=== PATIENT | male | born 1950 | race Caucasian/White ===

== ENCOUNTER → 2016-06-21 | Outpatient (CLI) | payer OTHER ==
[~2016-06-21] MED LIST: ALT10 PO; CLS20 PO; GLC500 PO; QVRINH40 INH; SIMV20TA2 PO; VGR50 PO
[2016-06-21 17:45] LABS: HEMATOCRIT 42.4 % (42-52); MEAN CELL VOLUME 76.3 fL (80-100); MEAN CORPUSCULAR HGB CONC 32.8 g/dl (32-36); MEAN PLATELET VOLUME 11.5 fL (7.4-10.4); PLATELET COUNT 215 K/uL (130-400); RED BLOOD COUNT 5.56 M/uL (4.7-6.1); WHITE BLOOD COUNT 11.01 K/uL (4.8-10.8)
[2016-06-21 17:55] LABS: BLOOD UREA NITROGEN 17 mg/dl (7-18); BUN/CREATININE RATIO 15.5 (10-20); CALCIUM 9.2 mg/dl (8.5-10.1); CARBON DIOXIDE 27 mmol/L (21-32); CHLORIDE 101 mmol/L (98-107); GLUCOSE 73 mg/dl (70-99); POTASSIUM 4.2 mmol/L (3.5-5.1); SODIUM 136 mmol/L (136-145)
[2016-06-22 07:00] LABS: ESTIMATED AVERAGE GLUCOSE 169 mg/dl; HA1C FLAG Normal (Normal)
== END | disposition home or self-care (01) ==
LOC: C.LABPVFM 14:29
PROVIDERS: ATTEND Family Medicine
DX: E11.9 Type 2 diabetes mellitus without complications (principal); L02.91 Cutaneous abscess, unspecified

== ENCOUNTER → 2016-08-06 | Outpatient (CLI) | payer OTHER | END | disposition home or self-care (01) | LOC: C.LABPVFM 08:30 | PROVIDERS: ATTEND Urology | DX: R33.9 Retention of urine, unspecified (principal) ==

== ENCOUNTER → 2016-08-26 | Outpatient (CLI) | payer OTHER ==
--- NOTE | 2016-08-26 15:09 | DIAGNOSTIC IMAGING REPORT ---
CHEST 2 VIEWS ROUTINE CLINICAL HISTORY: Cough dyspnea COMPARISON STUDY: No previous studies for comparison. FINDINGS: The bones soft tissues and hemidiaphragms are normal. The cardiomediastinal silhouette is normal. The lungs are clear. The pulmonary vasculature is normal. IMPRESSION: Negative chest. Electronically signed by: Chriss Douglass M.D. 08/26/2016 3:08 PM Dictated Date/Time: 08/26/2016 3:07 PM
== END | disposition home or self-care (01) ==
LOC: C.RADPV 14:53
PROVIDERS: ATTEND Family Medicine
DX: R05 Cough (principal)

== ENCOUNTER → 2016-08-30 | Outpatient (CLI) | payer OTHER | END | disposition home or self-care (01) | LOC: C.LABPVFM 10:05 | PROVIDERS: ATTEND Family Medicine | DX: R05 Cough (principal) ==

== ENCOUNTER → 2016-11-30 | Outpatient (CLI) | payer OTHER ==
[2016-11-30 13:27] LABS: BLOOD UREA NITROGEN 17 mg/dl (7-18); BUN/CREATININE RATIO 16.7 (10-20); CALCIUM 9.4 mg/dl (8.5-10.1); CARBON DIOXIDE 27 mmol/L (21-32); CHLORIDE 104 mmol/L (98-107); ESTIMATED AVERAGE GLUCOSE 180 mg/dl; GLUCOSE 194 mg/dl (70-99); HA1C FLAG Normal (Normal); POTASSIUM 4.4 mmol/L (3.5-5.1); SODIUM 137 mmol/L (136-145)
== END | disposition home or self-care (01) ==
LOC: C.LABPVFM 09:53
PROVIDERS: ATTEND Family Medicine
DX: E11.9 Type 2 diabetes mellitus without complications (principal)

== ENCOUNTER → 2017-04-01 | Outpatient (CLI) | payer OTHER ==
[2017-04-01 17:59] LABS: BLOOD UREA NITROGEN 22 mg/dl (7-18); BUN/CREATININE RATIO 20.4 (10-20); CALCIUM 8.9 mg/dl (8.5-10.1); CARBON DIOXIDE 30 mmol/L (21-32); CHLORIDE 101 mmol/L (98-107); CREATININE 1.08 mg/dl (0.60-1.40); GLUCOSE 160 mg/dl (70-99); POTASSIUM 4.1 mmol/L (3.5-5.1); SODIUM 135 mmol/L (136-145)
[2017-04-02 06:07] LABS: ESTIMATED AVERAGE GLUCOSE 169 mg/dl; HA1C FLAG Normal (Normal)
== END | disposition home or self-care (01) ==
LOC: C.LABPVFM 11:51
PROVIDERS: ATTEND Family Medicine
DX: E11.65 Type 2 diabetes mellitus with hyperglycemia (principal)

== ENCOUNTER → 2017-06-24 | Outpatient (CLI) | payer OTHER ==
[2017-06-24 12:27] LABS: HEMATOCRIT 43.7 % (42-52); HEMOGLOBIN 14.8 g/dL (14.0-18.0); MEAN CELL VOLUME 77.8 fL (80-100); MEAN CORPUSCULAR HEMOGLOBIN 26.3 pg (25-34); MEAN CORPUSCULAR HGB CONC 33.9 g/dl (32-36); MEAN PLATELET VOLUME 11.5 fL (7.4-10.4); PLATELET COUNT 194 K/uL (130-400); RED CELL DISTRIBUTION WIDTH CV 14.7 % (11.5-14.5); RED CELL DISTRIBUTION WIDTH SD 41.8 fL (36.4-46.3); WHITE BLOOD COUNT 9.27 K/uL (4.8-10.8)
[2017-06-24 13:07] LABS: ALBUMIN 3.9 gm/dl (3.4-5.0); ALT/SGPT 41 U/L (12-78); AST/SGOT 17 U/L (15-37); BLOOD UREA NITROGEN 19 mg/dl (7-18); CALCIUM 8.7 mg/dl (8.5-10.1); CARBON DIOXIDE 28 mmol/L (21-32); CHOLESTEROL 162 mg/dl (0-200); CREATININE 1.03 mg/dl (0.60-1.40); GLUCOSE 172 mg/dl (70-99); POTASSIUM 4.4 mmol/L (3.5-5.1); SODIUM 136 mmol/L (136-145)
[2017-06-24 13:17] LABS: ALKALINE PHOSPHATASE 72 U/L (45-117); LDL CHOLESTEROL CALCULATED 98 mg/dl; TOTAL PROTEIN 7.5 gm/dl (6.4-8.2)
[2017-06-24 14:31] LABS: HEMOGLOBIN A1C 7.7 % (4.5-5.6)
== END | disposition home or self-care (01) ==
LOC: C.LABPVFM 08:12
PROVIDERS: ATTEND Family Medicine
DX: I10 Essential (primary) hypertension (principal); E66.9 Obesity, unspecified; E78.5 Hyperlipidemia, unspecified; J43.9 Emphysema, unspecified

== ENCOUNTER 2017-11-25 16:46 | Inpatient (IN) | payer OTHER ==
[~2017-11-25] VITALS: Ht 175.3 cm; Wt 104.4 kg
[2017-11-25] MEDS ORDERED: DILTIAZEM BOLUS / DRIP IV STA (16:55)
[2017-11-25] MEDS ORDERED: SODIUM CHLORIDE 0.9% 1000ML 1,000 ML IV STA (16:55)
[2017-11-25] MEDS ORDERED: DILTIAZEM HCL INJ 125 MG in DEXTROSE 5% 100ML IV PRN (17:15)
[2017-11-25] MEDS ORDERED: DILTIAZEM HCL 5 MG/ML 5 ML VIAL BOLUS/OMNI IV SCH (17:15)
[2017-11-25] MEDS ORDERED: GLY/5 PO ×2 (17:19)
[2017-11-25] MEDS ORDERED: ASPCH81X PO (17:19)
[2017-11-25] MEDS ORDERED: FLUT1INH7 INH (17:19)
[2017-11-25] MEDS ORDERED: ATOR-24 PO (17:19)
[2017-11-25] MEDS ORDERED: GLC/500 PO (17:21)
[2017-11-25] MEDS ORDERED: VNTHFA/IN INH (17:21)
[2017-11-25] MEDS ORDERED: EMPA1TAB PO (17:21)
[2017-11-25] MEDS ORDERED: IRBE1TAB50 PO (17:21)
[2017-11-25 17:28] LABS: MEAN CORPUSCULAR HGB CONC 33.9 g/dl (32-36)
[2017-11-25 17:37] LABS: HEMATOCRIT 39.9 % (42-52); HEMOGLOBIN 13.5 g/dL (14.0-18.0); INR 1.1 (0.9-1.1); MEAN CELL VOLUME 76.9 fL (80-100); RED CELL DISTRIBUTION WIDTH CV 15.5 % (11.5-14.5); RED CELL DISTRIBUTION WIDTH SD 43.4 fL (36.4-46.3); WHITE BLOOD COUNT 14.13 K/uL (4.8-10.8)
[2017-11-25 17:47] LABS: PLATELET COUNT 87 K/uL (130-400)
[2017-11-25 17:48] LABS: BASO % 0.1 %; BASO ABS # 0.01 K/uL (0-0.2); IG# 0.39 K/uL (0.00-0.02); LYMPH % 4.7 %; LYMPH ABS # 0.67 K/uL (1.2-3.4); MONO % 6.4 %; NEUT ABS # 12.16 K/uL (1.4-6.5)
--- NOTE | 2017-11-25 17:48 | DIAGNOSTIC IMAGING REPORT ---
CHEST ONE VIEW PORTABLE HISTORY: Atypical CHEST PAIN COMPARISON: Chest 08/26/2016. FINDINGS: Stable small linear scarlike density left lung base. The lungs are otherwise clear. The heart is normal in size. No pleural effusions. No pneumothorax. The patient is slightly rotated on this study. IMPRESSION: No acute process. Electronically signed by: Cullen Sr M.D. 11/25/2017 5:47 PM Dictated Date/Time: 11/25/2017 5:45 PM
[2017-11-25 17:50] LABS: ALBUMIN 2.9 gm/dl (3.4-5.0); ALKALINE PHOSPHATASE 152 U/L (45-117); ALT/SGPT 96 U/L (12-78); AST/SGOT 79 U/L (15-37); BLOOD UREA NITROGEN 21 mg/dl (7-18); CALCIUM 8.3 mg/dl (8.5-10.1); CARBON DIOXIDE 20 mmol/L (21-32); GLUCOSE 157 mg/dl (70-99); LIPASE 69 U/L (73-393); POTASSIUM 4.1 mmol/L (3.5-5.1); SODIUM 128 mmol/L (136-145); TOTAL PROTEIN 6.8 gm/dl (6.4-8.2)
--- NOTE | 2017-11-25 18:12 | History and Physical ---
History & Physical Date & Time of Service: Nov 25, 2017 at 18:11 Chief Complaint: Cardiac Assessment Primary Care Physician: Kenia Cesar M.D. History of Present Illness Source: patient, hospital records, other 66 y/o M Hx DM II, HTN, HLD, obese, COPD. The pt presents with episodes of tremor, SOB and tightness in his neck and jaw. He describes 5 such episodes which can last over an hour starting 4 days prior. He had been to his primary MD the previous day and had an apparently normal EKG. He returned today as the symptoms recurred and was found to be in AF with an HR of 150. The pt was referred to the ER therefore. He also complains of dysuria and swelling and erythema of his penis with some yellow discharge. He denies any CP, a productive cough or fevers. Initial labs are notable for LFT abnormalities, hyponatremia and a low platelet count. The pt denies alcohol consumption. AF was confirmed on arrival to the ER. He denies related symptoms at the time of admission and appeared to respond well to a Cardizem bolus. Past Medical/Surgical History 1) COPD 2) HTN 3) Obese 4) DM II 5) HLD Family History Father at age 85 due to [place] Mother at age 69 due to [place] Social History The pt quit smoking 10 years ago. He rarely drinks alcohol and denies a previous history of abuse. 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 Smoking Status: Former Smoker Allergies Coded Allergies: No Known Allergies (Unverified , 05/31/11) Home Medications Scheduled Aspirin (Aspirin Chewable), 81 MG PO DAILY Atorvastatin (Lipitor), 40 MG PO DAILY Empagliflozin (Jardiance), 10 MG PO DAILY Fluticasone Furoate-Vilanterol (Breo Ellipta 200-25 Mcg/INH), 1 PUFF INH DAILY Glyburide (Diabeta), 10 MG PO QPM Glyburide (Diabeta), 5 MG PO QAM Irbesartan (Irbesartan), 150 MG PO DAILY Metformin Hcl (Glucophage), 500 MG PO BID Scheduled PRN Albuterol Hfa (Ventolin Hfa), 2 PUFFS INH Q4H PRN for SOB/Wheezing Review of Systems Constitutional: No fever, No sweats Eyes: No worsening of vision ENT: No hearing loss, No unusual epistaxis, No nasal symptoms Respiratory: + shortness of breath, No cough, No sputum, No wheezing Cardiovascular: + problem reported (Jaw and neck pain), No chest pain Abdomen: + problem reported (distention), No pain Genitourinary - Male: + dysuria, + penile discharge, + problem reported ( erythema as above) Neurologic: + problem reported (tremors), No memory loss, No paralysis Endocrine: No fatigue Hematologic / Lymphatic: No abnormal bleeding/bruising Integumentary: + problem reported (Erythema of penis) Allergic / Immunologic: No environmental allergies Physical Exam Vital Signs Date Time Temp Pulse Resp B/P (MAP) Pulse Ox O2 Delivery O2 Flow Rate FiO2 11/25/17 17:50 119 25 130/79 93 Room Air 11/25/17 17:30 116 28 131/88 93 Room Air 11/25/17 17:19 130 22 141/79 93 Room Air 11/25/17 17:05 142 27 137/82 96 Room Air 11/25/17 17:01 94 Nasal Cannula 11/25/17 17:01 94 Room Air 11/25/17 16:59 162 11/25/17 16:56 37.0 147 17 121/66 94 Room Air 11/25/17 16:56 94 Room Air General Appearance: WD/WN, no apparent distress Head: normocephalic Eyes: normal inspection ENT: normal ENT inspection, pharynx normal Neck: supple, + pertinent finding (Cannot assess JVD due to habitus) Respiratory/Chest: chest non-tender, + pertinent finding (Reduced BL air movement without crackles or wheezing) Cardiovascular: + tachycardia (Regular, tachy rhythm at the time of admission) Abdomen/GI: normal bowel sounds, + pertinent finding (Abdomen is distended, nontender) Genitourinary - Male: + pertinent finding (There is swelling and erythema of the shaft of the penis. ) Back: normal inspection, no CVA tenderness Extremities/Musculoskelatal: normal inspection, no calf tenderness, normal capillary refill, no pedal edema Neurologic/Psych: sde II-XII nml as tested, no motor/sensory deficits, alert, oriented x 3 Skin: normal color Diagnostics Laboratory Results Results Past 24 Hours Test 11/25/17 17:10 Range/Units White Blood Count 14.13 4.8-10.8 K/uL Red Blood Count 5.19 4.7-6.1 M/uL Hemoglobin 13.5 14.0-18.0 g/dL Hematocrit 39.9 42-52 % Mean Corpuscular Volume 76.9 80-100 fL Mean Corpuscular Hemoglobin 26.0 25-34 pg Mean Corpuscular Hemoglobin Concent 33.9 32-36 g/dl Platelet Count 87 130-400 K/uL Neutrophils (%) (Auto) 86.0 % Lymphocytes (%) (Auto) 4.7 % Monocytes (%) (Auto) 6.4 % Eosinophils (%) (Auto) 0.0 % Basophils (%) (Auto) 0.1 % Neutrophils # (Auto) 12.16 1.4-6.5 K/uL Lymphocytes # (Auto) 0.67 1.2-3.4 K/uL Monocytes # (Auto) 0.90 0.11-0.59 K/uL Eosinophils # (Auto) 0.00 0-0.5 K/uL Basophils # (Auto) 0.01 0-0.2 K/uL RDW Standard Deviation 43.4 36.4-46.3 fL RDW Coefficient of Variation 15.5 11.5-14.5 % Immature Granulocyte % (Auto) 2.8 % Immature Granulocyte # (Auto) 0.39 0.00-0.02 K/uL Toxic Vacuolation 1+ Dohle Bodies 2+ Platelet Estimate DECREASED Prothrombin Time 12.0 9.0-12.0 SECONDS Prothromb Time International Ratio 1.1 0.9-1.1 Activated Partial Thromboplast Time 38.0 21.0-31.0 SECONDS Partial Thromboplastin Ratio 1.5 Sodium Level 128 136-145 mmol/L Potassium Level 4.1 3.5-5.1 mmol/L Chloride Level 95 98-107 mmol/L Carbon Dioxide Level 20 21-32 mmol/L Anion Gap 13.0 3-11 mmol/L Blood Urea Nitrogen 21 7-18 mg/dl Creatinine 1.20 0.60-1.40 mg/dl Est Creatinine Clear Calc Drug Dose 76.5 ml/min Estimated GFR () 73.6 Estimated GFR (Non- 63.5 BUN/Creatinine Ratio 17.7 10-20 Random Glucose 157 70-99 mg/dl Calcium Level 8.3 8.5-10.1 mg/dl Total Bilirubin 0.8 0.2-1 mg/dl Direct Bilirubin 0.3 0-0.2 mg/dl Aspartate Amino Transf (AST/SGOT) 79 15-37 U/L Alanine Aminotransferase (ALT/SGPT) 96 12-78 U/L Alkaline Phosphatase 152 45-117 U/L Troponin I < 0.015 0-0.045 ng/ml Pro-B-Type Natriuretic Peptide 949 0-900 pg/ml Total Protein 6.8 6.4-8.2 gm/dl Albumin 2.9 3.4-5.0 gm/dl Lipase 69 73-393 U/L CXR normal EKG AF/RVR 150BPM Impression Assessment and Plan 66 y/o M Hx DM II, HTN, HLD, obese, COPD. The pt presents with episodes of tremor, SOB and tightness in his neck and jaw. He describes 5 such episodes which can last over an hour starting 4 days prior. He had been to his primary MD the previous day and had an apparently normal EKG. He returned today as the symptoms recurred and was found to be in AF with an HR of 150. The pt was referred to the ER therefore. He also complains of dysuria and swelling and erythema of his penis with some yellow discharge. He denies any CP, a productive cough or fevers. Initial labs are notable for LFT abnormalities, hyponatremia and a low platelet count. The pt denies alcohol consumption. AF was confirmed on arrival to the ER. He denies related symptoms at the time of admission and appeared to respond well to a Cardizem bolus. 1) AF - new-onset - placed on a Cardizem drip - he is intermittently in a sinus tach rhythm on admission. We will provide ASA but will not otherwise anticoagulate him prior to trending his platelets. His CHADS score would justify long-term anticoagulation. 2) LFTs are abnormal - denies ETOH use - he may have cirrhosis due to GUILLAUME. We will start with an abdominal ultrasound and repeat LFTs AM. He may need a dedicated liver scan and GI consult if an etiology is not apparent. 3) Hyponatremia - etiology is not clear. The pt is clinically volume overloaded. We will place him on fluid restriction and trend his Na. We will check a urine Na and OSM. We can proceed with IVF and Lasix if needed. A TSH is pending which may explain his AF, tremors and hyponatremia. 4) Penile swelling and discharge - a UA is pending - he is not at risk of STD - we will consult urology. 5) DM II - placed on a SS 6) HTN - cont Irbesartan 7) HLD - continue a statin 8) COPD - no evidence of exacerbation - would minimize albuterol use - continue baseline inhalers Full code - SCDs - total time for this admit including review of labs, meds, imaging, records - discussion with pt and ER attending 39 min Resuscitation Status VTE Prophylaxis Will order VTE Prophylaxis: Yes
[2017-11-25] MEDS ORDERED: LORAZEPAM 2 MG/ML 1 ML VIAL IV PRN (18:15)
[2017-11-25] MEDS ORDERED: ONDANSETRON INJ 2 MG/ML 2 ML VIAL IV PRN (18:15)
[2017-11-25] MEDS ORDERED: ACETAMINOPHEN 325 MG TAB PO PRN (18:15)
[2017-11-25] MEDS ORDERED: POLYETHYLENE (MIRALAX) 17 GM PACK PO PRN (18:15)
[2017-11-25] MEDS ORDERED: ALUMINUM/MAGNESIUM/SIMETH (MAALOX MAX) 30 ML UDC PO PRN (18:15)
[2017-11-25] MEDS ORDERED: MoRPHine SULFATE 2 MG/ML CARP IV PRN (18:15)
[2017-11-25] MEDS ORDERED: MAGNESIUM HYDROXIDE SUSP 30 ML UDC PO PRN (18:15)
[2017-11-25] MEDS ORDERED: ALBUTEROL HFA 8 GM INHALER INH PRN (18:30)
[2017-11-25] MEDS ORDERED: DILTIAZEM BOLUS / DRIP IV PRN (19:42)
[2017-11-25 20:00] VITALS: BP 150/78; PULSE 92; TEMP 36.7; O2SAT 95; BMI 35.2
--- NOTE | 2017-11-25 20:04 | EMERGENCY ROOM VISIT NOTE ---
History Report prepared by Javier: Kitty Graf Under the Supervision of: Dr. Cole Hernandez D.O. First contact with patient: 16:46 Stated Complaint: CARDIAC ASSESSMENT History of Present Illness The patient is a 66 year old male who presents to the Emergency Room with complaints of a cardiac assessment today. The patient states that he has had tremors over the last 3 days and that he gets short of breath when he has those tremors. The patient reports feeling weak and tired and states that he was at his doctor's office yesterday for this. He states that he had an ECG done yesterday and that the rate was normal. Per EMS, the patient had an ECG done in the office today which showed that the patient was in atrial fibrillation with RVR. The patient denies having any nausea or vomiting. The patient also denies feeling his heart racing. He reports that he is a former smoker and that he uses alcohol occasionally. The patient reports that he has hypertension and type 2 diabetes. He denies a history of cardiac problems. Per EMS, the patient was given 10 mg of Cardizem en route. Source of History: patient, EMS Onset: today Position: chest Quality: other (cardiac assessment ) Associated Symptoms: + SOB (with tremors ), + fatigue, + weakness, No nausea , No vomiting Note: additional symptoms: tremors over the last 3 days Review of Systems See HPI for pertinent positives & negatives. A total of 10 systems reviewed and were otherwise negative. Past Medical & Surgical Medical Problems: (1) Atrial fibrillation with rapid ventricular response (2) Diabetes (3) HTN (hypertension) Family History Patient reports no known family medical history. Social History Smoking Status: Former Smoker Alcohol Use: occasionally Marital Status: single Current/Historical Medications Scheduled Aspirin (Aspirin Chewable), 81 MG PO DAILY Atorvastatin (Lipitor), 40 MG PO DAILY Empagliflozin (Jardiance), 10 MG PO DAILY Fluticasone Furoate-Vilanterol (Breo Ellipta 200-25 Mcg/INH), 1 PUFF INH DAILY Glyburide (Diabeta), 10 MG PO QPM Glyburide (Diabeta), 5 MG PO QAM Irbesartan (Irbesartan), 150 MG PO DAILY Metformin Hcl (Glucophage), 500 MG PO BID Scheduled PRN Albuterol Hfa (Ventolin Hfa), 2 PUFFS INH Q4H PRN for SOB/Wheezing Allergies Coded Allergies: No Known Allergies (Unverified , 05/31/11) Physical Exam Vital Signs Date Time Temp Pulse Resp B/P (MAP) Pulse Ox O2 Delivery O2 Flow Rate FiO2 11/25/17 18:36 101 24 129/73 95 Room Air 11/25/17 18:11 106 25 118/75 95 11/25/17 17:50 119 25 130/79 93 Room Air 11/25/17 17:30 116 28 131/88 93 Room Air 11/25/17 17:19 130 22 141/79 93 Room Air 11/25/17 17:05 142 27 137/82 96 Room Air 11/25/17 17:01 94 Nasal Cannula 11/25/17 17:01 94 Room Air 11/25/17 16:59 162 11/25/17 16:56 37.0 147 17 121/66 94 Room Air 11/25/17 16:56 94 Room Air Physical Exam GENERAL: Sitting up in bed, alert, ill appearing, well nourished, mild distress , slightly diaphoretic, on nasal cannula EYE EXAM: normal conjunctiva. OROPHARYNX: no exudate, no erythema, lips, buccal mucosa, and tongue normal and mucous membranes are moist NECK: supple, no nuchal rigidity, no adenopathy, non-tender, positive JVD LUNGS: Coarse bilaterally. Normal chest wall mechanics HEART: tachycardic, irregularly irregular ABDOMEN: abdomen soft, non-tender, normo-active bowel sounds, no masses, no rebound or guarding. BACK: Back is symmetrical on inspection and there is no deformity, no midline tenderness, no CVA tenderness. SKIN: no rashes and no bruising UPPER EXTREMITIES: upper extremities are grossly normal. LOWER EXTREMITIES: No pitting edema. : Normal testicles. Scrotal swelling. Penile edema. Slight amount of green discharge from the penis. NEURO EXAM: Normal sensorium, cranial nerves II-XII grossly intact, normal speech, no gross weakness of arms, no gross weakness of legs. No drift. Finger to nose intact. Gross sensation intact. Medical Decision & Procedures ER Provider Diagnostic Interpretation: Radiology results as stated below per my review and the radiologist's interpretation: CHEST ONE VIEW PORTABLE HISTORY: Atypical CHEST PAIN COMPARISON: Chest 08/26/2016. FINDINGS: Stable small linear scarlike density left lung base. The lungs are otherwise clear. The heart is normal in size. No pleural effusions. No pneumothorax. The patient is slightly rotated on this study. IMPRESSION: No acute process. Electronically signed by: Cullen Sr M.D. 11/25/2017 5:47 PM Dictated Date/Time: 11/25/2017 5:45 PM Laboratory Results 11/25/17 17:10 Red Blood Count 5.19, Mean Corpuscular Volume 76.9, Mean Corpuscular Hemoglobin 26.0, Mean Corpuscular Hemoglobin Concent 33.9, Neutrophils (%) (Auto) 86.0, Lymphocytes (%) (Auto) 4.7, Monocytes (%) (Auto) 6.4, Eosinophils (%) (Auto) 0.0 , Basophils (%) (Auto) 0.1, Neutrophils # (Auto) 12.16, Lymphocytes # (Auto) 0.67, Monocytes # (Auto) 0.90, Eosinophils # (Auto) 0.00, Basophils # (Auto) 0.01 11/25/17 17:10 Test 11/25/17 17:10 11/25/17 18:25 White Blood Count 14.13 K/uL (4.8-10.8) Red Blood Count 5.19 M/uL (4.7-6.1) Hemoglobin 13.5 g/dL (14.0-18.0) Hematocrit 39.9 % (42-52) Mean Corpuscular Volume 76.9 fL (80-100) Mean Corpuscular Hemoglobin 26.0 pg (25-34) Mean Corpuscular Hemoglobin Concent 33.9 g/dl (32-36) Platelet Count 87 K/uL (130-400) Neutrophils (%) (Auto) 86.0 % Lymphocytes (%) (Auto) 4.7 % Monocytes (%) (Auto) 6.4 % Eosinophils (%) (Auto) 0.0 % Basophils (%) (Auto) 0.1 % Neutrophils # (Auto) 12.16 K/uL (1.4-6.5) Lymphocytes # (Auto) 0.67 K/uL (1.2-3.4) Monocytes # (Auto) 0.90 K/uL (0.11-0.59) Eosinophils # (Auto) 0.00 K/uL (0-0.5) Basophils # (Auto) 0.01 K/uL (0-0.2) RDW Standard Deviation 43.4 fL (36.4-46.3) RDW Coefficient of Variation 15.5 % (11.5-14.5) Immature Granulocyte % (Auto) 2.8 % Immature Granulocyte # (Auto) 0.39 K/uL (0.00-0.02) Toxic Vacuolation 1+ Dohle Bodies 2+ Platelet Estimate DECREASED Prothrombin Time 12.0 SECONDS (9.0-12.0) Prothromb Time International Ratio 1.1 (0.9-1.1) Activated Partial Thromboplast Time 38.0 SECONDS (21.0-31.0) Partial Thromboplastin Ratio 1.5 Anion Gap 13.0 mmol/L (3-11) Est Creatinine Clear Calc Drug Dose 76.5 ml/min Estimated GFR () 73.6 Estimated GFR (Non- 63.5 BUN/Creatinine Ratio 17.7 (10-20) Calcium Level 8.3 mg/dl (8.5-10.1) Total Bilirubin 0.8 mg/dl (0.2-1) Direct Bilirubin 0.3 mg/dl (0-0.2) Aspartate Amino Transf (AST/SGOT) 79 U/L (15-37) Alanine Aminotransferase (ALT/SGPT) 96 U/L (12-78) Alkaline Phosphatase 152 U/L (45-117) Troponin I < 0.015 ng/ml (0-0.045) Pro-B-Type Natriuretic Peptide 949 pg/ml (0-900) Total Protein 6.8 gm/dl (6.4-8.2) Albumin 2.9 gm/dl (3.4-5.0) Lipase 69 U/L (73-393) Thyroid Stimulating Hormone (TSH) 1.110 uIu/ml (0.300-4.500) Urine Color YELLOW Urine Appearance TURBID (CLEAR) Urine pH 5.0 (4.5-7.5) Urine Specific [place] 1.021 (1.000-1.030) Urine Protein 1+ (NEG) Urine Glucose (UA) 3+ (NEG) Urine Ketones 2+ (NEG) Urine Occult Blood 3+ (NEG) Urine Nitrite POS (NEG) Urine Bilirubin NEG (NEG) Urine Urobilinogen NEG (NEG) Urine Leukocyte Esterase SMALL (NEG) Urine WBC (Auto) 10-30 /hpf (0-5) Urine RBC (Auto) 10-30 /hpf (0-4) Urine Hyaline Casts (Auto) 5-10 /lpf (0-5) Urine Epithelial Cells (Auto) 20-30 /lpf (0-5) Urine Bacteria (Auto) 1+ (NEG) Urine Pathogenic Casts 1-5 GRANULAR CASTS /lpf (0) Laboratory results per my review. Medications Administered Medications (Trade) Dose Ordered Sig/Jason Route Start Time Stop Time Status Last Admin Dose Admin Sodium Chloride 1,000 ml @ 999 mls/hr Q1H1M STAT IV 11/25/17 16:55 11/25/17 17:55 DC 11/25/17 16:55 999 MLS/HR Diltiazem HCl (Cardizem Inj) 15 mg TODAY@1715 IV 11/25/17 17:15 11/25/17 17:16 DC 11/25/17 17:10 15 MG Diltiazem HCl 125 mg/Dextrose 125 ml @ 0 mls/hr Q0M PRN IV 11/25/17 17:15 11/25/17 20:00 DC 11/25/17 17:13 5 MLS/HR ECG Per My Interpretation Indication: other (afib with RVR) Rate (beats per minute): 151 Rhythm: atrial fibrillation (with RVR) Findings: nonspecific-ST abn (Lateral), other (normal axis) Change: repeat ECG: sinus rhythm, 93, normal axis, no PVCs ED Course ED COURSE: Vital signs were reviewed and showed tachycardia. The patients medical record was reviewed The above diagnostic studies were performed and reviewed. ED treatments and interventions as stated above. 1647: The patient was evaluated in room C4. A complete history and physical examination was performed. 1655: Ordered Sodium Chloride 1000 ml @ 999 mls/hr IV. 1715: Ordered Diltiazem HCl 125 mg/ Dextrose 125 ml @ 0 mls/hr Protocol IV, Cardizem Inj 15 mg IV. 1720: The patient's heart rate is 124. We will increase the Cardizem drip to 15. 1801: Upon reevaluation, the patient is resting. The patient went back into sinus rhythm. I discussed the findings and the treatment plan with the patient. He expresses agreement and understanding. [facility] He will be evaluated for further management. Medical Decision Differential diagnoses includes but is not limited to acute coronary syndrome, myocardial infarction, pericarditis, pulmonary embolus, aortic dissection, pneumonia, pneumothorax, musculoskeletal, shingles, esophageal. Patient is a 66-year-old male who presents the ER referred in by PCP. Upon presentation is brought in by EMS and found to be in A. fib with RVR. Heart rates in the 160s. Labs show a mild leukocytosis of 14,000. BMP with mild hyponatremia 128. CO2 slightly low at 20. Mild transaminitis. Troponin was negative. Does have swelling of his testicles. Chest x-ray was unremarkable. Patient was given fluids. He was placed on Cardizem drip and given a bolus of Cardizem. He converted to a normal sinus rhythm just prior to transfer upstairs. UA was obtained and resulted after admission which did show UTI. Patient was given fluids. He was admitted for A. fib with RVR. He was monitored closely. Drip was titrated up until he converted. Medication Reconcilliation Current Medication List: was personally reviewed by me Blood Pressure Screening Patient's blood pressure: Normal blood pressure Consults Time Called: 1750 Consulting Physician: Dr. Fink[facility] Returned Call: [phone] I reviewed the patient's case with Dr. Fink[facility]. He will evaluate the patient for further management. Impression Primary Impression: Atrial fibrillation with rapid ventricular response Additional Impression: UTI (urinary tract infection) Critical Care I have personally spent 35 minutes of critical care time in the direct management of this patient. This includes bedside care, interpretation of diagnostic studies, and testing, discussion with consultants, patient, and family members, and other required patient management activities. This 35 minutes is in excess of all separately billable procedures. Scribe Attestation The scribe's documentation has been prepared under my direction and personally reviewed by me in its entirety. I confirm that the note above accurately reflects all work, treatment, procedures, and medical decision making performed by me. Departure Information Dispostion Being Evaluated By Hospitalist Problem Qualifiers Additional Impression: UTI (urinary tract infection) Urinary tract infection type: acute cystitis Hematuria presence: with hematuria Qualified Codes: N30.01 - Acute cystitis with hematuria
[2017-11-26] VITALS (8 sets, daily range): BP systolic 105–137; BP diastolic 59–80; PULSE 73–105; TEMP 36.7–37.3; O2SAT 90–95; Ht 175.3 cm; Wt 104.4 kg
[2017-11-26] MEDS: DILTIAZEM HCL INJ 125 MG in DEXTROSE 5% 100ML IV PRN ×2 (01:32→09:32)
[2017-11-26 01:59] LABS: OSMOLALITY,URINE 490 mOms/kg (500-800)
[2017-11-26 02:03] LABS: SODIUM RANDOM URINE 25 mEq/L
[2017-11-26] MEDS: CEFTRIAXONE SOD INJ 1 GM in DEXTROSE 5% ADD-VANTAGE 50ML 50 ML IV SCH (06:11)
[2017-11-26 07:09] LABS: MEAN CORPUSCULAR HGB CONC 33.9 g/dl (32-36)
--- NOTE | 2017-11-26 07:41 | DIAGNOSTIC IMAGING REPORT ---
ABDOMINAL ULTRASOUND COMPLETE HISTORY: cirrhosis. COMPARISON: None. FINDINGS: Pancreas: The pancreatic head and tail are obscured by overlying bowel gas. The remaining portions of the pancreas are within normal limits. Liver: The liver is echogenic consistent with fatty change. 22 cm in length. 9 mm cyst within the left hepatic lobe. Gallbladder: No gallbladder wall thickening. No gallstones. The gallbladder is mildly distended. CBD: 6.5 mm. Kidneys: No hydronephrosis. Spleen: The spleen measures 15 centers in length. Aorta: Normal in caliber. IVC: Patent. Bladder: The bladder is distended and contains a small amount of debris. There is a 5 cm right-sided diverticulum. IMPRESSION: 1. Hepatosplenomegaly. 2. Hepatic steatosis. 3. Mildly distended gallbladder. No gallstones. 4. The common bile duct is borderline dilated measuring 6.5 mm given the patient's age. Electronically signed by: Cullen Sr M.D. 11/26/2017 7:40 AM Dictated Date/Time: 11/26/2017 7:31 AM
[2017-11-26 07:56] LABS: ALBUMIN 2.7 gm/dl (3.4-5.0); CALCIUM 8.4 mg/dl (8.5-10.1); CREATININE 0.99 mg/dl (0.60-1.40); POTASSIUM 3.9 mmol/L (3.5-5.1); TOTAL PROTEIN 6.9 gm/dl (6.4-8.2)
[2017-11-26 07:59] LABS: HEMATOCRIT 39.2 % (42-52); HEMOGLOBIN 13.3 g/dL (14.0-18.0); MEAN CORPUSCULAR HEMOGLOBIN 25.8 pg (25-34); RED CELL DISTRIBUTION WIDTH CV 15.6 % (11.5-14.5); RED CELL DISTRIBUTION WIDTH SD 43.8 fL (36.4-46.3); WHITE BLOOD COUNT 15.16 K/uL (4.8-10.8)
[2017-11-26] MEDS: ATORVASTATIN 40 MG TAB PO SCH (08:07)
[2017-11-26] MEDS: IRBESARTAN 150 MG TAB PO SCH (08:07)
[2017-11-26] MEDS: ASPIRIN 81 MG CHEW PO SCH (08:07)
[2017-11-26 08:27] LABS: PLATELET COUNT 82 K/uL (130-400)
--- NOTE | 2017-11-26 08:44 | ECHOCARDIOGRAM REPORT ---
*NOTICE TO RECEIVING [employer] This information is strictly Confidential and protected under [place] law. [place] law prohibits you from making any further disclosure of this information unless further disclosure is expressly permitted by the written consent of the person to whom it pertains or is authorized by law. A general authorization for the release of medical or other information is not sufficient for this purpose. Hospital accepts no responsibility if the information is made available to any other person, INCLUDING THE PATIENT. Interpretation Summary * Name: SARAH HENNING Study Date: 11/26/2017 06:34 AM BP: 111/64 mmHg * Patient Location: C.2T\S\S239\S\2 HR: 80 * : 1950 (M/d/yyyy) Gender: Male Height: 69 in * Age: 66 yrs Ethnicity: [place] Weight: 245 lb * Ordering Physician: Carson Fink * Referring Physician: Self, Referred * Performed By: Iris Franklin RDCS * * Reason For Study: Atrial Fibrillation * BSA: 2.3 m2 * -- Conclusions -- * Left ventricular systolic function is low normal. * No regional wall motion abnormalities noted. * Ejection Fraction = 50-55%. * Diastolic dysfunction, Grade II (pseudonormalization pattern). * There is mild mitral regurgitation. Procedure Details * A complete two-dimensional transthoracic echocardiogram was performed (2D, M-mode, Doppler and color flow Doppler). * The study was technically difficult. * The study was technically difficult, but visualization was adequate with the administration of Definity ultrasound contrast. * A contrast injection of Definity was performed to improve assessment of LV function. * Contrast was injected into an intravenous site in the right arm. * One vial of Definity ultrasound contrast was diluted in normal saline to a total volume of 10 ml. A total of '2' ml of solution was administered during imaging. * Lot # [id number] of Definity utilized for procedure. * Expiration date . * The attending nurse who injected the contrast agent was JEFFERSON Bourne RN. Left Ventricle * The left ventricle is normal in size. * There is normal left ventricular wall thickness. * Ejection Fraction = 50-55%. * Left ventricular systolic function is low normal. * No regional wall motion abnormalities noted. Right Ventricle * The right ventricle is grossly normal size. * The right ventricular systolic function is normal as assessed by tricuspid annular plane systolic excursion (TAPSE) (normal >1.5 cm). Atria * The left atrium is mildly dilated. * Borderline right atrial enlargement. * No ASD detected; PFO is not assessed. Mitral Valve * The mitral valve is grossly normal. * There is no mitral valve stenosis. * There is mild mitral regurgitation. Tricuspid Valve * The tricuspid valve is not well visualized, but is grossly normal. * There is no tricuspid stenosis. * Significant tricuspid regurgitation is absent. Aortic Valve * The aortic valve is trileaflet. * The aortic valve opens well. * Aortic stenosis is absent. * No aortic regurgitation is present. Pulmonic Valve * The pulmonary valve is not well seen, but the Doppler examination is normal without significant regurgitation or stenosis. Great Vessels * The aortic root is normal size. * The pulmonary is not well visualized. Pericardium/Pleural * There is no pericardial effusion. Great Vessels * Normal inferior vena cava size and collapsability with sniff indicates a normal right atrial pressure of 3 mmHg Left Ventricular Diastolic Function * Diastolic dysfunction, Grade II (pseudonormalization pattern). MMode 2D Measurements and Calculations IVSd 1.0 cm IVSs 1.3 cm LVIDd 4.8 cm LVIDs 3.4 cm LVPWd 1.1 cm LVPWs 1.4 cm IVS/LVPW 0.93 FS 29.7 % EDV(Teich) 106.8 ml ESV(Teich) 46.3 ml EF(Teich) 56.6 % EDV(cubed) 109.7 ml ESV(cubed) 38.2 ml EF(cubed) 65.2 % % IVS thick 31.2 % % LVPW thick 34.7 % LV mass(C)d 178.4 grams LV mass(C)dI 79.2 grams/m\S\2 LV mass(C)s 160.5 grams LV mass(C)sI 71.3 grams/m\S\2 SV(Teich) 60.5 ml SI(Teich) 26.9 ml/m\S\2 SV(cubed) 71.5 ml SI(cubed) 31.8 ml/m\S\2 Ao root diam 3.1 cm Ao root area 7.5 cm\S\2 ACS 2.0 cm LA dimension 3.9 cm LA/Ao 1.3 LVAd ap4 34.6 cm\S\2 LVLd ap4 8.4 cm EDV(MOD-sp4) 122.0 ml EDV(sp4-el) 121.1 ml LVAs ap4 21.2 cm\S\2 LVLs ap4 7.6 cm ESV(MOD-sp4) 52.5 ml ESV(sp4-el) 49.9 ml EF(MOD-sp4) 57.0 % EF(sp4-el) 58.8 % LVAd ap2 37.4 cm\S\2 LVLd ap2 9.3 cm EDV(MOD-sp2) 128.0 ml EDV(sp2-el) 128.0 ml LVAs ap2 22.8 cm\S\2 LVLs ap2 8.0 cm ESV(MOD-sp2) 56.3 ml ESV(sp2-el) 55.2 ml EF(MOD-sp2) 56.0 % EF(sp2-el) 56.9 % LVLd %diff 9.4 % EDV(MOD-bp) 129.8 ml LVLs %diff 4.5 % ESV(MOD-bp) 55.2 ml EF(MOD-bp) 57.5 % SV(MOD-sp4) 69.5 ml SI(MOD-sp4) 30.9 ml/m\S\2 SV(MOD-sp2) 71.6 ml SI(MOD-sp2) 31.8 ml/m\S\2 SV(MOD-bp) 74.6 ml SI(MOD-bp) 33.1 ml/m\S\2 SV(sp4-el) 71.2 ml SI(sp4-el) 31.6 ml/m\S\2 SV(sp2-el) 72.8 ml SI(sp2-el) 32.4 ml/m\S\2 Doppler Measurements and Calculations MV E max cj 103.4 cm/sec MV A max cj 78.1 cm/sec MV E/A 1.3 MV dec time 0.16 sec Ao V2 max 123.3 cm/sec Ao max PG 6.1 mmHg Ao max PG (full) 2.8 mmHg LV V1 max PG 3.3 mmHg LV V1 max 90.6 cm/sec PA V2 max 89.5 cm/sec PA max PG 3.2 mmHg
[2017-11-26] MEDS ORDERED: METOPROLOL TARTRATE 25 MG TAB PO ONE (09:30)
[2017-11-26] MEDS ORDERED: APIXABAN 5 MG TAB PO ONE (09:30)
--- NOTE | 2017-11-26 12:10 | CARDIOLOGY CONSULTATION REPORT ---
DATE OF CONSULTATION: 11/26/2017 REASON FOR CONSULTATION: Paroxysmal Atrial Fibrillation with RVR. HISTORY OF PRESENT ILLNESS: Mr. Smith is an obese 66-year-old white male with a history of type 2 DM (diagnosed 10 years ago), dyslipidemia, hypertension, COPD/emphysema, and a questionable history of peripheral arterial disease with right lower extremity claudication, who presented acutely to [facility] Emergency Room on 11/25/2017 complaining of "tremors" with associated shortness of breath, tightness in his neck and jaw, diaphoresis and a metallic taste in his mouth. These episodes seem to come and go over the preceding 3 to 4 days with longest episode lasting 3 hours, and the shortest episode being 1 hour. The patient saw his PCP on 11/24/2017 and apparently had an elevated heart rate of 114 beats per minute and uncertain of an EKG was done. The following day, he returned to his PCP where an EKG confirmed the presence of atrial fibrillation with a ventricular response rate of 154 beats per minute. Therefore, he was referred to the ER for further evaluation. The patient was noted to be in rapid atrial fibrillation on admission, but converted back to a NSR still while in the Emergency Room. He was admitted to telemetry unit, started on diltiazem drip and maintained on his usual outpatient medications. The patient has not had any recurrent atrial fibrillation. His laboratory showed normal serum potassium, serum magnesium levels, normal TSH, and negative troponin I x 2. The patient underwent an echocardiogram earlier today, which showed normal LV systolic function with an LVEF of 50%-55%, no regional wall motion abnormalities, mild MR, and grade 2 LV diastolic dysfunction. Additionally, the patient has an elevated white blood cell count of 15.16, with an elevated neutrophil count and he is having urinary symptoms. He has yet to see the urologist. The patient denies any prior cardiac history or prior cardiac events. He denies any history of CAD, [place], CHF, rheumatic fever, or prior cardiac dysrhythmias. MEDICATIONS: 1. Aspirin 81 mg daily. 2. Lipitor 40 mg daily. 3. Avapro 150 mg daily. 4. Diltiazem drip. 5. Ceftriaxone 1 g IV q. 24 hours. 6. Albuterol HFA 2 puffs p.o. q. 4 hours p.r.n. for shortness of breath or wheezing. 7. Tylenol 650 mg p.o. q. 4 hours p.r.n. for pain or fever. 8. Maalox max 15 mL q. 4 hours p.r.n. 9. Milk of magnesia 30 mL p.o. q. 12 hours p.r.n. for constipation. 10. Zofran 4 mg IV q. 6 hours p.r.n. for nausea. 11. Morphine sulfate 2 mg IV q. 30 minutes p.r.n. for chest pain. 12. MiraLax powder 17 grams daily as needed for constipation. 13. Lorazepam 0.5 mg IV q. 8 hours p.r.n. for anxiety. ALLERGIES: NKDA. PAST MEDICAL HISTORY: 1. Type 2 diabetes mellitus, diagnosed approximately 10 years ago. 2. Hypertension. 3. Dyslipidemia. 4. COPD/emphysema. 5. Newly diagnosed Paroxysmal Atrial Fibrillation. 6. BPH with current urinary symptoms. 7. Urinalysis shows +2 occult blood, +2 ketones, positive for urine nitrite, trace amount of urine leukocyte esterase and 10-30 wbc's per high power field along with 1-5 granular casts. Workup is underway. 8. Questionable history of peripheral arterial disease with right lower extremity claudication (the patient is uncertain of this diagnosis). 9. History of knee pain. 10. History of acute bronchitis. 11. History of inguinal hernia. 12. History of umbilical hernia. 13. Urethral stricture. 14. Erectile dysfunction. SOCIAL HISTORY: The patient is single, lives in [place], [place]. Former smoker. Quit 10 years ago. He has not been drinking alcohol lately. FAMILY HISTORY: Father at age of 85 secondary to CAD/[place]. Mother at age of 69 due to CAD and [place]. PHYSICAL EXAMINATION: VITAL SIGNS: Temperature is 37.2 degrees Celsius, pulse 77 and regular, respiratory rate 18 and unlabored, blood pressure 137/70, and SpO2 is 94% on room air. I&O's -972 mL total. Body weight 108.2 kg. GENERAL: The patient is in no acute distress. HEENT: Head is atraumatic, normocephalic. EOMs intact. Sclerae are anicteric. Face is symmetric. No perioral cyanosis. Mucous membranes are moist. NECK: Without thyromegaly, adenopathy, or JVD. Carotid upstrokes are +2 bilaterally without bruits. CHEST AND LUNGS: With slightly distant breath sounds throughout, otherwise clear. No wheezes, rales or rhonchi. CARDIOVASCULAR: S1 and S2 are regular, distant, without obvious murmur, gallop or rub. PMI is nonpalpable. No lifts, heaves, or thrills. No abdominal aortic or renal bruits. ABDOMEN: Obese. Bowel sounds present. No masses, organomegaly, or tenderness. EXTREMITIES: No clubbing, cyanosis, or edema. Intact radial and posterior tibial pulses bilaterally. NEUROLOGIC: The patient is awake, alert and oriented. Pleasant and cooperative. He answers questions appropriately. Speech is clear. Normal movement in all 4 extremities. Gait pattern was not assessed. LABORATORY DATA: White blood cell count 15.16, hemoglobin 13.3 g/dL, hematocrit 39.2%, platelet count is 82,000. Neutrophilia is present. Sodium is 129 mmol/L, potassium 3.9 mmol/L, BUN 21 mg/dL, creatinine 0.99 mg/dL, random glucose is 180 mg/dL. Serum magnesium level 2.3 mg/dL. LFTs are slightly abnormal, and this corresponds with hepatic steatosis. Troponin I level is less than 0.015 ng/mL x 2. ProBNP is minimally elevated at 949 pg/mL. TSH is 1.110 uIU/mL. Urine culture and sensitivity is pending. EKG on admission shows AFib with RVR, ventricular response rate 150 beats per minute, no other abnormalities noted. EKG performed last evening shows normal sinus rhythm, normal tracing. ASSESSMENT: 1. Newly diagnosed PAF with RVR. 2. Currently in a normal sinus rhythm. 3. Elevated CHADS-VASc score of 5. 4. Grade 2 LV diastolic dysfunction. 5. Mild MR. 6. Preserved LV systolic function, LVEF of 50%-55% without regional wall motion abnormalities. 7. Currently with urinary tract symptoms and an abnormal urinalysis. Culture and urologic work-up pending. PLAN: 1. I had a long discussion with the patient regarding what atrial fibrillation is -- including illustrations. He verbalizes understanding. He is aware of that this is typically a phenomena that comes and goes initially, and that eventually it typically comes on more frequently and lasts longer over time. We discussed the principles of management of atrial fibrillation and discussed the importance of controlling his rate when he is out of rhythm, and the importance of anticoagulation. The patient verbalizes understanding of this discussion. 2. Recommend converting from IV Diltiazem to oral Lopressor. 3. Begin Lopressor 25 mg p.o. b.i.d. Most likely will be discharged on Toprol XL 50 mg daily. If beta aleta results in any bronchospasm, we will convert to oral Diltiazem. 4. Being Eliquis 5 mg p.o. b.i.d. for long-term anticoagulation based on his atrial fibrillation and elevated CHADS-VASc score. 5. We will plan on following up with the patient as an outpatient in 2-3 weeks. We will also continue to follow along while hospitalized. Attending note: Patient seen and examined along with resident on service. Agree with above. Presented in AF, duration pre-hospital not clear but probably somewhat prolonged. Agree with anticoagulation and beta aleta, probably will need higher beta aleta dose but start with current dose. MTDD
[2017-11-26] MEDS ORDERED: NURSING VERBAL MED ORDER ONE ×2 (12:30→14:00)
[2017-11-26] MEDS: FLUTICASONE/SALMETEROL 250/50 (ADVAIR) 14 PUFF/1 INHALER INH SCH (14:35)
--- NOTE | 2017-11-26 15:01 | Progress Note ---
Subjective Date of Service: Nov 26, 2017. Subjective Pt evaluation today including: conversation w/ patient, physical exam, chart review, lab review, review of inpatient medication list Conversational, however mild labored breathing associated with wheezing, otherwise awake alert and orientated, complaining about penis swelling, no drainage Problem List Medical Problems: (1) UTI (urinary tract infection) Status: Acute Review of Systems Constitutional: + weakness, + fatigue, No fever, No chills, No sweats, No weight loss, No problem reported Eyes: No worsening of vision, No eye pain, No redness, No discharge, No diplopia ENT: No hearing loss, No unusual epistaxis, No nasal symptoms, No sore throat, No tinnitus, No dental problems, No trouble swallowing Respiratory: + wheezing, + shortness of breath, No cough, No sputum, No dyspnea on exertion, No dyspnea at rest, No hemoptysis Cardiac: No chest pain, No orthopnea, No PND, No edema, No claudication, No palpitations Abdomen: No pain, No nausea, No vomiting, No diarrhea, No constipation Musculoskeletal: No joint pain, No muscle pain, No swelling, No calf pain Male : + see HPI, No dysuria, No urinary frequency, No incontinence, No nocturia more than once/night, No slowing stream, No hematuria Neurologic: No memory loss, No paralysis, No weakness, No numbness/tingling, No vertigo, No balance problems Psychiatric: No depression symptoms, No anhedonism, No anxiety, No insomnia, No substance abuse Heme: No abnormal bleeding/bruising, No clotting problems, No swollen lymph nodes, No night sweats Endo: No fatigue, No excessive thirst, No excessive urination Skin: No rash, No itch, No new/changing skin lesions, No color change, No bleeding Objective Vital Signs Date Time Temp Pulse Resp B/P (MAP) Pulse Ox O2 Delivery O2 Flow Rate FiO2 11/26/17 11:30 36.7 82 20 108/69 (82) 94 Room Air 11/26/17 09:52 73 105/61 (76) 94 11/26/17 08:00 Room Air 11/26/17 07:00 37.2 77 18 137/70 (92) 94 Room Air 11/26/17 04:07 37.3 92 18 111/64 (80) 92 Room Air 11/26/17 00:09 37.1 87 16 110/59 (76) 95 Room Air 11/25/17 23:59 Room Air 11/25/17 20:00 36.7 92 24 150/78 95 Room Air 11/25/17 18:36 101 24 129/73 95 Room Air 11/25/17 18:11 106 25 118/75 95 11/25/17 17:50 119 25 130/79 93 Room Air 11/25/17 17:30 116 28 131/88 93 Room Air 11/25/17 17:19 130 22 141/79 93 Room Air 11/25/17 17:05 142 27 137/82 96 Room Air 11/25/17 17:01 94 Nasal Cannula 11/25/17 17:01 94 Room Air 11/25/17 16:59 162 11/25/17 16:56 37.0 147 17 121/66 94 Room Air 11/25/17 16:56 94 Room Air Physical Exam General Appearance: WD/WN, no apparent distress Eyes: normal inspection, PERRL, EOMI, sclerae normal ENT: normal ENT inspection, hearing grossly normal, pharynx normal Neck: supple, no adenopathy, thyroid normal, no JVD, no carotid bruits, trachea midline Respiratory/Chest: chest non-tender, normal breath sounds, no respiratory distress, no accessory muscle use, + decreased breath sounds, + wheezing Cardiovascular: regular rate, rhythm, no edema, no gallop, no JVD, no murmur Abdomen: normal bowel sounds, non tender, soft, no organomegaly, no pulsatile mass, + distended Extremities: normal range of motion, non-tender, normal inspection, no pedal edema, no calf tenderness, normal capillary refill, pelvis stable 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, no motor/sensory deficits, alert, normal mood/affect, oriented x 3 Skin: normal color, warm/dry, no rash Lymphatic: no adenopathy Laboratory Results Last 24 Hours Test 11/25/17 17:10 11/25/17 18:25 11/25/17 20:15 11/25/17 23:04 White Blood Count 14.13 K/uL Red Blood Count 5.19 M/uL Hemoglobin 13.5 g/dL Hematocrit 39.9 % Mean Corpuscular Volume 76.9 fL Mean Corpuscular Hemoglobin 26.0 pg Mean Corpuscular Hemoglobin Concent 33.9 g/dl Platelet Count 87 K/uL Neutrophils (%) (Auto) 86.0 % Lymphocytes (%) (Auto) 4.7 % Monocytes (%) (Auto) 6.4 % Eosinophils (%) (Auto) 0.0 % Basophils (%) (Auto) 0.1 % Neutrophils # (Auto) 12.16 K/uL Lymphocytes # (Auto) 0.67 K/uL Monocytes # (Auto) 0.90 K/uL Eosinophils # (Auto) 0.00 K/uL Basophils # (Auto) 0.01 K/uL RDW Standard Deviation 43.4 fL RDW Coefficient of Variation 15.5 % Immature Granulocyte % (Auto) 2.8 % Immature Granulocyte # (Auto) 0.39 K/uL Toxic Vacuolation 1+ Dohle Bodies 2+ Platelet Estimate DECREASED Prothrombin Time 12.0 SECONDS Prothromb Time International Ratio 1.1 Activated Partial Thromboplast Time 38.0 SECONDS Partial Thromboplastin Ratio 1.5 Sodium Level 128 mmol/L Potassium Level 4.1 mmol/L Chloride Level 95 mmol/L Carbon Dioxide Level 20 mmol/L Anion Gap 13.0 mmol/L Blood Urea Nitrogen 21 mg/dl Creatinine 1.20 mg/dl Est Creatinine Clear Calc Drug Dose 76.5 ml/min Estimated GFR () 73.6 Estimated GFR (Non- 63.5 BUN/Creatinine Ratio 17.7 Random Glucose 157 mg/dl Calcium Level 8.3 mg/dl Total Bilirubin 0.8 mg/dl Direct Bilirubin 0.3 mg/dl Aspartate Amino Transf (AST/SGOT) 79 U/L Alanine Aminotransferase (ALT/SGPT) 96 U/L Alkaline Phosphatase 152 U/L Troponin I < 0.015 ng/ml < 0.015 ng/ml Pro-B-Type Natriuretic Peptide 949 pg/ml Total Protein 6.8 gm/dl Albumin 2.9 gm/dl Lipase 69 U/L Thyroid Stimulating Hormone (TSH) 1.110 uIu/ml Urine Color YELLOW Urine Appearance TURBID Urine pH 5.0 Urine Specific Goodrich 1.021 Urine Protein 1+ Urine Glucose (UA) 3+ Urine Ketones 2+ Urine Occult Blood 3+ Urine Nitrite POS Urine Bilirubin NEG Urine Urobilinogen NEG Urine Leukocyte Esterase SMALL Urine WBC (Auto) 10-30 /hpf Urine RBC (Auto) 10-30 /hpf Urine Hyaline Casts (Auto) 5-10 /lpf Urine Epithelial Cells (Auto) 20-30 /lpf Urine Bacteria (Auto) 1+ Urine Pathogenic Casts 1-5 GRANULAR CASTS /lpf Bedside Glucose 180 mg/dl Hepatitis C Antibody Screen NEG Test 11/26/17 01:35 11/26/17 06:26 11/26/17 06:59 11/26/17 11:12 Urine Color YELLOW Urine Appearance TURBID Urine pH 5.0 Urine Specific Goodrich 1.026 Urine Protein 1+ Urine Glucose (UA) 3+ Urine Ketones 2+ Urine Occult Blood 2+ Urine Nitrite POS Urine Bilirubin NEG Urine Urobilinogen NEG Urine Leukocyte Esterase TRACE Urine WBC (Auto) 10-30 /hpf Urine RBC (Auto) 0-4 /hpf Urine Hyaline Casts (Auto) 1-5 /lpf Urine Epithelial Cells (Auto) 0-5 /lpf Urine Bacteria (Auto) 2+ Urine Osmolality 490 mOms/kg Urine Random Sodium 25 mEq/L White Blood Count 15.16 K/uL Red Blood Count 5.16 M/uL Hemoglobin 13.3 g/dL Hematocrit 39.2 % Mean Corpuscular Volume 76.0 fL Mean Corpuscular Hemoglobin 25.8 pg Mean Corpuscular Hemoglobin Concent 33.9 g/dl RDW Standard Deviation 43.8 fL RDW Coefficient of Variation 15.6 % Platelet Count 82 K/uL Sodium Level 129 mmol/L Potassium Level 3.9 mmol/L Chloride Level 97 mmol/L Carbon Dioxide Level 19 mmol/L Anion Gap 12.0 mmol/L Blood Urea Nitrogen 21 mg/dl Creatinine 0.99 mg/dl Est Creatinine Clear Calc Drug Dose 92.8 ml/min Estimated GFR () 92.9 Estimated GFR (Non- 80.2 BUN/Creatinine Ratio 21.3 Random Glucose 189 mg/dl Estimated Average Glucose 183 mg/dl Hemoglobin A1c 8.0 % Calcium Level 8.4 mg/dl Magnesium Level 2.3 mg/dl Total Bilirubin 0.7 mg/dl Direct Bilirubin 0.3 mg/dl Aspartate Amino Transf (AST/SGOT) 67 U/L Alanine Aminotransferase (ALT/SGPT) 95 U/L Alkaline Phosphatase 131 U/L Total Protein 6.9 gm/dl Albumin 2.7 gm/dl Bedside Glucose 180 mg/dl 221 mg/dl Assessment and Plan 66 y/o M admitted on November 25, 2017 because of A. fib with rapid ventricular response Hx DM II, HTN, HLD, obese, COPD. Per report, , the pt presents with episodes of tremor, SOB and tightness in his neck and jaw, was found to be in AF with an HR of 150. A. fib with rapid ventricular response, new identified, was on Cardizem drip, cardiology input appreciated, continue beta-aleta, started Eliquis for stroke prevention Discussed with patient about risk and benefit , he understands and agrees to take this medication LFTs are abnormal , Liver ultrasound per report, 1. Hepatosplenomegaly. 2. Hepatic steatosis. 3. Mildly distended gallbladder. No gallstones. 4. The common bile duct is borderline dilated measuring 6.5 mm given the patient 's age pt denies ETOH use - he may have cirrhosis due to GUILLAUME., Hyponatremia - etiology is not clear. The pt is clinically volume overloaded. We will place him on fluid restriction and trend his Na. We will check a urine Na and OSM. DM , dyslipidemia, hypertension,cont Irbesartan and a statin Penis warnings and uncomfortable, urology input appreciated will follow COPD - no evidence of exacerbation - would minimize albuterol use - continue baseline inhalers Full code - SCDs will protect DVT prophylaxis by CT Continued [facility] stay due to: multiple IV medications needed Discharge planning: home
--- NOTE | 2017-11-26 15:17 | DIAGNOSTIC IMAGING REPORT ---
TESTICULAR ULTRASOUND HISTORY: scrotal and penile swelling. U/s penis and scrotum please. COMPARISON: None. FINDINGS: Right testis: 4.6 x 2.6 x 3.3 cm. There are no intratesticular masses. Normal color flow. The epididymis demonstrates a 3 mm cyst at the head. Trace complex hydrocele. Small right-sided varicocele. Left testis: 4.0 x 2.9 x 2.8 cm. There are no intratesticular masses. Normal color flow. No hydrocele. The epididymis is unremarkable. Small complex hydrocele. Soft tissue thickening/edema seen within the scrotum and penis. No loculated fluid collections identified. IMPRESSION: 1. Diffuse soft tissue thickening/edema within the scrotum and penis. No loculated fluid collections identified. 2. Trace right and small left complex hydroceles. 3. Normal bilateral testes. 4. Small right-sided varicocele. Dedicated abdomen and pelvis CT is recommended on nonemergent basis given the unilateral right-sided varicocele to exclude the less likely possibility of an abdominal mass. Electronically signed by: Cullen Sr M.D. 11/26/2017 3:15 PM Dictated Date/Time: 11/26/2017 2:51 PM
[2017-11-26] MEDS ORDERED: OPTIRAY 320 IV PRN (16:00)
--- NOTE | 2017-11-26 16:06 | Urology Consultation ---
History General Date of Service: Nov 26, 2017. Chief Complaint: penoscrotal swelling Primary Care Physician: Kenia Cesar M.D. Pt seen a urologist before?: Yes (Dr. John Felix ) If yes, why?: urethral stricture, LUTS History of Present Illness 66 yo male admitted for new onset a-fib. consulted for penoscrotal swelling. Pt sees Dr. Felix as an outpatient for hx of urethral stricture and incomplete bladder emptying. He was last seen in July, and did not want surgery for his stricture at that time. PVR at that time was 369ml. Pt reports swelling started this admission. Denies pain. He c/o baseline urinary urgency. Per reports, he has some penile discharge as well. Looks like urine to me. UC&S is pending. Testicular u/s obtained this afternoon. Soft tissue edema of the penis and scrotum noted. Small right sided varicocele noted as well. Abdominal u/s shows some ureteral dilation without hydronephrosis. Imaging Imaging: Ultrasound (testicular) Laboratory Last 24 Hours Test 11/25/17 17:10 11/25/17 18:25 11/25/17 20:15 11/25/17 23:04 White Blood Count 14.13 K/uL Red Blood Count 5.19 M/uL Hemoglobin 13.5 g/dL Hematocrit 39.9 % Mean Corpuscular Volume 76.9 fL Mean Corpuscular Hemoglobin 26.0 pg Mean Corpuscular Hemoglobin Concent 33.9 g/dl Platelet Count 87 K/uL Neutrophils (%) (Auto) 86.0 % Lymphocytes (%) (Auto) 4.7 % Monocytes (%) (Auto) 6.4 % Eosinophils (%) (Auto) 0.0 % Basophils (%) (Auto) 0.1 % Neutrophils # (Auto) 12.16 K/uL Lymphocytes # (Auto) 0.67 K/uL Monocytes # (Auto) 0.90 K/uL Eosinophils # (Auto) 0.00 K/uL Basophils # (Auto) 0.01 K/uL RDW Standard Deviation 43.4 fL RDW Coefficient of Variation 15.5 % Immature Granulocyte % (Auto) 2.8 % Immature Granulocyte # (Auto) 0.39 K/uL Toxic Vacuolation 1+ Dohle Bodies 2+ Platelet Estimate DECREASED Prothrombin Time 12.0 SECONDS Prothromb Time International Ratio 1.1 Activated Partial Thromboplast Time 38.0 SECONDS Partial Thromboplastin Ratio 1.5 Sodium Level 128 mmol/L Potassium Level 4.1 mmol/L Chloride Level 95 mmol/L Carbon Dioxide Level 20 mmol/L Anion Gap 13.0 mmol/L Blood Urea Nitrogen 21 mg/dl Creatinine 1.20 mg/dl Est Creatinine Clear Calc Drug Dose 76.5 ml/min Estimated GFR () 73.6 Estimated GFR (Non- 63.5 BUN/Creatinine Ratio 17.7 Random Glucose 157 mg/dl Calcium Level 8.3 mg/dl Total Bilirubin 0.8 mg/dl Direct Bilirubin 0.3 mg/dl Aspartate Amino Transf (AST/SGOT) 79 U/L Alanine Aminotransferase (ALT/SGPT) 96 U/L Alkaline Phosphatase 152 U/L Troponin I < 0.015 ng/ml < 0.015 ng/ml Pro-B-Type Natriuretic Peptide 949 pg/ml Total Protein 6.8 gm/dl Albumin 2.9 gm/dl Lipase 69 U/L Thyroid Stimulating Hormone (TSH) 1.110 uIu/ml Urine Color YELLOW Urine Appearance TURBID Urine pH 5.0 Urine Specific Spade 1.021 Urine Protein 1+ Urine Glucose (UA) 3+ Urine Ketones 2+ Urine Occult Blood 3+ Urine Nitrite POS Urine Bilirubin NEG Urine Urobilinogen NEG Urine Leukocyte Esterase SMALL Urine WBC (Auto) 10-30 /hpf Urine RBC (Auto) 10-30 /hpf Urine Hyaline Casts (Auto) 5-10 /lpf Urine Epithelial Cells (Auto) 20-30 /lpf Urine Bacteria (Auto) 1+ Urine Pathogenic Casts 1-5 GRANULAR CASTS /lpf Bedside Glucose 180 mg/dl Hepatitis C Antibody Screen NEG Test 11/26/17 01:35 11/26/17 06:26 11/26/17 06:59 11/26/17 11:12 Urine Color YELLOW Urine Appearance TURBID Urine pH 5.0 Urine Specific Spade 1.026 Urine Protein 1+ Urine Glucose (UA) 3+ Urine Ketones 2+ Urine Occult Blood 2+ Urine Nitrite POS Urine Bilirubin NEG Urine Urobilinogen NEG Urine Leukocyte Esterase TRACE Urine WBC (Auto) 10-30 /hpf Urine RBC (Auto) 0-4 /hpf Urine Hyaline Casts (Auto) 1-5 /lpf Urine Epithelial Cells (Auto) 0-5 /lpf Urine Bacteria (Auto) 2+ Urine Osmolality 490 mOms/kg Urine Random Sodium 25 mEq/L White Blood Count 15.16 K/uL Red Blood Count 5.16 M/uL Hemoglobin 13.3 g/dL Hematocrit 39.2 % Mean Corpuscular Volume 76.0 fL Mean Corpuscular Hemoglobin 25.8 pg Mean Corpuscular Hemoglobin Concent 33.9 g/dl RDW Standard Deviation 43.8 fL RDW Coefficient of Variation 15.6 % Platelet Count 82 K/uL Sodium Level 129 mmol/L Potassium Level 3.9 mmol/L Chloride Level 97 mmol/L Carbon Dioxide Level 19 mmol/L Anion Gap 12.0 mmol/L Blood Urea Nitrogen 21 mg/dl Creatinine 0.99 mg/dl Est Creatinine Clear Calc Drug Dose 92.8 ml/min Estimated GFR () 92.9 Estimated GFR (Non- 80.2 BUN/Creatinine Ratio 21.3 Random Glucose 189 mg/dl Estimated Average Glucose 183 mg/dl Hemoglobin A1c 8.0 % Calcium Level 8.4 mg/dl Magnesium Level 2.3 mg/dl Total Bilirubin 0.7 mg/dl Direct Bilirubin 0.3 mg/dl Aspartate Amino Transf (AST/SGOT) 67 U/L Alanine Aminotransferase (ALT/SGPT) 95 U/L Alkaline Phosphatase 131 U/L Total Protein 6.9 gm/dl Albumin 2.7 gm/dl Bedside Glucose 180 mg/dl 221 mg/dl Problem List Medical Problems: (1) UTI (urinary tract infection) Status: Acute Past History COPD, diabetes, high cholesterol, hypertension, other (urethral stricture) Past Surgical History: tonsillectomy Family History heart disease, diabetes, cancer Social History Hx Tobacco Use In Past Year?: No Smoking: other (quit 10 years ago ) Alcohol: other (rarely drinks ) Marital status: single Occupation status: retired Allergies Coded Allergies: No Known Allergies (Unverified , 05/31/11) Medications Home Medications: Home Meds and Scripts Medications Dose Route/Sig Max Daily Dose Days Date Category Ventolin Hfa (Albuterol) 200 Puffs/09708 Mcg Aers 2 Puffs INH Q4H PRN 11/25/17 Reported Jardiance (Empagliflozin) 10 Mg Tab 10 Mg PO DAILY 11/25/17 Reported Glucophage (Metformin Hcl) 500 Mg Tab 500 Mg PO BID 11/25/17 Reported Irbesartan 300 Mg Tab 150 Mg PO DAILY 11/25/17 Reported Diabeta (Glyburide) 5 Mg Tab 5 Mg PO QAM 11/25/17 Reported Diabeta (Glyburide) 5 Mg Tab 10 Mg PO QPM 11/25/17 Reported Breo Ellipta 200-25 Mcg/INH (Fluticasone Furoate-Vilanterol) 1 Inh Inh 1 Puff INH DAILY 11/25/17 Reported Lipitor (Atorvastatin Calcium) 40 Mg Tab 40 Mg PO DAILY 11/25/17 Reported Aspirin Chewable (Aspirin) 81 Mg Chew 81 Mg PO DAILY 11/25/17 Reported Inpatient Medications: Current Inpatient Medications Medications (Trade) Dose Ordered Sig/Jason Route Start Time Stop Time Status Last Admin Dose Admin Albuterol (Ventolin Hfa Inhaler) 2 puffs Q4H PRN INH 11/25/17 18:30 12/25/17 18:29 Aspirin (Aspirin Chew) 81 mg DAILY PO 11/26/17 09:00 12/26/17 08:59 11/26/17 08:07 81 MG Atorvastatin Calcium (Lipitor Tab) 40 mg DAILY PO 11/26/17 09:00 12/26/17 08:59 11/26/17 08:07 40 MG Irbesartan (Avapro Tab) 150 mg DAILY PO 11/26/17 09:00 12/26/17 08:59 11/26/17 08:07 150 MG Acetaminophen (Tylenol Tab) 650 mg Q4H PRN PO 11/25/17 18:15 12/25/17 18:14 Al Hydrox/Mg Hydrox/Simethicone (Maalox Max Susp) 15 ml Q4H PRN PO 11/25/17 18:15 12/25/17 18:14 Magnesium Hydroxide (Milk Of Magnesia Susp) 30 ml Q12H PRN PO 11/25/17 18:15 12/25/17 18:14 Ondansetron HCl (Zofran Inj) 4 mg Q6H PRN IV 11/25/17 18:15 12/25/17 18:14 Morphine Sulfate (MoRPHine SULFATE INJ) 2 mg Q30M PRN IV 11/25/17 18:15 12/09/17 18:14 Polyethylene (Miralax Powder Packet) 17 gm DAILY PRN PO 11/25/17 18:15 12/25/17 18:14 Lorazepam (Ativan Inj) 0.5 mg Q8H PRN IV 11/25/17 18:15 12/25/17 18:14 Ceftriaxone Sodium 1 gm/ Dextrose 50 ml @ 100 mls/hr Q24H IV 11/26/17 06:00 12/06/17 05:59 11/26/17 06:11 100 MLS/HR Metoprolol Tartrate (Lopressor Tab) 25 mg BID PO 11/26/17 21:00 12/26/17 20:59 Apixaban (Eliquis) 5 mg BID PO 11/26/17 21:00 12/26/17 20:59 Salmeterol Xinafoate/ Fluticasone (Advair Diskus 250/50 Inh) 1 puff QAM INH 11/26/17 14:30 12/26/17 14:29 11/26/17 14:35 1 PUFF Review of Systems Review of Systems Constitutional: No fever, No chills Eyes: No double vision Neurological: No dizzy Endocrine: No excessive thirst Gastrointestinal: No abdominal pain, No nausea, No vomiting Cardiovascular: No chest pain Respiratory: No shortness of breath Skin: No rash Musculoskeletal: No back pain Male : + problem reported (urgency ), No painful urination, No blood in urine Physical Exam Vital Signs: Vital Signs Past 12 Hours Date Time Temp Pulse Resp B/P (MAP) Pulse Ox O2 Delivery O2 Flow Rate FiO2 11/26/17 11:30 36.7 82 20 108/69 (82) 94 Room Air 11/26/17 09:52 73 105/61 (76) 94 11/26/17 08:00 Room Air 11/26/17 07:00 37.2 77 18 137/70 (92) 94 Room Air 11/26/17 04:07 37.3 92 18 111/64 (80) 92 Room Air Physical Exam: General Appearance: no apparent distress Eyes: bilateral eyes normal inspection ENT: hearing grossly normal Neck: no JVD Respiratory/Chest: no respiratory distress, no accessory muscle use Cardiovascular: no JVD Extremities: normal inspection Neurologic/Psychiatric: alert, normal mood/affect, oriented x 3 Skin: normal color Assessment & Plan Assessment & Plan Penoscrotal edema Soft tissue edema noted on u/s. No evidence for abscess at this time. Recommend supportive management with scrotal elevation for now. Penile discharge Appears to be urine on exam. UC&S pending. Right sided varicocele Will evaluate further with a CT of the abd/pelvis with and without IV contrast. CT will also evaluate dilation of ureter further, however this is likely r/t incomplete bladder emptying. Urethral stricture, incomplete bladder emptying Will check PVRs. Expect them to be elevated, but will check for gross elevation from his baseline. Thanks for the consult. Will continue to follow along with primary service.
--- NOTE | 2017-11-26 17:21 | DIAGNOSTIC IMAGING REPORT ---
CT ABD/PELVIS COMBO CLINICAL HISTORY: Varicocele, urethral stricture, urinary retention. SCROTAL SWELLING. CT SCAN RECOMMENDED FROM PRIOR ULTRASOUND. COMPARISON STUDY: Ultrasound study dated 11/26/2017 TECHNIQUE: Unenhanced images were obtained through the abdomen and pelvis. The patient was injected with 50 cc of Optiray 320. After 5 minute delay, the patient was rescanned in a dynamic helical fashion during the additional administration of 69 cc of Optiray 320 A dose lowering technique was utilized adhering to the principles of ALARA. CT DOSE: 2001.19 mGycm FINDINGS: Lower chest: There are mild basilar atelectatic changes. Liver: There is mild hepatic steatosis. There is a to small to characterize 1 cm hypodensity within the left lobe of the liver, likely representing a cyst. Gallbladder: Unremarkable. Spleen: Normal in size and attenuation. Pancreas: Unremarkable. Adrenal glands: There is a 12 mm right adrenal adenoma Kidneys: No renal, ureteral, or bladder calculi are visualized. No solid renal masses. No collecting system or ureteral lesions are visualized. Bowel: There are no transition zones to indicate bowel obstruction. The appendix appears normal. There is no acute diverticulitis. There is a 4 cm mass within the rectum. Correlation with digital rectal examination, endoscopic evaluation, or repeat CT scanning is recommended to differentiate a stool ball from a rectal neoplasm. Peritoneum: There is no intraperitoneal free air or abdominal ascites. There is a small fat-containing umbilical hernia. Vasculature: The abdominal aorta is normal in course and caliber. Adenopathy: None. Pelvic viscera: There is a 32 mm right posterior bladder diverticulum. There is a small fat-containing left inguinal hernia. Skeletal structures: No destructive osseous lesions are seen. IMPRESSION: 1. 32 mm bladder diverticulum 2. No evidence of pathologic adenopathy 3. 4 cm rectal mass (stool ball versus neoplasm). Further evaluation is advocated. 4. No acute inflammatory changes. No evidence of bowel obstruction. No evidence of free air 5. There are no pathologic masses to explain the patient's right-sided varicocele Electronically signed by: Praneeth Gillis M.D. 11/26/2017 5:20 PM Dictated Date/Time: 11/26/2017 5:06 PM
[2017-11-26] MEDS: APIXABAN 5 MG TAB PO SCH (21:14)
[2017-11-26] MEDS: METOPROLOL TARTRATE 25 MG TAB PO SCH (21:16)
[2017-11-26] MEDS ORDERED: CARBOHYDRATES FOR HYPOGLYCEMIA PO PRN (22:00)
[2017-11-26] MEDS ORDERED: GLUCOSE 40% GEL 15 GM TUBE PO PRN (22:00)
[2017-11-26] MEDS ORDERED: GLUCOSE 10 TABS/TUBE PO PRN (22:00)
[2017-11-26] MEDS ORDERED: DEXTROSE 50% 50 ML SYR IV PRN (22:00)
[2017-11-26] MEDS ORDERED: GLUCAGON FOR INJ 1 MG VIAL IM PRN (22:00)
[2017-11-26] MEDS: INSULIN ASPART 100 UNITS/ML 3 ML PEN SC SCH (22:23)
[2017-11-27] VITALS (7 sets, daily range): BP systolic 112–158; BP diastolic 64–84; PULSE 86–96; TEMP 36.4–37.3; O2SAT 93–96
[2017-11-27] MEDS: CEFTRIAXONE SOD INJ 1 GM in DEXTROSE 5% ADD-VANTAGE 50ML 50 ML IV SCH (05:53)
[2017-11-27 07:22] LABS: MEAN CORPUSCULAR HGB CONC 33.4 g/dl (32-36)
[2017-11-27 07:37] LABS: HEMOGLOBIN 13.7 g/dL (14.0-18.0); MEAN CELL VOLUME 76.5 fL (80-100); MEAN CORPUSCULAR HEMOGLOBIN 25.6 pg (25-34); RED CELL DISTRIBUTION WIDTH CV 16.1 % (11.5-14.5); RED CELL DISTRIBUTION WIDTH SD 44.6 fL (36.4-46.3); WHITE BLOOD COUNT 9.34 K/uL (4.8-10.8)
[2017-11-27] MEDS: METOPROLOL TARTRATE 25 MG TAB PO SCH ×2 (07:37→21:35)
[2017-11-27] MEDS: FLUTICASONE/SALMETEROL 250/50 (ADVAIR) 14 PUFF/1 INHALER INH SCH (07:38)
[2017-11-27] MEDS: IRBESARTAN 150 MG TAB PO SCH (07:38)
[2017-11-27] MEDS: ATORVASTATIN 40 MG TAB PO SCH (07:38)
[2017-11-27] MEDS: APIXABAN 5 MG TAB PO SCH ×2 (07:38→21:35)
[2017-11-27] MEDS: ASPIRIN 81 MG CHEW PO SCH (07:42)
[2017-11-27 07:52] LABS: CALCIUM 8.4 mg/dl (8.5-10.1); CREATININE 0.95 mg/dl (0.60-1.40); PHOSPHORUS 2.3 mg/dl (2.5-4.9); POTASSIUM 3.6 mmol/L (3.5-5.1)
[2017-11-27 08:01] LABS: BASO % 0.2 %; BASO ABS # 0.02 K/uL (0-0.2); EOS % 0.2 %; EOS ABS # 0.02 K/uL (0-0.5); IG# 0.06 K/uL (0.00-0.02); LYMPH % 14.3 %; LYMPH ABS # 1.34 K/uL (1.2-3.4); MONO ABS # 1.12 K/uL (0.11-0.59); NEUT % 72.7 %; NEUT ABS # 6.78 K/uL (1.4-6.5); PLATELET COUNT 91 K/uL (130-400)
[2017-11-27] MEDS: INSULIN ASPART 100 UNITS/ML 3 ML PEN SC SCH ×4 (08:43→21:37)
--- NOTE | 2017-11-27 09:40 | Progress Note ---
Progress Note Date of Service Nov 27, 2017. Progress Note Patient's bedside secondary difficulty passing Medley catheter Patient previously seen by urology secondary to penile swelling He reports he has a long history of urethral stricture Nursing attempted to place a 16 [place]ian standard Medley catheter met resistance and had some post attempt bleeding. I passed a 14 [place]ian coud catheter using aseptic technique without difficulty, return of clear urine No major discomfort to the patient Plan: Leave catheter in place for 2-3 days, he can have an outpatient voiding trial deemed stable for discharge home prior to that time Edema of the penis is simple edema does not require any other intervention
--- NOTE | 2017-11-27 12:52 | Progress Note ---
Subjective Date of Service: Nov 27, 2017. Subjective Pt evaluation today including: conversation w/ patient, conversation w/ family , physical exam, chart review, lab review, review of studies, review of inpatient medication list Voiding: dasilva catheter in place Patient has urinary retention, urology insert a Dasilva catheter this morning Currently feeling okay, however concern about penis swelling, which is new , no other complaints Problem List Medical Problems: (1) UTI (urinary tract infection) Status: Acute Review of Systems Constitutional: + fatigue, No fever, No chills, No sweats, No weight loss, No weakness, No problem reported Eyes: No worsening of vision, No eye pain, No redness, No discharge, No diplopia ENT: No hearing loss, No unusual epistaxis, No nasal symptoms, No sore throat, No tinnitus, No dental problems, No trouble swallowing Respiratory: No cough, No sputum, No wheezing, No shortness of breath, No dyspnea on exertion, No dyspnea at rest, No hemoptysis Cardiac: No chest pain, No orthopnea, No PND, No edema, No claudication, No palpitations Abdomen: No pain, No nausea, No vomiting, No diarrhea, No constipation Musculoskeletal: No joint pain, No muscle pain, No swelling, No calf pain Male : No dysuria, No urinary frequency, No incontinence, No nocturia more than once/night, No slowing stream, No hematuria Neurologic: No memory loss, No paralysis, No weakness, No numbness/tingling, No vertigo, No balance problems Psychiatric: No depression symptoms, No anhedonism, No anxiety, No insomnia, No substance abuse Heme: No abnormal bleeding/bruising, No clotting problems, No swollen lymph nodes, No night sweats Endo: No fatigue, No excessive thirst, No excessive urination Skin: No rash, No itch, No new/changing skin lesions, No color change, No bleeding Objective Vital Signs Date Time Temp Pulse Resp B/P (MAP) Pulse Ox O2 Delivery O2 Flow Rate FiO2 11/27/17 10:52 37.2 86 18 148/80 (102) 95 Room Air 11/27/17 08:00 Room Air 11/27/17 07:13 36.5 90 20 140/74 (96) 96 Room Air 11/27/17 03:12 36.6 86 18 136/81 (99) 96 Room Air 11/27/17 00:17 36.4 86 16 112/64 (80) 94 Room Air 11/26/17 20:00 Room Air 11/26/17 19:41 37.1 87 21 136/80 (98) 92 Room Air 11/26/17 15:55 97 24 93 Nasal Cannula 2.0 11/26/17 15:53 105 90 Room Air Physical Exam General Appearance: WD/WN, no apparent distress, + obese Eyes: normal inspection, PERRL, EOMI, sclerae normal ENT: normal ENT inspection, hearing grossly normal, pharynx normal Neck: supple, no adenopathy, thyroid normal, no JVD, no carotid bruits, trachea midline Respiratory/Chest: chest non-tender, normal breath sounds, no respiratory distress, no accessory muscle use, + decreased breath sounds Cardiovascular: no gallop, no JVD, no murmur, + irregularly irregular Abdomen: normal bowel sounds, non tender, soft, no organomegaly, no pulsatile mass, + pertinent finding (Dasilva catheter in place, with yellow urine drainage , penis mild swelling, no drainage in metus area) Extremities: normal range of motion, non-tender, normal inspection, no pedal edema, no calf tenderness, normal capillary refill, pelvis stable Neurologic/Psychiatric: claims specialist II-XII nml as tested, no motor/sensory deficits, alert, normal mood/affect, oriented x 3 Skin: normal color, warm/dry, no rash Lymphatic: no adenopathy Laboratory Results Last 24 Hours Test 11/26/17 17:19 11/26/17 20:37 11/27/17 06:58 11/27/17 07:29 Bedside Glucose 213 mg/dl 219 mg/dl 171 mg/dl White Blood Count 9.34 K/uL Red Blood Count 5.36 M/uL Hemoglobin 13.7 g/dL Hematocrit 41.0 % Mean Corpuscular Volume 76.5 fL Mean Corpuscular Hemoglobin 25.6 pg Mean Corpuscular Hemoglobin Concent 33.4 g/dl Platelet Count 91 K/uL Neutrophils (%) (Auto) 72.7 % Lymphocytes (%) (Auto) 14.3 % Monocytes (%) (Auto) 12.0 % Eosinophils (%) (Auto) 0.2 % Basophils (%) (Auto) 0.2 % Neutrophils # (Auto) 6.78 K/uL Lymphocytes # (Auto) 1.34 K/uL Monocytes # (Auto) 1.12 K/uL Eosinophils # (Auto) 0.02 K/uL Basophils # (Auto) 0.02 K/uL RDW Standard Deviation 44.6 fL RDW Coefficient of Variation 16.1 % Immature Granulocyte % (Auto) 0.6 % Immature Granulocyte # (Auto) 0.06 K/uL Dohle Bodies 1+ Platelet Estimate DECREASED Sodium Level 134 mmol/L Potassium Level 3.6 mmol/L Chloride Level 101 mmol/L Carbon Dioxide Level 25 mmol/L Anion Gap 8.0 mmol/L Blood Urea Nitrogen 21 mg/dl Creatinine 0.95 mg/dl Est Creatinine Clear Calc Drug Dose 94.4 ml/min Estimated GFR () 97.7 Estimated GFR (Non- 84.3 BUN/Creatinine Ratio 22.0 Random Glucose 185 mg/dl Calcium Level 8.4 mg/dl Phosphorus Level 2.3 mg/dl Magnesium Level 2.4 mg/dl Test 11/27/17 11:20 Bedside Glucose 194 mg/dl Assessment and Plan 66 y/o M admitted on November 25, 2017 because of A. fib with rapid ventricular response Hx DM II, HTN, HLD, obese, COPD. Per report, , the pt presents with episodes of tremor, SOB and tightness in his neck and jaw, was found to be in AF with an HR of 150. A. fib with rapid ventricular response, new identified, was on Cardizem drip, cardiology input appreciated, continue beta-aleta, started Eliquis for stroke prevention Discussed with patient about risk and benefit , he understands and agrees to take this medication Continue beta aleta and Eliquis, LFTs are abnormal , possible from hepatic steatosis, Liver ultrasound per report, 1. Hepatosplenomegaly. 2. Hepatic steatosis. 3. Mildly distended gallbladder. No gallstones. 4. The common bile duct is borderline dilated measuring 6.5 mm given the patient 's age pt denies ETOH use - he may have cirrhosis due to GUILLAUME., Recommend him to follow-up with PCP, Hyponatremia - etiology is not clear. Resolved, TSH is normal, discontinue fluid restriction DM , dyslipidemia, hypertension,cont Irbesartan and a statin a long history of urethral stricture, 14 Serbian inserted by a urologist, and recommended to leave catheter in place for 2-3 days, he can have an outpatient voiding trial The urologist, edema of the penis is simple edema does not require any other intervention COPD - no evidence of exacerbation - would minimize albuterol use - continue baseline inhalers Full code DVT prophylaxis patient is on adequate Increase activity, possible discharge home tomorrow Continued [facility] stay due to: multiple IV medications needed Discharge planning: home
--- NOTE | 2017-11-27 16:47 | Cardiology Follow-Up ---
Subjective Date of Service: Nov 27, 2017. Pt evaluation today including: conversation w/ patient, physical exam, lab review, review of studies, review of inpatient medication list Social History Smoking Status: Former Smoker History of Alcohol Use: Yes (6 beers/month) Review of Systems Respiratory: No cough, No sputum, No wheezing, No shortness of breath, No dyspnea on exertion, No dyspnea at rest, No hemoptysis Cardiac: No chest pain, No orthopnea, No PND, No edema, No claudication, No palpitations Medications Cardiovascular: Item Value Date Time Metoprolol 25 mg 11/26/17 2100 Tartrate BID/PO 11/27/17 0737 (Lopressor Tab) Apixaban 5 mg 11/26/17 2100 (Eliquis) BID/PO 11/27/17 0738 Aspirin 81 mg 11/26/17 0900 (Aspirin Chew) DAILY/PO 11/27/17 0742 Atorvastatin 40 mg 11/26/17 0900 Calcium DAILY/PO 11/27/17 0738 (Lipitor Tab) Irbesartan 150 mg 11/26/17 0900 (Avapro Tab) DAILY/PO 11/27/17 0738 Objective Vital Signs Past 12 Hours Date Time Temp Pulse Resp B/P (MAP) Pulse Ox O2 Delivery O2 Flow Rate FiO2 11/27/17 15:30 36.9 93 20 158/84 (108) 96 Room Air 11/27/17 10:52 37.2 86 18 148/80 (102) 95 Room Air 11/27/17 08:00 Room Air 11/27/17 07:13 36.5 90 20 140/74 (96) 96 Room Air Last Recorded Weight-Kilograms: 106.400 Intake & Output 8-Hour Column 11/27/17 11/28/17 11/28/17 16:00 00:00 08:00 Intake Total 1070 ml Output Total 1800 ml Balance -730 ml 24-Hour Column 11/28/17 08:00 Intake Total 1070 ml Output Total 1800 ml Balance -730 ml Physical Exam Constitutional: Level of Distress: NAD Lungs: Auscultation: breath sounds normal Cardiovascular: Heart Auscultation: RRR, no murmurs Extremities: edema Data Laboratory Results: Last 24 Hours Test 11/26/17 17:19 11/26/17 20:37 11/27/17 06:58 11/27/17 07:29 Bedside Glucose 213 mg/dl 219 mg/dl 171 mg/dl White Blood Count 9.34 K/uL Red Blood Count 5.36 M/uL Hemoglobin 13.7 g/dL Hematocrit 41.0 % Mean Corpuscular Volume 76.5 fL Mean Corpuscular Hemoglobin 25.6 pg Mean Corpuscular Hemoglobin Concent 33.4 g/dl Platelet Count 91 K/uL Neutrophils (%) (Auto) 72.7 % Lymphocytes (%) (Auto) 14.3 % Monocytes (%) (Auto) 12.0 % Eosinophils (%) (Auto) 0.2 % Basophils (%) (Auto) 0.2 % Neutrophils # (Auto) 6.78 K/uL Lymphocytes # (Auto) 1.34 K/uL Monocytes # (Auto) 1.12 K/uL Eosinophils # (Auto) 0.02 K/uL Basophils # (Auto) 0.02 K/uL RDW Standard Deviation 44.6 fL RDW Coefficient of Variation 16.1 % Immature Granulocyte % (Auto) 0.6 % Immature Granulocyte # (Auto) 0.06 K/uL Dohle Bodies 1+ Platelet Estimate DECREASED Sodium Level 134 mmol/L Potassium Level 3.6 mmol/L Chloride Level 101 mmol/L Carbon Dioxide Level 25 mmol/L Anion Gap 8.0 mmol/L Blood Urea Nitrogen 21 mg/dl Creatinine 0.95 mg/dl Est Creatinine Clear Calc Drug Dose 94.4 ml/min Estimated GFR () 97.7 Estimated GFR (Non- 84.3 BUN/Creatinine Ratio 22.0 Random Glucose 185 mg/dl Calcium Level 8.4 mg/dl Phosphorus Level 2.3 mg/dl Magnesium Level 2.4 mg/dl Test 11/27/17 11:20 11/27/17 16:28 Bedside Glucose 194 mg/dl 204 mg/dl Telemetry reviewed: No further atrial fibrillation shortly after admission Assessment and Plan 1. Atrial fibrillation: He has had no further atrial fibrillation, however he may have it at times and not be aware of it. It may also be related to his acute presentation. At the moment I would continue anticoagulation, currently Eliquis. He is on low-dose metoprolol for rate control, this may not be sufficient. He would prefer not to be on 2 blood pressure medications (he is also on Avapro) however his blood pressure is somewhat high if anything. 2. Hypertension: His blood pressure is somewhat elevated although it is somewhat variable. Over time it may be reasonable to try to increase his metoprolol since that will also help with rate control, if we can control his blood pressure just with metoprolol that would certainly be acceptable know if that possible. For now I would keep him on both medications. Thank you for allowing me to participate in his care.
[2017-11-28 03:54] VITALS: BP 120/71; PULSE 82; TEMP 36.7; O2SAT 93
[2017-11-28] MEDS: CEFTRIAXONE SOD INJ 1 GM in DEXTROSE 5% ADD-VANTAGE 50ML 50 ML IV SCH (06:21)
[2017-11-28 07:02] VITALS: BP 136/72; PULSE 88; TEMP 37; O2SAT 94
[2017-11-28 08:15] LABS: CREATININE 0.77 mg/dl (0.60-1.40); POTASSIUM 3.7 mmol/L (3.5-5.1)
[2017-11-28 08:16] LABS: CALCIUM 8.3 mg/dl (8.5-10.1); PHOSPHORUS 2.9 mg/dl (2.5-4.9)
[2017-11-28] MEDS: ATORVASTATIN 40 MG TAB PO SCH (08:31)
[2017-11-28] MEDS: INSULIN ASPART 100 UNITS/ML 3 ML PEN SC SCH (08:31)
[2017-11-28] MEDS: IRBESARTAN 150 MG TAB PO SCH (08:32)
[2017-11-28] MEDS: METOPROLOL TARTRATE 25 MG TAB PO SCH (08:32)
[2017-11-28] MEDS: APIXABAN 5 MG TAB PO SCH (08:32)
[2017-11-28] MEDS: FLUTICASONE/SALMETEROL 250/50 (ADVAIR) 14 PUFF/1 INHALER INH SCH (08:33)
[2017-11-28] MEDS: ASPIRIN 81 MG CHEW PO SCH (08:35)
[2017-11-28] MEDS ORDERED: LPR25 PO (08:40)
[2017-11-28] MEDS ORDERED: APIX1TAB3 PO (08:40)
[2017-11-28] MEDS ORDERED: CEPH500C PO (08:40)
--- NOTE | 2017-11-28 08:41 | Discharge Instructions ---
Discharge Instructions Date of Service Nov 28, 2017. Admission Reason for Admission: Atrail Fibrillation With Rapid Ventricular Respons Discharge Discharge Diagnosis / Problem: A. fib with rapid ventricular response, Discharge Goals Goal(s): Decrease discomfort, Improve function, Increase independence, Improve disease control, Improve nutritional status, Learn about illness, Diagnostic testing, Therapeutic intervention, Prevent Disease Progression, Specific goals Activity Recommendations Activity Limitations: resume your previous activity . Instructions / Follow-Up Instructions / Follow-Up you have A. fib with rapid ventricular response, has started Eliquis for stroke prevention you have LFTs are abnormal , possible from hepatic steatosis,need to follow up with your pcp DM with hyperglycemia, ,need to follow up with your pcp you have urethral stricture, 14 Maori inserted by a urologist, and recommended to leave catheter in place for 2-3 days, you will get discharge instruction & appt from Dr. Hernandez for next Friday or Friday you have edema of the penis and Small right-sided varicocele need to follow up with too new medicine has sent to your pharmacy - you need to follow up with your primary care physician in 1 week, - take medication as instructed, never overdose or any misuse, or take with alcohol, because misuse of medicine may cause organ damage or , call me , or your primary care physician if have questions of discharge medicaitons. - call your primary care physician, or go to local emergency room if has any fever/chill, chest pain, shortness of breathing, nausea/vomiting/abdominal pain , facial droop/slurry speech/local weakness, or if has any questions. - fall precaution - diet as instructed - you need to follow up with your subspecialist, such as Current Hospital Diet Patient's current hospital diet: AHA Diet (Heart Healthy), Diabetes Type 2 Diet Discharge Diet Recommended Diet: Diabetes Type 2 Diet Pending Studies Studies pending at discharge: no Laboratory Results Hemoglobin A1c Test 11/26/17 06:26 Range/Units Estimated Average Glucose 183 mg/dl Hemoglobin A1c 8.0 H 4.5-5.6 % Medical Emergencies . Who to Call and When: Medical Emergencies: If at any time you feel your situation is an emergency, please call 911 immediately. . Non-Emergent Contact Non-Emergency issues call your: Primary Care Provider, Urologist . . "Provider Documentation" section prepared by Toney Day. .
[2017-11-28 09:15] VITALS: BP 153/75; PULSE 88; TEMP 37; O2SAT 94
--- NOTE | 2017-11-28 09:42 | Discharge Summary ---
Discharge Summary Date of Service Nov 28, 2017. Discharge Summary Admission Date: Nov 25, 2017 at 18:07 Discharge Date: Nov 28, 2017 Discharge Disposition: Home Principal Diagnosis: A. fib with rapid ventricular response, Problems/Secondary Diagnoses: urethral stricture urinary retention Procedures: no Consultations: Medication Reconciliation New Medications: Cephalexin Monohydrate (Keflex) 500 Mg Cap 500 MG PO QID for 7 Days, #28 CAP Apixaban (Eliquis) 5 Mg Tab 5 MG PO BID for 30 Days, #60 TAB Metoprolol Tartrate (Lopressor) 25 Mg Tab 25 MG PO BID for 30 Days, #60 TAB Continued Medications: Albuterol Hfa (Ventolin Hfa) 200 Puffs/95367 Mcg Aers 2 PUFFS INH Q4H PRN for SOB/Wheezing, INHALER Aspirin (Aspirin Chewable) 81 Mg Chew 81 MG PO DAILY Atorvastatin (Lipitor) 40 Mg Tab 40 MG PO DAILY, TAB Empagliflozin (Jardiance) 10 Mg Tab 10 MG PO DAILY Fluticasone Furoate-Vilanterol (Breo Ellipta 200-25 Mcg/INH) 1 Inh Inh 1 PUFF INH DAILY Glyburide (Diabeta) 5 Mg Tab 10 MG PO QPM, TAB Glyburide (Diabeta) 5 Mg Tab 5 MG PO QAM, TAB Irbesartan (Irbesartan) 300 Mg Tab 150 MG PO DAILY, TAB Metformin Hcl (Glucophage) 500 Mg Tab 500 MG PO BID, TAB Discharge Exam doing good, no c/o, penis still mild swelling dasilva in place, with clean yellow urine Review of Systems: Constitutional: No fever, No chills, No sweats, No weight loss, No weakness , No fatigue, No problem reported Eyes: No worsening of vision, No eye pain, No redness, No discharge, No diplopia, No problem reported ENT: No hearing loss, No unusual epistaxis, No nasal symptoms, No sore throat, No tinnitus, No dental problems, No trouble swallowing, No problem reported Respiratory: No cough, No sputum, No wheezing, No shortness of breath, No dyspnea on exertion, No dyspnea at rest, No hemoptysis, No problem reported Cardiovascular: No chest pain, No orthopnea, No PND, No edema, No claudication, No palpitations, No problem reported Abdomen: No pain, No nausea, No vomiting, No diarrhea, No constipation, No GI bleeding, No problem reported Musculoskeletal: No joint pain, No muscle pain, No swelling, No calf pain, No problem reported Genitourinary - Male: + urinary retention, No penile discharge Neurologic: No memory loss, No paralysis, No weakness, No numbness/tingling , No vertigo, No balance problems, No problem reported Psychiatric: No depression symptoms, No anhedonism, No anxiety, No insomnia , No substance abuse, No problem reported Endocrine: No fatigue, No excessive thirst, No excessive urination, No problem reported Hematologic / Lymphatic: No abnormal bleeding/bruising, No clotting problems , No swollen lymph nodes, No night sweats, No problem reported Integumentary: No rash, No itch, No new/changing skin lesions, No color change, No bleeding, No problem reported Physical Exam: General Appearance: WD/WN, no apparent distress Eyes: normal inspection, PERRL ENT: normal ENT inspection, hearing grossly normal Neck: supple, no adenopathy Respiratory/Chest: chest non-tender, no respiratory distress, no accessory muscle use, + decreased breath sounds Cardiovascular: regular rate, rhythm, no edema, no gallop, no JVD, no murmur , normal peripheral pulses Abdomen / GI: normal bowel sounds, non tender, soft, no organomegaly, + pertinent finding ( penis still mild swelling, dasilva in place, with clean yellow urine) Extremities: normal inspection, no calf tenderness, normal capillary refill , no pedal edema, normal range of motion Neurologic/Psychiatric: 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 fib with rapid ventricular response Hx DM II, HTN, HLD, obese, COPD. Per report, , the pt presents with episodes of tremor, SOB and tightness in his neck and jaw, was found to be in AF with an HR of 150. A. fib with rapid ventricular response, new identified, was on Cardizem drip, cardiology input appreciated, continue beta-aleta, started Eliquis for stroke prevention Discussed with patient about risk and benefit , he understands and agrees to take this medication Continue beta aleta and Eliquis, LFTs are abnormal , possible from hepatic steatosis, Liver ultrasound per report, 1. Hepatosplenomegaly. 2. Hepatic steatosis. 3. Mildly distended gallbladder. No gallstones. 4. The common bile duct is borderline dilated measuring 6.5 mm given the patient 's age pt denies ETOH use - he may have cirrhosis due to GUILLAUME., Recommend him to follow-up with PCP, Hyponatremia - etiology is not clear. Resolved, TSH is normal, discontinue fluid restriction DM with hyperglycemia, need to f/u with pcp dyslipidemia, hypertension,cont Irbesartan and a statin a long history of urethral stricture, 14 Indonesian inserted by a urologist, and recommended to leave catheter in place for 2-3 days, he can have an outpatient voiding trial The urologist, edema of the penis is simple edema does not require any other intervention COPD - no evidence of exacerbation - would minimize albuterol use - continue baseline inhalers Full code DVT prophylaxis patient is on adequate Increase activity Instructions / Follow-Up you have A. fib with rapid ventricular response, has started Eliquis for stroke prevention you have LFTs are abnormal , possible from hepatic steatosis,need to follow up with your pcp DM with hyperglycemia, ,need to follow up with your pcp you have urethral stricture, 14 Indonesian inserted by a urologist, and recommended to leave catheter in place for 2-3 days, you will get discharge instruction & appt from Dr. Hernandez for next Friday or Friday you have edema of the penis and Small right-sided varicocele need to follow up with too new medicine has sent to your pharmacy - you need to follow up with your primary care physician in 1 week, - take medication as instructed, never overdose or any misuse, or take with alcohol, because misuse of medicine may cause organ damage or , call me , or your primary care physician if have questions of discharge medicaitons. - call your primary care physician, or go to local emergency room if has any fever/chill, chest pain, shortness of breathing, nausea/vomiting/abdominal pain , facial droop/slurry speech/local weakness, or if has any questions. - fall precaution - diet as instructed - you need to follow up with your subspecialist, such as Total Time Spent: Greater than 30 minutes This includes examination of the patient, discharge planning, medication reconciliation, and communication with other providers. Discharge Instructions Please refer to the electronic Patient Visit Report (Discharge Instructions) for additional information. Additional Copies To Kenia Cesar M.D.; Star Hernandez M.D.
--- NOTE | 2017-12-04 08:39 | EDITING REQUIRED CODING QUERY ---
To promote full compliance with coding requirements relating to patient care, provider participation is requested in all cases of die finisher forging uncertainty. Please assist us with the question(s) below: Coding Question(s): The diagnosis below was documented in the ER H&P then subsequently fell off all further documentation. Please indicate if it is still a possible diagnosis or ruled out. Physician's Response(s): UTI ( x ) Diagnosed and POA ( ) Diagnosed and not POA ( ) Ruled out ( ) Other (please specify)
== END 2017-11-28 11:29 | disposition home or self-care (01) | DRG 690 ==
LOC: EDBD 16:46 → C.EDC 16:48 → C.2T 18:07 → EDBEDREQ 18:12 → ENRESERV 18:28
PROVIDERS: ADMIT Internal Medicine; ATTEND Hospitalist
DX: N39.0 Urinary tract infection, site not specified (principal); E87.1 Hypo-osmolality and hyponatremia; I48.91 Unspecified atrial fibrillation; N35.9 Urethral stricture, unspecified; R33.8 Other retention of urine; N48.89 Other specified disorders of penis; I86.1 Scrotal varices; K75.81 Nonalcoholic steatohepatitis (NASH); E11.65 Type 2 diabetes mellitus with hyperglycemia; I11.9 Hypertensive heart disease without heart failure; J44.9 Chronic obstructive pulmonary disease, unspecified; E78.5 Hyperlipidemia, unspecified; E66.9 Obesity, unspecified; Z79.899 Other long term (current) drug therapy; Z79.84 Long term (current) use of oral hypoglycemic drugs; Z79.82 Long term (current) use of aspirin; Z68.34 Body mass index [BMI] 34.0-34.9, adult; Z87.891 Personal history of nicotine dependence; Z82.49 Family history of ischemic heart disease and other diseases of the circulatory system; Z83.3 Family history of diabetes mellitus

== ENCOUNTER 2018-08-19 05:38 | Inpatient (IN) ==
--- NOTE | 2018-07-24 11:11 | Anesthesiology Consultation ---
Date of Service July 24, 2018 Assessment & Plan (1) Encounter for pre-operative examination: Chart Review Chart Review: Acceptable Risk for Surgery and Patient NOT seen in Pre Admission Testing Consults Requested none History Surgery Operation Date: 08/19/18 10:20 Proposed Procedures p Laparoscopic Low Anterior Resection - John Hoffman DO, FACS Height/Weight Height: 5 ft 10 in Weight: 112.945 kg Allergies Allergy/AdvReac Type Severity Reaction Status Date / Time No Known Allergies Allergy Verified 07/24/18 07:53 Medications Home Medications Medication Instructions Recorded Confirmed Last Taken Breo Ellipta 1 inh INHALATION QAM 06/30/18 07/24/18 07/07/18 08:00 Lantus U-100 Insulin 35 unit SUBCUT QAM 06/30/18 07/24/18 07/06/18 20:00 17.5 units albuterol sulfate [Ventolin HFA] 2 puff INHALATION QID PRN 06/30/18 07/24/18 07/06/18 aspirin 325 mg PO QAM 06/30/18 07/24/18 07/06/18 atorvastatin 80 mg PO HS 06/30/18 07/24/18 07/06/18 ergocalciferol (vitamin D2) 50,000 unit PO WK 06/30/18 07/24/18 07/03/18 [Vitamin D2] glimepiride 1 dose PO BID 06/30/18 07/24/18 07/06/18 irbesartan 0.5 tab PO QAM 06/30/18 07/24/18 07/06/18 metformin 1,000 mg PO BID 06/30/18 07/24/18 07/06/18 metoprolol succinate 50 mg PO QAM 06/30/18 07/24/18 07/06/18 sildenafil (antihypertensive) 20 mg PO UD PRN 06/30/18 07/24/18 Unknown tadalafil 5 mg PO UD PRN 06/30/18 07/24/18 06/09/18 Past Medical History Medical History Atrial fibrillation Chronic obstructive pulmonary disease Diabetes mellitus, type 2 Hyperlipidemia Hypertension Obesity Past Surgical History Surgical History History of adenoidectomy History of colonoscopy versed/propofol, no issues. completed 07/07/2018. History of tonsillectomy History of tooth extraction Social History Smoking Status: Former smoker tobacco type: cigarettes Smoking End Date: QUIT 12 YEARS AGO Hx Alcohol Use: No Hx Substance Use: No substance use type: does not use Testing Electrocardiogram Date: 11/24/17 Findings: + ST @ (107) sinus tach, otherwise normal. no ST changes. Echocardiogram Echocardiogram Date: 11/26/17 EF: 50-55 Valvular Disease: + MR (mild) Ejection Fraction = 50-55%.?Diastolic dysfunction, Grade II (pseudonormalization pattern).?There is mild mitral regurgitation Other Testing 11/27/17 Cardiology Followup: 1. Atrial fibrillation: He has had no further atrial fibrillation, however he may have it at times and not be aware of it. It may also be related to his acute presentation. At the moment I would continue anticoagulation, currently Eliquis. He is on low-dose metoprolol for rate control, this may not be sufficient. He would prefer not to be on 2 blood pressure medications (he is also on Avapro) however his blood pressure is somewhat high if anything. 2. Hypertension: His blood pressure is somewhat elevated although it is somewhat variable. Over time it may be reasonable to try to increase his metoprolol since that will also help with rate control, if we can control his blood pressure just with metoprolol that would certainly be acceptable know if that possible. For now I would keep him on both medications. 06/30/[address]: 1. Moderate emphysema with bilateral bronchial wall thickening suggestive of bronchitis. 2. Minimal subsegmental tree-in-bud nodularity of the lung bases suggest infectious or inflammatory pneumonitis. 3. 3 mm solid nodule of the right middle lobe, likely benign. Follow-up guidelines provided below. 4. Indeterminate mildly enlarged right hilar lymph node. No additional adenopathy identified. 5. Multinodular goiter. 06/17/18 Ab/Pelv CT: 1. No solid renal or urothelial mass. No nephrolithiasis or hydronephrosis. 2. Circumferential bladder wall thickening may indicate chronic bladder outlet obstruction in the setting of benign prostatic hyperplasia despite the absence of prostatomegaly. Correlate with PSA. 3. Bladder diverticulum. No bladder calculi. 4. Highly suspicious soft tissue mass in the mid rectum without gross evidence of nodular invasion into the perirectal fat. At least 3 small though suspicious mesorectal lymph nodes present. No evidence of metastatic disease elsewhere. This should be considered rectal carcinoma until proven otherwise. Gastroenterology consultation is necessary for direct visualization and tissue sampling. 06/29/18 Ab MRI: 1. 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 No discernible suspicious lymphadenopathy (N0). 2. Chronic bladder outlet obstruction with a prominent bladder diverticulum. Laboratory Results Laboratory Tests 07/03/18 07/03/18 09:40 09:40 WBC 8.19 Hgb 12.4 L Hct 40.0 L Plt Count 231 Sodium 136 Potassium 4.8 Chloride 101 Carbon Dioxide 30 BUN 17 Creatinine 1.04 Glucose 254 H
[2018-08-19] MEDS ORDERED: LR 15ML/HR IV SCH (06:00)
[2018-08-19] MEDS ORDERED: cefOXitin 2,000 MG in DEXTROSE 5% 50 ML IV SCH (06:00)
[2018-08-19] MEDS ORDERED: BUPIVACAINE 0.5 % 5 MG/1 ML MPF 30ML VIAL ONE (06:33)
[2018-08-19] MEDS ORDERED: BUPIVACAINE LIPOSOME 1.3% 266 MG/20 ML VIAL ONE (06:34)
[2018-08-19] MEDS ORDERED: ONDANSETRON INJ 2 MG/ML 2 ML VIAL ONE (06:49)
[2018-08-19] MEDS ORDERED: PROPOFOL IV EMULSION 10 MG/ML 20 ML VIAL IV ONE (06:49)
[2018-08-19] MEDS ORDERED: DEXAMETHASONE SOD INJ 4 MG/ML VIAL ONE (06:49)
[2018-08-19] MEDS ORDERED: MIDAZOLAM HCL 1 MG/ML 2ML VIAL ONE (06:49)
[2018-08-19] MEDS ORDERED: fentaNYL citrate 100 MCG/2 ML VIAL ONE (06:49)
[2018-08-19] MEDS ORDERED: GLYCOPYRROLATE 0.2 MG/ML VIAL ONE (06:49)
[2018-08-19] MEDS ORDERED: NEOSTIGMINE METHYLSULFATE 5 MG/5 ML SYR ONE (06:49)
[2018-08-19] MEDS ORDERED: LIDOCAINE HCL 2% 2 ML VIAL/AMP(20MG/ML) INFIL ONE (06:49)
[2018-08-19] MEDS ORDERED: HYDROmorphone INJ 2 MG/ML SYR/VIAL ONE ×2 (06:50→10:39)
[2018-08-19] MEDS ORDERED: LARYING-O-JET KIT (LTA) ONE (06:50)
[2018-08-19] MEDS ORDERED: SODIUM CHLORIDE 0.9% INJ 10 ML VIAL ONE (06:50)
[2018-08-19] MEDS ORDERED: PROMETHAZINE HCL 12.5 MG in SODIUM CHLORIDE 0.9% 50 ML IV PRN (07:02)
[2018-08-19] MEDS ORDERED: LABETALOL HCL IV 5 MG/ML 20ML IV PRN (07:02)
[2018-08-19] MEDS ORDERED: KETOROLAC 30 MG/ML VIAL IV PRN (07:02)
[2018-08-19] MEDS ORDERED: ATROPINE SULFATE 0.1 MG/ML 10ML SYR IV PRN (07:02)
[2018-08-19] MEDS ORDERED: ONDANSETRON INJ 2 MG/ML 2 ML VIAL IV PRN ×2 (07:02→15:14)
[2018-08-19] MEDS ORDERED: HYDROmorphone INJ 1 MG/ML SYRINGE IV PRN (07:02)
--- NOTE | 2018-08-19 07:02 | History & Physical Report ---
Date of Service August 19, 2018 Assessment & Plan (1) Rectal mass: 67 y/o male with rectal mass, highly suspicious for malignancy. 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 Plan for laparoscopic low anterior resection, possible open. Risks reviewed, questions answered, patient agrees with plan as stated. Present on Admission?: Yes History of Present Illness Primary Care Provider: Kenia Cesar MD 67 y/o male with incidentally found rectal polyp vs malignancy. No symptoms. Colonoscopy showed large polyp, bx's with tubular adenoma. CT with no malignancy, MRI with T2 tumor with no lymphadenopathy. Did prep yesterday. NO changes. Allergies Allergy/AdvReac Type Severity Reaction Status Date / Time No Known Allergies Allergy Verified 08/19/18 06:06 Home Medications Home Medications Medication Instructions Recorded Confirmed Type Breo Ellipta 1 inh INHALATION QAM 06/30/18 08/19/18 History Lantus U-100 Insulin 35 unit SUBCUT QAM 06/30/18 08/19/18 History albuterol sulfate [Ventolin HFA] 2 puff INHALATION QID PRN 06/30/18 08/19/18 History aspirin 325 mg PO QAM 06/30/18 08/19/18 History atorvastatin 80 mg PO HS 06/30/18 08/19/18 History ergocalciferol (vitamin D2) 50,000 unit PO WK 06/30/18 08/19/18 History [Vitamin D2] glimepiride 1 dose PO BID 06/30/18 08/19/18 History irbesartan 0.5 tab PO QAM 06/30/18 08/19/18 History metformin 1,000 mg PO BID 06/30/18 08/19/18 History metoprolol succinate 50 mg PO QAM 06/30/18 08/19/18 History sildenafil (antihypertensive) 20 mg PO UD PRN 06/30/18 07/24/18 History tadalafil 5 mg PO UD PRN 06/30/18 07/24/18 History Past Med/Surg History Social History Preferred Language: Citizen Of [place] Communication Ability: Effective Mobile Application Developer Required: No Beliefs That Will Affect Care: None Current Living Situation: Alone Other Information That Helps Us Care for You: No Feels Safe at Home: Yes Safety Concerns: Feels Safe At This Time Smoking Status: Former smoker (PER DR. VARGAS'S NOTE: QUIT 2007, SMOKED 1-2 PACKS/DAY) Tobacco Type: cigarettes Smoking End Date: QUIT 12 YEARS AGO Second Hand Exposure: No Tobacco Cessation Education Requested by Patient: No Hx Alcohol Use: No Hx Substance Use: No Review of Systems Review of Systems: All systems reviewed & are unremarkable except as noted in HPI & below Physical Exam Constitutional: WD/WN, vitals as above + obese Eyes: PERRL, conjunctivae normal, anicteric sclerae ENMT: external ear and nose normal, oropharynx normal Neck: trachea midline, no thyromegaly Respiratory: normal respiratory effort, lungs clear to auscultation Cardiovascular: Rate/Rhythm: regular rhythm and + tachycardic Gastrointestinal (Abdomen): normal bowel sounds, soft, nontender, no hepatosplenomegaly Musculoskeletal: no cyanosis or clubbing, extremities motor strength 5/5 Skin: no rashes, warm and dry Neurologic: PERRL, EOMI, accommodation nl, no face palsy, no dysarthria Psychiatric: A+Ox3, euthymic affect Lymphatic: no cervical or axillary lymphadenopathy Results & Data Vital Signs (Past 12 Hours) Vital Signs Temp Pulse Resp BP Pulse Ox 08/19/18 06:14 37.2 C 105 H 18 185/106 H 92
[2018-08-19] MEDS ORDERED: ALBUTEROL HFA INHALER 8.5 GM ONE (07:08)
[2018-08-19] MEDS ORDERED: METOPROLOL TARTRATE 1 MG/ML VIAL IV ONE (07:55)
[2018-08-19] MEDS ORDERED: LABETALOL HCL IV 5 MG/ML 20ML IV ONE ×5 (08:44→09:57)
[2018-08-19] MEDS ORDERED: PHENYLEPHRINE 100MCG/ML 5ML SYR ONE ×2 (08:51→12:52)
[2018-08-19] MEDS ORDERED: ROCURONIUM BROMIDE 10 MG/ML 5 ML VIAL ONE (12:53)
--- NOTE | 2018-08-19 13:23 | Post Operative Brief Note ---
Immediate Post Op Note v1 Date of Surgery August 19, 2018 Pre & Post Diagnosis Operation Date: 08/19/18 07:00 Pre-Op Diagnosis: Rectal Tumor Post-Op Diagnosis: Rectal Tumor Procedure Operation Date: 08/19/18 07:00 Actual Procedures p Laparoscopic converted to open Low Anterior Resection with End Colostomy(Not Applicable) - John Hoffman DO, MICHAEL Surgeon John Hoffman DO, MICHAEL Director Biostatistics Bob Romero Estimated Blood Loss 50 Findings Consistent with Post-Op Diagnosis Large, redundant and dilated sigmoid colon, difficult to see. Converted to open. Tumor lower than expected at 7-8 cm. Low anterior resection performed, staple line at polyp. Unable to resect more of rectal stump and safely anastomose the colon, elected to perform end colostomy and await final pathology results. Exparel injected. Specimens colon and rectum Drains Medley Catheter Anesthesia Type General Complications none Disposition Accompanied Patient To Recovery: No Disposition: Recovery Room
--- NOTE | 2018-08-19 13:49 | Operative Report ---
Post Operative Report Pre & Post Diagnosis Operation Date: 08/19/18 07:00 Pre-Op Diagnosis: Rectal Tumor Post-Op Diagnosis: Rectal Tumor Procedure Operation Date: 08/19/18 07:00 Actual Procedures p Laparoscopic converted to open Low Anterior Resection with End Colostomy(Not Applicable) - John Hoffman DO, MICHAEL Surgeon John Hoffman DO, MICHAEL Supervisor Prep Bob Romero Estimated Blood Loss 50 Findings Consistent with Post-Op Diagnosis Large, redundant and dilated sigmoid colon, difficult to see. Converted to open. Tumor lower than expected at 7-8 cm. Low anterior resection performed, staple line at polyp. Unable to resect more of rectal stump and safely anastomose the colon, elected to perform end colostomy and await final pathology results. Exparel injected. Specimens colon and rectum Drains 10mm abril in pelvis Anesthesia Type General Complications none Disposition Accompanied Patient To Recovery: No Disposition: Recovery Room Indications 67-year-old male with rectal polyp found incidentally on CT scan for hematuria. He had a workup to include colonoscopy with biopsy that showed tubular adenoma but a large polyp approximately 8-10 cm from the anal verge. He had a CT scan that showed no evidence of metastasis. He had a pelvic MRI that showed no enlarged lymph nodes and no local invasion. Plan for laparoscopic low anterior resection, possible open. The risks of the procedure were discussed, all questions were answered, and the patient agreed to proceed with surgery as planned. Description of Procedure The patient was properly identified, consented, and taken to the operating room where he was placed in the supine position. General endotracheal anesthesia was induced. SCDs and a safety belt were placed. Preoperative antibiotics were administered. A Medley catheter and an NG tube were placed. The patient's abdomen was prepped and draped in the standard sterile fashion. Surgical timeout was performed and all parties were in agreement that this was the correct patient and procedure to be performed and we continued as planned. The rigid proctoscope was inserted and I examined for the polyp. We difficulty with a light and was difficult to visualize, but appeared the polyp was approximately 9-10 cm above the anal verge. We then proceeded with the surgery. A vertical midline infraumbilical incision was made with electrocautery and deepened down to the fascia with blunt dissection. The base of the umbilicus was grasped with a Diandra. There was an umbilical hernia present that was noted at this time. The Diandra was elevated towards the ceiling and the fascia was incised with a knife. Stay sutures were placed on either side of the midline. The Rudolph trocar entry into the peritoneum was confirmed. The Rudolph trocar was then placed and the abdomen insufflated with carbon dioxide which the patient tolerated without incident. The laparoscope was inserted and the abdomen inspected. No damage from initial trocar placement was noted. No significant adhesions or other abnormalities were noted. Next, 5 mm ports were then placed in the right lower quadrant, right upper quadrant, and left lower quadrant. The patient was placed in Trendelenburg position and the rotated towards the right. The small bowel was swept out of the way. The sigmoid colon was large and redundant and made it difficult for visualization. Visualization was also difficult because of his narrow pelvis and and intra-abdominal fat. We began with mobilization of the sigmoid colon by using Enseal to take down the white line of Toldt starting in the mid descending colon and extending down into the pelvis. Colon was mobilized medially. At this point it was difficult to visualize in the pelvis through the redundant colon. We decided to open. The midline incision was extended down to the pubic symphysis and up to just above the umbilicus. There is a supraumbilical hernia which was reduced and repaired at the end of the case. The sigmoid colon was eviscerated and we entered into the peritoneal reflection. We continued dissection down anteriorly and circumferentially around the colon. Overlying the sacral promontory were able to begin our mesorectal excision. Care was taken not to damage the ureters. [place] that the tumor was palpable in the distal rectum though it did not appear that we had as much room as I initially expect dissipated. We then performed a high ligation of the inferior mesenteric artery and vein by performing suture ligation using 2-0 silk sutures. We then divided the mid descending colon using a purple loaded Endo AMI stapler. We continued dissection distally. We then passed a radial purple loaded 45 mm Endo AMI stapler down around the distal rectum. It was difficult to appreciate whether we were beyond the actual tumor. We performed a rigid proctoscopy again to identify the tumor. It appeared that we were at or just below the polyp and that we did not have much of a margin. We were able to advance the stapler slightly more distally and and felt that we had gotten a good margin based on palpation and visualization. Ensuring that we had no other structures within the area we stapled. We then completed the resection with 2 more firings of the radial Endo AMI stapler. The remaining attachments of the colon rectum were taken down with the harmonic. Specimen was then taken and opened on the back table. It appeared that the polyp was right at the staple line. At this point we looked in to try to determine if we could take any more rectum safely and still we will perform an end-to-end anastomosis. At this point I did not feel comfortable with this and after discussion with one of my colleagues, I determined that it was best to perform an end colostomy and wait upon final pathology results. The abdomen was then irrigated and hemostasis appeared good. We placed a 10 mm flat ABRIL drain into the pelvis and exited through the right lower quadrant 5 mm port site. This was secured in place with a nylon suture. Next we chose a spot on the left lower quadrant overlying the rectus muscle and excised circular portion of skin and fat down to the fascia. A cruciate incision was made in the anterior fascia and the muscle was split. The posterior fascia was then incised and using a Tra we pulled the distal descending colon resection up through the colostomy site. The colon was tacked to the posterior fascia 2-0 Vicryl sutures. The colostomy appeared to be healthy with good blood flow. We then closed the fascia and the 2 hernia defects using running #1 looped PDS. Exparel was injected into the fascia. Wound was irrigated. The skin of all incision sites was then closed with madalyn. We then matured the ostomy. Some fat epiploica were resected. The staple line was resected and there appeared to be good blood flow. We then used 3-0 Vicryl interrupted sutures to mature the ostomy. This appeared healthy. Sterile dressings were applied and an ostomy appliance was placed. The NG tube and Medley catheter left in place. Patient was extubated in the operating taken to the PACU recovered without apparent incident. The patient was extubated in the operating room and taken to the PACU where he recovered without apparent incident. All sponge, instrument, and needle counts were correct. The patient tolerated the procedure well. The colon specimen was sent to Pathology. We will plan on awaiting final pathology results. If the patient needs resection of his rectal stump then we will refer to colorectal surgery. The physician's ssn/ssbn assistant navigator was present and scrubbed for the majority the case. He was critical in positioning the patient, prepping and draping, retraction exposure, performing proctoscopy, resection of the colon, closure of the incisions, maturation of the ostomy. I attest to the content of the Intraoperative Record and any orders documented therein. Any exceptions are noted below.
--- NOTE | 2018-08-19 14:22 | Anesthesiology Progress Note ---
Date of Service August 19, 2018 Anesthesia Post Procedure Vital Signs Vital Signs: Temp Pulse Pulse Resp BP Pulse Ox 08/19/18 14:15 36.7 C 93 H 16 155/86 H 98 08/19/18 14:05 91 H 13 164/99 H 100 08/19/18 13:55 95 H 20 154/82 H 100 08/19/18 13:45 94 H 13 146/72 H 100 08/19/18 13:38 36.4 C L 91 H 24 149/90 H 100 08/19/18 06:14 37.2 C 105 H 18 185/106 H 92 Pain Intensity Abdomen: Pain Intensity: 0 Notes Mental Status: alert / awake / arousable Patient Amnestic to Procedure: Yes Nausea / Vomiting: adequately controlled Pain: adequately controlled Airway Patency, RR, SpO2: stable & adequate BP & HR: stable & adequate Hydration State: stable & adequate Anesthetic Complications: no major complications apparent
[2018-08-19] MEDS ORDERED: HYDROmorphone HCL 0.5MG/ML 50 ML CASSETTE IV PRN (15:14)
[2018-08-19] MEDS ORDERED: SILDENAFIL CITRATE 20 MG TABLET PO PRN (15:14)
[2018-08-19] MEDS ORDERED: NALOXONE HCL 0.4 MG/1 ML VIAL/CARP IV PRN (15:14)
[2018-08-19] MEDS ORDERED: PHARMACY GLYCEMIC MGMT CONSULT PRN (15:28)
[2018-08-19] MEDS ORDERED: INSULIN GLARGINE SOLOSTAR 100 UNITS/ML 3 ML PEN SC STA (15:35)
[2018-08-19] MEDS ORDERED: INSULIN ASPART 100 UNITS/ML 3 ML PEN SC SCH (16:00)
[2018-08-19] MEDS: cefOXitin 2,000 MG in DEXTROSE 5% 50 ML IV SCH ×2 (16:44→21:40)
[2018-08-19] MEDS: LACTATED RINGER'S 1,000 ML IV SCH (16:53)
--- NOTE | 2018-08-19 17:33 | Surgery Progress Note ---
Date of Service August 19, 2018 Assessment & Plan (1) Rectal mass: Day of surgery status post LAR with end colostomy. Discussed operative findings with patient. The rectal mass was lower than anticipated and difficult to get adequate margin. Mass was at staple line. I explained that I elected to perform end colostomy rather than resect staple line or perform an anastomosis. The patient expressed understanding. He may have ice chips, continue dasilva. Present on Admission?: Yes Results & Data Vital Signs (Past 12 Hours) Vital Signs Temp Pulse Pulse Resp BP Pulse Ox 08/19/18 16:42 18 151/77 H 97 08/19/18 15:39 18 143/84 H 97 08/19/18 15:18 18 133/82 97 08/19/18 14:35 37.4 C 97 H 16 154/88 H 96 08/19/18 14:25 95 H 16 150/89 H 98 08/19/18 14:15 36.7 C 93 H 16 155/86 H 98 08/19/18 14:05 91 H 13 164/99 H 100 08/19/18 13:55 95 H 20 154/82 H 100 08/19/18 13:45 94 H 13 146/72 H 100 08/19/18 13:38 36.4 C L 91 H 24 149/90 H 100 08/19/18 06:14 37.2 C 105 H 18 185/106 H 92
[2018-08-19] MEDS: ACETAMINOPHEN 1,000 MG/100 ML VIAL IV SCH (17:44)
[2018-08-19] MEDS: SODIUM CHLORIDE 0.9% 1000ML 1,000 ML IV SCH (19:30)
[2018-08-19] MEDS: INSULIN ASPART 100 UNITS/ML 3 ML PEN SC SCH (20:43)
[2018-08-20] MEDS: INSULIN ASPART 100 UNITS/ML 3 ML PEN SC SCH ×6 (00:19→20:56)
[2018-08-20] MEDS: LACTATED RINGER'S 1,000 ML IV SCH ×4 (00:23→17:56)
[2018-08-20 00:34] LABS: Basophils # (auto) 0.01 K/uL (0-0.2); Basophils % (auto) 0.1 %; Hematocrit (blood only) 35.2 % (42-52); Hemoglobin 11.5 g/dL (14.0-18.0); Immature Granulocytes # (auto) 0.07 K/uL (0.00-0.02); Immature Granulocytes % (auto) 0.4 %; Lymphocytes # (auto) 1.59 K/uL (1.2-3.4); Lymphocytes % (auto) 9.9 %; Mean Corpuscular Hgb Conc 32.7 g/dL (32-36); Mean Corpuscular Volume 73.5 fL (80-100); Monocytes # (auto) 1.79 K/uL (0.11-0.59); Monocytes % (auto) 11.1 %; Neutrophils # (auto) 12.65 K/uL (1.4-6.5); Neutrophils % (auto) 78.5 %; Platelet Count 229 K/uL (130-400); RDW Coefficient of Variation 14.5 % (11.5-14.5); RDW Standard Deviation 38.6 fL (36.4-46.3); Red Blood Count 4.79 M/uL (4.7-6.1); White Blood Count 16.11 K/uL (4.8-10.8)
[2018-08-20 00:53] LABS: Albumin Level 2.7 gm/dl (3.4-5.0); BUN Creatinine Ratio 11.3 (10-20); Calcium 7.7 mg/dl (8.5-10.1); Creatinine Clr Calc Pharmacy 36.5 ml/min; Est GFR (African American) 29.8; Est GFR (Non-African American) 25.7; Potassium 4.4 mmol/L (3.5-5.1)
[2018-08-20 00:55] LABS: Albumin Globulin Ratio 0.7 (0.9-2); Bilirubin,Total 0.3 mg/dl (0.2-1); Globulin 3.8 gm/dl (2.5-4.0); Total Protein 6.5 gm/dl (6.4-8.2)
--- NOTE | 2018-08-20 00:55 | Consultation ---
Date of Consultation August 20, 2018 Assessment & Plan (1) Rectal mass: 67yoM with hx of HTN, HLD, pAF, DM2, severe COPD post op day 1 s/p laparoscopic low anterior rectum resection with end colostomy by Dr. Hoffman on 08/19 Rectal Mass: post op day 1 s/p laparoscopic low anterior rectum resection with end colostomy -WBC 16.1 likely reactive in the setting of surgery, 1 low grade temp of 37.7 post op -Ct abdomen 05/2018 pre-op: soft tissue mass in the mid rectum without gross evidence of nodular invasion into the perirectal fat. At least 3 small though suspicious mesorectal lymph nodes present. 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 ATN -BUN/Cr 29/2.52 -On LR at 150cc/hr -Non-oliguric -Continue to monitor BMP and urine output Acute LFT abnormalities likely in the setting of surgery and anesthesia induced ischemia -AST 106, ALT 79 -Continue to monitor LFT Anemia -Likely secondary to GI bleed given hx of rectal mass with some loss during surg valentin -Hgb 11.5 post op from 12.4 -MCV 73.5 -Continue to monitor CBC HTN/pAfib -Continue home metoprolol 50mg QAM -Given mildly elevated HR 90s-100s, lopressor 5mg IV Q6H PRN ordered -Hold irbesartan in the setting of ANGELA -Pt not anticoagulated at baseline due to hx of GI bleed HLD -hold statin in the setting of LFT abnormalities DM2 -Continue SSI with BSG checks COPD -Continue home albuterol PRN and Breo ellipta DVT prop: Lovenox (2) HTN (hypertension): (3) Diabetes: (4) Paroxysmal A-fib: (5) HLD (hyperlipidemia): (6) COPD (chronic obstructive pulmonary disease): Supervising Physician Co-Signing Physician Notes Pt seen/examined following resident MD Travis Harris. 67 y/o M Hx HTN, HLD, PAF, DMII, advanced COPD post op resecton of rectal mass - had laparoscopic resection of rectum with end colostomy 08/19. Labs are notable for ANGELA. OE AAO x 3 S1, 2 R CTA - poor air movement NT, ND No CCE P: COPD - cont Breo, albuterol - no evidence of current exacerbation DM II- placed on a SS AF - ASA, Metoprolol ANGELA - IVF - recheck BMP AM HTN - hold ARB due to renal function - cont Metoprolol HLD - cont statin Med service will follow daily pending DC History of Present Illness Requesting Physician: Dr. Hoffman Reason for Consultation: Medical Management Attending Physician: John Hoffman, DO, FACS History of Present Illness 67yoM with hx of HTN, HLD, pAF, DM2, severe COPD pos t op day 1 s/p rectal mass surgery by Dr. Hoffman. Patient had lapraroscopic low anterior resection of rectum with end colostomy on 08/19. 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 Denies any f/c, HUNT/dizziness, cp, sob, n/v. Allergies Allergy/AdvReac Type Severity Reaction Status Date / Time No Known Allergies Allergy Verified 08/19/18 06:06 Home Medications Home Medications Medication Instructions Recorded Confirmed Type Breo Ellipta 1 inh INHALATION QAM 06/30/18 08/19/18 History Lantus U-100 Insulin 35 unit SUBCUT QAM 06/30/18 08/19/18 History albuterol sulfate [Ventolin HFA] 2 puff INHALATION QID PRN 06/30/18 08/19/18 History aspirin 325 mg PO QAM 06/30/18 08/19/18 History atorvastatin 80 mg PO HS 06/30/18 08/19/18 History ergocalciferol (vitamin D2) 50,000 unit PO WK 06/30/18 08/19/18 History [Vitamin D2] glimepiride 1 dose PO BID 06/30/18 08/19/18 History irbesartan 0.5 tab PO QAM 06/30/18 08/19/18 History metformin 1,000 mg PO BID 06/30/18 08/19/18 History metoprolol succinate 50 mg PO QAM 06/30/18 08/19/18 History sildenafil (antihypertensive) 20 mg PO UD PRN 06/30/18 07/24/18 History tadalafil 5 mg PO UD PRN 06/30/18 07/24/18 History Patient History Medical History Atrial fibrillation Chronic obstructive pulmonary disease Diabetes mellitus, type 2 Hyperlipidemia Hypertension Obesity Surgical History History of colonoscopy versed/propofol, no issues. completed 07/07/2018. History of adenoidectomy History of tonsillectomy History of tooth extraction Family History Father Family history of diabetes mellitus Brother Family history of diabetes mellitus Social History Preferred Language: Bahamian Communication Ability: Effective Retail Account Specialist Required: No Beliefs That Will Affect Care: None Current Living Situation: Alone Other Information That Helps Us Care for You: No Feels Safe at Home: Yes Safety Concerns: Feels Safe At This Time Smoking Status: Former smoker (PER DR. VARGAS'S NOTE: QUIT 2007, SMOKED 1-2 PACKS/DAY) Tobacco Type: cigarettes Smoking End Date: QUIT 12 YEARS AGO Second Hand Exposure: No Tobacco Cessation Education Requested by Patient: No Hx Alcohol Use: No Hx Substance Use: No Review of Systems Review of Systems: As per HPI Physical Exam Physical Exam: General: In NAD, pleasant CV: RRR, no m/r/g PULM: CTAB equal breath sounds bilaterally ABDOMEN: +BS - hypoactive, non-distended, tender over surgical site, dressing C/D/I, SUKI drain with serosanguinous output, colostomy with moderate brownish output : dasilva in place LE: no calf TTP, no LE edema Results & Data Vital Signs (Past 12 Hours) Vital Signs Temp Pulse Pulse Resp BP BP Pulse Ox 08/19/18 23:53 36.9 C 101 H 18 179/79 H 93 08/19/18 21:27 37.2 C 105 H 20 156/81 H 94 08/19/18 20:27 36.9 C 102 H 22 166/76 H 94 08/19/18 19:30 36.7 C 103 H 26 H 166/96 H 153/89 H 94 08/19/18 17:53 37.7 C H 99 H 20 160/85 H 95 08/19/18 16:42 18 151/77 H 97 08/19/18 15:39 18 143/84 H 97 08/19/18 15:18 18 133/82 97 08/19/18 14:35 37.4 C 97 H 16 154/88 H 96 08/19/18 14:25 95 H 16 150/89 H 98 08/19/18 14:15 36.7 C 93 H 16 155/86 H 98 08/19/18 14:05 91 H 13 164/99 H 100 08/19/18 13:55 95 H 20 154/82 H 100 08/19/18 13:45 94 H 13 146/72 H 100 08/19/18 13:38 36.4 C L 91 H 24 149/90 H 100 Laboratory Results Abnormal lab results 08/19/18 08/19/18 08/19/18 Range/Units 06:15 14:01 16:20 WBC (4.8-10.8) K/uL Hgb (14.0-18.0) g/dL Hct (42-52) % MCV (80-100) fL MCH (25-34) pg MPV (7.4-10.4) fL Immature Gran # (Auto) (0.00-0.02) K/uL Neut # (Auto) (1.4-6.5) K/uL Martin # (Auto) (0.11-0.59) K/uL POC Glucose 155 H 236 H 255 H (70-99) 08/19/18 08/19/18 08/19/18 Range/Units 18:14 20:24 23:45 WBC (4.8-10.8) K/uL Hgb (14.0-18.0) g/dL Hct (42-52) % MCV (80-100) fL MCH (25-34) pg MPV (7.4-10.4) fL Immature Gran # (Auto) (0.00-0.02) K/uL Neut # (Auto) (1.4-6.5) K/uL Martin # (Auto) (0.11-0.59) K/uL POC Glucose 278 H 269 H 227 H (70-99) 08/20/18 Range/Units 00:17 WBC 16.11 H (4.8-10.8) K/uL Hgb 11.5 L (14.0-18.0) g/dL Hct 35.2 L (42-52) % MCV 73.5 L (80-100) fL MCH 24.0 L (25-34) pg MPV 11.0 H (7.4-10.4) fL Immature Gran # (Auto) 0.07 H (0.00-0.02) K/uL Neut # (Auto) 12.65 H (1.4-6.5) K/uL Martin # (Auto) 1.79 H (0.11-0.59) K/uL POC Glucose (70-99) Resident Activity Tracking Resident Involvement: Resident Care Provided Care Provided: Adult [facility]
[2018-08-20 01:11] LABS: Rouleaux 1+
[2018-08-20] MEDS ORDERED: METOPROLOL TARTRATE 1 MG/ML VIAL IV PRN (01:32)
[2018-08-20] MEDS: ACETAMINOPHEN 1,000 MG/100 ML VIAL IV SCH ×3 (01:37→17:54)
[2018-08-20] MEDS: cefOXitin 2,000 MG in DEXTROSE 5% 50 ML IV SCH ×2 (03:53→10:40)
[2018-08-20 07:21] LABS: Basophils # (auto) 0.01 K/uL (0-0.2); Basophils % (auto) 0.1 %; Hematocrit (blood only) 32.9 % (42-52); Hemoglobin 10.8 g/dL (14.0-18.0); Immature Granulocytes # (auto) 0.03 K/uL (0.00-0.02); Immature Granulocytes % (auto) 0.2 %; Lymphocytes # (auto) 1.75 K/uL (1.2-3.4); Lymphocytes % (auto) 11.4 %; Mean Corpuscular Hgb Conc 32.8 g/dL (32-36); Mean Corpuscular Volume 73.6 fL (80-100); Mean Platelet Volume 10.6 fL (7.4-10.4); Monocytes # (auto) 1.57 K/uL (0.11-0.59); Monocytes % (auto) 10.3 %; Neutrophils # (auto) 11.93 K/uL (1.4-6.5); Platelet Count 236 K/uL (130-400); RDW Coefficient of Variation 14.6 % (11.5-14.5); RDW Standard Deviation 38.7 fL (36.4-46.3); Red Blood Count 4.47 M/uL (4.7-6.1); White Blood Count 15.29 K/uL (4.8-10.8)
[2018-08-20 07:33] LABS: INR 1.2 (0.9-1.1); Partial Thromboplastin Time 27.8 Seconds (21.0-31.0); Prothrombin Time 12.4 Seconds (9.0-12.0)
[2018-08-20 07:46] LABS: Echinocytes 1+; Tear Drop Cells Occasional
[2018-08-20 07:50] LABS: BUN Creatinine Ratio 13.2 (10-20); Calcium 7.8 mg/dl (8.5-10.1); Creatinine Clr Calc Pharmacy 38.5 ml/min; Est GFR (African American) 31.8; Est GFR (Non-African American) 27.4; Potassium 4.3 mmol/L (3.5-5.1)
--- NOTE | 2018-08-20 08:08 | Anesthesiology Progress Note ---
Date of Service August 20, 2018 Anesthesia Post Procedure Vital Signs Vital Signs: Temp Pulse Pulse Resp BP BP Pulse Ox 08/20/18 07:25 36.8 C 98 H 16 175/81 H 95 08/20/18 03:51 37 C 99 H 18 176/75 H 94 08/19/18 23:53 36.9 C 101 H 18 179/79 H 93 08/19/18 21:27 37.2 C 105 H 20 156/81 H 94 08/19/18 20:27 36.9 C 102 H 22 166/76 H 94 08/19/18 19:30 36.7 C 103 H 26 H 166/96 H 153/89 H 94 08/19/18 17:53 37.7 C H 99 H 20 160/85 H 95 08/19/18 16:42 18 151/77 H 97 08/19/18 15:39 18 143/84 H 97 08/19/18 15:18 18 133/82 97 08/19/18 14:35 37.4 C 97 H 16 154/88 H 96 08/19/18 14:25 95 H 16 150/89 H 98 08/19/18 14:15 36.7 C 93 H 16 155/86 H 98 08/19/18 14:05 91 H 13 164/99 H 100 08/19/18 13:55 95 H 20 154/82 H 100 08/19/18 13:45 94 H 13 146/72 H 100 08/19/18 13:38 36.4 C L 91 H 24 149/90 H 100 Pain Intensity Abdomen: Pain Intensity: 3 Notes Mental Status: alert / awake / arousable and participated in evaluation Nausea / Vomiting: adequately controlled Pain: adequately controlled Airway Patency, RR, SpO2: stable & adequate BP & HR: stable & adequate Hydration State: stable & adequate
[2018-08-20] MEDS ORDERED: INSULIN GLARGINE SOLOSTAR 100 UNITS/ML 3 ML PEN SC ONE (09:00)
[2018-08-20] MEDS: ENOXAPARIN INJ 40 MG/0.4 ML SYR SQ SCH (09:14)
[2018-08-20] MEDS: METOPROLOL SUCC 50MG EXT REL TAB PO SCH (09:14)
--- NOTE | 2018-08-20 09:55 | Pharmacy Report ---
Glycemic Control Consultation - Date of Service August 20, 2018 - Scope Scope: Glycemic Pharmacist consulted by Amari Abel PA-C on 08/19/18 for glycemic control and to write orders per [facility] inpatient glycemic control protocol - Objective Weight: 111.5 kg Accuchecks BSG (last 24hrs): 08/19/18 08/19/18 08/19/18 14:01 16:20 18:14 Glucose POC Glucose 236 H 255 H 278 H 08/19/18 08/19/18 08/20/18 20:24 23:45 00:17 Glucose 224 H POC Glucose 269 H 227 H 08/20/18 08/20/18 08/20/18 03:47 07:02 08:12 Glucose 186 H POC Glucose 202 H 167 H Laboratory Data (last 24hrs): 08/20/18 08/20/18 00:17 07:02 Potassium 4.4 4.3 Carbon Dioxide 24 24 Anion Gap 8.0 7.0 Creatinine 2.52 H 2.39 H Est Cr Clr Drug Dosing 36.5 38.5 - Recent Pertinent Medications Outpatient Anti-diabetic Regimen: * Lantus 55 units SQ QAM * Metformin 1g PO BID * Glimepiride 2mg QAM, 4mg QPM * A1c = 7.7 % 06/16/18 Risk Factors for Insulin Resistance: * Steroids: Dexamethasone 8mg IV x1 preop * Infection: Mefoxin IV * Recent Surgery: POD1 tumor resection & colostomy * Diet: NPO - Assessment & Plan Assessment & Plan: ASSESSMENT: * POD 1 tumor resection and colostomy, pt remains NPO * Type 2 diabetic with inadequate control at home on orals and Lantus * Oral agents are not recommended for inpatient use d/t drug interactions, changing PO intake, and difficulty titrating for acute hyper/hypoglycemia. ADA recommends re-initiating outpatient oral agents 1-2 days prior to discharge if/when appropriate if they were held on admission. * Will hold oral agents for admission and utilize SQ basal bolus insulin regimen which is the recommended regimen for inpatient glycemic control. * Giving about half of lantus dose this morning for NPO status, and will lossen CF and CR throughout today as IV steroids from yesterday are wearing off PLAN FOR INPATIENT GLYCEMIC CONTROL: * Holding outpatient oral diabetes medications * Basal insulin * Lantus 20 units SQ x 1 dose this morning for NPO status * Bolus insulin * NovoLog per scale ACHS or Q6hrs while NPO * Goal Range: Low 110 mg/dL - High 140 mg/dL * Correction Factor: 15 mg/dL/unit * Nutritional / Prandial insulin per carb ratio of 1 unit per 5 grams CHO consumed * Please note that the plan above was derived based on current level of insulin resistance and hospital stress. These recommendations are appropriate for inpatient admission only. Plan of care upon discharge will need to be reassessed to avoid potential outpatient hypo/hyperglycemia. Thank you.
--- NOTE | 2018-08-20 10:30 | Surgery Progress Note ---
Date of Service August 20, 2018 Assessment & Plan (1) Rectal mass: POD 1 LAR, end colostomy consider clears later today ambulate WBC, Cr down slightly Supervising Physician Co-Signing Physician Notes 67 y/o male POD#1 LAR with end colostomy for low rectal polyp vs. cancer. Doing well, urine output picked up overnight, cr slightly down from overnight. COlostomy with minimal gas but some liquid. Dasilva removed this AM. hct slightly down, likely dilutional. ABRIL with ss fluid. Continue IVF's, await DTV. Cr may be seondary to underresuscitation, will follow. Cont abril, start clears. Subjective no nausea, some belching, OOB to bathroom, dasilva out Physical Exam Gastrointestinal (Abdomen): Inspection/Auscultation: + abdominal surgical incision (dressing intact); abdomen not distended Percussion/Palpation: abdomen soft Results & Data Vital Signs (Past 12 Hours) Vital Signs Temp Pulse Resp BP Pulse Ox 08/20/18 07:25 36.8 C 98 H 16 175/81 H 95 08/20/18 03:51 37 C 99 H 18 176/75 H 94 08/19/18 23:53 36.9 C 101 H 18 179/79 H 93
[2018-08-20 11:24] LABS: Alanine Aminotransferase 75 U/L (12-78); Albumin Level 2.8 gm/dl (3.4-5.0); Alkaline Phosphatase 59 U/L (45-117); Aspartate Aminotransferase 112 U/L (15-37); Bilirubin Direct < 0.1 mg/dl (0-0.2); Bilirubin,Total 0.3 mg/dl (0.2-1); Total Protein 6.1 gm/dl (6.4-8.2)
[2018-08-20] MEDS: SODIUM CHLORIDE 0.9% 1000ML 1,000 ML IV SCH (13:27)
[2018-08-20 15:02] LABS: Appearance Urine Turbid (Clear); Bacteria Urine Automated Negative (Negative); Bilirubin Urine Negative (Negative); Color Urine Orange; Epithelial Cell Urine Auto >30 /lpf (0-5); Glucose Urine UA Negative (Negative); Ketones Urine Trace (Negative); Leukocyte Esterase Urine 1+ (Negative); Nitrite Urine Negative (Negative); Protein Urine 1+ (Negative); Specific Gravity Urine 1.026 (1.000-1.030); Urobilinogen Urine Negative (Negative); WBC Urine Automated >30 /hpf (0-5)
[2018-08-20 15:15] LABS: Mucus Urine Present (None Prsent)
[2018-08-20 15:17] LABS: Sperm Urine Present (None Prsent)
[2018-08-20] MEDS: ALBUTEROL HFA 8 GM INHALER INH PRN (16:04)
[2018-08-20] MEDS ORDERED: INSULIN GLARGINE SOLOSTAR 100 UNITS/ML 3 ML PEN SC SCH (21:00)
[2018-08-21] MEDS ORDERED: Nursing to Pharmacy Communication ONE (00:07)
[2018-08-21] MEDS: LACTATED RINGER'S 1,000 ML IV SCH ×4 (00:40→20:54)
[2018-08-21] MEDS: INSULIN ASPART 100 UNITS/ML 3 ML PEN SC SCH ×6 (00:57→20:57)
[2018-08-21] MEDS: ACETAMINOPHEN 1,000 MG/100 ML VIAL IV SCH ×3 (02:15→18:37)
[2018-08-21 06:23] LABS: Basophils # (auto) 0.02 K/uL (0-0.2); Basophils % (auto) 0.2 %; Eosinophils # (auto) 0.01 K/uL (0-0.5); Eosinophils % (auto) 0.1 %; Hematocrit (blood only) 26.4 % (42-52); Hemoglobin 8.5 g/dL (14.0-18.0); Immature Granulocytes # (auto) 0.03 K/uL (0.00-0.02); Immature Granulocytes % (auto) 0.3 %; Lymphocytes # (auto) 1.54 K/uL (1.2-3.4); Lymphocytes % (auto) 13.1 %; Mean Corpuscular Hgb Conc 32.2 g/dL (32-36); Mean Corpuscular Volume 73.5 fL (80-100); Mean Platelet Volume 10.1 fL (7.4-10.4); Monocytes # (auto) 1.19 K/uL (0.11-0.59); Monocytes % (auto) 10.1 %; Neutrophils # (auto) 8.96 K/uL (1.4-6.5); Neutrophils % (auto) 76.2 %; Platelet Count 185 K/uL (130-400); RDW Coefficient of Variation 14.7 % (11.5-14.5); RDW Standard Deviation 39.5 fL (36.4-46.3); Red Blood Count 3.59 M/uL (4.7-6.1); White Blood Count 11.75 K/uL (4.8-10.8)
[2018-08-21 07:01] LABS: BUN Creatinine Ratio 19.4 (10-20); Creatinine Clr Calc Pharmacy 79.4 ml/min; Est GFR (African American) 76.2; Est GFR (Non-African American) 65.7; Potassium 4.2 mmol/L (3.5-5.1)
[2018-08-21 07:20] LABS: ALC (manual) 0.92 K/uL (1.2-3.4); Lymphocytes # (manual) 0.92 K/uL (1.2-3.4); Lymphocytes % (manual) 7.8 %; Monocytes # (manual) 0.41 K/uL (0.11-0.59); Monocytes % (manual) 3.5 %; Neutrophils % (manual) 88.7 %; RBC Morphology Unremarkable
--- NOTE | 2018-08-21 07:37 | Hospitalist Progress Note ---
Date of Service DOS actually 08/20/18 August 21, 2018 Assessment & Plan (1) Rectal mass: This pt is a 67yo male with h/o HTN, HLD, PAF, DM2, severe COPD post op day 1 s/p laparoscopic low anterior rectum resection with end colostomy by Dr. Hoffman on 08/19 Rectal Mass: post op day 1 s/p laparoscopic low anterior rectum resection with end colostomy. Suspicious for CA, was TA on colonoscopy bx -WBC down to 15k, likely reactive in the setting of surgery, afebrile -Ct abdomen 05/2018 pre-op: soft tissue mass in the mid rectum without gross evidence of nodular invasion into the perirectal fat. At least 3 small though suspicious mesorectal lymph nodes present. No evidence of metastatic disease elsewhere -On Cefoxitin for empiric coverage -Pain control: Tylenol 1g Q8H ramana and Dilaudid ANIMAL EVISCERATOR - well controlled -now on clears, continue on IVF LR at 150cc/hr - advance diet per recommendation of surgical team ANGELA likely pre-renal vs. ATN -BUN/Cr 29/2.52 post-op--> now improving down to 2.39 with IVFs -cont LR at 150cc/hr -now making more urine -Continue to monitor BMP and urine output -continue holding ARB Acute LFT abnormalities likely in the setting of surgery , unclear why? -AST 106, ALT 79, improving today -Continue to monitor LFT Anemia -Likely secondary to GI bleed given hx of rectal mass with some loss during surgery -Hgb 10.8 post op from 12.4 -MCV 73.5 -Continue to monitor CBC HTN/PAfib -Continue home metoprolol 50mg QAM -Given mildly elevated HR 90s-100s, lopressor 5mg IV Q6H PRN ordered -Hold irbesartan in the setting of ANGELA -Pt not anticoagulated at baseline due to hx of GI bleed HLD -hold statin in the setting of LFT abnormalities DM2 -Continue SSI with BSG checks COPD -Continue home albuterol PRN and Breo ellipta DVT prop: Lovenox (2) HTN (hypertension): (3) Diabetes: (4) Paroxysmal A-fib: (5) HLD (hyperlipidemia): (6) COPD (chronic obstructive pulmonary disease): Subjective Pt feeling well, minimal abd pain. Had some clears but appetite low so he only ate half the tray. No CP or SOB. Urine output has picked up and he is voiding on his own after Medley removed Review of Systems Review of Systems: All systems reviewed & are unremarkable except as noted in HPI & below Physical Exam Constitutional: WD/WN, vitals as above Eyes: PERRL, conjunctivae normal, anicteric sclerae ENMT: external ear and nose normal, oropharynx normal Neck: trachea midline, no thyromegaly Respiratory: normal respiratory effort, lungs clear to auscultation Cardiovascular: RRR, no murmur, no edema Gastrointestinal (Abdomen): Inspection/Auscultation: + hypoactive bowel sounds; + abdomen abnormal to inspection (large dressing in place, ostomy bag with some blood and gas) Percussion/Palpation: abdomen soft; abdomen nontender Musculoskeletal: Extremities: extremities normal to inspection; no cyanosis and no clubbing Skin: no rashes, warm and dry Neurologic: moves all extremities and awake; no focal motor deficits Psychiatric: A+Ox3, euthymic affect Results & Data Vital Signs (Past 12 Hours) Vital Signs Temp Pulse Resp BP Pulse Ox 08/21/18 03:48 95 H 22 145/72 H 93 08/21/18 03:27 91 08/21/18 03:26 36.9 C 115 H 26 H 178/73 H 86 L 08/20/18 23:03 37.1 C 93 H 20 158/80 H 91 08/20/18 21:53 37.2 C 90 20 122/70 94 Laboratory Results Manager Furniture 2.39 WBC 15, hgb 10.8
--- NOTE | 2018-08-21 08:36 | Surgery Progress Note ---
Date of Service August 21, 2018 Assessment & Plan (1) Rectal mass: POD 2 LAR, end colostomy keep on clears ambulate Hgb 8.5, largely dilutional Cr down to 1.1 BP elevated this AM but has been stable during the day, appreciate hospitalist assistance with meds Supervising Physician Co-Signing Physician Notes Pnt S&E, agree w/ above. POD#2 LAR with end colostomy for low rectal tumor. Overall doing well, minimal liquid in colostomy, no gas. Abdominal incision with some serosanguinous drainage, no infection. Urine output improved, cr normalized. SUKI with ss drainage. HCT 25 from 32, likely dilutional. Advance to full liquids, monitor hct. Await path. Dr. Ramírez covering over weekend. Appreciate medicine assistance with this patient. Subjective no nausea, not much appetite, ambulating some Physical Exam Gastrointestinal (Abdomen): Inspection/Auscultation: + abdomen distended (mildy), + abdominal surgical incision (minimal drainage) and + abdominal surgical drain present (50 cc overnight) ostomy edematous, minimal serous output Results & Data Vital Signs (Past 12 Hours) Vital Signs Temp Pulse Resp BP Pulse Ox 08/21/18 07:30 37.1 C 99 H 18 177/83 H 95 08/21/18 03:48 95 H 22 145/72 H 93 08/21/18 03:27 91 08/21/18 03:26 36.9 C 115 H 26 H 178/73 H 86 L 08/20/18 23:03 37.1 C 93 H 20 158/80 H 91 08/20/18 21:53 37.2 C 90 20 122/70 94
[2018-08-21] MEDS ORDERED: INSULIN GLARGINE SOLOSTAR 100 UNITS/ML 3 ML PEN SC SCH (09:00)
[2018-08-21] MEDS: ENOXAPARIN INJ 40 MG/0.4 ML SYR SQ SCH (09:05)
[2018-08-21] MEDS: METOPROLOL SUCC 50MG EXT REL TAB PO SCH (09:07)
[2018-08-21] MEDS: FLUTICASONE/VILANTEROL INHALER INH SCH (09:07)
[2018-08-21] MEDS ORDERED: METOPROLOL SUCC 25MG EXT REL TAB PO STA (09:30)
[2018-08-21] MEDS ORDERED: HydrALAZINE HCL 20 MG/ML VIAL IV PRN (09:34)
--- NOTE | 2018-08-21 10:38 | Pharmacy Report ---
Pharmacy Glycemic Short Note 2 - Date of Service August 21, 2018 - Glycemic Short BSG Results (Last 24 hours): 08/20/18 08/20/18 08/20/18 12:06 17:22 20:38 Glucose POC Glucose 196 H 219 H 178 H 08/20/18 08/21/18 08/21/18 23:27 03:23 06:06 Glucose 124 H POC Glucose 122 H 129 H 08/21/18 08:19 Glucose POC Glucose 156 H OUTPATIENT ANTIDIABETIC REGIMEN: * Lantus 55 units SQ QAM * Metformin 1g PO BID * Glimepiride 2mg QAM, 4mg QPM ASSESSMENT: 08/21: * Pt received a total of 44 units yesterday. Lantus scale added last night, however, pt did not receive any basal insulin last evening due to evening BSG <180 mg/dL * Pt's diet advanced to clears yesterday at lunch. May explain rise in dinner time BSG. Will increase AM Lantus dose this AM to pt's home dose as diet advances. 08/20: * POD 1 tumor resection and colostomy, pt remains NPO * Type 2 diabetic with inadequate control at home on orals and Lantus * Oral agents are not recommended for inpatient use d/t drug interactions, changing PO intake, and difficulty titrating for acute hyper/hypoglycemia. ADA recommends re-initiating outpatient oral agents 1-2 days prior to discharge if/when appropriate if they were held on admission. * Will hold oral agents for admission and utilize SQ basal bolus insulin regimen which is the recommended regimen for inpatient glycemic control. * Giving about half of lantus dose this morning for NPO status, and will lossen CF and CR throughout today as IV steroids from yesterday are wearing off PLAN FOR INPATIENT GLYCEMIC CONTROL: * Hold outpatient oral diabetes medications * Basal insulin - increased * Lantus 35 units QAM (pt's home dose) as patient's diet advances from NPO to clears * Bolus insulin * NovoLog per scale ACHS or Q6hrs while NPO * Goal Range: Low 110 mg/dL - High 140 mg/dL * Correction Factor: 15 mg/dL/unit * Nutritional / Prandial insulin per carb ratio of 1 unit per 5 grams CHO consumed
[2018-08-21] MEDS: SODIUM CHLORIDE 0.9% 1000ML 1,000 ML IV SCH (13:45)
--- NOTE | 2018-08-21 17:12 | Hospitalist Progress Note ---
Date of Service August 21, 2018 Assessment & Plan (1) Rectal mass: This pt is a 67yo male with h/o HTN, HLD, PAF, DM2, severe COPD post op day 1 s/p laparoscopic low anterior rectum resection with end colostomy by Dr. Hoffman on 08/19 Postop day #2 s/p laparoscopic low anterior rectum resection with end colostomy. Suspicious for CA, was TA on colonoscopy bx -WBC down to 11k, likely reactive in the setting of surgery, remains afebrile -Ct abdomen 05/2018 pre-op: soft tissue mass in the mid rectum without gross evidence of nodular invasion into the perirectal fat. At least 3 small though suspicious mesorectal lymph nodes present. 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 ATN -BUN/Cr 29/2.52 post-op--> now much improved down to 1.16 with copious IV fluids Urine output is excellent now Decrease IV fluids 100 mL's per hour -Continue to monitor BMP and urine output -continue holding ARB (3) Diabetes: Blood sugars controlled, hemoglobin A1c 7.7% in 05/2018 Pharmacy is managing -Continue basal bolus insulin and Accu-Cheks (4) HTN (hypertension): Blood pressures significantly elevated today, heart rate also mildly elevated which may be reactive to some blood loss anemia Increase home Toprol-XL to 75 mg once daily -Add as needed hydralazine as needed -Continue to hold irbesartan in the setting of ANGELA although this is improving (5) Paroxysmal A-fib: With a history of paroxysmal atrial fibrillation, currently in a regular rhythm Not on anticoagulation due to rectal bleeding from mass and microcytic anemia -Continue metoprolol for rate control (6) HLD (hyperlipidemia): -Continue to hold statin in the setting of LFT abnormalities (7) COPD (chronic obstructive pulmonary disease): With chronic cough, sputum production at normal amount -Continue home albuterol PRN and Breo ellipta (8) Elevated LFTs: With mild elevation in AST and ALT though is improving. No known history of liver issues Could be secondary to recent surgery -Continue to monitor LFTs in the morning (9) Anemia: Severely microcytic anemia, iron deficient and with known GI bleeding secondary to rectal mass Likely some blood loss during surgery but also hemo-dilutional today, hemoglobin down 8.5 -Continue to monitor CBC -Transfuse if hemoglobin drops less than 8 (10) DVT prophylaxis: SCDs Disposition-remain hospitalized Subjective Patient reports some pain in the lower abdomen but otherwise doing okay. He is not happy with the clear liquids diet as he does not like the food. Denies nausea or vomiting. He is having some gas into his colostomy bag. No chest pain or shortness of breath. He has his usual chronic cough which has not worsened in sputum production. He is now making a lot of urine. Review of Systems Review of Systems: All systems reviewed & are unremarkable except as noted in HPI & below Physical Exam Constitutional: WD/WN, vitals as above Eyes: PERRL, conjunctivae normal, anicteric sclerae Neck: trachea midline, no thyromegaly Respiratory: normal respiratory effort and + cough; no labored breathing and not tachypneic Auscultation: + rhonchi (A few scattered rhonchi); no crackles and no wheezes Cardiovascular: RRR, no murmur, no edema Gastrointestinal (Abdomen): Inspection/Auscultation: + hypoactive bowel sounds; + abdomen abnormal to inspection (large dressing in place, ostomy bag with some gas and serous fluid) Percussion/Palpation: abdomen soft; abdomen nontender Musculoskeletal: Extremities: extremities normal to inspection; no cyanosis and no clubbing Skin: no rashes, warm and dry Neurologic: moves all extremities and awake; no focal motor deficits Psychiatric: A+Ox3, euthymic affect Results & Data Vital Signs (Past 12 Hours) Vital Signs Temp Pulse Pulse Resp BP BP Pulse Ox 08/21/18 15:29 37.2 C 95 H 17 135/67 92 08/21/18 12:00 36.9 C 94 H 18 162/86 H 91 08/21/18 10:45 96 H 167/78 H 92 08/21/18 07:30 37.1 C 99 H 18 177/83 H 95 Laboratory Results 04/26/19 04/26/19 04/26/19 Range/Units 20:38 17:06 11:59 WBC (4.8-10.8) K/uL RBC (4.7-6.1) M/uL Hgb (14.0-18.0) g/dL Hct (42-52) % MCV (80-100) fL MCH (25-34) pg MCHC (32-36) g/dL RDW Std Deviation (36.4-46.3) fL RDW Coeff of Laurie (11.5-14.5) % Plt Count (130-400) K/uL MPV (7.4-10.4) fL Immature Gran % (Auto) % Neut % (Auto) % Lymph % (Auto) % [place] % (Auto) % Eos % (Auto) % Baso % (Auto) % Immature Gran # (Auto) (0.00-0.02) K/uL Neut # (Auto) (1.4-6.5) K/uL Lymph # (Auto) (1.2-3.4) K/uL [place] # (Auto) (0.11-0.59) K/uL Eos # (Auto) (0-0.5) K/uL Baso # (Auto) (0-0.2) K/uL Neutrophils % (Manual) % Lymphocytes % (Manual) % Monocytes % (Manual) % Neutrophils # (Manual) (1.4-6.5) K/uL Total Absolute Neuts (1.4-6.5) K/uL Lymphocytes # (Manual) (1.2-3.4) K/uL Total Abs Lymphocytes (1.2-3.4) K/uL Monocytes # (Manual) (0.11-0.59) K/uL RBC Morphology Sodium (136-145) mmol/L Potassium (3.5-5.1) mmol/L Chloride (98-107) mmol/L Carbon Dioxide (21-32) mmol/L Anion Gap (3-11) BUN (7-18) mg/dl Creatinine (0.6-1.4) mg/dl Est Cr Clr Drug Dosing ml/min Est GFR ( Amer) Est GFR (Non-Af Amer) BUN/Creatinine Ratio (10-20) Glucose (70-99) mg/dl POC Glucose 109 H 76 142 H (70-99) Calcium (8.5-10.1) mg/dl 08/21/18 08/21/18 08/21/18 Range/Units 08:19 06:06 06:06 WBC 11.75 H (4.8-10.8) K/uL RBC 3.59 L (4.7-6.1) M/uL Hgb 8.5 L (14.0-18.0) g/dL Hct 26.4 L (42-52) % MCV 73.5 L (80-100) fL MCH 23.7 L (25-34) pg MCHC 32.2 (32-36) g/dL RDW Std Deviation 39.5 (36.4-46.3) fL RDW Coeff of Laurie 14.7 H (11.5-14.5) % Plt Count 185 (130-400) K/uL MPV 10.1 (7.4-10.4) fL Immature Gran % (Auto) 0.3 % Neut % (Auto) 76.2 % Lymph % (Auto) 13.1 % [place] % (Auto) 10.1 % Eos % (Auto) 0.1 % Baso % (Auto) 0.2 % Immature Gran # (Auto) 0.03 H (0.00-0.02) K/uL Neut # (Auto) 8.96 H (1.4-6.5) K/uL Lymph # (Auto) 1.54 (1.2-3.4) K/uL [place] # (Auto) 1.19 H (0.11-0.59) K/uL Eos # (Auto) 0.01 (0-0.5) K/uL Baso # (Auto) 0.02 (0-0.2) K/uL Neutrophils % (Manual) 88.7 % Lymphocytes % (Manual) 7.8 % Monocytes % (Manual) 3.5 % Neutrophils # (Manual) 10.42 H (1.4-6.5) K/uL Total Absolute Neuts 10.42 H (1.4-6.5) K/uL Lymphocytes # (Manual) 0.92 L (1.2-3.4) K/uL Total Abs Lymphocytes 0.92 L (1.2-3.4) K/uL Monocytes # (Manual) 0.41 (0.11-0.59) K/uL RBC Morphology Unremarkable Sodium 135 L (136-145) mmol/L Potassium 4.2 (3.5-5.1) mmol/L Chloride 103 (98-107) mmol/L Carbon Dioxide 27 (21-32) mmol/L Anion Gap 5.0 (3-11) BUN 23 H (7-18) mg/dl Creatinine 1.16 D (0.6-1.4) mg/dl Est Cr Clr Drug Dosing 79.4 ml/min Est GFR ( Amer) 76.2 Est GFR (Non-Af Amer) 65.7 BUN/Creatinine Ratio 19.4 (10-20) Glucose 124 H (70-99) mg/dl POC Glucose 156 H (70-99) Calcium 8.0 L (8.5-10.1) mg/dl
[2018-08-22] MEDS: ACETAMINOPHEN 1,000 MG/100 ML VIAL IV SCH ×3 (01:52→18:54)
[2018-08-22] MEDS: LACTATED RINGER'S 1,000 ML IV SCH ×2 (02:03→20:40)
[2018-08-22] MEDS ORDERED: FUROSEMIDE 20 MG TAB PO STA (04:09)
[2018-08-22 06:41] LABS: Basophils # (auto) 0.01 K/uL (0-0.2); Basophils % (auto) 0.1 %; Eosinophils # (auto) 0.09 K/uL (0-0.5); Hematocrit (blood only) 26.1 % (42-52); Hemoglobin 8.3 g/dL (14.0-18.0); Immature Granulocytes # (auto) 0.03 K/uL (0.00-0.02); Immature Granulocytes % (auto) 0.3 %; Lymphocytes # (auto) 1.44 K/uL (1.2-3.4); Mean Corpuscular Hgb Conc 31.8 g/dL (32-36); Mean Platelet Volume 10.2 fL (7.4-10.4); Monocytes # (auto) 0.88 K/uL (0.11-0.59); Monocytes % (auto) 9.8 %; Neutrophils # (auto) 6.56 K/uL (1.4-6.5); Neutrophils % (auto) 72.8 %; Platelet Count 215 K/uL (130-400); RDW Coefficient of Variation 14.7 % (11.5-14.5); RDW Standard Deviation 40.2 fL (36.4-46.3); Red Blood Count 3.48 M/uL (4.7-6.1); White Blood Count 9.01 K/uL (4.8-10.8)
[2018-08-22 07:15] LABS: Alanine Aminotransferase 64 U/L (12-78); Albumin Level 2.3 gm/dl (3.4-5.0); Aspartate Aminotransferase 77 U/L (15-37); BUN Creatinine Ratio 12.1 (10-20); Bilirubin Direct < 0.1 mg/dl (0-0.2); Blood Urea Nitrogen 11 mg/dl (7-18); Carbon Dioxide 31 mmol/L (21-32); Chloride 103 mmol/L (98-107); Creatinine Clr Calc Pharmacy 96.9 ml/min; Est GFR (Non-African American) 83.7; Glucose 95 mg/dl (70-99); Potassium 4.4 mmol/L (3.5-5.1); Sodium 137 mmol/L (136-145)
[2018-08-22 07:18] LABS: Alkaline Phosphatase 69 U/L (45-117); Bilirubin,Total 0.3 mg/dl (0.2-1); Total Protein 6.1 gm/dl (6.4-8.2)
[2018-08-22] MEDS: FLUTICASONE/VILANTEROL INHALER INH SCH (08:13)
[2018-08-22] MEDS: ENOXAPARIN INJ 40 MG/0.4 ML SYR SQ SCH (08:14)
[2018-08-22] MEDS: METOPROLOL SUCC 50MG EXT REL TAB PO SCH (08:14)
[2018-08-22] MEDS ORDERED: INSULIN GLARGINE SOLOSTAR 100 UNITS/ML 3 ML PEN SC SCH (09:00)
--- NOTE | 2018-08-22 09:04 | Surgery Progress Note ---
Date of Service August 22, 2018 Assessment & Plan (1) Rectal mass: pod #3 clinically doing well will advance to full liquids. awaiting full return of bowel fx no acute post op issues. Subjective pt seen. feeling much better today. wants to advance diet. sitting at computer/doing work. +flatus from stoma no stool yet Physical Exam Physical Exam: alert. nad. comfortable stoma viable. gas in bag. wounds look good. Results & Data Vital Signs (Past 12 Hours) Vital Signs Temp Pulse Resp BP BP Pulse Ox 08/22/18 07:15 36.8 C 89 16 156/78 H 92 08/22/18 06:23 90 08/22/18 04:00 37 C 103 H 22 158/94 H 93 08/22/18 03:59 79 L 08/21/18 22:56 37.1 C 90 20 130/65 93
[2018-08-22] MEDS: INSULIN ASPART 100 UNITS/ML 3 ML PEN SC SCH ×4 (10:37→21:06)
[2018-08-22] MEDS: INSULIN GLARGINE SOLOSTAR 100 UNITS/ML 3 ML PEN SC SCH (10:38)
--- NOTE | 2018-08-22 14:01 | Pharmacy Report ---
Pharmacy Glycemic Short Note 2 - Date of Service August 22, 2018 - Glycemic Short BSG Results (Last 24 hours): 08/21/18 08/21/18 08/22/18 17:06 20:38 05:51 Glucose 95 POC Glucose 76 109 H 08/22/18 08/22/18 09:15 12:23 Glucose POC Glucose 121 H 131 H OUTPATIENT ANTIDIABETIC REGIMEN: * Lantus 35 units SQ QAM * Metformin 1g PO BID * Glimepiride 2mg QAM, 4mg QPM * Alc 7.7% -06/16/18 ASSESSMENT: 08/22: * John received a total of 50 units of insulin yesterday with majority of BSGs at goal. * Fasting BSG of 121 mg/dL from this morning is at goal. I will slightly decrease Lantus dose to avoid further trending down. * Majority of post prandial BSGs were below goal yesterday (patient 76 mg/dL at dinnertime), therefore Novolog parameters have been loosened. 08/21: * Pt received a total of 44 units yesterday. Lantus scale added last night, however, pt did not receive any basal insulin last evening due to evening BSG <180 mg/dL * Pt's diet advanced to clears yesterday at lunch. May explain rise in dinner time BSG. Will increase AM Lantus dose this AM to pt's home dose as diet advances. 08/20: * POD 1 tumor resection and colostomy, pt remains NPO * Type 2 diabetic with inadequate control at home on orals and Lantus * Oral agents are not recommended for inpatient use d/t drug interactions, changing PO intake, and difficulty titrating for acute hyper/hypoglycemia. ADA recommends re-initiating outpatient oral agents 1-2 days prior to discharge if/when appropriate if they were held on admission. * Will hold oral agents for admission and utilize SQ basal bolus insulin regimen which is the recommended regimen for inpatient glycemic control. * Giving about half of lantus dose this morning for NPO status, and will lossen CF and CR throughout today as IV steroids from yesterday are wearing off PLAN FOR INPATIENT GLYCEMIC CONTROL: * Hold outpatient oral diabetes medications * Basal insulin - decreased 14% * Lantus 30 units QAM * Bolus insulin - loosened * NovoLog per scale ACHS or Q6hrs while NPO * Goal Range: Low 110 mg/dL - High 140 mg/dL * Correction Factor: 20 mg/dL/unit * Nutritional / Prandial insulin per carb ratio of 1 unit per 7 grams CHO consumed PLAN FOR DISCHARGE: * A1c near goal. Continue current outpatient regimen and titrate per outpatient provider.
--- NOTE | 2018-08-22 14:32 | Hospitalist Progress Note ---
Date of Service August 22, 2018 Assessment & Plan (1) Rectal mass: This pt is a 67yo male with h/o HTN, HLD, PAF, DM2, severe COPD post op day 1 s/p laparoscopic low anterior rectum resection with end colostomy by Dr. Hoffman on 08/19 Postop day #3 s/p laparoscopic low anterior rectum resection with end colostomy. 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 At least 3 small though suspicious mesorectal lymph nodes present. 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 Or close surveillance with colonoscopy? (2) ANGELA (acute kidney injury): likely pre-renal vs. ATN -BUN/Cr 29/2.52 post-op--> now resolved with copious IV fluids Urine output is excellent now dc IVFs -Continue to monitor BMP -ok to restart ARB in the morning (3) Diabetes: Blood sugars controlled, hemoglobin A1c 7.7% in 05/2018 Pharmacy is managing -Continue basal bolus insulin and Accu-Cheks (4) HTN (hypertension): Blood pressures were significantly elevated and now improved with increased metoprolol dose -continue Toprol-XL 75 mg once daily -continue hydralazine IV as needed -ok to restart irbesartan 150mg daily now that ANGELA is resolved (5) Paroxysmal A-fib: With a history of paroxysmal atrial fibrillation, currently in a regular rhythm Not on anticoagulation due to rectal bleeding from mass and microcytic anemia -Continue metoprolol for rate control -eventually should go back on anticoagulation-defer to PCP and/or Cardiology after recovery from surgery (6) HLD (hyperlipidemia): -Continue to hold statin in the setting of LFT abnormalities (7) COPD (chronic obstructive pulmonary disease): With chronic cough, sputum production at normal amount -Continue home albuterol PRN and Breo ellipta (8) Elevated LFTs: With mild elevation in AST and ALTthat is now much improved. No known history of liver issues Could be secondary to recent surgery (9) Anemia: Severely microcytic anemia, iron deficient and with known GI bleeding secondary to rectal mass Likely some blood loss during surgery but also hemo-dilutional, hemoglobin down 8.5 and stable at the same today -Continue to monitor CBC -Transfuse if hemoglobin drops less than 8 (10) DVT prophylaxis: SCDs Disposition-remain hospitalized Hospitalist service will continue to follow Subjective Feeling much better. had stool in his ostomy bag today, no nausea, is xuan full liquids, making urine. Is ambulating the halls, no chest pain. has his usual HARDIN and chronic cough Review of Systems Review of Systems: All systems reviewed & are unremarkable except as noted in HPI & below Physical Exam Constitutional: WD/WN, vitals as above + obese Eyes: PERRL, conjunctivae normal, anicteric sclerae Neck: trachea midline, no thyromegaly Respiratory: normal respiratory effort and + cough; no labored breathing and not tachypneic Auscultation: + rhonchi (A few scattered rhonchi); no crackles and no wheezes Cardiovascular: RRR, no murmur, no edema Gastrointestinal (Abdomen): Inspection/Auscultation: normal bowel sounds; + abdomen abnormal to inspection (large dressing in place, ostomy bag with stool and gas) Percussion/Palpation: abdomen soft; abdomen nontender Musculoskeletal: Extremities: extremities normal to inspection; no cyanosis and no clubbing Skin: no rashes, warm and dry Neurologic: moves all extremities and awake; no focal motor deficits Psychiatric: A+Ox3, euthymic affect Results & Data Vital Signs (Past 12 Hours) Vital Signs Temp Pulse Resp BP Pulse Ox 08/22/18 07:15 36.8 C 89 16 156/78 H 92 08/22/18 06:23 90 08/22/18 04:00 37 C 103 H 22 158/94 H 93 08/22/18 03:59 79 L Laboratory Results 08/22/18 08/22/18 08/22/18 Range/Units 12:23 09:15 05:51 WBC (4.8-10.8) K/uL RBC (4.7-6.1) M/uL Hgb (14.0-18.0) g/dL Hct (42-52) % MCV (80-100) fL MCH (25-34) pg MCHC (32-36) g/dL RDW Std Deviation (36.4-46.3) fL RDW Coeff of Laurie (11.5-14.5) % Plt Count (130-400) K/uL MPV (7.4-10.4) fL Immature Gran % (Auto) % Neut % (Auto) % Lymph % (Auto) % [place] % (Auto) % Eos % (Auto) % Baso % (Auto) % Immature Gran # (Auto) (0.00-0.02) K/uL Neut # (Auto) (1.4-6.5) K/uL Lymph # (Auto) (1.2-3.4) K/uL [place] # (Auto) (0.11-0.59) K/uL Eos # (Auto) (0-0.5) K/uL Baso # (Auto) (0-0.2) K/uL Sodium 137 (136-145) mmol/L Potassium 4.4 (3.5-5.1) mmol/L Chloride 103 (98-107) mmol/L Carbon Dioxide 31 (21-32) mmol/L Anion Gap 3.0 (3-11) BUN 11 D (7-18) mg/dl Creatinine 0.95 (0.6-1.4) mg/dl Est Cr Clr Drug Dosing 96.9 ml/min Est GFR ( Amer) 97.0 Est GFR (Non-Af Amer) 83.7 BUN/Creatinine Ratio 12.1 (10-20) Glucose 95 (70-99) mg/dl POC Glucose 131 H 121 H (70-99) Calcium 8.0 L (8.5-10.1) mg/dl Total Bilirubin 0.3 (0.2-1) mg/dl Direct Bilirubin < 0.1 (0-0.2) mg/dl AST 77 H (15-37) U/L ALT 64 (12-78) U/L Alkaline Phosphatase 69 (45-117) U/L Total Protein 6.1 L (6.4-8.2) gm/dl Albumin 2.3 L (3.4-5.0) gm/dl 08/22/18 08/21/18 08/21/18 Range/Units 05:51 20:38 17:06 WBC 9.01 (4.8-10.8) K/uL RBC 3.48 L (4.7-6.1) M/uL Hgb 8.3 L (14.0-18.0) g/dL Hct 26.1 L (42-52) % MCV 75.0 L (80-100) fL MCH 23.9 L (25-34) pg MCHC 31.8 L (32-36) g/dL RDW Std Deviation 40.2 (36.4-46.3) fL RDW Coeff of Laurie 14.7 H (11.5-14.5) % Plt Count 215 (130-400) K/uL MPV 10.2 (7.4-10.4) fL Immature Gran % (Auto) 0.3 % Neut % (Auto) 72.8 % Lymph % (Auto) 16.0 % [place] % (Auto) 9.8 % Eos % (Auto) 1.0 % Baso % (Auto) 0.1 % Immature Gran # (Auto) 0.03 H (0.00-0.02) K/uL Neut # (Auto) 6.56 H (1.4-6.5) K/uL Lymph # (Auto) 1.44 (1.2-3.4) K/uL [place] # (Auto) 0.88 H (0.11-0.59) K/uL Eos # (Auto) 0.09 (0-0.5) K/uL Baso # (Auto) 0.01 (0-0.2) K/uL Sodium (136-145) mmol/L Potassium (3.5-5.1) mmol/L Chloride (98-107) mmol/L Carbon Dioxide (21-32) mmol/L Anion Gap (3-11) BUN (7-18) mg/dl Creatinine (0.6-1.4) mg/dl Est Cr Clr Drug Dosing ml/min Est GFR ( Amer) Est GFR (Non-Af Amer) BUN/Creatinine Ratio (10-20) Glucose (70-99) mg/dl POC Glucose 109 H 76 (70-99) Calcium (8.5-10.1) mg/dl Total Bilirubin (0.2-1) mg/dl Direct Bilirubin (0-0.2) mg/dl AST (15-37) U/L ALT (12-78) U/L Alkaline Phosphatase (45-117) U/L Total Protein (6.4-8.2) gm/dl Albumin (3.4-5.0) gm/dl
[2018-08-22] MEDS: SODIUM CHLORIDE 0.9% 1000ML 1,000 ML IV SCH (15:40)
[2018-08-23] MEDS: ACETAMINOPHEN 1,000 MG/100 ML VIAL IV SCH ×3 (01:38→18:55)
[2018-08-23 06:25] LABS: Basophils # (auto) 0.03 K/uL (0-0.2); Basophils % (auto) 0.3 %; Eosinophils # (auto) 0.15 K/uL (0-0.5); Eosinophils % (auto) 1.6 %; Hematocrit (blood only) 28.8 % (42-52); Hemoglobin 9.1 g/dL (14.0-18.0); Immature Granulocytes # (auto) 0.04 K/uL (0.00-0.02); Immature Granulocytes % (auto) 0.4 %; Lymphocytes # (auto) 2.11 K/uL (1.2-3.4); Lymphocytes % (auto) 22.9 %; Mean Corpuscular Hgb Conc 31.6 g/dL (32-36); Monocytes # (auto) 0.96 K/uL (0.11-0.59); Monocytes % (auto) 10.4 %; Neutrophils # (auto) 5.92 K/uL (1.4-6.5); Neutrophils % (auto) 64.4 %; Nucleated RBC # (auto) 0.03 K/uL (0-0); Nucleated RBC % (auto) 0.3 %; Platelet Count 266 K/uL (130-400); RDW Coefficient of Variation 14.8 % (11.5-14.5); RDW Standard Deviation 39.8 fL (36.4-46.3); Red Blood Count 3.84 M/uL (4.7-6.1); White Blood Count 9.21 K/uL (4.8-10.8)
[2018-08-23 06:57] LABS: Alanine Aminotransferase 69 U/L (12-78); Albumin Level 2.6 gm/dl (3.4-5.0); Alkaline Phosphatase 74 U/L (45-117); Aspartate Aminotransferase 65 U/L (15-37); BUN Creatinine Ratio 10.5 (10-20); Bilirubin Direct < 0.1 mg/dl (0-0.2); Bilirubin,Total 0.3 mg/dl (0.2-1); Blood Urea Nitrogen 10 mg/dl (7-18); Calcium 9.1 mg/dl (8.5-10.1); Carbon Dioxide 29 mmol/L (21-32); Chloride 106 mmol/L (98-107); Creatinine Clr Calc Pharmacy 101.2 ml/min; Est GFR (African American) 102.1; Est GFR (Non-African American) 88.1; Glucose 106 mg/dl (70-99); Potassium 3.7 mmol/L (3.5-5.1); Sodium 140 mmol/L (136-145); Total Protein 6.6 gm/dl (6.4-8.2)
[2018-08-23] MEDS: IRBESARTAN 150 MG TAB PO SCH (08:15)
[2018-08-23] MEDS: ENOXAPARIN INJ 40 MG/0.4 ML SYR SQ SCH (08:16)
[2018-08-23] MEDS: FLUTICASONE/VILANTEROL INHALER INH SCH (08:16)
[2018-08-23] MEDS: METOPROLOL SUCC 50MG EXT REL TAB PO SCH (08:17)
[2018-08-23] MEDS ORDERED: OXYCODONE/ACETAMINOPHEN 5mg/325mg TAB PO PRN (09:46)
[2018-08-23] MEDS ORDERED: MoRPHine SULFATE 2 MG/ML CARP IV PRN (09:47)
--- NOTE | 2018-08-23 09:48 | Surgery Progress Note ---
Date of Service August 23, 2018 Assessment & Plan (1) Rectal mass: doing well clinically will advance diet can likely be d/c's tomorrow. Subjective pt feeling better each day. no new complaints. stoma started functioning. xuan full liquids. Physical Exam Physical Exam: alert. nad wounds look good. minimal drainage. no sign of infection. stoma looks good. pink. functioning. Results & Data Vital Signs (Past 12 Hours) Vital Signs Temp Pulse Pulse Resp BP BP Pulse Ox 08/23/18 07:42 36.9 C 94 H 16 181/84 H 90 08/23/18 03:50 37 C 82 18 175/76 H 91 08/22/18 23:35 37.2 C 87 18 132/80 93
[2018-08-23] MEDS: INSULIN ASPART 100 UNITS/ML 3 ML PEN SC SCH ×4 (10:15→20:51)
[2018-08-23] MEDS: INSULIN GLARGINE SOLOSTAR 100 UNITS/ML 3 ML PEN SC SCH (10:16)
--- NOTE | 2018-08-23 13:30 | Pharmacy Report ---
Pharmacy Glycemic Short Note 2 - Date of Service August 23, 2018 - Glycemic Short BSG Results (Last 24 hours): 08/22/18 08/22/18 08/23/18 17:09 20:39 05:48 Glucose 106 H POC Glucose 94 82 08/23/18 08/23/18 08:29 11:56 Glucose POC Glucose 119 H 161 H OUTPATIENT ANTIDIABETIC REGIMEN: * Lantus 35 units SQ QAM * Metformin 1g PO BID * Glimepiride 2mg QAM, 4mg QPM * Alc 7.7% -06/16/18 ASSESSMENT: * POD #4 s/p tumor resection and colostomy * John received a total of 51 units of insulin yesterday with majority of BSGs at/near goal * Fasting BSG of 119 mg/dL from this morning is at goal. I will continue current Lantus dose, which is close to home dose of 35 units daily. * Post prandial BSGs have been trending downward (131 -> 94 -> 82 mg/dL), therefore Novolog parameters have been loosened again today. PLAN FOR INPATIENT GLYCEMIC CONTROL: * Hold outpatient oral diabetes medications * Basal insulin * Lantus 30 units QAM * Bolus insulin - loosened * NovoLog per scale ACHS or Q6hrs while NPO * Goal Range: Low 110 mg/dL - High 140 mg/dL * Correction Factor: 25 mg/dL/unit * Nutritional / Prandial insulin per carb ratio of 1 unit per 10 grams CHO consumed PLAN FOR DISCHARGE: * A1c near goal. Continue current outpatient regimen and titrate per outpatient provider.
[2018-08-23] MEDS ORDERED: METOPROLOL SUCC 25MG EXT REL TAB PO STA (15:13)
--- NOTE | 2018-08-23 15:25 | Hospitalist Progress Note ---
Date of Service August 23, 2018 Assessment & Plan (1) Rectal mass: This pt is a 67yo male with h/o HTN, HLD, PAF, DM2, severe COPD post op day 1 s/p laparoscopic low anterior rectum resection with end colostomy by Dr. Hoffman on 08/19 Postop day #4 s/p laparoscopic low anterior rectum resection with end colostomy. 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 At least 3 small though suspicious mesorectal lymph nodes present. No evidence of metastatic disease elsewhere -Continue pain control on Tylenol 1g Q8H as needed, percocet prn -diet as per Surgery -will defer to Surgery to discuss pathology results and plan for future--> unclear if would need further margins? Or close surveillance with colonoscopy? (2) ANGELA (acute kidney injury): likely pre-renal vs. ATN -BUN/Cr 29/2.52 post-op--> now resolved with copious IV fluids Urine output remains normal No longer on IVFs -have since restarted ARB (3) Diabetes: Blood sugars controlled, hemoglobin A1c 7.7% in 05/2018 Pharmacy is managing -Continue basal bolus insulin and Accu-Cheks (4) HTN (hypertension): Blood pressures were significantly elevated and were slightly improved with increased metoprolol dose, but now remain elevated again in the 170s-180s systolic despite restarting irbesartan Not having much pain -increase Toprol-XL again to 100mg daily-give an extra 25mg x 1 now -continue hydralazine IV as needed -continue irbesartan 150mg daily -follow BPs (5) Paroxysmal A-fib: With a history of paroxysmal atrial fibrillation, currently in a regular rhythm Not on anticoagulation due to rectal bleeding from mass and microcytic anemia -Continue metoprolol for rate control -eventually should go back on anticoagulation-defer to PCP and/or Cardiology after recovery from surgery (6) HLD (hyperlipidemia): -Continue to hold statin in the setting of LFT abnormalities , but can likely restart on discharge (7) COPD (chronic obstructive pulmonary disease): With chronic cough, sputum production at normal amount -Continue home albuterol PRN and Breo ellipta (8) Elevated LFTs: With mild elevation in AST and ALT that is now much improved. AST only remains very minimally elevated at 65 No known history of liver issues Could be secondary to recent surgery -holding statin (9) Anemia: Severely microcytic anemia, iron deficient and with known GI bleeding secondary to rectal mass Likely some blood loss during surgery but also hemo-dilutional, hemoglobin was down to 8.5 and now up with stopping IVFs to 9.1 -Continue to monitor CBC -Transfuse if hemoglobin drops less than 8 -should start FeSO4 upon discharge (10) DVT prophylaxis: SCDs Disposition-remain hospitalized Hospitalist service will continue to follow -will need to prescribe new dose of Toprol XL to pharmacy on discharge if tolerates higher dose Subjective Feeling well, bored of being in the hospital. [place] full liquids diet, has stool in ostomy bag, making urine. Minimal abd pain. Is ambulating. Denies CP or SOB. Has his chronic cough BPs have been elevated still today. Review of Systems Review of Systems: All systems reviewed & are unremarkable except as noted in HPI & below Physical Exam Constitutional: WD/WN, vitals as above + obese Eyes: PERRL, conjunctivae normal, anicteric sclerae Neck: trachea midline, no thyromegaly Respiratory: normal respiratory effort and + cough; no labored breathing and not tachypneic Auscultation: + rhonchi (A few scattered rhonchi); no crackles and no wheezes Cardiovascular: RRR, no murmur, no edema Gastrointestinal (Abdomen): Inspection/Auscultation: normal bowel sounds; + abdomen abnormal to inspection (large dressing in place, ostomy bag with stool and gas) Percussion/Palpation: abdomen soft; abdomen nontender Musculoskeletal: Extremities: extremities normal to inspection; no cyanosis and no clubbing Skin: no rashes, warm and dry Neurologic: moves all extremities and awake; no focal motor deficits Psychiatric: A+Ox3, euthymic affect Results & Data Vital Signs (Past 12 Hours) Vital Signs Temp Pulse Resp BP Pulse Ox 08/23/18 14:55 37.2 C 90 20 179/85 H 91 08/23/18 07:42 36.9 C 94 H 16 181/84 H 90 04/28/19 03:50 37 C 82 18 175/76 H 91 Laboratory Results 08/23/18 08/23/18 08/23/18 Range/Units 11:56 08:29 05:48 WBC (4.8-10.8) K/uL RBC (4.7-6.1) M/uL Hgb (14.0-18.0) g/dL Hct (42-52) % MCV (80-100) fL MCH (25-34) pg MCHC (32-36) g/dL RDW Std Deviation (36.4-46.3) fL RDW Coeff of Laurie (11.5-14.5) % Plt Count (130-400) K/uL MPV (7.4-10.4) fL Immature Gran % (Auto) % Neut % (Auto) % Lymph % (Auto) % Cannon % (Auto) % Eos % (Auto) % Baso % (Auto) % Immature Gran # (Auto) (0.00-0.02) K/uL Neut # (Auto) (1.4-6.5) K/uL Lymph # (Auto) (1.2-3.4) K/uL Cannon # (Auto) (0.11-0.59) K/uL Eos # (Auto) (0-0.5) K/uL Baso # (Auto) (0-0.2) K/uL Absolute Nucleated RBC (0-0) K/uL Nucleated RBC % (auto) % Sodium 140 (136-145) mmol/L Potassium 3.7 D (3.5-5.1) mmol/L Chloride 106 (98-107) mmol/L Carbon Dioxide 29 (21-32) mmol/L Anion Gap 6.0 (3-11) BUN 10 (7-18) mg/dl Creatinine 0.91 (0.6-1.4) mg/dl Est Cr Clr Drug Dosing 101.2 ml/min Est GFR ( Amer) 102.1 Est GFR (Non-Af Amer) 88.1 BUN/Creatinine Ratio 10.5 (10-20) Glucose 106 H (70-99) mg/dl POC Glucose 161 H 119 H (70-99) Calcium 9.1 (8.5-10.1) mg/dl Total Bilirubin 0.3 (0.2-1) mg/dl Direct Bilirubin < 0.1 (0-0.2) mg/dl AST 65 H (15-37) U/L ALT 69 (12-78) U/L Alkaline Phosphatase 74 (45-117) U/L Total Protein 6.6 (6.4-8.2) gm/dl Albumin 2.6 L (3.4-5.0) gm/dl 08/23/18 08/22/18 08/22/18 Range/Units 05:48 20:39 17:09 WBC 9.21 (4.8-10.8) K/uL RBC 3.84 L (4.7-6.1) M/uL Hgb 9.1 L (14.0-18.0) g/dL Hct 28.8 L (42-52) % MCV 75.0 L (80-100) fL MCH 23.7 L (25-34) pg MCHC 31.6 L (32-36) g/dL RDW Std Deviation 39.8 (36.4-46.3) fL RDW Coeff of Laurie 14.8 H (11.5-14.5) % Plt Count 266 (130-400) K/uL MPV 10.0 (7.4-10.4) fL Immature Gran % (Auto) 0.4 % Neut % (Auto) 64.4 % Lymph % (Auto) 22.9 % Cannon % (Auto) 10.4 % Eos % (Auto) 1.6 % Baso % (Auto) 0.3 % Immature Gran # (Auto) 0.04 H (0.00-0.02) K/uL Neut # (Auto) 5.92 (1.4-6.5) K/uL Lymph # (Auto) 2.11 (1.2-3.4) K/uL Cannon # (Auto) 0.96 H (0.11-0.59) K/uL Eos # (Auto) 0.15 (0-0.5) K/uL Baso # (Auto) 0.03 (0-0.2) K/uL Absolute Nucleated RBC 0.03 H (0-0) K/uL Nucleated RBC % (auto) 0.3 % Sodium (136-145) mmol/L Potassium (3.5-5.1) mmol/L Chloride (98-107) mmol/L Carbon Dioxide (21-32) mmol/L Anion Gap (3-11) BUN (7-18) mg/dl Creatinine (0.6-1.4) mg/dl Est Cr Clr Drug Dosing ml/min Est GFR ( Amer) Est GFR (Non-Af Amer) BUN/Creatinine Ratio (10-20) Glucose (70-99) mg/dl POC Glucose 82 94 (70-99) Calcium (8.5-10.1) mg/dl Total Bilirubin (0.2-1) mg/dl Direct Bilirubin (0-0.2) mg/dl AST (15-37) U/L ALT (12-78) U/L Alkaline Phosphatase (45-117) U/L Total Protein (6.4-8.2) gm/dl Albumin (3.4-5.0) gm/dl
[2018-08-24] MEDS: ACETAMINOPHEN 1,000 MG/100 ML VIAL IV SCH ×2 (01:46→10:44)
[2018-08-24] MEDS: OXYCODONE/ACETAMINOPHEN 5mg/325mg TAB PO PRN ×2 (02:21→07:50)
--- NOTE | 2018-08-24 07:53 | Surgery Progress Note ---
Date of Service August 24, 2018 Assessment & Plan (1) Rectal mass: POD 5 LAR, end colostomy mid incision packed with 1/4" packing back to full liquids until having ostomy output Supervising Physician Co-Signing Physician Notes Pnt S&E, agree with above. s/p LAR with end colostomy for low rectal mass. Feels bloated and full, no stool from bag but lots of gas. Incision with packing tape in place. Will keep on full liquids as tolerates, await stool in bag. May need imaging if not improved in next 24-48 hours. Subjective feels bloated, no stool output yet, some drainage from incision Physical Exam Gastrointestinal (Abdomen): Inspection/Auscultation: + abdominal surgical incision (no erythema, periumbilical area probed, no fluid collections) and + abdominal surgical drain present (40 cc serous) Percussion/Palpation: abdomen soft Results & Data Vital Signs (Past 12 Hours) Vital Signs Temp Pulse Resp BP Pulse Ox 08/23/18 22:55 37.1 C 94 H 16 171/88 H 92
[2018-08-24] MEDS: ENOXAPARIN INJ 40 MG/0.4 ML SYR SQ SCH (08:38)
[2018-08-24] MEDS: FLUTICASONE/VILANTEROL INHALER INH SCH (08:39)
[2018-08-24] MEDS: METOPROLOL SUCC 50MG EXT REL TAB PO SCH (08:39)
[2018-08-24] MEDS: IRBESARTAN 150 MG TAB PO SCH (08:40)
[2018-08-24] MEDS: INSULIN ASPART 100 UNITS/ML 3 ML PEN SC SCH ×4 (08:42→22:17)
[2018-08-24] MEDS ORDERED: INSULIN GLARGINE SOLOSTAR 100 UNITS/ML 3 ML PEN SC SCH (09:00)
--- NOTE | 2018-08-24 12:23 | Pharmacy Report ---
Pharmacy Glycemic Short Note 2 - Date of Service August 24, 2018 - Glycemic Short BSG Results (Last 24 hours): 08/23/18 08/23/18 08/24/18 17:00 20:30 08:12 POC Glucose 150 H 181 H 181 H 08/24/18 12:04 POC Glucose 117 H OUTPATIENT ANTIDIABETIC REGIMEN: * Lantus 35 units SQ QAM * Metformin 1g PO BID * Glimepiride 2mg QAM, 4mg QPM * Alc 7.7% -06/16/18 ASSESSMENT: * POD #5 s/p rectal tumor resection and colostomy. Patient remains on full liquid diet. * John received a total of 52 units of insulin yesterday with adequate glycemic control. * Fasting BSG of 181 mg/dL from this morning is above goal. I will increase Lantus dose by 16%. * Novolog correction factor and carb ratio were loosened yesterday due to post prandial BSGs trending downward on 08/22 (131 -> 94 -> 82 mg/dL). Changes must have been too significant per post prandials over the past 12 hours became elevated. Will slightly tighten carb ratio only. PLAN FOR INPATIENT GLYCEMIC CONTROL: * Hold outpatient oral diabetes medications * Basal insulin - increase to home dose * Lantus 35 units QAM * Bolus insulin * NovoLog per scale ACHS or Q6hrs while NPO * Goal Range: Low 110 mg/dL - High 140 mg/dL * Correction Factor: 25 mg/dL/unit * Tighten Nutritional / Prandial insulin per carb ratio of 1 unit per 9 grams CHO consumed PLAN FOR DISCHARGE: * A1c near goal. Continue current outpatient regimen and titrate per outpatient provider.
[2018-08-24] MEDS: OXYCODONE HCL IR 5 MG TAB (IMMEDIATE RELEASE) PO PRN ×2 (13:30→18:54)
[2018-08-24] MEDS: HYDROmorphone INJ 0.5 MG/0.5 ML SYR IV PRN ×2 (14:30→22:35)
--- NOTE | 2018-08-24 15:12 | Hospitalist Progress Note ---
Date of Service August 24, 2018 Assessment & Plan (1) Rectal mass: S/p laparoscopic low anterior rectum resection with end colostomy by Dr. Hoffman on 08/19. 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 BUN/Cr were29/2.52 post-op - Now resolved. (3) Diabetes: Blood sugars controlled, hemoglobin A1c 7.7% in 05/2018 - Pharmacy is managing - Continue basal bolus insulin and Accu-Cheks (4) HTN (hypertension): Blood pressures were significantly elevated and were slightly improved with increased metoprolol dose, but now remain elevated again in the 170s-180s systolic despite restarting irbesartan - Increased Toprol-XL 100mg daily on 08/23 - Continue hydralazine IV as needed for SBP > 180 or DBP > 110 - Discharge on irbesartan 150mg PO daily & Toprol XL 100 mg PO daily (5) Paroxysmal A-fib: With a history of paroxysmal atrial fibrillation, currently in a regular rhythm. Not on anticoagulation due to rectal bleeding from mass and microcytic anemia. - Continue metoprolol for rate control - Eventually should go back on anticoagulation-defer to PCP and/or cardiology after recovery from surgery (6) HLD (hyperlipidemia): - Continue to hold statin in the setting of LFT abnormalities, but can likely restart on discharge. (7) COPD (chronic obstructive pulmonary disease): With chronic cough, sputum production at normal amount. - Continue home albuterol PRN and Breo ellipta (8) Elevated LFTs: With mild elevation in AST and ALT that is now much improved. AST only remains very minimally elevated at 65. No known history of liver issues. - Holding statin; restart on discharge with re-check by PCP in 1-2 weeks. (9) Anemia: Severely microcytic anemia, iron deficient and with known GI bleeding secondary to rectal mass. Likely some blood loss during surgery but also hemo- dilutional, hemoglobin was down to 8.5 and now up with stopping IVFs to 9.1. - Continue to monitor CBC (10) DVT prophylaxis: SCDs Hospitalist service will continue to follow - will need to prescribe new dose of Toprol XL to pharmacy on discharge if tolerates higher dose. Subjective Was told it is not cancer, and is very happy about this news. No major complaints today. Reports no fevers/chills, chest pain, shortness of breath, abdominal pain, nausea, or vomiting. Physical Exam Constitutional: WD/WN, vitals as above + obese Eyes: PERRL, conjunctivae normal, anicteric sclerae ENMT: external ear and nose normal, oropharynx normal Neck: trachea midline, no thyromegaly Respiratory: normal respiratory effort, lungs clear to auscultation normal respiratory effort and + cough; no labored breathing and not tachypneic Auscultation: + rhonchi (A few scattered rhonchi); no crackles and no wheezes Cardiovascular: RRR, no murmur, no edema Gastrointestinal (Abdomen): Inspection/Auscultation: normal bowel sounds; + abdomen abnormal to inspection (large dressing in place, ostomy bag with stool and gas) Percussion/Palpation: abdomen soft; abdomen nontender Musculoskeletal: Extremities: extremities normal to inspection; no cyanosis and no clubbing Skin: no rashes, warm and dry Neurologic: moves all extremities and awake; no focal motor deficits Psychiatric: A+Ox3, euthymic affect Results & Data Vital Signs (Past 12 Hours) Vital Signs Temp Pulse Pulse Resp BP Pulse Ox 08/24/18 15:04 36.9 C 89 20 169/80 H 94 08/24/18 12:00 36.9 C 71 29 H 160/70 H 95 08/24/18 08:00 36.7 C 70 25 H 174/98 H 93
--- OUTSIDE RECORDS SUMMARY | 2018-08-24 19:59 | External Medical Summary | Continuity of Care Document ---
:1950 Author Name Alondra Brown, Provider Address Unavailable Unavailable , Care Team Providers Name Role Phone Marjorie Khushbu ZAVALA Unavailable [email or web address] Bueno PA-C Unavailable [email or web address] Berhane Brown Unavailable [email or web address] Carver II DO Unavailable [email or web address] DO Unavailable [email or web address] Arsenio Brown Unavailable [email or web address] ARSENIO Unavailable Unavailable JR Stephanie ESPINO, Biju Unavailable Unavailable Elvira Brown Unavailable [email or web address] Deshaun COYNE M.D. Unavailable Unavailable Unavailable Unavailable Unavailable Problems Benign prostatic hyperplasia with urinary obstruction (600.0 1) (N40.1) BPH with obstruction/lower urinary tract symptoms (600.01) ( N40.1) Umbilical hernia (553.1) (K42.9) AF (paroxysmal atrial fibrillation) (427.31) (I48.0) PAD (peripheral artery disease) (443.9) (I73.9) Preoperative cardiovascular examination (V72.81) (Z01.810) Uncontrolled type 2 diabetes mellitus, w ith long-term current use of insulin (250.02) (E11.65) Pulmonary emphysema (492.8) (J43.9) Snoring (786.09) (R06.83) Sleep disturbances (780.50) (G47.9) Fatigue (780.79) (R53.83) Excessive daytime sleepiness (780.54) (G47.19) Vitamin D deficiency (268.9) (E55.9) Male erectile disorder of organic origin (607.84) (N52.9) Ventral hernia (553.20) (K43.9) Postnasal drip (784.91) (R09.82) Cough (786.2) (R05) Hyperlipidemia (272.4) (E78.5) Hypertension (401.9) (I10) Positive colorectal cancer screening using Cologuard test (7 87.7) (R19.5) Rectal mass (787.99) (K62.9) Claudication, intermittent (443.9) (I73.9) Obesity (BMI 35.0-39.9 without comorbidity) (278.00) (E66.9) Allergies and Adverse Reactions No Known Drug Allergies (Allergy) Medications Irbesartan 300 MG Oral Tablet; take 1/2 tablet by mout h daily. Stephanie Cesar Start: 10-Aug-2018 Quantity: 30 Refills: 5 OneTouch Delica Lancets 33G; Test blood sugars three t imes a day MarjorieLUCAS Start: 31-Dec-2017 Quantity: 1 100 Unit Box Refills: 11 Tadalafil 5 MG Oral Tablet; TAKE 1 TABLET DAILY NEE DED. DO Herman Carver II Start: 20-May-2018 Quantity: 30 Refills: 11 Sildenafil Citrate 20 MG Oral Tablet; TA KE 5 TABLET Once 1 hour prior to activity Carver DO Herman DOBSON Start: 16-Feb-2018 Quantity: 30 Refills: 11 Vitamin D3 33433 UNIT Oral Capsule; TAKE ONE CAPSULE W SONJA FOR 8 WEEKS. Stephanie Cesar Start: 19-Jun-2018 Quantity: 8 Refills: 0 Neomycin Sulfate 500 MG Oral Tablet; erin e one tablet at 1 pm, 2 pm, 7 pm on the day before surgery DO Sarah Hoffman Start: 11-Aug-2018 Quantity: 3 Refills: 0 Erythromycin Base 500 MG Oral Tablet; Ta ke 1t 1pm, 2pm and 7pm day before surgery DO Sarah Hoffman Start: 11-Aug-2018 Quantity: 3 Refills: 0 Aspirin 325 MG Oral Tablet; TAKE 1 TABLET DAILY. Yanci Cesar Start: 24-Mar-2018 Quantity: 30 Refills: 5 Lantus SoloStar 100 UNIT/ML Subcutaneous Solution Pen-injector; Inject 35 units daily MarjorieLUCAS Start: 10-Feb-2018 Quantity: 3 5 x 3 ML Pen Refills: 1 Atorvastatin Calcium 80 MG Oral Tablet; TAKE 1 TABLET AT BEDTIME. MarjorieLUCAS Start: 16-Jan-2018 Quantity: 90 Refills: 3 Metoprolol Succinate ER 50 MG Oral Table t Extended Release 24 Hour; TAKE 1 TABLET BY MOUTH EVERY DAY TONY Ugarte Start: 30-Dec-2017 Quantity: 90 Refills: 3 Glimepiride 2 MG Oral Tablet; 1 tab qam and 2 tabs qpm Train orLUCAS Start: 16-Dec-2017 Quantity: 270 Refills: 3 Pen [place] 31G X 5 MM; USE 1 DAILY FOR INSULIN INJECTION Ba Stephanie bella Start: 02-Dec-2017 Quantity: 1 100 Unit Box Refills: 1 OneTouch Verio In Vitro Strip; test 3 times per day MarjorieLUCAS Start: 03-Jul-2016 Quantity: 1 100 Strip Box Refills: 11 Azithromycin 250 MG Oral Tablet; TAKE DIRECTED PER PACKAGE INSTRUCTIONS. Stephanie Cesar Start: 06-Aug-2018 Quantity: 1 6 Tablet Pack Refills: 0 Breo Ellipta 200-25 MCG/INH Inhalation A erosol Powder Breath Activated; INHALE 1 PUFF DAILY. Stephanie Cesar Start: 28-Feb-2014 Quantity: 3 Refills: 3 Ventolin HFA 108 (90 Base) MCG/ACT Inhal ation Aerosol Solution; INHALE 2 PUFFS BY MOUTH EVERY 4 HOURS NEEDED. Stephanie Last Start: 29-Apr-2018 Quantity: 18 Refills: 11 metFORMIN HCl - 1000 MG Oral Tablet; Take 1 tablet tw a day MarjorieLUCAS Start: 09-Jan-2018 Quantity: 180 Refills: 3 HumaLOG KwikPen 100 UNIT/ML Subcutaneous Solution Pen-injector; USE DIRECTED. MarjorieLUCAS Start: 13-Aug-2018 Quantity: 1 3 ML Pen Refills: 0 Procedures Nocturnal Polysomnogram Date: 13-Jul-2018 History of Tonsillectomy Status: [facility] ed History of Colon Surgery Status: [facility] ed 19-Aug-2018 0:00 Immunizations Influenza On: 07-Feb-2013 Influenza On: 06-Feb-2014 Pneumococcal polysaccharide vaccine, 23 valent On: 5 17:27 Lot #: [id number], [employer] Fluzone Quadrivalent Intramuscular Suspension On: 5 17:02 Lot #: [id number], [employer] Fluzone Quadrivalent Intramuscular Suspension On: 31-Jan-2016 15:38 Lot #: [id number], [employer] Fluzone Quadrivalent 0.5 ML Intramuscular Suspension On: Jan-2017 10:45 Lot #: [id number], [employer] Fluzone High-Dose Intramuscular Suspension On: 24-Mar-2018 1 5:54 Lot #: [id number], [employer] Prevnar 13 Intramuscular Suspension On: 24-Mar-2018 15:55 Lot #: [id number], [employer] [place] Family History Mother Family history of malignant neoplasm (V16.9) (Z80.9) Status: Active Family history of cardiac disorder (V17.49) (Z82.49) Status: Active Unknown Family Member Family history of diabetes mellitus (V18.0) Status: Active Comments: Family History (Z83.3) Brother Family history of cardiac disorder (V17.49) (Z82.49) Status: Active Social History - Smoking Status Former smoker Plan of Treatment Planned Encounters Appointment; Asael Ugarte PA-C Start: 06-Jul-2019 10:00 Requ est Planned Observations Planned Goals not documented Results TYPE/SCREEN Hold Profile Laboratory: [facility] [address] [facility] [address] [facility] [address] tel: 19-Aug-2018 5:59 TYPE/SCREEN HOLD PROFILE Run: 08/19/18 0 733 [facility] Pathology Report Name: SARAH HENNING Age/Sex: 67/M Location: [facility]: [id number] Unit: [id number] Status: [facility] Room/Bed:Re08/19/18 Di ramana: Att Dr: Sarah Hoffman, DO Spe c: [id number] Collected: 08/19/18Received: Subm Dr: Sarah Hoffman, DOCopy To: Kenia Blackburn Prods: (NO ORDERED PRODUCTS)Ord Tests: T SQueries: Transfusion of Blood, Platelets, FFP in Past 3 Months? Unknown -Test Result Flag Refe rence Site Bl ood Type O NegAntibody Screen NEGATIVE --Tests: Date Time Order Change William baer User08/18/[address] [id number] END OF REPORT Vital Signs 31-Jul-2018 10:56 Systolic 136 mm[Hg] Diastolic 72 mm[Hg] Weight 251.7 lb BSA Calculated 2.28 m2 BMI Calculated 37.17 kg/m2 Heart Rate 72 /min 27-Jul-2018 12:37 Systolic 146 mm[Hg] Diastolic 77 mm[Hg] Weight 251 lb BSA Calculated 2.27 m2 BMI Calculated 37.07 kg/m2 Heart Rate 75 /min Temperature 98.1 f Encounters Appointment; Sarah Hoffman DO 19-Aug-2018 7:00 Encounter Diagnosis: Problem not documented Appointment; Nai Chou R.D. 13-Aug-2018 15:00 Encounter Diagnosis: Problem not documented Appointment; Asael Ugarte PA-C 31-Jul-2018 10:45 Encounter Diagnosis: Problem not documented Appointment; Kenia Cesar M.D. 27-Jul-2018 12:30 Encounter Diagnosis: Problem not documented Appointment; Sarah Hoffman DO 14-Jul-2018 9:50 Encounter Diagnosis: Problem not documented Appointment; Trevor Connor M.D. 13-Jul-2018 8:30 Encounter Diagnosis: Problem not documented Appointment; Asael Ugarte PA-C 01-Jul-2018 10:00 Encounter Diagnosis: Problem not documented Appointment; Sarah Hoffman DO 22-Jun-2018 11:40 Encounter Diagnosis: Problem not documented Appointment; Herman Carver II, DO 19-Jun-2018 13:10 Encounter Diagnosis: Problem not documented Appointment; Kenia Cesar M.D. 18-Jun-2018 10:30 Encounter Diagnosis: Problem not documented Appointment; Herman Carver II, DO 20-May-2018 14:00 Encounter Diagnosis: Problem not documented Appointment; Khushbu Amador CRNP 01-May-2018 16:00 Encounter Diagnosis: Problem not documented Appointment; Kenia Cesar M.D. 24-Mar-2018 14:00 Encounter Diagnosis: Problem not documented Appointment; Mehul DOBSON HermanDO 16-Feb-2018 16:20 Encounter Diagnosis: Problem not documented Appointment; Khushbu Amador CRNP 02-Feb-2018 18:30 Encounter Diagnosis: Problem not documented Appointment; Vascular, Studies PR1 02-Feb-2018 9:00 Encounter Diagnosis: Problem not documented Appointment; Khushbu Amador CRNP 30-Jan-2018 7:30 Encounter Diagnosis: Problem not documented Appointment; Vascular, Studies PR1 12-Jan-2018 8:45 Encounter Diagnosis: Problem not documented Appointment; Khushbu Amador CRNP 02-Jan-2018 7:30 Encounter Diagnosis: Problem not documented Appointment; Asael Ugarte PA-C 30-Dec-2017 14:00 Encounter Diagnosis: Problem not documented Appointment; Vascular, Studies PR1 22-Dec-2017 10:30 Encounter Diagnosis: Problem not documented Appointment; Krishna Genao M.D. 11-Dec-2017 10:40 Encounter Diagnosis: Problem not documented Appointment; Sarah Felix M.D. 04-Dec-2017 10:20 Encounter Diagnosis: Problem not documented Appointment; Kenia Cesar M.D. 02-Dec-2017 11:30 Encounter Diagnosis: Problem not documented Appointment; Kenia Csear M.D. 25-Nov-2017 15:30 Encounter Diagnosis: Problem not documented Appointment; Kenia Cesar M.D. 24-Nov-2017 9:45 Encounter Diagnosis: Problem not documented Appointment; Drake Cobb DO 15-Oct-2017 11:40 Encounter Diagnosis: Problem not documented Appointment; Kenia Cesar M.D. 06-Oct-2017 14:15 Encounter Diagnosis: Problem not documented Appointment; Khushbu Alston CRNP 18-Sep-2017 9:00 Encounter Diagnosis: Problem not documented Appointment; Kenia Cesar M.D. 27-Aug-2017 9:30 Encounter Diagnosis: Problem not documented Appointment; Sarah Felix M.D. 20-Aug-2017 15:35 Encounter Diagnosis: Problem not documented Appointment; Urology, Room 7 20-Aug-2017 15:25 Encounter Diagnosis: Problem not documented Appointment; Kenia Cesar M.D. 03-Jul-2017 11:00 Encounter Diagnosis: Problem not documented Appointment; Kenia Cesar M.D. 12-Jun-2017 15:00 Encounter Diagnosis: Problem not documented Appointment; Sarah Felix M.D. 10-Jun-2017 13:40 Encounter Diagnosis: Problem not documented Appointment; Krishna Genao M.D. 10-Jun-2017 13:00 Encounter Diagnosis: Problem not documented Appointment; Sarah Felix M.D. 10-Apr-2017 13:20 Encounter Diagnosis: Problem not documented Appointment; Urology, Room 8 10-Apr-2017 13:20 Encounter Diagnosis: Problem not documented Appointment; Preston Espino M.D. 01-Apr-2017 11:00 Encounter Diagnosis: Problem not documented Appointment; Nurse Yared 14-Feb-2017 10:00 Encounter Diagnosis: Problem not documented Appointment; Esthela Cervantes R.D. 05-Feb-2017 9:30 Encounter Diagnosis: Problem not documented Appointment; Sarah Felix M.D. 22-Jan-2017 9:00 Encounter Diagnosis: Problem not documented Appointment; Charlie Last M.D. 14-Jan-2017 15:00 Encounter Diagnosis: Problem not documented Appointment; Esthela Cervantes R.D. 06-Jan-2017 15:30 Encounter Diagnosis: Problem not documented Appointment; Esthela Cervantes R.D. 06-Dec-2016 14:00 Encounter Diagnosis: Problem not documented Appointment; Preston Espino M.D. 03-Dec-2016 11:00 Encounter Diagnosis: Problem not documented Appointment; Charlie Last M.D. 25-Nov-2016 13:00 Encounter Diagnosis: Problem not documented Appointment; Charlie Last M.D. 26-Aug-2016 14:15 Encounter Diagnosis: Problem not documented Appointment; Asael Ugarte PA-C 06-Jul-2019 10:00 Encounter Diagnosis: Problem not documented
[2018-08-25 06:39] LABS: Appearance Urine Clear (Clear); Bacteria Urine Automated Negative (Negative); Bilirubin Urine Negative (Negative); Color Urine Yellow; Epithelial Cell Urine Auto >30 /lpf (0-5); Glucose Urine UA 1+ (Negative); Ketones Urine 2+ (Negative); Leukocyte Esterase Urine Negative (Negative); Nitrite Urine Negative (Negative); Protein Urine Trace (Negative); Urobilinogen Urine Negative (Negative); pH Urine 5.5 (4.5-7.5)
[2018-08-25] MEDS: FLUTICASONE/VILANTEROL INHALER INH SCH (08:02)
--- NOTE | 2018-08-25 08:17 | Surgery Progress Note ---
Date of Service August 25, 2018 Assessment & Plan (1) Rectal mass: POD 6 LAR, colostomy awaiting ostomy output HR 100s, afebrile will check labs, KUB Supervising Physician Co-Signing Physician Notes Pnt S&E, agree with above. POD#6 LAR with end colostomy for low rectal mass, path polyp with high grade dysplasia. Feels full, no nausea, still tolerating full liquids. KUB and labs ordered, wbc slightly elevated at 12, kub with mild small bowel dilation but stool in right colon. incision with wick, ss drainage, no significant erythema. Ostomy slightly edematous, some gas, no stool in bag. Digitized stoma to fascia, is patent. Will perform enema per ostomy, bowel regimen. Repeat labs and kub in am, may need ct with oral and iv contrast to rule out other pathology. Most likely just slow return of bowel function. Discussed with patient, agrees with plan. Subjective no complaints, no stool output yet Physical Exam Gastrointestinal (Abdomen): Inspection/Auscultation: + abdominal surgical incision (serous drainage) and + abdominal surgical drain present (10 cc overnight) Percussion/Palpation: abdomen soft Results & Data Vital Signs (Past 12 Hours) Vital Signs Temp Pulse Resp BP BP Pulse Ox 08/25/18 07:10 36.9 C 108 H 20 120/70 94 08/25/18 00:11 36.6 C 119 H 20 157/70 H 97 08/24/18 23:05 37.3 C 89 16 102/61 91
[2018-08-25 08:40] LABS: Basophils # (auto) 0.01 K/uL (0-0.2); Basophils % (auto) 0.1 %; Eosinophils # (auto) 0.01 K/uL (0-0.5); Eosinophils % (auto) 0.1 %; Hematocrit (blood only) 29.6 % (42-52); Hemoglobin 9.5 g/dL (14.0-18.0); Immature Granulocytes # (auto) 0.08 K/uL (0.00-0.02); Immature Granulocytes % (auto) 0.6 %; Lymphocytes # (auto) 0.87 K/uL (1.2-3.4); Lymphocytes % (auto) 6.7 %; Mean Corpuscular Hgb Conc 32.1 g/dL (32-36); Mean Corpuscular Volume 72.7 fL (80-100); Mean Platelet Volume 9.2 fL (7.4-10.4); Monocytes # (auto) 1.02 K/uL (0.11-0.59); Monocytes % (auto) 7.9 %; Neutrophils # (auto) 10.97 K/uL (1.4-6.5); Neutrophils % (auto) 84.6 %; Nucleated RBC # (auto) 0.03 K/uL (0-0); Nucleated RBC % (auto) 0.2 %; Platelet Count 280 K/uL (130-400); RDW Coefficient of Variation 14.6 % (11.5-14.5); RDW Standard Deviation 38.8 fL (36.4-46.3); Red Blood Count 4.07 M/uL (4.7-6.1); White Blood Count 12.96 K/uL (4.8-10.8)
[2018-08-25 09:00] LABS: Polychromasia 1+
[2018-08-25 09:06] LABS: BUN Creatinine Ratio 13.6 (10-20); Calcium 8.1 mg/dl (8.5-10.1); Creatinine Clr Calc Pharmacy 85.3 ml/min; Est GFR (Non-African American) 71.6; Potassium 4.1 mmol/L (3.5-5.1)
--- NOTE | 2018-08-25 09:07 | XRay Report ---
KUB HISTORY: Abdominal distention status post surgery with postoperative ileus post op ? ileus COMPARISON: CT abdomen pelvis 06/17/2018. FINDINGS: Ventral midline skin madalyn with surgical drainage catheter. Mildly dilated loops of small bowel are seen measuring up to 4.5 cm transversely. No significant proximal dilated small bowel. No pneumatosi s or pneumoperitoneum. Moderate formed stool about the right hemicolon. Degenerative changes of the s pine, pelvis and hips. No urolith. IMPRESSION: 1. Mildly dilated loops of small bowel suggest postoperative ileus. Follow-up recommended. 2. No pneumatosis or pneumoperitoneum. Electronically signed by: Delano García M.D. 08/25/2018 9:05 AM
[2018-08-25] MEDS: INSULIN ASPART 100 UNITS/ML 3 ML PEN SC SCH ×4 (09:15→20:43)
[2018-08-25] MEDS: INSULIN GLARGINE SOLOSTAR 100 UNITS/ML 3 ML PEN SC SCH (09:15)
[2018-08-25] MEDS: ENOXAPARIN INJ 40 MG/0.4 ML SYR SQ SCH (09:16)
[2018-08-25] MEDS: IRBESARTAN 150 MG TAB PO SCH (09:17)
[2018-08-25] MEDS: METOPROLOL SUCC 50MG EXT REL TAB PO SCH (09:18)
--- NOTE | 2018-08-25 12:17 | Pharmacy Report ---
Pharmacy Glycemic Short Note 2 - Date of Service August 25, 2018 - Glycemic Short BSG Results (Last 24 hours): 08/24/18 08/24/18 08/25/18 17:22 21:02 08:06 Glucose POC Glucose 114 H 134 H 185 H 08/25/18 08/25/18 08:25 12:01 Glucose 182 H POC Glucose 157 H OUTPATIENT ANTIDIABETIC REGIMEN: * Lantus 35 units SQ QAM * Metformin 1g PO BID * Glimepiride 2mg QAM, 4mg QPM * Alc 7.7% -06/16/18 ASSESSMENT: * POD #6 s/p rectal tumor resection and colostomy. Patient remains on full liquid diet. Appetite was poor yesterday as patient did not feel well. Per nurse, he does want to try and eat today * oJhn received a total of 37 units of insulin yesterday with adequate glycemic control. * Fasting BSG of 182 mg/dL from this morning is above goal. I will increase Lantus dose by ~8%. This may need to be increased further. I was somewhat conservative given poor appetite and 0g of carbs consumed yesterday * Novolog correction factor and carb ratio were adequate yesterday and will be continued today. However, again, no carbs were consumed yesterday, so will look for actual effect of current ratio throughout today. Lunch BSG controlled. Will continue to monitor to assess whether further tightening is necessary. PLAN FOR INPATIENT GLYCEMIC CONTROL: * Hold outpatient oral diabetes medications * Basal insulin - increase * Lantus 38 units QAM * Bolus insulin * NovoLog per scale ACHS or Q6hrs while NPO * Goal Range: Low 110 mg/dL - High 140 mg/dL * Correction Factor: 25 mg/dL/unit * Tighten Nutritional / Prandial insulin per carb ratio of 1 unit per 9 grams CHO consumed PLAN FOR DISCHARGE: * A1c near goal. Continue current outpatient regimen and titrate per outpatient provider.
[2018-08-25] MEDS: DOCUSATE SODIUM/SENNA 50/8.6MG TAB PO SCH (14:40)
[2018-08-25] MEDS ORDERED: DEXTROSE 50% 50 ML SYRINGE IV PRN (16:00)
[2018-08-25] MEDS ORDERED: GLUCOSE 40% GEL 15 GM TUBE PO PRN (16:00)
[2018-08-25] MEDS ORDERED: GLUCOSE 10 TABS/TUBE PO PRN (16:00)
[2018-08-25] MEDS ORDERED: GLUCAGON FOR INJ 1 MG VIAL IM PRN (16:00)
[2018-08-25] MEDS ORDERED: CARBOHYDRATES FOR HYPOGLYCEMIA PO PRN (16:00)
[2018-08-25] MEDS: ALBUTEROL HFA 8 GM INHALER INH PRN (20:46)
[2018-08-26] MEDS: FLUTICASONE/VILANTEROL INHALER INH SCH (07:57)
[2018-08-26 08:09] LABS: Basophils # (auto) 0.02 K/uL (0-0.2); Basophils % (auto) 0.2 %; Eosinophils # (auto) 0.07 K/uL (0-0.5); Eosinophils % (auto) 0.6 %; Hematocrit (blood only) 29.9 % (42-52); Hemoglobin 9.6 g/dL (14.0-18.0); Immature Granulocytes # (auto) 0.11 K/uL (0.00-0.02); Lymphocytes # (auto) 1.86 K/uL (1.2-3.4); Lymphocytes % (auto) 16.4 %; Mean Corpuscular Hgb Conc 32.1 g/dL (32-36); Mean Corpuscular Volume 73.3 fL (80-100); Mean Platelet Volume 9.7 fL (7.4-10.4); Monocytes # (auto) 1.22 K/uL (0.11-0.59); Monocytes % (auto) 10.7 %; Neutrophils # (auto) 8.09 K/uL (1.4-6.5); Neutrophils % (auto) 71.1 %; Platelet Count 334 K/uL (130-400); RDW Coefficient of Variation 14.8 % (11.5-14.5); RDW Standard Deviation 39.4 fL (36.4-46.3); Red Blood Count 4.08 M/uL (4.7-6.1); White Blood Count 11.37 K/uL (4.8-10.8)
[2018-08-26] MEDS: IRBESARTAN 150 MG TAB PO SCH (08:39)
[2018-08-26] MEDS: ENOXAPARIN INJ 40 MG/0.4 ML SYR SQ SCH (08:39)
[2018-08-26] MEDS: DOCUSATE SODIUM/SENNA 50/8.6MG TAB PO SCH (08:40)
[2018-08-26] MEDS: INSULIN GLARGINE SOLOSTAR 100 UNITS/ML 3 ML PEN SC SCH (08:41)
[2018-08-26] MEDS: INSULIN ASPART 100 UNITS/ML 3 ML PEN SC SCH ×4 (08:42→20:51)
[2018-08-26 08:43] LABS: Albumin Globulin Ratio 0.6 (0.9-2); Albumin Level 2.4 gm/dl (3.4-5.0); BUN Creatinine Ratio 12.5 (10-20); Bilirubin,Total 0.4 mg/dl (0.2-1); Calcium 8.4 mg/dl (8.5-10.1); Creatinine Clr Calc Pharmacy 86.9 ml/min; Est GFR (African American) 84.9; Est GFR (Non-African American) 73.3; Potassium 4.1 mmol/L (3.5-5.1); Total Protein 6.4 gm/dl (6.4-8.2)
--- NOTE | 2018-08-26 09:06 | Surgery Progress Note ---
Date of Service August 26, 2018 Assessment & Plan (1) Rectal mass: POD 7 LAR, colostomy KUB yesterday with stool in right colon add Miralax, repeat enema today Supervising Physician Co-Signing Physician Notes PNT S&E, agree with above. POD#7 LAR w/ end colostomy. Feels better this morning, was actually hungry. WBC down. Incision with erythema, 2 more madalyn removed, no purulent drainage. Ostomy examined, pink, patent. Gas in bag, minimal stool, some emptied this morning. Since he feels better will plan for additional enemas and bowel regimen. Start abx for erythema at incision, may represent dependent rubor. Subjective tolerating fulls, no ostomy output Physical Exam Gastrointestinal (Abdomen): Inspection/Auscultation: + abdominal surgical incision (packed, mild erythema) Percussion/Palpation: abdomen soft Results & Data Vital Signs (Past 12 Hours) Vital Signs Temp Pulse Pulse Resp BP BP Pulse Ox 08/26/18 07:41 37.2 C 96 H 23 130/76 92 08/25/18 23:38 36.9 C 84 16 134/74 93
[2018-08-26] MEDS: METOPROLOL SUCC 50MG EXT REL TAB PO SCH (09:08)
--- NOTE | 2018-08-26 11:06 | Pharmacy Report ---
Pharmacy Glycemic Short Note 2 - Date of Service August 26, 2018 - Glycemic Short BSG Results (Last 24 hours): 08/25/18 08/25/18 08/25/18 12:01 17:52 20:42 Glucose POC Glucose 157 H 123 H 155 H 08/26/18 08/26/18 07:42 08:17 Glucose 152 H POC Glucose 166 H OUTPATIENT ANTIDIABETIC REGIMEN: * Lantus 35 units SQ QAM * Metformin 1g PO BID * Glimepiride 2mg QAM, 4mg QPM * Alc 7.7% -06/16/18 ASSESSMENT: * POD #7 s/p rectal tumor resection and colostomy. Patient remains on full liquid diet. Appetite is slowly improving/increasing * Pt has received 46 units of insulin over the past 24hrs * 38 units of basal insulin * 8 units of prandial/correctional insulin * Regimen is weighted towards basal insulin secondary to poor PO intake * BSGs are in goal range. No changes needed to regimen at this time. * Goal is to maintain BSGs <200 mg/dl (ideally <150 mg/dl) to prevent post op infectious complications . PLAN FOR INPATIENT GLYCEMIC CONTROL: no changes needed today * Hold outpatient oral diabetes medications * Basal insulin * Lantus 38 units QAM * Bolus insulin * NovoLog per scale ACHS or Q6hrs while NPO * Goal Range: Low 110 mg/dL - High 140 mg/dL * Correction Factor: 25 mg/dL/unit * Tighten Nutritional / Prandial insulin per carb ratio of 1 unit per 9 grams CHO consumed PLAN FOR DISCHARGE: * A1c near goal. Continue current outpatient regimen and titrate per outpatient provider.
[2018-08-26] MEDS: cefOXitin 2,000 MG in DEXTROSE 5% 50 ML IV SCH ×3 (11:12→22:34)
[2018-08-26] MEDS: POLYETHYLENE (MIRALAX) 17 GM PACK PO SCH (11:12)
[2018-08-26] MEDS: ALBUTEROL HFA 8 GM INHALER INH PRN (15:44)
--- NOTE | 2018-08-26 17:26 | Hospitalist Progress Note ---
Date of Service August 26, 2018 Assessment & Plan (1) Rectal mass: S/p laparoscopic low anterior rectum resection with end colostomy by Dr. Hoffman on 08/19. 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 BUN/Cr were 29/2.52 post-op - Now resolved. (3) Diabetes: Blood sugars controlled, hemoglobin A1c 7.7% in 05/2018. - Pharmacy is managing - Continue basal bolus insulin and Accu-Cheks (4) HTN (hypertension): Blood pressures were significantly elevated and were slightly improved with increased metoprolol dose, but now remain elevated again in the 170s-180s systolic despite restarting irbesartan - Increased Toprol-XL 100mg daily on 08/23 - Continue hydralazine IV as needed for SBP > 180 or DBP > 110 - Discharge on irbesartan 150mg PO daily & Toprol XL 100 mg PO daily (5) Paroxysmal A-fib: With a history of paroxysmal atrial fibrillation, currently in a regular rhythm. Not on anticoagulation due to rectal bleeding from mass and microcytic anemia. - Continue metoprolol for rate control - Eventually should go back on anticoagulation - defer to PCP and/or cardiology after recovery from surgery (6) HLD (hyperlipidemia): - Continue to hold statin in the setting of LFT abnormalities, but can likely restart on discharge. (7) COPD (chronic obstructive pulmonary disease): With chronic cough, sputum production at normal amount. - Continue home albuterol PRN and Breo ellipta (8) Elevated LFTs: With mild elevation in AST and ALT that is now much improved. AST only remains very minimally elevated at 65. No known history of liver issues. - Holding statin; restart on discharge with re-check of LFTs by PCP in 1-2 weeks. (9) Anemia: Severely microcytic anemia, iron deficient and with known GI bleeding secondary to rectal mass. Likely some blood loss during surgery but also hemo- dilutional, hemoglobin was down to 8.5 and now up with stopping IVFs to 9.1. - Continue to monitor CBC (10) DVT prophylaxis: SCDs Hospitalist service will continue to follow - will need to prescribe new dose of Toprol XL to pharmacy Subjective Doing well today. No abdominal pain. However, ostomy is only putting out gas so far. Review of Systems Review of Systems: All systems reviewed & are unremarkable except as noted in HPI & below Physical Exam Constitutional: WD/WN, vitals as above + obese Eyes: PERRL, conjunctivae normal, anicteric sclerae ENMT: external ear and nose normal, oropharynx normal Neck: trachea midline, no thyromegaly Respiratory: normal respiratory effort, lungs clear to auscultation normal respiratory effort and + cough; no labored breathing and not tachypneic Auscultation: + rhonchi (A few scattered rhonchi); no crackles and no wheezes Cardiovascular: RRR, no murmur, no edema Gastrointestinal (Abdomen): Inspection/Auscultation: normal bowel sounds; + abdomen abnormal to inspection (large dressing in place, ostomy bag with gas) Percussion/Palpation: abdomen soft; abdomen nontender Musculoskeletal: Extremities: extremities normal to inspection; no cyanosis and no clubbing Skin: no rashes, warm and dry Neurologic: moves all extremities and awake; no focal motor deficits Psychiatric: A+Ox3, euthymic affect Results & Data Vital Signs (Past 12 Hours) Vital Signs Temp Pulse Pulse Resp BP BP Pulse Ox 08/26/18 15:00 37.1 C 84 17 152/81 H 94 08/26/18 07:41 37.2 C 96 H 23 130/76 92
[2018-08-26] MEDS ORDERED: ACETAMINOPHEN 325 MG TAB PO PRN (21:20)
[2018-08-27] MEDS: cefOXitin 2,000 MG in DEXTROSE 5% 50 ML IV SCH ×3 (05:14→18:30)
--- NOTE | 2018-08-27 08:25 | Surgery Progress Note ---
Date of Service August 27, 2018 Assessment & Plan (1) Rectal mass: POD#8, doing well, stool overnight and gas in bag this morning Advance to low fiber diet nutrition teaching on low fiber diet Change to oral abx for 7 days follow up next week in clinic for staple removal home health care for wound care and ostomy d/c drain Present on Admission?: Yes Subjective POD#8 LAR with end colostomy. 200 cc stool in bag yesterday, feels better, states he is hungry. Physical Exam Constitutional: WD/WN, vitals as above Gastrointestinal (Abdomen): incision with madalyn, some erythema. Mid portion with gauze in place. Ostomy with gas in bag and some brown liquid, patent and still slightly edematous. drain with ss output. Results & Data Vital Signs (Past 12 Hours) Vital Signs Temp Pulse Pulse Resp BP Pulse Ox 08/27/18 07:15 36.6 C 96 H 18 129/76 92 08/26/18 23:44 37.4 C 73 16 112/49 L 92
[2018-08-27] MEDS: INSULIN ASPART 100 UNITS/ML 3 ML PEN SC SCH ×4 (08:59→23:51)
[2018-08-27] MEDS: INSULIN GLARGINE SOLOSTAR 100 UNITS/ML 3 ML PEN SC SCH (09:01)
[2018-08-27] MEDS: ENOXAPARIN INJ 40 MG/0.4 ML SYR SQ SCH (09:02)
[2018-08-27] MEDS: POLYETHYLENE (MIRALAX) 17 GM PACK PO SCH (09:02)
[2018-08-27] MEDS: DOCUSATE SODIUM/SENNA 50/8.6MG TAB PO SCH (09:03)
[2018-08-27] MEDS: FLUTICASONE/VILANTEROL INHALER INH SCH (09:03)
[2018-08-27] MEDS: IRBESARTAN 150 MG TAB PO SCH (09:04)
[2018-08-27] MEDS: METOPROLOL SUCC 50MG EXT REL TAB PO SCH (09:04)
--- NOTE | 2018-08-27 11:27 | Pharmacy Report ---
Glycemic Control Progress Note - Date of Service August 27, 2018 - Scope Glycemic Pharmacist consulted for glycemic control to write orders per [facility] inpatient glycemic control protocol. - Objective Accuchecks BSG(last 24 hours):: 08/26/18 08/26/18 08/26/18 11:56 17:26 20:37 POC Glucose 150 H 77 154 H 08/27/18 08:26 POC Glucose 163 H - Recent Pertinent Medications The patient is currently receiving: * Basal insulin: Lantus 38 units every 24 hours in the morning * Correctional Insulin: Novolog Correction per scale ACHS Goal Range: Low 110 mg/dL - High 140 mg/dL Correction Factor: 25 mg/dL/unit * Prandial insulin: Per carb ratio of 1 unit per 9 grams CHO consumed - Outpatient Anti-Diabetic Meds Lantus 35 units in the morning Metformin 1 gm PO BID Glimepiride - Assessment & Plan ASSESSMENT: * See progress note from 08/20/18 for more background info, in short: * Pt receiving SQ basal bolus insulin regimen for hyperglycemia secondary to baseline DM (outpatient regimen on hold),stress/infection (PO from colon resection. * Patient is currently receiving an average of 48 units of insulin per day * 38 units of basal insulin * 10 units of prandial/correctional insulin * BSGs ranging 77 - 166 mg/dl over the past 24hrs * Changes needed to insulin regimen: * AM Fasting BSG = 163 mg/dl. This is trending down into goal range for patient based on inpatient targets and co-morbidities. Will continue with current basal regimen. Patient's fastings remain slightly elevated to Lantus dose higher than home regimen is appropriate. Is it possible that Lantus does not last 24 hours in patient and he needs an evening dose? Moe smith. * Post-prandial BSGs are in range therefore no changes needed to CF/CR. Expect prandial coverage to increase as patient's diet resumes. * Total daily dose = >45 units. PLAN FOR INPATIENT GLYCEMIC CONTROL: * Continuing Lantus 38 units SQ AM * Continuing correction factor of 25 mg/dl/unit * Continuing carb ratio of 1 unit per 9 grams CHO consumed * Continuing goal range of Low 110 mg/dL - High 140 mg/dL RECOMMENDATIONS FOR DISCHARGE: * Patient's HbA1C is well controlled. Caution utilizing glimepiride in an individual on insulin secondary to increase risk of hypoglycemia. * Please note that the plan above was derived based on current level of insulin resistance and hospital stress. These recommendations are appropriate for in patient admission only. Plan of care upon discharge will need to be reassessed to avoid potential outpatient hypo/hyperglycemia. Thank you.
[2018-08-27] MEDS ORDERED: SUCCINYLCHOLINE 100MG/5ML SYR IV ONE (14:52)
[2018-08-27] MEDS ORDERED: ROCURONIUM BROMIDE 10 MG/ML 5 ML VIAL IV ONE (14:52)
[2018-08-27] MEDS ORDERED: MIDAZOLAM HCL 1 MG/ML 2ML VIAL IV ONE (14:52)
[2018-08-27] MEDS ORDERED: fentaNYL citrate 100 MCG/2 ML VIAL IV ONE (14:52)
[2018-08-27] MEDS ORDERED: PHENYLEPHRINE HCL 10 MG/ML VIAL IV ONE (14:52)
[2018-08-27] MEDS ORDERED: GLYCOPYRROLATE 0.2 MG/ML VIAL IM ONE (14:52)
[2018-08-27] MEDS ORDERED: LIDOCAINE HCL 2% 2 ML VIAL/AMP(20MG/ML) INFIL ONE (14:52)
[2018-08-27] MEDS ORDERED: ONDANSETRON INJ 2 MG/ML 2 ML VIAL IV ONE (14:52)
[2018-08-27] MEDS ORDERED: NEOSTIGMINE METHYLSULFATE 5 MG/5 ML SYR IV ONE (14:52)
[2018-08-27] MEDS ORDERED: PROPOFOL IV EMULSION 10 MG/ML 20 ML VIAL IV ONE (14:52)
--- NOTE | 2018-08-27 17:27 | Surgery Progress Note ---
Date of Service August 27, 2018 Assessment & Plan (1) Dehiscence of fascia: POD #8 LAR w/ end colostomy, was being discharged but now with fascial dehiscence with eviscerated bowel. Plan for emergent exploratory laparotomy, washout, fascial closure and application of negative pressure therapy device. Risks discussed to include bleeding, infection, hernia, wound complications, prolonged healing, damage to surrounding structures, and risks of anesthesia cefoxitin pre op. Present on Admission?: Yes Subjective POD#8 LAR with end colostomy. Patient was doing well and actually discharged. Called to bedside for dehiscence. Patient was ready to leave when he coughed and nurse noted bowel eviscerated through wound. No pain, no gush of fluid. Physical Exam Constitutional: WD/WN, vitals as above Gastrointestinal (Abdomen): colostomy with stool, pink, patent. Wound with superficial separation and 2 loops of viable bowel protruding through wound. Results & Data Vital Signs (Past 12 Hours) Vital Signs Temp Pulse Pulse Resp BP Pulse Ox 08/27/18 15:42 36.6 C 73 18 129/76 92 08/27/18 07:15 36.6 C 96 H 18 129/76 92
--- NOTE | 2018-08-27 17:52 | Anesthesiology Consultation ---
Date of Service August 27, 2018 Assessment & Plan Chart Review Chart Review: Acceptable Risk for Surgery and Patient NOT seen in Pre Admission Testing Consults Requested none ASA [id number] Proposed Anesthesia Anesthesia Type: General Anesthesia Line Insertion: Arterial line History Surgery Operation Date: 08/19/18 07:00 Proposed Procedures p Laparoscopic Low Anterior Resection - John Hoffman DO, FACS Operation Date: 08/27/18 09:40 Proposed Procedures p Wash Out Wound, Wound Vac - John Hoffman DO, FACS Height/Weight Height: 5 ft 10 in Weight: 111.5 kg Allergies Allergy/AdvReac Type Severity Reaction Status Date / Time No Known Allergies Allergy Verified 08/19/18 06:06 Medications Home Medications Medication Instructions Recorded Confirmed Last Taken Breo Ellipta 1 inh INHALATION QAM 06/30/18 08/19/18 08/18/18 05:00 Lantus U-100 Insulin 35 unit SUBCUT QAM 06/30/18 08/19/18 08/19/18 04:30 17 units albuterol sulfate [Ventolin HFA] 2 puff INHALATION QID PRN 06/30/18 08/19/18 08/17/18 aspirin 325 mg PO QAM 06/30/18 08/19/18 08/14/18 05:00 atorvastatin 80 mg PO HS 06/30/18 08/19/18 08/18/18 20:00 ergocalciferol (vitamin D2) 50,000 unit PO WK 06/30/18 08/19/18 08/14/18 05:00 [Vitamin D2] glimepiride 1 dose PO BID 06/30/18 08/19/18 08/18/18 20:00 irbesartan 0.5 tab PO QAM 06/30/18 08/19/18 08/18/18 05:00 metformin 1,000 mg PO BID 06/30/18 08/19/18 08/18/18 05:00 metoprolol succinate [Toprol XL] 100 mg PO DAILY #30 tab 08/27/18 Unknown oxycodone-acetaminophen [Percocet] 1 - 2 tab PO Q4H PRN #15 tab 08/27/18 Unknown sulfamethoxazole-trimethoprim 1 tab PO BID 7 Days #14 tab 08/27/18 Unknown [Bactrim DS] Active Medications Generic Name Dose Route Start Last Admin Trade Name Freq PRN Reason Stop Dose Admin Acetaminophen 650 mg 08/26/18 21:20 08/26/18 21:29 Tylenol PO 09/25/18 21:19 650 mg Q4H PRN Administration Pain Albuterol 2 puffs 08/19/18 15:14 08/26/18 15:44 Ventolin Hfa INH 09/18/18 15:13 2 puffs QID PRN Administration SHORT OF BREATH Enoxaparin Sodium 40 mg 08/20/18 09:00 08/27/18 09:02 Lovenox SQ 09/19/18 08:59 40 mg Q24H RYAN Administration Fluticasone/Vilanterol 1 puffs 08/21/18 09:00 08/27/18 09:03 Breo Ellipta INH 09/20/18 08:59 1 puffs QAM RYAN Administration Hydromorphone HCl 0.5 mg 08/24/18 10:56 08/24/18 22:35 Dilaudid IV 09/07/18 10:55 0.5 mg Q1H PRN Administration Pain Cefoxitin Sodium 2,000 mg/ 60 mls @ 100 mls/hr 08/26/18 11:00 08/27/18 11:12 Dextrose IV 09/05/18 10:59 Infused Q6H RYAN Infusion Protocol Insulin Aspart 0 units 08/21/18 07:30 08/27/18 12:51 Novolog Flexpen SC 09/20/18 07:29 5 units ACHS RYAN Administration Protocol Insulin Glargine 38 units 08/25/18 09:00 08/27/18 09:01 Lantus Solostar Pen SC 09/24/18 08:59 38 units QAM RYAN Administration Irbesartan 150 mg 08/23/18 09:00 08/27/18 09:04 Avapro PO 09/22/18 08:59 150 mg QAM RYAN Administration Metoprolol Succinate 100 mg 08/24/18 09:00 08/27/18 09:04 Toprol Xl PO 09/23/18 08:59 100 mg QAM RYAN Administration Oxycodone HCl 5 mg 08/24/18 10:56 08/24/18 18:54 Roxicodone Immediate Rel PO 09/07/18 10:55 5 mg Q4H PRN Administration Pain Polyethylene Glycol 17 gm 08/26/18 09:15 08/27/18 09:02 Miralax Powder Packet PO 09/25/18 09:14 17 gm DAILY RYAN Administration Senna/Docusate Sodium 1 tab 08/25/18 13:45 08/27/18 09:03 Senokot S PO 09/24/18 13:44 1 tab QAM RYAN Administration NPO Date Last Intake of Fluids: 08/27/18 Time Last Intake of Fluids: 09:00 Date Last Intake of Solids: 08/27/18 Time Last Intake of Solids: 09:00 Past Medical History Medical History Atrial fibrillation Chronic obstructive pulmonary disease Diabetes mellitus, type 2 Hyperlipidemia Hypertension Obesity Exercise / Class Metabolic Activity III < 4 Walking/Shop/Light housework Past Family History Family History Father Family history of diabetes mellitus Brother Family history of diabetes mellitus Past Surgical History Surgical History History of colonoscopy versed/propofol, no issues. completed 07/07/2018. History of adenoidectomy History of tonsillectomy History of tooth extraction Past Anesthesia History No Hx of Anesthesia Complications and No Family Hx of Anesthesia Complications History of PONV No Hx of PONV and No Hx of Motion Sickness Social History Smoking Status: Former smoker (PER DR. VARGAS'S NOTE: QUIT 2007, SMOKED 1-2 PACKS/DAY) tobacco type: cigarettes Smoking End Date: QUIT 12 YEARS AGO Hx Alcohol Use: No Hx Substance Use: No substance use type: does not use Physical Exam Vital Signs Last Vital Signs Temp 36.8 C 08/27/18 17:24 Pulse 86 08/27/18 17:24 Resp 20 08/27/18 17:24 BP 190/92 H 08/27/18 17:24 Pulse Ox 95 08/27/18 17:24 Constitutional + obese ENMT Mouth: + edentulous Thyromental Distance: > or= 3.5 Finger Breadths Mallampati Class: II Neck normal visual inspection and trachea midline; neck extension not limited Respiratory normal respiratory effort and + cough Auscultation: + rhonchi Cardiovascular Rate/Rhythm: regular rate, regular rhythm and + tachycardic Musculoskeletal Spine: normal cervical ROM Neurologic moves all extremities Motor/Sensory: no sensory deficit Psychiatric Orientation: alert and oriented x 3 Testing Laboratory Results 08/26/18 07:42 08/26/18 07:42 Blood Type O Negative 08/19/18 05:59 Antibody Screen NEGATIVE 08/19/18 05:59 PT 12.4 Seconds (9.0-12.0) H 08/20/18 07:02 INR 1.2 (0.9-1.1) H 08/20/18 07:02 APTT 27.8 Seconds (21.0-31.0) 08/20/18 07:02 Urine Color Yellow 08/25/18 06:10 Urine Appearance Clear (Clear) 08/25/18 06:10 Urine pH 5.5 (4.5-7.5) 08/25/18 06:10 Ur Specific [place] 1.020 (1.000-1.030) 08/25/18 06:10 Urine Protein Trace (Negative) H 08/25/18 06:10 Urine Glucose (UA) 1+ (Negative) H 08/25/18 06:10 Urine Ketones 2+ (Negative) H 08/25/18 06:10 Urine Nitrite Negative (Negative) 08/25/18 06:10 Ur Leukocyte Esterase Negative (Negative) 08/25/18 06:10 Urine WBC (Auto) 1-5 /hpf (0-5) 08/25/18 06:10 Urine RBC (Auto) 0-4 /hpf (0-4) 08/25/18 06:10 U Hyaline Cast (Auto) 10-30 /lpf (0-5) H 08/25/18 06:10 U Epithel Cells (Auto) >30 /lpf (0-5) H 08/25/18 06:10 Urine Bacteria (Auto) Negative (Negative) 08/25/18 06:10 08/20/18 14:45 Urine Culture - Final Urine,Clean Catch No growth - less than 1,000 colonies/mL. 08/27/18 08/27/18 08/27/18 17:21 12:20 08:26 POC Glucose 135 H 173 H 163 H
[2018-08-27] MEDS ORDERED: BUPIVACAINE LIPOSOME 1.3% 266 MG/20 ML VIAL ONE (18:13)
[2018-08-27] MEDS ORDERED: BUPIVACAINE 0.5 % 5 MG/1 ML MPF 30ML VIAL ONE (18:13)
[2018-08-27] MEDS ORDERED: PHENYLEPHRINE 100MCG/ML 5ML SYR IV PRN (19:13)
[2018-08-27] MEDS ORDERED: LABETALOL HCL IV 5 MG/ML 20ML IV PRN (19:13)
[2018-08-27] MEDS ORDERED: MEPERIDINE HCL 25 MG/ML CARP IV PRN (19:13)
[2018-08-27] MEDS ORDERED: ATROPINE SULFATE 0.1 MG/ML 10ML SYR IV PRN (19:13)
[2018-08-27] MEDS ORDERED: ePHEDrine sulfate 50 MG/ML AMP IV PRN (19:13)
[2018-08-27] MEDS ORDERED: fentaNYL citrate 100 MCG/2 ML VIAL IV PRN (19:13)
[2018-08-27] MEDS ORDERED: HYDROmorphone INJ 1 MG/ML SYRINGE IV PRN (19:13)
[2018-08-27] MEDS ORDERED: ONDANSETRON INJ 2 MG/ML 2 ML VIAL IV PRN (19:13)
--- NOTE | 2018-08-27 21:28 | Post Operative Brief Note ---
Immediate Post Op Note v1 Date of Surgery August 27, 2018 Pre & Post Diagnosis Operation Date: 08/27/18 09:40 Pre-Op Diagnosis: Status post low anterior resection with colostomy, wound dehiscence Post-Op Diagnosis: Wound dehiscence Procedure Exploratory Laparotomy, Abdominal washout, lysis of adhesions, fascial closure with ovitex biologic mesh underlay, application of negative pressure wound therapy device Surgeon John Hoffman DO, FACS Care Process Manager Tesha Florian Estimated Blood Loss 15 Findings Consistent with Post-Op Diagnosis Fascia pulled through in midline below umbilicus near ostomy. Repaired with i nterrupted #1 PDS sutures. Underlay ovitex [id number] mesh placed in midline below umbilicus near ostomy, sown into place with 0 vicryl. 2cm defect bridged. Wound vac placed with whitefoam in wound, black foam over. Ostomy device placed. Binder placed. Drains Other Anesthesia Type General Complications none Disposition Accompanied Patient To Recovery: Yes Disposition: Recovery Room
--- NOTE | 2018-08-27 21:49 | Operative Report ---
Post Operative Report Pre & Post Diagnosis Operation Date: 08/27/18 09:40 Pre-Op Diagnosis: Status post low anterior resection with colostomy, wound dehiscence Post-Op Diagnosis: Status post low anterior resection with colostomy, wound dehiscence Procedure Operation Date: 08/27/18 09:40 Actual Procedures p Laparotomy, Wash Out Wound, Placement Wound Vac, Lysis of adhesions, Fascia closure, Mesh placement(Not Applicable) - John Hoffman DO, MICHAEL Surgeon John Hoffman DO, MICHAEL Security Clerk Tesha Florian Estimated Blood Loss 15 Findings Consistent with Post-Op Diagnosis Fascia pulled through in midline below umbilicus near ostomy. Repaired with interrupted #1 PDS sutures. Underlay ovitex [id number] mesh placed in midline below umbilicus near ostomy, sown into place with 0 vicryl. 2cm defect bridged. Wound vac placed with whitefoam in wound, black foam over. Ostomy device placed. Binder placed. Specimens None Drains Wound vac Anesthesia Type General Complications none Disposition Accompanied Patient To Recovery: No Disposition: Recovery Room Indications 67-year-old male status post low anterior resection 8 days ago with end colostomy for low rectal tumor. He had return of bowel function and was ready to be discharged when he coughed vigorously and the nurses noted bowel protruding from his wound. He was taken to the operating room emergently for exploratory laparotomy, wound washout, fascial closure, and placement of negative pressure therapy device. The risks of the procedure were discussed, all questions were answered, and the patient agreed to proceed with surgery as planned. Description of Procedure The patient was properly identified, consented, and taken to the operating room where he was placed in the supine position. General endotracheal anesthesia was induced. A dasilva catheter, SCDs and a safety belt were placed. Preoperative antibiotics were administered. Patient small intestine was reduced back to the abdomen and a moistened white towel was placed to hold in place during prepping. The patient's abdomen was prepped, gauze was placed over the ostomy and Ioban was placed over the abdomen. The abdomen was draped in the standard sterile fashion. Surgical timeout was performed and all parties were in agreement that this was the correct patient and procedure to be performed and we continued as planned. The Ioban was opened in the midline and the white count was removed. It appeared that the fascia in the midline below the umbilicus and adjacent to the ostomy had torn through. The PDS suture knot also had pulled apart. The remaining PDS suture was removed. There was some adhesions of the small bowel that were taken down bluntly. The abdomen was irrigated with warm saline in all 4 quadrants. There appeared to be no damage to the bowel and good hemostasis. We then attempted to close the fascia primarily. This consisted of interrupted #1 PDS simple sutures intermixed with #1 PDS vertical mattress sutures. The fascia below the umbilicus near the ostomy was friable but I felt that I got good tissue in that area. As we were preparing to complete the case in place the wound VAC, the patient began to awaken and shahid against the endotracheal tube. Several of the midline sutures in the area just below the umbilicus pulled through the fascia. These were then removed, and the patient was re- sedated. A 10 x 12 cm piece of ovitex bioabsorbable mesh was then chosen and soaked for 5 minutes. This was then placed in an underlay fashion and secured to good fascia in a clockwise fashion with interrupted 0 Vicryl mattress sutures. The midline fascia that had reopened was then mostly closed using interrupted #1 PDS sutures. There was a 2 x 1 cm area we were unable to close primarily, but the ovitex provided an adequate bridge. Exparel mixed with 0.5% Marcaine was injected in the fascia and subcutaneous tissues. The wound was then irrigated. The abdomen was cleaned and dried. Benzoin was then placed around the incision. Wound VAC white foam sponges were then placed over the fascia in the wound. A black sponge was then cut to fit. The wound was greater than 50 cm. The wound VAC adhesive was then placed over the wound with care not to impinge upon the ostomy. A small dressing was placed where the SUKI drain exit site had been. The ostomy device was then placed. The wound VAC was turned to 125 cm continuous pressure and there was no leak detected. Abdominal binder was placed. The patient was extubated in the operating room and taken to the PACU where he recovered without apparent incident. All sponge, instrument and needle counts were correct at the conclusion of the procedure. The patient tolerated the pr ocedure well. The physician's promotional advertising assistant was present and scrubbed for the entirety of the case. She was critical in positioning the patient, prepping and draping, retraction exposure, repair of the fascial defect, placement of the wound VAC and ostomy device. I attest to the content of the Intraoperative Record and any orders documented therein. Any exceptions are noted below.
--- NOTE | 2018-08-27 22:20 | Anesthesiology Progress Note ---
Date of Service August 27, 2018 Anesthesia Post Procedure Vital Signs Vital Signs: Temp Pulse Pulse Pulse Resp BP Pulse Ox 08/27/18 22:05 36.6 C 83 22 173/84 H 97 08/27/18 21:55 79 20 165/77 H 100 08/27/18 21:45 82 22 165/83 H 94 08/27/18 21:36 36.1 C L 83 16 166/74 H 100 08/27/18 17:24 36.8 C 86 20 190/92 H 95 08/27/18 15:42 36.6 C 73 18 129/76 92 08/27/18 07:15 36.6 C 96 H 18 129/76 92 08/26/18 23:44 37.4 C 73 16 112/49 L 92 Pain Intensity Abdomen: Pain Intensity: 3 Transfer of Care Handoff Completed per policy Notes Mental Status: alert / awake / arousable Patient Amnestic to Procedure: Yes Nausea / Vomiting: adequately controlled Pain: adequately controlled Airway Patency, RR, SpO2: stable & adequate BP & HR: stable & adequate Hydration State: stable & adequate Anesthetic Complications: no major complications apparent and Pt Satisfied with anesthetic care Notes: The patient is awake and stable.
[2018-08-27] MEDS ORDERED: MoRPHine SULFATE 4 MG/ML 1 ML CARP\\VIAL IV PRN (22:29)
[2018-08-27] MEDS ORDERED: MoRPHine SULFATE 2 MG/ML CARP IV PRN ×2 (22:29)
[2018-08-27] MEDS: LACTATED RINGER'S 1,000 ML IV SCH (22:49)
[2018-08-27] MEDS: HYDROmorphone INJ 0.5 MG/0.5 ML SYR IV PRN (22:54)
[2018-08-27] MEDS: ACETAMINOPHEN 65 ML IV SCH (22:54)
[2018-08-27] MEDS ORDERED: Nursing to Pharmacy Communication ONE (23:53)
[2018-08-28] MEDS: cefOXitin 2,000 MG in DEXTROSE 5% 50 ML IV SCH ×5 (00:07→22:32)
[2018-08-28] MEDS: INSULIN ASPART 100 UNITS/ML 3 ML PEN SC SCH ×5 (00:32→23:34)
[2018-08-28] MEDS: HYDROmorphone INJ 0.5 MG/0.5 ML SYR IV PRN ×4 (02:26→21:18)
[2018-08-28] MEDS: LACTATED RINGER'S 1,000 ML IV SCH ×3 (05:14→22:05)
[2018-08-28] MEDS: ACETAMINOPHEN 65 ML IV SCH ×3 (05:14→22:02)
[2018-08-28 07:34] LABS: Basophils # (auto) 0.02 K/uL (0-0.2); Basophils % (auto) 0.1 %; Eosinophils # (auto) 0.03 K/uL (0-0.5); Eosinophils % (auto) 0.2 %; Hematocrit (blood only) 30.7 % (42-52); Hemoglobin 9.8 g/dL (14.0-18.0); Immature Granulocytes # (auto) 0.06 K/uL (0.00-0.02); Immature Granulocytes % (auto) 0.4 %; Lymphocytes # (auto) 1.15 K/uL (1.2-3.4); Lymphocytes % (auto) 7.1 %; Mean Corpuscular Hgb Conc 31.9 g/dL (32-36); Mean Corpuscular Volume 73.1 fL (80-100); Mean Platelet Volume 9.1 fL (7.4-10.4); Monocytes # (auto) 1.31 K/uL (0.11-0.59); Monocytes % (auto) 8.1 %; Neutrophils # (auto) 13.56 K/uL (1.4-6.5); Neutrophils % (auto) 84.1 %; Platelet Count 337 K/uL (130-400); RDW Coefficient of Variation 14.9 % (11.5-14.5); RDW Standard Deviation 39.8 fL (36.4-46.3); White Blood Count 16.13 K/uL (4.8-10.8)
--- NOTE | 2018-08-28 07:40 | Surgery Progress Note ---
Date of Service August 28, 2018 Assessment & Plan (1) Dehiscence of fascia: POD 1 repair dehiscence #9 LAR, colostomy wound vac, binder in place ice/popsicles H&H stable, PRP pending Supervising Physician Co-Signing Physician Notes Pnt S&E, agree with above. POD#1 fascial closure with biologic underlay mesh for dehiscence, POD#9 LAR with colostomy. Doing well this morning, some pain, no nausea. vac changed this morning by wound care. Labs reviewed, stable. d/c dasilva, continue vac. sips and chips today, may advance with return of bowel function. I had a long discussion with Mr. Smith regarding the dehiscence and his repair. He will almost definitely be left with a hernia, which he understands. Plan of care discussed, all questions and concerns addressed, agrees with plan of care as stated. Dr. Shah covering over weekend. Subjective sore, no nausea Physical Exam Gastrointestinal (Abdomen): Inspection/Auscultation: + abdominal surgical incision (wound vac in place) Results & Data Vital Signs (Past 12 Hours) Vital Signs Temp Pulse Pulse Resp BP Pulse Ox 08/28/18 03:30 36.5 C 89 16 128/72 93 08/28/18 01:25 36.9 C 78 16 132/78 95 08/28/18 00:25 36.8 C 74 16 132/75 96 08/27/18 23:25 36.5 C 81 16 143/70 H 95 08/27/18 22:56 36.5 C 87 20 152/73 H 95 08/27/18 22:25 36.8 C 80 18 165/79 H 93 08/27/18 22:15 86 22 161/78 H 94 08/27/18 22:05 36.6 C 83 22 173/84 H 97 08/27/18 21:55 79 20 165/77 H 100 08/27/18 21:45 82 22 165/83 H 94 08/27/18 21:36 36.1 C L 83 16 166/74 H 100
[2018-08-28 08:03] LABS: BUN Creatinine Ratio 10.3 (10-20); Calcium 8.2 mg/dl (8.5-10.1); Creatinine Clr Calc Pharmacy 76.7 ml/min; Est GFR (African American) 73.1; Est GFR (Non-African American) 63.1
[2018-08-28] MEDS: FLUTICASONE/VILANTEROL INHALER INH SCH (08:38)
[2018-08-28] MEDS ORDERED: INSULIN GLARGINE SOLOSTAR 100 UNITS/ML 3 ML PEN SC SCH (09:00)
--- NOTE | 2018-08-28 11:22 | Consultation Report ---
DATE OF CONSULTATION: 08/28/2018 REASON FOR CONSULT: Redness and swelling of the right hand. HISTORY OF PRESENT ILLNESS: The patient is a 67-year-old white male who has undergone several procedures during his stay here at [facility] this week under the general surgery team. Most recent surgery was yesterday for wound dehiscence and the patient had an IV in his right hand at one point which was removed and he had developed redness and swelling of that hand and we have been consulted to see him for this. PAST MEDICAL HISTORY: Hypertension, diabetes mellitus, paroxysmal atrial fibrillation, hyperlipidemia, COPD, and a recent resection of rectal mass and placement of colostomy. PAST SURGICAL HISTORY: As above noted, rectal mass removal as well as placement of colostomy, history of colonoscopy, adenoidectomy, tonsillectomy, tooth extraction. FAMILY HISTORY: Diabetes mellitus. SOCIAL HISTORY: The patient was a former smoker, but quit 12 years ago. No alcohol use. HOME MEDICATIONS: Breo Ellipta 1 inhalation q.a.m., Lantus insulin 35 units subQ q.a.m., albuterol 2 puffs inhaled q.i.d. p.r.n., aspirin 325 mg p.o. q.a.m., atorvastatin 80 mg p.o. at bedtime, vitamin D2 50,000 units p.o. weekly, glimepiride 1 dose p.o. b.i.d., irbesartan half tablet p.o. q.a.m., metformin 1000 mg p.o. b.i.d., metoprolol 50 mg p.o. q.a.m., sildenafil 20 mg p.o. as directed p.r.n., tadalafil 5 mg p.o. as directed p.r.n. ALLERGIES: NKDA. PHYSICAL EXAMINATION: EXTREMITIES: Focusing on the right hand, there is an area at the base of the thumb where his IV had been placed and has a small scab over that area. He has some mild erythema, mild swelling noted. There was an area that was encircled in pen that travels proximally showing where previous erythema was. He still has some slight erythema at best in the central portion of this and some minimal swelling. He has minimal to no tenderness on palpation of this area and I cannot feel any fluctuance. It is not overtly hot to the touch and he has good range of motion of his thumb and index finger at this time. He also has good range of motion of the other 3 fingers and his wrist with flexion and extension. He has no streaking up the arm and denies pain on palpation of the forearm up to the elbow. ASSESSMENT: Likely skin and subcutaneous irritation due to IV infiltration. I do not believe this to be any kind of cellulitis at this point in time and would continue warm moist compresses to the right wrist and hand, elevation to help control the swelling, and he is currently getting oxycodone p.r.n., hydromorphone IV p.r.n., and IV Tylenol for pain control which we will continue for this. If it begins to worsen in any way, please give us a call. Thank you for this consult.
--- NOTE | 2018-08-28 14:40 | Pharmacy Report ---
Glycemic Control Progress Note - Date of Service August 28, 2018 - Scope Glycemic Pharmacist consulted for glycemic control to write orders per [facility] inpatient glycemic control protocol. - Objective Accuchecks BSG(last 24 hours):: 08/27/18 08/27/18 08/27/18 17:21 21:43 23:53 Glucose POC Glucose 135 H 132 H 134 H 08/28/18 08/28/18 08/28/18 06:10 07:18 08:21 Glucose 136 H POC Glucose 151 H 159 H 08/28/18 12:13 Glucose POC Glucose 155 H - Recent Pertinent Medications The patient is currently receiving: * Basal insulin: Lantus 38 units every 24 hours * Correctional Insulin: Novolog Correction per scale ACHS Goal Range: Low 110 mg/dL - High 140 mg/dL Correction Factor: 25 mg/dL/unit * Prandial insulin: Per carb ratio of 1 unit per 9 grams CHO consumed - Outpatient Anti-Diabetic Meds Lantus 35 units in the morning metformin 1 gm PO BID Glimepiride - Assessment & Plan ASSESSMENT: * See progress note from 08/20/18 for more background info, in short: * Pt receiving SQ basal bolus insulin regimen for hyperglycemia secondary to baseline DM (outpatient regimen on hold),stress/infection (return to OR yesterday for wound dehiscence with eviscerated bowel). * Patient is currently receiving an average of 47 units of insulin per day * 38 units of basal insulin * 9 units of prandial/correctional insulin * BSGs ranging 132 - 173 mg/dl over the past 24hrs * Changes needed to insulin regimen: * AM Fasting BSG = 151 mg/dl. This is just above goal range for patient based on inpatient targets and co-morbidities. The patient is now NPO for an unknown length of time. Will reduce dose to 35 units SQ daily - patient previously tolerated this while not eating so should be appropriate. * Post-prandial BSGs are in range therefore no changes needed to CF/CR. PLAN FOR INPATIENT GLYCEMIC CONTROL: * Decreasing Lantus to 35 units SQ daily * Continuing correction factor of 25 mg/dl/unit * Continuing carb ratio of 1 unit per 9 grams CHO consumed * Continuing goal range of Low 110 mg/dL - High 140 mg/dL RECOMMENDATIONS FOR DISCHARGE: * Please see note from 08/27/18 * Please note that the plan above was derived based on current level of insulin resistance and hospital stress. These recommendations are appropriate for inpatient admission only. Plan of care upon discharge will need to be reassessed to avoid potential outpatient hypo/hyperglycemia. Thank you.
--- NOTE | 2018-08-28 15:14 | Hospitalist Progress Note ---
Date of Service August 28, 2018 Assessment & Plan (1) Rectal mass: S/p laparoscopic low anterior rectum resection with end colostomy by Dr. Hoffman on 08/19. 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 Now will need wound vac for secondary healing. - Care per primary team (2) Diabetes: Blood sugars controlled, hemoglobin A1c 7.7% in 05/2018. - Pharmacy is managing - Continue basal bolus insulin and Accu-Cheks (3) HTN (hypertension): Blood pressures were significantly elevated and were slightly improved with increased metoprolol dose, but now remain elevated again in the 170s-180s systolic despite restarting irbesartan - Increased Toprol-XL 100mg daily on 08/23 - Continue hydralazine IV as needed for SBP > 180 or DBP > 110 - Discharge on irbesartan 150mg PO daily & Toprol XL 100 mg PO daily (4) Paroxysmal A-fib: With a history of paroxysmal atrial fibrillation, currently in a regular rhythm. Not on anticoagulation due to rectal bleeding from mass and microcytic anemia. - Continue metoprolol for rate control - Eventually should go back on anticoagulation - defer to PCP and/or cardiology after recovery from surgery (5) HLD (hyperlipidemia): - Continue to hold statin in the setting of LFT abnormalities, but can likely restart on discharge. (6) COPD (chronic obstructive pulmonary disease): With chronic cough, sputum production at normal amount. - Continue home albuterol PRN and Breo ellipta (7) Elevated LFTs: With mild elevation in AST and ALT that is now much improved. AST only remains very minimally elevated at 65. No known history of liver issues. - Holding statin; restart on discharge with re-check of LFTs by PCP in 1-2 weeks. (8) Anemia: Severely microcytic anemia, iron deficient and with known GI bleeding secondary to rectal mass. Likely some blood loss during surgery but also hemo- dilutional, hemoglobin was down to 8.5 and now up with stopping IVFs to 9.1. - Continue to monitor CBC (9) DVT prophylaxis: SCDs Hospitalist service will continue to follow - will need to prescribe new dose of irbesartan & Toprol XL to pharmacy Subjective Not feeling great today. Right hand has area of infiltration. Significant pain in the abdomen from his dehiscence. Physical Exam Constitutional: WD/WN, vitals as above + obese Eyes: PERRL, conjunctivae normal, anicteric sclerae ENMT: external ear and nose normal, oropharynx normal Neck: trachea midline, no thyromegaly Respiratory: normal respiratory effort, lungs clear to auscultation normal respiratory effort and + cough; no labored breathing and not tachypneic Auscultation: + rhonchi (A few scattered rhonchi); no crackles and no wheezes Cardiovascular: RRR, no murmur, no edema Gastrointestinal (Abdomen): Inspection/Auscultation: normal bowel sounds; + abdomen abnormal to inspection (Midline wound vac being put in; ostomy in place in LLQ) Musculoskeletal: Extremities: extremities normal to inspection; no cyanosis and no clubbing Skin: no rashes, warm and dry Neurologic: moves all extremities and awake; no focal motor deficits Psychiatric: A+Ox3, euthymic affect Results & Data Vital Signs (Past 12 Hours) Vital Signs Temp Pulse Pulse Resp BP Pulse Ox 08/28/18 11:38 37.0 C 93 H 28 H 166/74 H 94 08/28/18 08:15 36.7 C 35 H 182/68 H 94 08/28/18 03:30 36.5 C 89 16 128/72 93
[2018-08-28] MEDS: ALBUTEROL HFA 8 GM INHALER INH PRN ×2 (18:01→21:19)
[2018-08-28] MEDS ORDERED: GUAIFENESIN/DEXTROM SYRUP 200MG/20MG 10ML UDC PO PRN (22:57)
[2018-08-28] MEDS: ALBUT/IPRATROP 3MG/0.5MG NEB 3 ML VIAL NEB SCH (23:43)
[2018-08-29] MEDS: cefOXitin 2,000 MG in DEXTROSE 5% 50 ML IV SCH ×4 (05:11→22:36)
[2018-08-29] MEDS: ACETAMINOPHEN 65 ML IV SCH ×2 (05:48→13:58)
[2018-08-29] MEDS: INSULIN ASPART 100 UNITS/ML 3 ML PEN SC SCH ×4 (05:53→21:36)
[2018-08-29] MEDS: LACTATED RINGER'S 1,000 ML IV SCH ×3 (05:59→22:35)
[2018-08-29] MEDS: ALBUT/IPRATROP 3MG/0.5MG NEB 3 ML VIAL NEB SCH ×4 (07:26→19:29)
[2018-08-29] MEDS: FLUTICASONE/VILANTEROL INHALER INH SCH (08:30)
[2018-08-29] MEDS: INSULIN GLARGINE SOLOSTAR 100 UNITS/ML 3 ML PEN SC SCH (08:31)
[2018-08-29 08:51] LABS: Basophils # (auto) 0.01 K/uL (0-0.2); Basophils % (auto) 0.1 %; Eosinophils # (auto) 0.02 K/uL (0-0.5); Eosinophils % (auto) 0.1 %; Hematocrit (blood only) 27.8 % (42-52); Hemoglobin 8.7 g/dL (14.0-18.0); Immature Granulocytes # (auto) 0.08 K/uL (0.00-0.02); Immature Granulocytes % (auto) 0.4 %; Lymphocytes # (auto) 1.45 K/uL (1.2-3.4); Lymphocytes % (auto) 7.7 %; Mean Corpuscular Hgb Conc 31.3 g/dL (32-36); Mean Corpuscular Volume 74.1 fL (80-100); Mean Platelet Volume 8.9 fL (7.4-10.4); Monocytes # (auto) 1.27 K/uL (0.11-0.59); Monocytes % (auto) 6.8 %; Neutrophils # (auto) 15.91 K/uL (1.4-6.5); Neutrophils % (auto) 84.9 %; Platelet Count 308 K/uL (130-400); RDW Coefficient of Variation 15.1 % (11.5-14.5); Red Blood Count 3.75 M/uL (4.7-6.1); White Blood Count 18.74 K/uL (4.8-10.8)
[2018-08-29 09:19] LABS: BUN Creatinine Ratio 9.8 (10-20); Calcium 8.3 mg/dl (8.5-10.1); Creatinine Clr Calc Pharmacy 82.2 ml/min; Est GFR (African American) 79.5; Est GFR (Non-African American) 68.6; Potassium 3.9 mmol/L (3.5-5.1)
--- NOTE | 2018-08-29 09:51 | Pharmacy Report ---
Pharmacy Glycemic Sign Off Nt - Date of Service August 29, 2018 - Assessment & Plan ASSESSMENT: * Pharmacy was consulted by Amari Romero PA-C on 08/19/18 for glycemic control and to write orders per [facility] inpatient glycemic control protocol. * Major changes made by pharmacy to antidiabetic regimen include: * Adjusting outpatient SQ basal regimen and adding bolus insulin while PO antidiabetic agents on hold * Patient has been receiving/requiring ~50 units of insulin per day for adeq uate glycemic control * BSGs ranging 132- 169 mg/dl * Regimen has only required minor adjustments over the past 48hrs to achieve this level of control * Do not anticipate further changes in patient status that would quickly deteriorate glycemic control PLAN FOR INPATIENT GLYCEMIC CONTROL: No changes needed to current regimen. * Continue basal insulin with Lantus 38 units SQ QAM * Continue NovoLog per scale ACHS/Q6hrs while NPO * Goal range = 110 - 140 mg/dl * CF = 25 mg/dl/unit * CR = 1 unit for ever 9 g CHO consumed * Pharmacy is signing off of glycemic consult and will no longer be making adjustments to inpatient regimen. Please feel free to re-consult if needed. Thank you.
--- NOTE | 2018-08-29 11:11 | Surgery Progress Note ---
Date of Service August 29, 2018 Assessment & Plan (1) Dehiscence of fascia: POD#2 repair of fascial dehiscence, POD#10 LAR Overall doing well Will start full liquids today Increase activity. Keep wound vac. cough - just starting to be productive. Monitor Subjective Sitting in chair. Finds binder uncomfortable. Hungry and wants to eat. No bowel movement in ostomy yet. There is gas present in the bag. Review of Systems Review of Systems: productive cough, has history of copd. No greenish sputum. Physical Exam Respiratory: scattered rhonchi which clear with cough Cardiovascular: RRR, no murmur, no edema Gastrointestinal (Abdomen): Inspection/Auscultation: normal bowel sounds Percussion/Palpation: abdomen soft wound vac in place obese abdomen nontender Neurologic: moves all extremities; no focal motor deficits Psychiatric: A+Ox3, euthymic affect Results & Data Vital Signs (Past 12 Hours) Vital Signs Temp Pulse Pulse Resp BP BP Pulse Ox 08/29/18 07:45 36.9 C 95 H 22 172/68 H 100 08/29/18 07:34 88 18 98 08/28/18 23:44 103 H 18 93 08/28/18 23:21 92 08/28/18 23:19 37.5 C 97 H 18 146/67 H 81 L
--- NOTE | 2018-08-29 17:18 | Hospitalist Progress Note ---
Date of Service August 29, 2018 Assessment & Plan (1) Rectal mass: S/p laparoscopic low anterior rectum resection with end colostomy by Dr. Hoffman on 08/19. 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 Now will need wound vac for secondary healing. - Care per primary team - WBC climbing - up to 18.7 on 08/29 - Will discuss with surgical team re: infectious work-up - presently on cefoxitin (2) Diabetes: Blood sugars controlled, hemoglobin A1c 7.7% in 05/2018. - Pharmacy is managing - Continue basal bolus insulin and Accu-Cheks (3) HTN (hypertension): Blood pressures were significantly elevated and were slightly improved with increased metoprolol dose, but now remain elevated again in the 170s-180s systolic despite restarting irbesartan - Increased Toprol-XL 100mg daily on 08/23 - Continue hydralazine IV as needed for SBP > 180 or DBP > 110 - Discharge on irbesartan 150mg PO daily & Toprol XL 100 mg PO daily (4) Paroxysmal A-fib: With a history of paroxysmal atrial fibrillation, currently in a regular rhythm. Not on anticoagulation due to rectal bleeding from mass and microcytic anemia. - Continue metoprolol for rate control - Eventually should go back on anticoagulation - defer to PCP and/or cardiology after recovery from surgery (5) HLD (hyperlipidemia): - Continue to hold statin in the setting of LFT abnormalities, but can likely restart on discharge. (6) COPD (chronic obstructive pulmonary disease): With chronic cough, sputum production at normal amount. - Continue home albuterol PRN and Breo ellipta (7) Elevated LFTs: With mild elevation in AST and ALT that is now much improved. AST only remains very minimally elevated at 65. No known history of liver issues. - Holding statin; restart on discharge with re-check of LFTs by PCP in 1-2 weeks. (8) Anemia: Severely microcytic anemia, iron deficient and with known GI bleeding secondary to rectal mass. Likely some blood loss during surgery but also hemo- dilutional, hemoglobin was down to 8.5 and now up with stopping IVFs to 9.1. - Continue to monitor CBC (9) DVT prophylaxis: SCDs Hospitalist service will continue to follow - will need to prescribe new dose of irbesartan & Toprol XL to pharmacy Subjective Feels well today. Has some cough. Really wants regular sugar, but otherwise no complaints. Reports no fevers/chills, chest pain, shortness of breath, abdominal pain, nausea, or vomiting. Review of Systems Review of Systems: All systems reviewed & are unremarkable except as noted in HPI & below Physical Exam Constitutional: WD/WN, vitals as above + obese Eyes: PERRL, conjunctivae normal, anicteric sclerae ENMT: external ear and nose normal, oropharynx normal Neck: trachea midline, no thyromegaly Respiratory: normal respiratory effort and + cough; no labored breathing and not tachypneic Auscultation: + rhonchi (A few scattered rhonchi); no crackles and no wheezes Cardiovascular: RRR, no murmur, no edema Gastrointestinal (Abdomen): Inspection/Auscultation: normal bowel sounds; + abdomen abnormal to inspection (Midline wound vac being put in; ostomy in place in LLQ) Percussion/Palpation: abdomen soft; abdomen nontender Musculoskeletal: Extremities: extremities normal to inspection; no cyanosis and no clubbing Skin: no rashes, warm and dry Neurologic: moves all extremities and awake; no focal motor deficits Psychiatric: A+Ox3, euthymic affect Results & Data Vital Signs (Past 12 Hours) Vital Signs Temp Pulse Pulse Resp BP Pulse Ox 08/29/18 15:56 37.3 C 110 H 22 162/72 H 92 08/29/18 15:26 114 H 18 93 08/29/18 11:46 37.0 C 98 H 24 166/74 H 97 08/29/18 11:17 81 19 99 08/29/18 07:45 36.9 C 95 H 22 172/68 H 100 08/29/18 07:34 88 18 98
[2018-08-29] MEDS: HYDROmorphone INJ 0.5 MG/0.5 ML SYR IV PRN (18:47)
[2018-08-29] MEDS ORDERED: ACETAMINOPHEN 65 ML IV PRN (20:06)
[2018-08-29] MEDS ORDERED: Nursing to Pharmacy Communication ONE (21:05)
[2018-08-30] MEDS: HYDROmorphone INJ 0.5 MG/0.5 ML SYR IV PRN (00:20)
[2018-08-30] MEDS: cefOXitin 2,000 MG in DEXTROSE 5% 50 ML IV SCH ×4 (05:11→22:14)
[2018-08-30] MEDS: LACTATED RINGER'S 1,000 ML IV SCH ×2 (05:12→13:49)
[2018-08-30 06:51] LABS: Basophils # (auto) 0.01 K/uL (0-0.2); Basophils % (auto) 0.1 %; Eosinophils # (auto) 0.11 K/uL (0-0.5); Eosinophils % (auto) 0.8 %; Hematocrit (blood only) 25.1 % (42-52); Hemoglobin 7.8 g/dL (14.0-18.0); Immature Granulocytes # (auto) 0.06 K/uL (0.00-0.02); Immature Granulocytes % (auto) 0.4 %; Lymphocytes # (auto) 1.21 K/uL (1.2-3.4); Lymphocytes % (auto) 8.6 %; Mean Corpuscular Hgb Conc 31.1 g/dL (32-36); Mean Corpuscular Volume 73.8 fL (80-100); Mean Platelet Volume 8.8 fL (7.4-10.4); Monocytes # (auto) 0.99 K/uL (0.11-0.59); Neutrophils # (auto) 11.72 K/uL (1.4-6.5); Neutrophils % (auto) 83.1 %; Platelet Count 309 K/uL (130-400); RDW Coefficient of Variation 15.2 % (11.5-14.5); RDW Standard Deviation 40.7 fL (36.4-46.3)
[2018-08-30 07:17] LABS: Calcium 8.1 mg/dl (8.5-10.1); Est GFR (African American) 80.3; Est GFR (Non-African American) 69.3; Potassium 4.2 mmol/L (3.5-5.1)
[2018-08-30 07:24] LABS: RBC Morphology Unremarkable
[2018-08-30] MEDS: ALBUT/IPRATROP 3MG/0.5MG NEB 3 ML VIAL NEB SCH ×4 (07:40→18:58)
[2018-08-30] MEDS: FLUTICASONE/VILANTEROL INHALER INH SCH (09:18)
[2018-08-30] MEDS: INSULIN ASPART 100 UNITS/ML 3 ML PEN SC SCH ×4 (09:19→21:46)
[2018-08-30] MEDS: INSULIN GLARGINE SOLOSTAR 100 UNITS/ML 3 ML PEN SC SCH (09:20)
--- NOTE | 2018-08-30 11:36 | Surgery Progress Note ---
Date of Service August 30, 2018 Assessment & Plan (1) Dehiscence of fascia: POD#3 repair of fascial dehiscence, POD#11 LAR Overall doing well - WBC counts starting to decrease. Tolerating full liquids but no stool in ostomy bag yet. Will keep on full liquids for now Increase activity. Keep wound vac. COPD with cough - will monitor. Subjective Sitting in bed. Having gas in the ostomy bag with some liquid. No formed stool yet. Tolerated full liquids yesterday with no nausea but not feeling hungry for more yet. Physical Exam Cardiovascular: Rate/Rhythm: regular rhythm and + tachycardic Gastrointestinal (Abdomen): Inspection/Auscultation: normal bowel sounds Percussion/Palpation: abdomen soft; abdomen nontender and no guarding obese, wound vac in place Neurologic: moves all extremities; no focal motor deficits Psychiatric: A+Ox3, euthymic affect Results & Data Vital Signs (Past 12 Hours) Vital Signs Temp Pulse Pulse Resp BP BP Pulse Ox 08/30/18 11:07 107 H 18 96 08/30/18 08:35 37.1 C 105 H 18 179/81 H 92 08/30/18 07:40 113 H 18 83 L 08/29/18 23:34 97 H 155/70 H
--- NOTE | 2018-08-30 17:40 | Hospitalist Progress Note ---
Date of Service August 30, 2018 Assessment & Plan (1) Rectal mass: S/p laparoscopic low anterior rectum resection with end colostomy by Dr. Hoffman on 08/19. 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 Now will need wound vac for secondary healing. - Care per primary team - WBC elevated, but improving - up to 18.7 on 08/29, then 14 on 08/30 - Will get CXR as he is still coughing. Abdominal wound looks good. No purulent drainage or erythema. No other localizing symptoms. (2) Diabetes: Blood sugars controlled, hemoglobin A1c 7.7% in 05/2018. - Pharmacy is managing - Continue basal bolus insulin and Accu-Cheks (3) HTN (hypertension): Blood pressures were significantly elevated and were slightly improved with increased metoprolol dose, but now remain elevated again in the 170s-180s systolic despite restarting irbesartan - Increased Toprol-XL 100mg daily on 08/23 - Continue hydralazine IV as needed for SBP > 180 or DBP > 110 - Discharge on irbesartan 150mg PO daily & Toprol XL 100 mg PO daily (4) Paroxysmal A-fib: With a history of paroxysmal atrial fibrillation, currently in a regular rhythm. Not on anticoagulation due to rectal bleeding from mass and microcytic anemia. - Continue metoprolol for rate control - Eventually should go back on anticoagulation - defer to PCP and/or cardiology after recovery from surgery (5) HLD (hyperlipidemia): - Continue to hold statin in the setting of LFT abnormalities, but can likely restart on discharge. (6) COPD (chronic obstructive pulmonary disease): With chronic cough, sputum production at normal amount. - Continue home albuterol PRN and Breo ellipta (7) Elevated LFTs: With mild elevation in AST and ALT that is now much improved. AST only remains very minimally elevated at 65. No known history of liver issues. - Holding statin; restart on discharge with re-check of LFTs by PCP in 1-2 weeks. (8) Anemia: Severely microcytic anemia, iron deficient and with known GI bleeding secondary to rectal mass. Likely some blood loss during surgery but also hemo- dilutional, hemoglobin was down to 8.5 and now up with stopping IVFs to 9.1. - Continue to monitor CBC (9) DVT prophylaxis: SCDs Hospitalist service will continue to follow - will need to prescribe new dose of irbesartan & Toprol XL to pharmacy Subjective Feeling well today, but still with cough. Some pain in the abdomen, but tolerable. Reports no fevers/chills, chest pain, shortness of breath, nausea, or vomiting. Physical Exam Constitutional: WD/WN, vitals as above + obese Eyes: PERRL, conjunctivae normal, anicteric sclerae ENMT: external ear and nose normal, oropharynx normal Neck: trachea midline, no thyromegaly Respiratory: normal respiratory effort, lungs clear to auscultation normal respiratory effort and + cough; no labored breathing and not tachypneic Auscultation: + rhonchi (A few scattered rhonchi); no crackles and no wheezes Cardiovascular: RRR, no murmur, no edema Gastrointestinal (Abdomen): Inspection/Auscultation: normal bowel sounds; + abdomen abnormal to inspection (Midline wound vac being put in; ostomy in place in LLQ) Percussion/Palpation: abdomen soft; abdomen nontender Musculoskeletal: Extremities: extremities normal to inspection; no cyanosis and no clubbing Skin: no rashes, warm and dry Neurologic: moves all extremities and awake; no focal motor deficits Psychiatric: A+Ox3, euthymic affect Results & Data Vital Signs (Past 12 Hours) Vital Signs Temp Pulse Pulse Resp BP Pulse Ox 08/30/18 15:11 37.3 C 112 H 22 161/77 H 92 08/30/18 15:01 119 H 22 85 L 08/30/18 11:07 107 H 18 96 08/30/18 08:35 37.1 C 105 H 18 179/81 H 92 08/30/18 07:40 113 H 18 83 L
--- NOTE | 2018-08-30 18:22 | XRay Report ---
TWO VIEW CHEST CLINICAL HISTORY: Cough. Leukocytosis. FINDINGS: PA and lateral chest radiographs are compared to study dated 11/25/2017 and correlated with chest CT dated 06/30/2018. The cardiomediastinal silhouette is unremarkable. Emphysema and chronic inte rstitial thickening are similar to previous. There is bibasilar scarring/atelectasis. There is dense airspace consolidation seen at the posterior lung base on the lateral view with a small pleural effus ion. There is no pneumothorax. The bony thorax appears intact. Degenerative change is seen throughout the thoracic spine. IMPRESSION: 1. There is dense airspace consolidation identified at one of the lung bases on the lateral view with a small pleural effusion. The appearance is typical for pneumonia. Radiographic follow-up to resolut ion is recommended. 2. Emphysema. Electronically signed by: Avtar Brown M.D. 08/30/2018 6:20 PM
[2018-08-30] MEDS: OXYCODONE/ACETAMINOPHEN 5mg/325mg TAB PO PRN (21:44)
[2018-08-31] MEDS: cefOXitin 2,000 MG in DEXTROSE 5% 50 ML IV SCH ×4 (05:31→22:08)
[2018-08-31 06:52] LABS: Basophils # (auto) 0.01 K/uL (0-0.2); Basophils % (auto) 0.1 %; Eosinophils # (auto) 0.13 K/uL (0-0.5); Eosinophils % (auto) 1.3 %; Hematocrit (blood only) 25.6 % (42-52); Hemoglobin 8.1 g/dL (14.0-18.0); Immature Granulocytes # (auto) 0.05 K/uL (0.00-0.02); Immature Granulocytes % (auto) 0.5 %; Lymphocytes # (auto) 1.12 K/uL (1.2-3.4); Mean Corpuscular Hgb Conc 31.6 g/dL (32-36); Mean Corpuscular Volume 73.4 fL (80-100); Mean Platelet Volume 8.7 fL (7.4-10.4); Monocytes # (auto) 0.82 K/uL (0.11-0.59); Neutrophils # (auto) 8.08 K/uL (1.4-6.5); Neutrophils % (auto) 79.1 %; Platelet Count 362 K/uL (130-400); RDW Standard Deviation 40.1 fL (36.4-46.3); Red Blood Count 3.49 M/uL (4.7-6.1); White Blood Count 10.21 K/uL (4.8-10.8)
[2018-08-31] MEDS: ALBUT/IPRATROP 3MG/0.5MG NEB 3 ML VIAL NEB SCH ×4 (07:04→19:59)
[2018-08-31 07:13] LABS: Microcytosis Present
[2018-08-31 07:22] LABS: BUN Creatinine Ratio 4.7 (10-20); Calcium 8.2 mg/dl (8.5-10.1); Creatinine Clr Calc Pharmacy 79.4 ml/min; Est GFR (African American) 76.2; Est GFR (Non-African American) 65.7
[2018-08-31] MEDS: METOPROLOL SUCC 50MG EXT REL TAB PO SCH (07:44)
[2018-08-31] MEDS: IRBESARTAN 75 MG TAB PO SCH (07:45)
[2018-08-31] MEDS: FLUTICASONE/VILANTEROL INHALER INH SCH (07:45)
[2018-08-31] MEDS: INSULIN GLARGINE SOLOSTAR 100 UNITS/ML 3 ML PEN SC SCH (09:00)
[2018-08-31] MEDS: INSULIN ASPART 100 UNITS/ML 3 ML PEN SC SCH ×4 (09:00→21:06)
--- NOTE | 2018-08-31 09:35 | Surgery Progress Note ---
Date of Service August 31, 2018 Assessment & Plan (1) Dehiscence of fascia: POD 4 repair dehiscence #12 LAR, colostomy wound vac, binder in place advance diet, restart miralax and senna H&H stable wound vac changestoday, hopefully home in next 1-2 days Supervising Physician Co-Signing Physician Notes Pnt S&E, agree with above. POD#4 fascial closure with biologic underlay mesh for dehiscence, POD#12 LAR with colostomy. Doing well this morning. Vac removed this morning by wound care. I was able to see the wound. More exposed biologic underlay mesh, muscle viable. Replace wound vac with white foam. Labs reviewed, wbc downtrending. Advance diet as tolerated to low fiber. I had a long discussion with Mr. Smith regarding the dehiscence and his repair. He will definitely be left with a hernia, which he understands. He does have more exposed mesh, but no exposed abdominal contents. Continue with wound vac, binder. Only plan on returning to the operating room if he eviscerates again. Plan of care discussed, all questions and concerns addressed, agrees with plan of care as stated. Subjective tolerating full diet, +flatus Physical Exam Gastrointestinal (Abdomen): Inspection/Auscultation: + abdominal surgical incision (wound vac in place); abdomen not distended Percussion/Palpation: abdomen soft Results & Data Vital Signs (Past 12 Hours) Vital Signs Temp Pulse Pulse Resp BP BP Pulse Ox 08/31/18 07:04 110 H 16 87 L 08/31/18 07:00 37.2 C 112 H 35 H 182/80 H 94 08/30/18 23:23 37.4 C 99 H 18 135/69 90
[2018-08-31] MEDS: OXYCODONE/ACETAMINOPHEN 5mg/325mg TAB PO PRN (10:26)
[2018-08-31] MEDS ORDERED: MoRPHine SULFATE 4 MG/ML 1 ML CARP\\VIAL IV STA (10:34)
[2018-08-31] MEDS ORDERED: MoRPHine SULFATE 4 MG/ML 1 ML CARP\\VIAL ONE (10:37)
[2018-08-31] MEDS: POLYETHYLENE (MIRALAX) 17 GM PACK PO SCH ×2 (11:22→13:22)
[2018-08-31] MEDS: DOCUSATE SODIUM/SENNA 50/8.6MG TAB PO SCH (11:28)
[2018-08-31] MEDS ORDERED: MoRPHine SULFATE 4 MG/ML 1 ML CARP\\VIAL IV PRN (18:12)
[2018-08-31] MEDS: ALBUTEROL HFA 8 GM INHALER INH PRN (19:40)
--- NOTE | 2018-08-31 23:37 | Hospitalist Progress Note ---
Date of Service August 31, 2018 Assessment & Plan (1) Rectal mass: S/p laparoscopic low anterior rectum resection with end colostomy by Dr. Hoffman on 08/19. 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 Now will need wound vac for secondary healing. - Care per primary team - WBC elevated, but improving - up to 18.7 on 08/29, then 14 on 08/30; normal on 08/31 - Will get CXR as he is still coughing. Abdominal wound looks good. No purulent drainage or erythema. No other localizing symptoms. (2) Diabetes: Blood sugars controlled, hemoglobin A1c 7.7% in 05/2018. - Pharmacy is managing - Continue basal bolus insulin and Accu-Cheks (3) HTN (hypertension): Blood pressures were significantly elevated and were slightly improved with increased metoprolol dose, but now remain elevated again in the 170s-180s systolic despite restarting irbesartan - Increased Toprol-XL 100mg daily on 08/23 - Continue hydralazine IV as needed for SBP > 180 or DBP > 110 - Discharge on irbesartan 150mg PO daily & Toprol XL 100 mg PO daily (4) Paroxysmal A-fib: With a history of paroxysmal atrial fibrillation, currently in a regular rhythm. Not on anticoagulation due to rectal bleeding from mass and microcytic anemia. - Continue metoprolol for rate control - Eventually should go back on anticoagulation - defer to PCP and/or cardiology after recovery from surgery (5) HLD (hyperlipidemia): - Continue to hold statin in the setting of LFT abnormalities, but can likely restart on discharge. (6) COPD (chronic obstructive pulmonary disease): With chronic cough, sputum production at normal amount. - Continue home albuterol PRN and Breo ellipta (7) Elevated LFTs: With mild elevation in AST and ALT that is now much improved. AST only remains very minimally elevated at 65. No known history of liver issues. - Holding statin; restart on discharge with re-check of LFTs by PCP in 1-2 weeks. (8) Anemia: Severely microcytic anemia, iron deficient and with known GI bleeding secondary to rectal mass. Likely some blood loss during surgery but also hemo- dilutional, hemoglobin was down to 8.5 and now up with stopping IVFs to 9.1. - Continue to monitor CBC (9) DVT prophylaxis: SCDs Hospitalist service will continue to follow - will need to prescribe new dose of irbesartan & Toprol XL to pharmacy Spent 35 minutes in management of patient. Subjective Patient reports that he is continuing to pass gas in his colostomy bag. Still not having any stools. Patient reports no new complaints at this time. Review of Systems Review of Systems: All systems reviewed & are unremarkable except as noted in HPI & below Physical Exam Physical Exam: Constitutional: WD/WN, vitals as above + obese Eyes: PERRL, conjunctivae normal, anicteric sclerae ENMT: external ear and nose normal, oropharynx normal Neck: trachea midline, no thyromegaly Respiratory: normal respiratory effort, lungs clear to auscultation normal respiratory effort and + cough; no labored breathing and not tachypneic Auscultation: few rhonchi, no crackles and no wheezes Cardiovascular: RRR, no murmur, no edema Gastrointestinal (Abdomen): Inspection/Auscultation: normal bowel sounds; + abdomen abnormal to inspection (Midline wound vac being put in; ostomy in place in LLQ) Percussion/Palpation: abdomen soft; abdomen nontender Musculoskeletal: Extremities: extremities normal to inspection; no cyanosis and no clubbing Skin: no rashes, warm and dry Neurologic: moves all extremities and awake; no focal motor deficits Psychiatric: A+Ox3, euthymic affect Results & Data Vital Signs (Past 12 Hours) Vital Signs Temp Pulse Pulse Resp BP Pulse Ox 08/31/18 19:59 71 16 93 08/31/18 15:21 78 18 92 08/31/18 15:13 37.1 C 100 H 17 133/63 97 08/31/18 12:20 165/80 H
[2018-09-01] MEDS: cefOXitin 2,000 MG in DEXTROSE 5% 50 ML IV SCH ×4 (04:21→22:13)
[2018-09-01] MEDS: ALBUT/IPRATROP 3MG/0.5MG NEB 3 ML VIAL NEB SCH ×4 (07:11→19:50)
[2018-09-01 08:11] LABS: Basophils # (auto) 0.01 K/uL (0-0.2); Basophils % (auto) 0.1 %; Eosinophils # (auto) 0.13 K/uL (0-0.5); Eosinophils % (auto) 1.6 %; Hematocrit (blood only) 25.6 % (42-52); Immature Granulocytes # (auto) 0.06 K/uL (0.00-0.02); Immature Granulocytes % (auto) 0.7 %; Lymphocytes % (auto) 20.8 %; Mean Corpuscular Hgb Conc 31.3 g/dL (32-36); Mean Corpuscular Volume 73.6 fL (80-100); Mean Platelet Volume 8.7 fL (7.4-10.4); Monocytes # (auto) 0.69 K/uL (0.11-0.59); Monocytes % (auto) 8.5 %; Neutrophils # (auto) 5.57 K/uL (1.4-6.5); Neutrophils % (auto) 68.3 %; Platelet Count 380 K/uL (130-400); RDW Standard Deviation 40.5 fL (36.4-46.3); Red Blood Count 3.48 M/uL (4.7-6.1); White Blood Count 8.16 K/uL (4.8-10.8)
[2018-09-01 08:44] LABS: BUN Creatinine Ratio 7.5 (10-20); Calcium 8.4 mg/dl (8.5-10.1); Creatinine Clr Calc Pharmacy 88.5 ml/min; Est GFR (African American) 86.9; Potassium 4.3 mmol/L (3.5-5.1)
[2018-09-01 08:47] LABS: RBC Morphology Unremarkable
[2018-09-01] MEDS: POLYETHYLENE (MIRALAX) 17 GM PACK PO SCH (09:01)
[2018-09-01] MEDS: METOPROLOL SUCC 50MG EXT REL TAB PO SCH (09:01)
[2018-09-01] MEDS: IRBESARTAN 75 MG TAB PO SCH (09:01)
[2018-09-01] MEDS: DOCUSATE SODIUM/SENNA 50/8.6MG TAB PO SCH (09:01)
[2018-09-01] MEDS: FLUTICASONE/VILANTEROL INHALER INH SCH (09:01)
[2018-09-01] MEDS: INSULIN GLARGINE SOLOSTAR 100 UNITS/ML 3 ML PEN SC SCH (09:02)
[2018-09-01] MEDS: INSULIN ASPART 100 UNITS/ML 3 ML PEN SC SCH ×4 (09:05→21:15)
[2018-09-01] MEDS: ALBUTEROL HFA 8 GM INHALER INH PRN (12:37)
--- NOTE | 2018-09-01 12:47 | Surgery Progress Note ---
Date of Service September 01, 2018 Assessment & Plan (1) Dehiscence of fascia: POD 5 repair dehiscence #13 LAR, colostomy wound vac, binder in place on miralax and senna, will try enema wound vac change tomorrow, d/c planning Subjective tolerating regular diet, no stool yet Physical Exam Gastrointestinal (Abdomen): Inspection/Auscultation: + abdominal surgical incision (wound vac in place) Percussion/Palpation: abdomen soft air in pouch, stoma edematous Results & Data Vital Signs (Past 12 Hours) Vital Signs Temp Pulse Pulse Resp BP Pulse Ox 09/01/18 07:15 89 16 90 09/01/18 07:10 36.9 C 96 H 16 152/76 H 94
--- NOTE | 2018-09-01 22:38 | Hospitalist Progress Note ---
Date of Service September 01, 2018 Assessment & Plan (1) Rectal mass: S/p laparoscopic low anterior rectum resection with end colostomy by Dr. Hoffman on 08/19. 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 Now will need wound vac for secondary healing. - Care per primary team - WBC elevated, but improving - up to 18.7 on 08/29, then 14 on 08/30; normal on 08/31 - Abdominal wound looks good. No purulent drainage or erythema. No other localizing symptoms. (2) Diabetes: Blood sugars controlled, hemoglobin A1c 7.7% in 05/2018. - Pharmacy is managing - Continue basal bolus insulin and Accu-Cheks (3) HTN (hypertension): Blood pressures were significantly elevated and were slightly improved with increased metoprolol dose, but now remain elevated again in the 170s-180s systolic despite restarting irbesartan - Increased Toprol-XL 100mg daily on 08/23 - Continue hydralazine IV as needed for SBP > 180 or DBP > 110 - Discharge on irbesartan 150mg PO daily & Toprol XL 100 mg PO daily (4) Paroxysmal A-fib: With a history of paroxysmal atrial fibrillation, currently in a regular rhythm. Not on anticoagulation due to rectal bleeding from mass and microcytic anemia. - Continue metoprolol for rate control - Eventually should go back on anticoagulation - defer to PCP and/or cardiology after recovery from surgery (5) HLD (hyperlipidemia): - Continue to hold statin in the setting of LFT abnormalities, but can likely restart on discharge. (6) COPD (chronic obstructive pulmonary disease): With chronic cough, sputum production at normal amount. - Continue home albuterol PRN and Breo ellipta (7) Elevated LFTs: With mild elevation in AST and ALT that is now much improved. AST only remains very minimally elevated at 65. No known history of liver issues. - Holding statin; restart on discharge with re-check of LFTs by PCP in 1-2 weeks. (8) Anemia: Severely microcytic anemia, iron deficient and with known GI bleeding secondary to rectal mass. Likely some blood loss during surgery but also hemo- dilutional, hemoglobin was down to 8.5 and now up with stopping IVFs to 9.1. - Continue to monitor CBC (9) Lung infiltrate: noted on x-ray. Patient saturating well. Currently on cefoxitin. No clinical signs of pneumonia Will consider repeat x-ray later in hospital stay. (10) DVT prophylaxis: SCDs Hospitalist service will continue to follow Spent 25 minutes in management of patient. Subjective Patient reports doing well. Patient reports having stool in his bag today. Patient denies any other complaints. Review of Systems Review of Systems: All systems reviewed & are unremarkable except as noted in HPI & below Physical Exam Physical Exam: Constitutional: WD/WN, vitals as above + obese Eyes: PERRL, conjunctivae normal, anicteric sclerae ENMT: external ear and nose normal, oropharynx normal Neck: trachea midline, no thyromegaly Respiratory: normal respiratory effort, lungs clear to auscultation normal respiratory effort and + cough; no labored breathing and not tachypneic Auscultation: few rhonchi, no crackles and no wheezes Cardiovascular: RRR, no murmur, no edema Gastrointestinal (Abdomen): Inspection/Auscultation: normal bowel sounds; + abdomen abnormal to inspection (Midline wound vac being put in; ostomy in place in LLQ) Percussion/Palpation: abdomen soft; abdomen nontender Musculoskeletal: Extremities: extremities normal to inspection; no cyanosis and no clubbing Skin: no rashes, warm and dry Neurologic: moves all extremities and awake; no focal motor deficits Psychiatric: A+Ox3, euthymic affect Results & Data Vital Signs (Past 12 Hours) Vital Signs Temp Pulse Pulse Resp BP Pulse Ox 09/01/18 19:57 97 H 16 91 09/01/18 16:02 37.8 C H 102 H 20 151/74 H 92 09/01/18 15:10 92 H 16 93
[2018-09-02] MEDS: OXYCODONE/ACETAMINOPHEN 5mg/325mg TAB PO PRN ×3 (02:19→20:51)
[2018-09-02] MEDS: cefOXitin 2,000 MG in DEXTROSE 5% 50 ML IV SCH ×3 (04:03→18:40)
[2018-09-02] MEDS: ALBUT/IPRATROP 3MG/0.5MG NEB 3 ML VIAL NEB SCH (07:08)
[2018-09-02 07:42] LABS: Basophils # (auto) 0.02 K/uL (0-0.2); Basophils % (auto) 0.2 %; Eosinophils # (auto) 0.12 K/uL (0-0.5); Eosinophils % (auto) 1.3 %; Hematocrit (blood only) 28.5 % (42-52); Hemoglobin 8.7 g/dL (14.0-18.0); Immature Granulocytes # (auto) 0.09 K/uL (0.00-0.02); Lymphocytes # (auto) 1.83 K/uL (1.2-3.4); Lymphocytes % (auto) 19.7 %; Mean Corpuscular Hgb Conc 30.5 g/dL (32-36); Mean Corpuscular Volume 73.1 fL (80-100); Mean Platelet Volume 8.7 fL (7.4-10.4); Monocytes # (auto) 0.94 K/uL (0.11-0.59); Monocytes % (auto) 10.1 %; Neutrophils # (auto) 6.31 K/uL (1.4-6.5); Neutrophils % (auto) 67.7 %; Nucleated RBC # (auto) 0.03 K/uL (0-0); Nucleated RBC % (auto) 0.4 %; Platelet Count 482 K/uL (130-400); RDW Standard Deviation 40.4 fL (36.4-46.3); White Blood Count 9.31 K/uL (4.8-10.8)
[2018-09-02] MEDS: FLUTICASONE/VILANTEROL INHALER INH SCH (08:00)
[2018-09-02] MEDS: IRBESARTAN 75 MG TAB PO SCH (08:01)
[2018-09-02] MEDS: METOPROLOL SUCC 50MG EXT REL TAB PO SCH (08:02)
[2018-09-02] MEDS: DOCUSATE SODIUM/SENNA 50/8.6MG TAB PO SCH (08:02)
[2018-09-02 08:09] LABS: BUN Creatinine Ratio 7.2 (10-20); Calcium 8.7 mg/dl (8.5-10.1); Est GFR (African American) 80.3; Est GFR (Non-African American) 69.3; Potassium 4.2 mmol/L (3.5-5.1)
[2018-09-02 08:35] LABS: Polychromasia 1+
[2018-09-02] MEDS: POLYETHYLENE (MIRALAX) 17 GM PACK PO SCH (08:44)
[2018-09-02] MEDS: INSULIN GLARGINE SOLOSTAR 100 UNITS/ML 3 ML PEN SC SCH (08:44)
[2018-09-02] MEDS: INSULIN ASPART 100 UNITS/ML 3 ML PEN SC SCH ×4 (08:44→20:47)
--- NOTE | 2018-09-02 12:41 | Surgery Progress Note ---
Date of Service September 02, 2018 Assessment & Plan (1) Dehiscence of fascia: Status post LAR with end colostomy, good return of bowel function, tolerating low fiber diet. POD #6 repair of fascial dehiscence with wound VAC placement. There is more of the exposed mesh at this point, however there is no evidence of evisceration or bowel exposure at this time. We will continue with wound VAC therapy along with the binder. He should stay at least through Friday. If the wound looks stable, we can potentially discharge him with home health care for wound VAC changes. Continue antibiotics. Present on Admission?: No (2) Rectal mass: Present on Admission?: Yes Subjective Status post LAR with end colostomy, POD #6 repair of fascial dehiscence and wound VAC placement. Overall doing well, had some stool in the ostomy yesterday. He is tolerating a low fiber diet. Wound VAC was in the process of being changed when I was in the room. Physical Exam Constitutional: WD/WN, vitals as above Gastrointestinal (Abdomen): Wound with some granulation tissue. There is slightly more of the mesh exposed in the midline at the area of dehiscence. This appears to be about 5 cm x 3 cm in size. The superior and lower parts of the fascial closure appear to be intact. There is no exposed intestine at this time. Results & Data Vital Signs (Past 12 Hours) Vital Signs Temp Pulse Pulse Resp BP Pulse Ox 09/02/18 08:54 101 H 09/02/18 08:00 36.5 C 119 H 22 135/68 93 09/02/18 07:09 104 H 16 91 Laboratory Results Laboratory Results - last 24 hr 09/01/18 09/01/18 09/02/18 18:23 21:13 07:35 WBC 9.31 RBC 3.90 L Hgb 8.7 L Hct 28.5 L MCV 73.1 L MCH 22.3 L MCHC 30.5 L RDW Std Deviation 40.4 RDW Coeff of Laurie 15.0 H Plt Count 482 H MPV 8.7 Immature Gran % (Auto) 1.0 Neut % (Auto) 67.7 Lymph % (Auto) 19.7 Parke % (Auto) 10.1 Eos % (Auto) 1.3 Baso % (Auto) 0.2 Immature Gran # (Auto) 0.09 H Neut # (Auto) 6.31 Lymph # (Auto) 1.83 Parke # (Auto) 0.94 H Eos # (Auto) 0.12 Baso # (Auto) 0.02 Absolute Nucleated RBC 0.03 H Nucleated RBC % (auto) 0.4 Polychromasia 1+ Sodium Potassium Chloride Carbon Dioxide Anion Gap BUN Creatinine Est Cr Clr Drug Dosing Est GFR ( Amer) Est GFR (Non-Af Amer) BUN/Creatinine Ratio Glucose POC Glucose 215 H 153 H Calcium 09/02/18 09/02/18 09/02/18 07:35 08:07 12:14 WBC RBC Hgb Hct MCV MCH MCHC RDW Std Deviation RDW Coeff of Laurie Plt Count MPV Immature Gran % (Auto) Neut % (Auto) Lymph % (Auto) Parke % (Auto) Eos % (Auto) Baso % (Auto) Immature Gran # (Auto) Neut # (Auto) Lymph # (Auto) Parke # (Auto) Eos # (Auto) Baso # (Auto) Absolute Nucleated RBC Nucleated RBC % (auto) Polychromasia Sodium 134 L Potassium 4.2 Chloride 98 Carbon Dioxide 30 Anion Gap 6.0 BUN 8 Creatinine 1.11 Est Cr Clr Drug Dosing 83.0 Est GFR ( Amer) 80.3 Est GFR (Non-Af Amer) 69.3 BUN/Creatinine Ratio 7.2 L Glucose 192 H POC Glucose 225 H 115 H Calcium 8.7
[2018-09-03] MEDS: cefOXitin 2,000 MG in DEXTROSE 5% 50 ML IV SCH ×5 (00:04→22:02)
[2018-09-03] MEDS: OXYCODONE/ACETAMINOPHEN 5mg/325mg TAB PO PRN ×2 (01:27→20:32)
[2018-09-03] MEDS: DOCUSATE SODIUM/SENNA 50/8.6MG TAB PO SCH (09:43)
[2018-09-03] MEDS: IRBESARTAN 75 MG TAB PO SCH (09:43)
[2018-09-03] MEDS: POLYETHYLENE (MIRALAX) 17 GM PACK PO SCH (09:43)
[2018-09-03] MEDS: FLUTICASONE/VILANTEROL INHALER INH SCH (09:43)
[2018-09-03] MEDS: METOPROLOL SUCC 50MG EXT REL TAB PO SCH (09:45)
[2018-09-03] MEDS: INSULIN GLARGINE SOLOSTAR 100 UNITS/ML 3 ML PEN SC SCH (09:45)
[2018-09-03] MEDS: INSULIN ASPART 100 UNITS/ML 3 ML PEN SC SCH ×4 (09:50→22:01)
--- NOTE | 2018-09-03 10:08 | XRay Report ---
XR chest 2V routine CLINICAL HISTORY: cough COMPARISON STUDY: 08/30/2018 FINDINGS: The cardiac and mediastinal contours are normal. There is no evidence of focal pulmonary co nsolidation. There is no evidence of failure. No pleural effusions are visualized.[ There is minor at electasis/scarring at the level of cardiophrenic angle. IMPRESSION: No active disease in the chest. Electronically signed by: Praneeth Gillis M.D. 09/03/2018 10:06 AM
--- NOTE | 2018-09-03 12:45 | Surgery Progress Note ---
Date of Service September 03, 2018 Assessment & Plan (1) Dehiscence of fascia: Status post LAR with end colostomy, good return of bowel function, tolerating low fiber diet. POD #7 repair of fascial dehiscence with wound VAC placement. There was more of the exposed mesh, but no evidence of evisceration or bowel exposure at this time. We will continue with wound VAC therapy along with the binder, may perform partial delayed closure of skin. He should stay at least through tomorrow. If the wound looks stable, we can potentially discharge him with home health care for wound VAC changes. Continue antibiotics. Subjective Status post LAR with end colostomy, POD #7 repair of fascial dehiscence and wound VAC placement. Overall doing well, ostomy functioning with stool and gas in bag. He is tolerating a low fiber diet. wound vac in place with good seal. Physical Exam Gastrointestinal (Abdomen): ostomy with gas and stool in bag. binder and wou nd vac in place, good seal. Results & Data Vital Signs (Past 12 Hours) Vital Signs Temp Pulse Resp BP Pulse Ox 09/03/18 07:43 36.9 C 92 H 18 162/82 H 92 Diagnostic Findings XR chest 2V routine CLINICAL HISTORY: cough COMPARISON STUDY: 08/30/2018 FINDINGS: The cardiac and mediastinal contours are normal. There is no evidence of focal pulmonary consolidation. There is no evidence of failure. No pleural effusions are visualized.[ There is minor atelectasis/scarring at the level of cardiophrenic angle. IMPRESSION: No active disease in the chest.
[2018-09-03] MEDS ORDERED: ALBUT/IPRATROP 3MG/0.5MG NEB 3 ML VIAL NEB PRN (18:20)
[2018-09-04] MEDS: cefOXitin 2,000 MG in DEXTROSE 5% 50 ML IV SCH ×2 (05:23→11:35)
[2018-09-04] MEDS: FLUTICASONE/VILANTEROL INHALER INH SCH (08:06)
[2018-09-04] MEDS: IRBESARTAN 75 MG TAB PO SCH (08:07)
[2018-09-04] MEDS: DOCUSATE SODIUM/SENNA 50/8.6MG TAB PO SCH (08:07)
[2018-09-04] MEDS: POLYETHYLENE (MIRALAX) 17 GM PACK PO SCH (08:07)
[2018-09-04] MEDS: METOPROLOL SUCC 50MG EXT REL TAB PO SCH (08:07)
--- NOTE | 2018-09-04 09:28 | Surgery Progress Note ---
Date of Service September 04, 2018 Assessment & Plan (1) Dehiscence of fascia: Status post LAR with end colostomy, good return of bowel function, tolerating low fiber diet. POD #8 repair of fascial dehiscence with wound VAC placement. Wound overall improving. We will continue with wound VAC therapy along with the binder. Discharge to home today. Home health care in place, however I would prefer that wound vac changes be performed at the wound care center for the immediate future. Will d/c abx as patient has been on full course for both wound and pneumonia. Follow up with me in 2 weeks. May attempt delayed partial primary closure as wound heals. Return precautions given Subjective Status post LAR with end colostomy, POD #8 repair of fascial dehiscence and wound VAC placement. Overall doing well, ostomy functioning with stool and gas in bag. He is tolerating a low fiber diet. Physical Exam Constitutional: WD/WN, vitals as above Gastrointestinal (Abdomen): ostomy pink and productive. Wound vac changed with wound care nurses. Improved granulation tissue, Mesh exposure stable. Some nonviable muscle debrided. Results & Data Vital Signs (Past 12 Hours) Vital Signs Temp Pulse Pulse Resp BP Pulse Ox 09/04/18 07:25 37 C 98 H 30 H 166/85 H 92 09/03/18 22:58 37.3 C 96 H 18 145/75 H 91
[2018-09-04] MEDS: INSULIN GLARGINE SOLOSTAR 100 UNITS/ML 3 ML PEN SC SCH (09:32)
[2018-09-04] MEDS: INSULIN ASPART 100 UNITS/ML 3 ML PEN SC SCH ×2 (09:32→13:00)
--- NOTE | 2018-09-15 01:11 | Discharge Summary ---
DATE OF ADMISSION: 08/19/2018 DATE OF DISCHARGE: 09/04/2018 PRIMARY DISCHARGE DIAGNOSES: 1. Rectal polyp -tubulovillous adenoma with high grade dysplasia. 2. Fascial dehiscence. 3. Anemia, acute on chronic. 4. Chronic obstructive pulmonary disease. 5. Paroxysmal atrial fibrillation. 6. Hypertension. 7. Type 2 diabetes. CONSULTATIONS: [facility] hospitalist to assist in medical management. PROCEDURE PERFORMED: 1. Laparoscopic converted to open low anterior resection on 08/19/2018. 2. Exploratory laparotomy with washout, closure of fascia, mesh placement and placement of wound VAC on 08/27/2018. HOSPITAL COURSE: The patient is a 67-year-old male with a rectal polyp, taken to the operating room for resection. The polyp was quite low and was near the staple line. End colostomy was performed until final pathology could be reviewed. The procedure was well tolerated. He was transferred to the surgical floor. The hospitalist was consulted routinely given his history of hypertension, diabetes, COPD. He is not anticoagulated for his A-Fib given his chronic anemia. Lovenox was used for DVT prophylaxis. He was started on clear liquids on postoperative day 1. On day 2, his hemoglobin dropped to 8.5, which was considered largely dilutional. His preop hemoglobin was 12 and equilibrated at 8.7 and 28.5. He did not require transfusion. He was started on advancing diet on postoperative day 3. His bowel function was somewhat slow to return. On day #6, he was given MiraLax and tap water enema via colostomy. He began having output from the colostomy. He was advanced to low fiber diet on postoperative day #8. He was preparing for discharge when he had a coughing spell and had dehiscence of his fascia. He was taken back to the operating room that evening for washout, fascial repair and wound VAC placement. He returned to the surgical floor and continued on IV antibiotics. His diet was advanced slowly as his bowel function was again somewhat slow to return. We resumed tap water enemas and Senokot after several days. By day #4, he was tolerating regular diet. He continued with wound VAC changes on Friday, Friday and Friday. There was a small opening of the fascia just below the mesh placement which we watched over several changes of the wound VAC. This remained stable. There is nothing further we can do with that. On postoperative day #8 following fascial closure, he was stable for discharge home. He will have wound VAC changes at the wound care clinic. DISCHARGE INSTRUCTIONS: Discharge home. Follow up with Dr. Hoffman in 1 week. Follow up with his PCP within 1 week for blood pressure check, there were adjustments made to his antihypertensives. He should also have his liver functions checked which were mildly elevated. DISCHARGE MEDICATIONS: Percocet 1-2 tablets every 4 hours as needed, Toprol-XL 100 mg daily, which is an increase from his previous 50 mg daily. Irbesartan 75 mg daily, which is a decrease from his previous 150 mg daily. His sildenafil was discontinued as well as tadalafil was discontinued. Resume his other medications aspirin 325 mg daily, Ventolin 2 puffs q.i.d., atorvastatin 80 mg at bedtime, Breo 1 inhalation daily, Lantus 35 units subQ in the morning, metformin 1000 mg b.i.d., glimepiride 1 tablet b.i.d. MTDD
== END 2018-09-04 14:53 | disposition home health service (06) | DRG 329 ==
LOC: ASU 05:38 → 3N 15:07

== ENCOUNTER 2019-02-05 10:22 | Inpatient (IN) ==
[2019-02-05] MEDS ORDERED: ALBUTEROL 0.083% NEBU SOLN 3 ML VIAL NEB STA (10:47)
--- NOTE | 2019-02-05 11:21 | XRay Report ---
SINGLE VIEW CHEST CLINICAL HISTORY: Dyspnea. FINDINGS: An AP, portable, upright chest radiograph is compared to study dated 09/03/2018. Correlation is made with chest CT dated 06/30/2018. The examination is degraded by portable technique and apical lo rdotic positioning. The heart is enlarged and there is atherosclerotic calcification of the thoracic aorta. There is mild pulmonary vascular congestion. Emphysema and chronic interstitial thickening are similar to previous. Scarring/atelectasis is noted at the lung bases. No airspace consolidation or l arge pleural effusion is identified. No pneumothorax is seen. The skeletal structures are osteopenic. The bony thorax is grossly intact. IMPRESSION: 1. Cardiomegaly and emphysema with mild pulmonary vascular congestion. 2. No airspace consolidation or large pleural effusion is identified. Electronically signed by: Avtar Brown M.D. 02/05/2019 11:20 AM
[2019-02-05 11:39] LABS: D Dimer 330 ug/L FEU (0-500); INR 1.1 (0.9-1.1); Partial Thromboplastin Ratio 0.8; Partial Thromboplastin Time 21.8 Seconds (21.0-31.0)
[2019-02-05 11:50] LABS: Albumin Level 3.4 gm/dl (3.4-5.0); BUN Creatinine Ratio 17.3 (10-20); Calcium 9.1 mg/dl (8.5-10.1); Creatinine Clr Calc Pharmacy 86.3 ml/min; Est GFR (African American) 88.4; Est GFR (Non-African American) 76.2; Potassium 4.2 mmol/L (3.5-5.1)
[2019-02-05 11:55] LABS: Albumin Globulin Ratio 0.9 (0.9-2); Bilirubin,Total 0.4 mg/dl (0.2-1); Globulin 3.7 gm/dl (2.5-4.0); Total Protein 7.1 gm/dl (6.4-8.2)
[2019-02-05 12:15] LABS: Basophils # (auto) 0.08 K/uL (0-0.2); Basophils % (auto) 0.8 %; Eosinophils # (auto) 0.13 K/uL (0-0.5); Eosinophils % (auto) 1.4 %; Hematocrit (blood only) 25.5 % (42-52); Hypochromasia Present; Immature Granulocytes # (auto) 0.04 K/uL (0.00-0.02); Immature Granulocytes % (auto) 0.4 %; Lymphocytes # (auto) 1.46 K/uL (1.2-3.4); Lymphocytes % (auto) 15.3 %; Mean Corpuscular Hemoglobin 16.5 pg (25-34); Mean Corpuscular Hgb Conc 27.5 g/dL (32-36); Mean Corpuscular Volume 60.1 fL (80-100); Microcytosis Present; Monocytes # (auto) 0.73 K/uL (0.11-0.59); Monocytes % (auto) 7.7 %; Neutrophils # (auto) 7.08 K/uL (1.4-6.5); Neutrophils % (auto) 74.4 %; Nucleated RBC # (auto) 0.02 K/uL (0-0); Nucleated RBC % (auto) 0.2 %; Ovalocytes 1+; Platelet Count 263 K/uL (130-400); Platelet Estimate Normal (Normal); RDW Coefficient of Variation 17.8 % (11.5-14.5); RDW Standard Deviation 38.9 fL (36.4-46.3); Red Blood Count 4.24 M/uL (4.7-6.1); White Blood Count 9.52 K/uL (4.8-10.8)
[2019-02-05] MEDS ORDERED: SODIUM CHLORIDE 0.9% 250 ML IV PRN (12:52)
--- NOTE | 2019-02-05 13:27 | History & Physical Report ---
Date of Service February 05, 2019 Assessment & Plan (1) GI bleed: Heme + in the ED Has noted some blood around his stoma recently Follows with [facility], seen on 02/01 and felt stoma was doing well at that time--f/u is 02/08 Has been seen by Dr. Roblero in the past, GI c/s pending 1 unit PRBC pending Repeat H/H s/p transfusion Baseline Hb is around 9.0, most recent was 8.7 on 09/02/2018 (2) Symptomatic anemia: As noted above (3) SOB (shortness of breath): Likely related to GIB Does have trace wheezing, COPD is not helping situation Was recently given home O2 for this issue, but may have been related to GIB that was undx Monitor to determine if ongoing need Nebs scheduled given wheeze (4) COPD (chronic obstructive pulmonary disease): Home inhalers Nebs scheduled (5) HLD (hyperlipidemia): Hold for now (6) Paroxysmal A-fib: Holding aspirin, continue other meds (7) HTN (hypertension): continue home meds (8) Diabetes: Holding home regimen A1c pending SSI PRN (9) DVT prophylaxis: SCDs given above History of Present Illness Primary Care Provider: Kenia Cesar MD 68 y/o M c/o SOB. Pt states he has been having worsening SOB for the last several weeks. It was thought this was related to COPD and he was changed from Breo to Anoro. This did help somewhat, but he continued to have worsening SOB. He was seen by pulm on 01/20 and started on home O2. He states he is using it HS and when watching television, but not during the day. He thinks he is probably supposed to be using it 18/11, but he is not. He does not think it is helping with his SOB with exertion. 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 His SOB is now with any exertion or even prolonged talking. Pt denies fever, SOB, chest pain, abd pain, n/v/c/d, LE pain or swelli ng. 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 This was done at [facility] [place] with plans for reversal in March. He states that he has seen blood around his stoma occasionally, but no shawna bleeding or black stools. Pt taking aspirin 325mg for anticoagulation for afib. States he was on eliquis for his afib prior, but this was changed to aspirin due to bleeding with his stoma. Allergies Allergy/AdvReac Type Severity Reaction Status Date / Time No Known Allergies Allergy Verified 02/04/19 15:37 Home Medications Home Medications Medication Instructions Recorded Confirmed Type albuterol sulfate HFA 90 2 puff INHALATION QID PRN #18 gm 10/31/18 02/05/19 Rx mcg/actuation aerosol inhaler blood sugar diagnostic strips #100 ea 10/31/18 02/05/19 Rx lancets 33 gauge #100 ea 10/31/18 02/05/19 Rx metformin 1,000 mg tablet 1,000 mg PO BID #60 tab 10/31/18 02/05/19 Rx metoprolol succinate ER 25 mg 25 mg PO DAILY #30 tab 11/20/18 02/05/19 Rx tablet,extended release 24 hr pen needle, diabetic 31 gauge x #700 ea 12/24/18 02/05/19 Rx 5/16" Oxygen Home #1 ea 01/20/19 02/05/19 Rx aspirin 325 mg tablet 325 mg PO QAM 01/20/19 02/05/19 History atorvastatin [Lipitor] 80 mg PO HS 02/05/19 02/05/19 History insulin aspart U-100 [Novolog 0 unit SQ DAILY 02/05/19 02/05/19 History Flexpen U-100 Insulin] insulin glargine [Lantus Solostar 38 units SQ QAM 02/05/19 02/05/19 History U-100 Insulin] insulin lispro [Humalog U-100 1 sliding scale dose SUBCUT 02/05/19 02/05/19 History Insulin] USEASDIRECTD irbesartan [Avapro] 75 mg PO DAILY 02/05/19 02/05/19 History umeclidinium-vilanterol [Anoro 1 inh INHALATION DAILY 02/05/19 02/05/19 History Ellipta] Past Med/Surg History Medical History Claudication (Chronic) Atrial fibrillation Chronic obstructive pulmonary disease Diabetes mellitus, type 2 Hyperlipidemia Hypertension Obesity Surgical History History of creation of ostomy History of adenoidectomy History of colonoscopy versed/propofol, no issues. completed 07/07/2018. History of tonsillectomy History of tooth extraction Family History Father Family history of diabetes mellitus Brother Family history of diabetes mellitus Cardiac disorder Unknown Diabetes Mother Cardiac disorder Cancer Social History Preferred Language: Maltese Communication Ability: Effective Controls Technician Required: No Beliefs That Will Affect Care: None marital status: Single Current Living Situation: Alone Feels Safe at Home: Yes Smoking Status: Former smoker Tobacco Type: cigarettes ; Number of Years Since Quit: 10 ; Second Hand Exposure: No ; Hx Alcohol Use: No Hx Substance Use: No Review of Systems Review of Systems: Pertinent positives and negatives reviewed in HPI--all others negative Physical Exam Constitutional: WD/WN, vitals as above Eyes: normal visual meneses by confrontation and + anicteric sclerae Neck: normal visual inspection and trachea midline Respiratory: normal respiratory effort; no respiratory distress Auscultation: + wheezes (scant, expiratory) Cardiovascular: Rate/Rhythm: regular rate and regular rhythm Gastrointestinal (Abdomen): Inspection/Auscultation: abdomen not distended Percussion/Palpation: abdomen soft; abdomen nontender Musculoskeletal: Head/Neck/Chest: normocephalic and head atraumatic negative for edema, peripheral pulses intact Skin: + pallor warm and dry Neurologic: awake; not confused Speech / Cognition: normal speech Psychiatric: A+Ox3, euthymic affect Results & Data Vital Signs (Past 12 Hours) Vital Signs Temp Pulse Pulse Resp BP BP Pulse Ox 02/05/19 12:13 95 H 22 152/72 H 97 02/05/19 11:26 95 02/05/19 10:58 99 H 16 95 02/05/19 10:33 87 L 02/05/19 10:25 36.5 C 100 H 18 154/69 H 87 L Diagnostic Findings CXR: neg for acute Code Status & VTE Plan Code Status Full code VTE Prophylaxis Plan VTE Prophylaxis will be ordered: Yes PG Care Time/CCT Total # of Minutes Spent Total Time Spent with Patient: Total time spent is greater than 50% in coordination of care (as documented) at patient's floor/unit and/or counseling patient: (1) GI bleed GI bleed type/associated pathology: unspecified gastrointestinal hemorrhage type Qualified Code(s): K92.2 - Gastrointestinal hemorrhage, unspecified
[2019-02-05] MEDS ORDERED: CARBOHYDRATES FOR HYPOGLYCEMIA PO PRN (14:30)
[2019-02-05] MEDS ORDERED: GLUCOSE 40% GEL 15 GM TUBE PO PRN (14:30)
[2019-02-05] MEDS ORDERED: ACETAMINOPHEN 325 MG TAB PO PRN (14:30)
[2019-02-05] MEDS ORDERED: MAGNESIUM HYDROXIDE SUSP 30 ML UDC PO PRN (14:30)
[2019-02-05] MEDS ORDERED: ALBUTEROL HFA 8 GM INHALER INH PRN (14:30)
[2019-02-05] MEDS ORDERED: GLUCAGON FOR INJ 1 MG VIAL SQ PRN (14:30)
[2019-02-05] MEDS ORDERED: DEXTROSE 50% 50 ML SYRINGE IV PRN (14:30)
[2019-02-05] MEDS ORDERED: ONDANSETRON INJ 2 MG/ML 2 ML VIAL IV PRN (14:30)
[2019-02-05] MEDS ORDERED: GLUCOSE 10 TABS/TUBE PO PRN (14:30)
[2019-02-05] MEDS: ALBUT/IPRATROP 3MG/0.5MG NEB 3 ML VIAL NEB SCH ×2 (15:10→18:50)
--- NOTE | 2019-02-05 15:56 | Gastrointestinal Consultation ---
Date of Consultation February 05, 2019 Assessment & Plan (1) GI bleed: (2) Symptomatic anemia: Patient is not having any overt GI bleeding at this time. Will start Protonix 40 mg PO BID empirically secondary to chronic aspirin therapy He refuses EGD Recently had colonoscopy in November, and no need to repeat at present Continue supportive care. 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 He underwent a LAR of the mass on 08/20 and had a colostomy. 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 He last underwent a colonoscopy via rectum and colostomy on 12/24 at [facility] [address], and had 2 adenomatous polyps removed. He is scheduled for colostomy reversal in March. He presented to the hospital today secondary to worsening shortness of breath over the past several weeks. He was seen by Pulmonary medicine and had lab studies drawn which showed a decreased H/H from baseline and was advised to come in to the hospital. Of note, he does take Aspirin 325 mg by mouth daily for history of A-fib. He was transfused with 1 u PRBC. At the time I saw the patient he denied any abdominal pain, fevers, chills, nausea, vomiting, hematemesis, melena or blood in his ostomy. He states that he has had only occasional blood at his colostomy site, but denies any other complaints. He denies GERD, dysphagia or odynophagia, and does not take any PPI therapy at home. He states he has never undergone an EGD, and "I don't want one now or ever." Allergies Allergy/AdvReac Type Severity Reaction Status Date / Time No Known Allergies Allergy Verified 02/04/19 15:37 Home Medications Home Medications Medication Instructions Recorded Confirmed Type albuterol sulfate HFA 90 2 puff INHALATION QID PRN #18 gm 10/31/18 02/05/19 Rx mcg/actuation aerosol inhaler blood sugar diagnostic strips #100 ea 10/31/18 02/05/19 Rx lancets 33 gauge #100 ea 10/31/18 02/05/19 Rx metformin 1,000 mg tablet 1,000 mg PO BID #60 tab 10/31/18 02/05/19 Rx metoprolol succinate ER 25 mg 25 mg PO DAILY #30 tab 11/20/18 02/05/19 Rx tablet,extended release 24 hr pen needle, diabetic 31 gauge x #700 ea 12/24/18 02/05/19 Rx 5/16" Oxygen Home #1 ea 01/20/19 02/05/19 Rx aspirin 325 mg tablet 325 mg PO QAM 01/20/19 02/05/19 History atorvastatin [Lipitor] 80 mg PO HS 02/05/19 02/05/19 History insulin aspart U-100 [Novolog 0 unit SQ DAILY 02/05/19 02/05/19 History Flexpen U-100 Insulin] insulin glargine [Lantus Solostar 38 units SQ QAM 02/05/19 02/05/19 History U-100 Insulin] insulin lispro [Humalog U-100 1 sliding scale dose SUBCUT 02/05/19 02/05/19 History Insulin] USEASDIRECTD irbesartan [Avapro] 75 mg PO DAILY 02/05/19 02/05/19 History umeclidinium-vilanterol [Anoro 1 inh INHALATION DAILY 02/05/19 02/05/19 History Ellipta] Patient History Medical History Claudication (Chronic) Atrial fibrillation Chronic obstructive pulmonary disease Diabetes mellitus, type 2 Hyperlipidemia Hypertension Obesity Surgical History History of creation of ostomy History of adenoidectomy History of colonoscopy versed/propofol, no issues. completed 07/07/2018. History of tonsillectomy History of tooth extraction Family History Father Family history of diabetes mellitus Brother Family history of diabetes mellitus Cardiac disorder Unknown Diabetes Mother Cardiac disorder Cancer Social History Preferred Language: Senegalese Communication Ability: Effective Briquette Maker Required: No Beliefs That Will Affect Care: None marital status: Single Current Living Situation: Alone Feels Safe at Home: Yes Smoking Status: Former smoker Tobacco Type: cigarettes ; Second Hand Exposure: No ; Hx Alcohol Use: No Hx Substance Use: No Review of Systems Review of Systems: All systems reviewed & are unremarkable except as noted in HPI & below Physical Exam Constitutional: WD/WN, vitals as above Respiratory: normal respiratory effort, lungs clear to auscultation Cardiovascular: RRR, no murmur, no edema Gastrointestinal (Abdomen): normal bowel sounds, soft, nontender, no hepatosplenomegaly Results & Data Vital Signs (Past 12 Hours) Vital Signs Temp Pulse Pulse Resp BP BP Pulse Ox 02/05/19 15:21 37 C 89 18 156/78 H 95 02/05/19 15:10 96 H 20 90 02/05/19 15:06 37 C 95 H 18 137/69 90 02/05/19 14:54 36.7 C 91 H 18 164/78 H 93 02/05/19 14:48 37.2 C 93 H 85 18 168/61 H 159/67 H 91 02/05/19 13:47 92 02/05/19 13:36 94 H 20 164/75 H 92 02/05/19 12:13 95 H 22 152/72 H 97 02/05/19 11:26 95 02/05/19 10:58 99 H 16 95 02/05/19 10:33 87 L 02/05/19 10:25 36.5 C 100 H 18 154/69 H 87 L PG Care Time/CCT Total # of Minutes Spent Total Time Spent with Patient: Total time spent is greater than 50% in coordination of care (as documented) at patient's floor/unit and/or counseling patient: (1) GI bleed GI bleed type/associated pathology: unspecified gastrointestinal hemorrhage type Qualified Code(s): K92.2 - Gastrointestinal hemorrhage, unspecified
[2019-02-05] MEDS ORDERED: INFLUENZA ADMINISTRATION CHARGE ONE (16:15)
[2019-02-05] MEDS ORDERED: INFLUENZA VACCINE HIGH DOSE 65+ 0.5 ML SYR IM ONE (16:15)
[2019-02-05 16:21] LABS: Appearance Urine Clear (Clear); Bilirubin Urine Negative (Negative); Blood Urine Negative (Negative); Color Urine Yellow; Glucose Urine UA Negative (Negative); Ketones Urine Negative (Negative); Leukocyte Esterase Urine Negative (Negative); Nitrite Urine Negative (Negative); Protein Urine Negative (Negative); Urobilinogen Urine Negative (Negative)
--- NOTE | 2019-02-05 16:53 | Emergency Department Note ---
Entered by May Friedman acting as a scribe for Cole Hernandez DO History of Present Illness General Chief complaint: Shortness of Breath/Dyspnea Stated complaint: FLUID ON LUNGS, SOB Source: patient History of Present Illness Onset (ago): week(s) (a few weeks ago) Location: chest Pain Consistency: + other (worsening) Quality: + other (shortness of breath) Relieved By: not by other (oxygen) Associated symptoms: + cough and + other (weight gain); no fever/chills (fever) The patient is a 68 year old male who presents to the Emergency Room with complaints of worsening shortness of breath starting a few weeks ago. The patient states that a few weeks ago he started becoming short of breath and had a cough. He states that he went to his doctors for it and they couldnt figure out what was going on, so they sent him to a [employer] [facility]. He states that the [employer] [facility] shop started him on oxygen at 2L when he sleeps due to his COPD being exacerbated. He reports that over the last week he has been using it every time he sleeps and every time he watches TV. The patient states that he has still been short of breath and yesterday went to his PCP. He reports that they said he either has fluid on his lungs or a blood clot. He states that they told him to come here today to be worked up and get imaging of his chest. The patient complains of a 15 lb weight gain over the last 2 months. The patient notes that he has an ostomy because when they removed a polyp, they were concerned it was cancerous, but it wasnt. He notes that he is scheduled for a reversal soon. The patient denies fever, a history of heart failure, a history of cancer, and being around anyone who has been sick. Home Medications Home Medications Medication Instructions Recorded Confirmed Type albuterol sulfate HFA 90 2 puff INHALATION QID PRN #18 gm 10/31/18 02/05/19 Rx mcg/actuation aerosol inhaler blood sugar diagnostic strips #100 ea 10/31/18 02/05/19 Rx lancets 33 gauge #100 ea 10/31/18 02/05/19 Rx metformin 1,000 mg tablet 1,000 mg PO BID #60 tab 10/31/18 02/05/19 Rx metoprolol succinate ER 25 mg 25 mg PO DAILY #30 tab 11/20/18 02/05/19 Rx tablet,extended release 24 hr pen needle, diabetic 31 gauge x #700 ea 12/24/18 02/05/19 Rx 5/16" Oxygen Home #1 ea 01/20/19 02/05/19 Rx aspirin 325 mg tablet 325 mg PO QAM 01/20/19 02/05/19 History atorvastatin [Lipitor] 80 mg PO HS 02/05/19 02/05/19 History insulin aspart U-100 [Novolog 0 unit SQ DAILY 02/05/19 02/05/19 History Flexpen U-100 Insulin] insulin glargine [Lantus Solostar 38 units SQ QAM 02/05/19 02/05/19 History U-100 Insulin] insulin lispro [Humalog U-100 1 sliding scale dose SUBCUT 02/05/19 02/05/19 History Insulin] USEASDIRECTD irbesartan [Avapro] 75 mg PO DAILY 02/05/19 02/05/19 History umeclidinium-vilanterol [Anoro 1 inh INHALATION DAILY 02/05/19 02/05/19 History Ellipta] Allergies Allergy/AdvReac Type Severity Reaction Status Date / Time No Known Allergies Allergy Verified 02/04/19 15:37 Past Med/Surg History Medical History Claudication (Chronic) Atrial fibrillation Chronic obstructive pulmonary disease Diabetes mellitus, type 2 Hyperlipidemia Hypertension Obesity Surgical History History of creation of ostomy History of adenoidectomy History of colonoscopy versed/propofol, no issues. completed 07/07/2018. History of tonsillectomy History of tooth extraction Family History Father Family history of diabetes mellitus Brother Family history of diabetes mellitus Cardiac disorder Unknown Diabetes Mother Cardiac disorder Cancer Social History Preferred Language: Wallisian Communication Ability: Effective Statement Processor Required: No Beliefs That Will Affect Care: None marital status: Single Current Living Situation: Alone Feels Safe at Home: Yes Smoking Status: Former smoker Tobacco Type: cigarettes ; Second Hand Exposure: No ; Hx Alcohol Use: No Hx Substance Use: No Review of Systems See HPI for pertinent positives & negatives. and A total of 10 systems reviewed and were otherwise negative Physical Exam Vital Signs Vital Signs - 24 hr 02/05/19 10:25 02/05/19 10:33 02/05/19 10:58 Temperature 36.5 C Temperature Source Oral Sepsis Recent Fever Within 48 Hours No Sepsis New/Unexplained Change in Mental Status No Sepsis Action Taken by Nursing No Action Required Oxygen Flow Rate - Titration 2 Pulse Oximetry Post Tiitration 92 Pulse Rate 100 H Pulse Rate [Right Finger] 99 H Pulse Rhythm [Right Finger] Pulse Strength [Right Finger] Respiratory Rate 18 16 Respiratory Effort / Characteristics Non-Labored Spontaneous Non-Labored Spontaneous Respiratory Depth Normal Respiratory Pattern Regular Blood Pressure 154/69 H Blood Pressure [Right Arm] Blood Pressure Mean 97 Blood Pressure Mean [Right Arm] Blood Pressure Position Sitting Blood Pressure Position [Right Arm] Pulse Oximetry 87 L 87 L 95 Oxygen Delivery Method Room Air Nasal Cannula Nasal Cannula Oxygen Flow Rate 0 2 02/05/19 11:00 02/05/19 11:26 02/05/19 12:13 Temperature Temperature Source Sepsis Recent Fever Within 48 Hours Sepsis New/Unexplained Change in Mental Status Sepsis Action Taken by Nursing Oxygen Flow Rate - Titration Pulse Oximetry Post Tiitration Pulse Rate Pulse Rate [Right Finger] 95 H Pulse Rhythm [Right Finger] Regular Pulse Strength [Right Finger] Normal Respiratory Rate 22 Respiratory Effort / Characteristics Non-Labored Non-Labored Respiratory Depth Normal Respiratory Pattern Blood Pressure Blood Pressure [Right Arm] 152/72 H Blood Pressure Mean Blood Pressure Mean [Right Arm] 98 Blood Pressure Position Blood Pressure Position [Right Arm] Sitting Pulse Oximetry 95 97 Oxygen Delivery Method Nasal Cannula Nasal Cannula Oxygen Flow Rate 2 2 GENERAL: sitting up in bed on 2L nasal cannula. Talking in full sentences. Disheveled. EYE EXAM: normal conjunctiva OROPHARYNX: no exudate, no erythema, lips, buccal mucosa, and tongue normal and mucous membranes are moist NECK: supple, no nuchal rigidity, no adenopathy, non-tender LUNGS: Rhonchi at bilateral bases. Normal chest wall mechanics HEART: no murmurs, S1 normal and S2 normal ABDOMEN: Old midline abdominal incision with band aid in place. Ostomy in LLQ with brown stool, abdomen soft, non-tender, normo-active bowel sounds, no masses, no rebound or guarding. RECTAL: Heme positive. BACK: Back is symmetrical on inspection and there is no deformity, no midline tenderness, no CVA tenderness. SKIN: no rashes and no bruising UPPER EXTREMITIES: upper extremities are grossly normal. LOWER EXTREMITIES: No pitting edema. Calves are equal bilaterally. NEURO EXAM: Normal sensorium, cranial nerves II-XII grossly intact, normal speech, no gross weakness of arms, no gross weakness of legs. Course ED COURSE: Vital signs were reviewed and showed situational hypertension. The patients medical record was reviewed The above diagnostic studies were performed and reviewed. ED treatments and interventions as stated above. 1040: The patient was evaluated in room B6. A complete history and physical examination was performed. 1219: I reevaluated the patient and he is doing well. 1242: Upon reevaluation, the patient is resting comfortably. I performed a rectal exam at this time. I discussed my findings with the patient and he understands and agrees with the treatment plan. Based on the patients age, coexisting illnesses, exam and lab findings the decision to treat as an inpatient was made. The patient remained stable while under my care. The patient will be evaluated for further management. 1257: I discussed the patient's case with Dr. Salazar- [facility] Hospitalist. She will evaluate the patient for further evaluation. 1339: The patient signed the consent for blood at this time. Administered Medications Albuterol (Duoneb) 3 ml NEB QIDR [facility] Stop: 03/07/19 14:59 Last Admin: 02/05/19 15:10 Dose: 3 ml Documented by: [id number] Miscellaneous (Order Awaiting Action) 1 ea N/A QS [facility] Stop: 03/07/19 15:59 Last Admin: 02/05/19 16:20 Dose: Not Given Documented by: [id number] Discontinued Medications Albuterol (Ventolin 0.083% 2.5mg/3ml) 2.5 mg NEB [facility] Stop: 02/05/19 10:48 Last Admin: 02/05/19 10:57 Dose: 2.5 mg Documented by: [id number] Medical Decision Making Differential Diagnosis Differential diagnoses includes but is not limited to pneumonia, bronchitis, COPD/Asthma exacerbation, pneumothorax, pulmonary embolism, congestive heart failure, acute coronary syndrome Medical Records Attestation: I reviewed the patient's medical records. Home Medications Current Medication List: was personally reviewed by me Laboratory Data Attestation: I reviewed the patient's lab results. Result diagrams: 02/05/19 11:20 02/05/19 11:20 Lab Results 02/05/19 02/05/19 02/05/19 Range/Units 11:20 11:20 11:20 WBC 9.52 (4.8-10.8) K/uL RBC 4.24 L (4.7-6.1) M/uL Hgb 7.0 L (14.0-18.0) g/dL Hct 25.5 L (42-52) % MCV 60.1 L (80-100) fL MCH 16.5 L (25-34) pg MCHC 27.5 L (32-36) g/dL RDW Std Deviation 38.9 (36.4-46.3) fL RDW Coeff of Laurie 17.8 H (11.5-14.5) % Plt Count 263 (130-400) K/uL Immature Gran % (Auto) 0.4 % Neut % (Auto) 74.4 % Lymph % (Auto) 15.3 % Carroll % (Auto) 7.7 % Eos % (Auto) 1.4 % Baso % (Auto) 0.8 % Immature Gran # (Auto) 0.04 H (0.00-0.02) K/uL Neut # (Auto) 7.08 H (1.4-6.5) K/uL Lymph # (Auto) 1.46 (1.2-3.4) K/uL Carroll # (Auto) 0.73 H (0.11-0.59) K/uL Eos # (Auto) 0.13 (0-0.5) K/uL Baso # (Auto) 0.08 (0-0.2) K/uL Absolute Nucleated RBC 0.02 H (0-0) K/uL Nucleated RBC % (auto) 0.2 % Platelet Estimate Normal (Normal) Hypochromasia Present Microcytosis Present Ovalocytes 1+ PT 11.0 (9.0-12.0) Seconds INR 1.1 (0.9-1.1) APTT 21.8 (21.0-31.0) Seconds PTT Ratio 0.8 D-Dimer 330 (0-500) ug/L FEU Sodium 137 (136-145) mmol/L Potassium 4.2 (3.5-5.1) mmol/L Chloride 103 (98-107) mmol/L Carbon Dioxide 29 (21-32) mmol/L Anion Gap 5.0 (3-11) BUN 18 (7-18) mg/dl Creatinine 1.02 (0.6-1.4) mg/dl Est Cr Clr Drug Dosing 86.3 ml/min Est GFR ( Amer) 88.4 Est GFR (Non-Af Amer) 76.2 BUN/Creatinine Ratio 17.3 (10-20) Glucose 192 H (70-99) mg/dl Calcium 9.1 (8.5-10.1) mg/dl Total Bilirubin 0.4 (0.2-1) mg/dl AST 17 (15-37) U/L ALT 45 (12-78) U/L Alkaline Phosphatase 80 (45-117) U/L NT-Pro-B Natriuret Pep 460 (0-900) pg/ml Total Protein 7.1 (6.4-8.2) gm/dl Albumin 3.4 (3.4-5.0) gm/dl Globulin 3.7 (2.5-4.0) gm/dl Albumin/Globulin Ratio 0.9 (0.9-2) Imaging Data Radiologist's Impression: Radiology results as stated below per my review and the radiologist's interpretation: SINGLE VIEW CHEST CLINICAL HISTORY: Dyspnea. FINDINGS: An AP, portable, upright chest radiograph is compared to study dated 09/03/2018. Correlation is made with chest CT dated 06/30/2018. The examination is degraded by portable technique and apical lordotic positioning. The heart is enlarged and there is atherosclerotic calcification of the thoracic aorta. There is mild pulmonary vascular congestion. Emphysema and chronic interstitial thickening are similar to previous. Scarring/atelectasis is noted at the lung bases. No airspace consolidation or large pleural effusion is identified. No pneumothorax is seen. The skeletal structures are osteopenic. The bony thorax is grossly intact. IMPRESSION: 1. Cardiomegaly and emphysema with mild pulmonary vascular congestion. 2. No airspace consolidation or large pleural effusion is identified. Electronically signed by: Avtar Brown M.D. 02/05/2019 11:20 AM ECG Data Attestation: I personally reviewed and interpreted this ECG as follows: Indication: SOB/dyspnea Rate (beats per minute): 95 Rhythm: sinus rhythm Findings: + other (normal axis, normal intervals); no PVC Blood Pressure Blood Pressure Findings: Elevated blood pressure Blood Pressure Disposition: elevated BP felt to be situational MDM Narrative Patient is a 68-year-old male who presents the ER for shortness of breath which is been getting worse for the past several weeks. He has been following with Dr. Cano from Pulm/critical care and was recently placed on 2 L nasal cannula. He notes he has been gaining weight of about 15 pounds and has been having worsening shortness of breath. He was referred in by his PCP for fluid in his lungs. IV was established blood work was obtained. Labs show a hemoglobin of 7 down from a baseline of about 9. No significant leukocytosis. INR was unremarkable. BMP shows an elevated glucose. LFTs bilirubin and proBNP was unremarkable. UA was negative. Chest x-ray without any pleural effusions or focal infiltrate. EKG was nondiagnostic. Stool was heme positive. Patient was updated bedside. Do question if this shortness of breath is multifactorial and a combination of his COPD and GI bleed causing symptomatic anemia. He was consented at bedside. Typed and crossed and given 1 units of PRBCs while in the ER. She was discussed with the hospitalist and admitted for further work-up. Impression & Plan Symptomatic anemia, GI bleed, SOB (shortness of breath), HTN (hypertension) Critical Care Time Critical Care Time: Yes Total Critical Care Time: 31 I have personally spent approximately 31 minutes of critical care time in the direct management of this patient. This includes bedside care, interpretation of diagnostic studies, and testing, discussion with consultants, patient, and family members, and other required patient management activities. This 31 minutes is in excess of all separately billable procedures. Discharge Plan Visit Data *Final* Discharge Date/Time: 02/05/19 13:47 Chief Complaint: Shortness of Breath/Dyspnea Stated Complaint: FLUID ON LUNGS, SOB ED Provider: Cole Hernandez Discharge Problem: Symptomatic anemia, GI bleed, SOB (shortness of breath), HTN (hypertension) Patient Disposition: Admitted As Inpatient Discharge Instructions Interventions: ED Discharge Assessment Last Done: 02/05/19 13:47 Discharge Problem: GI bleed Qualifiers: GI bleed type/associated pathology: unspecified gastrointestinal hemorrhage type Qualified Code(s): K92.2 - Gastrointestinal hemorrhage, unspecified HTN (hypertension) Qualifiers: Hypertension type: unspecified Qualified Code(s): I10 - Essential (primary) hypertension The scribe's documentation has been prepared under my direction and personally reviewed by me in its entirety. I confirm that the note above accurately reflects all work, treatment, procedures, and medical decision making performed by me.
[2019-02-05] MEDS: INSULIN ASPART 100 UNITS/ML 3 ML PEN SC SCH ×2 (17:30→21:21)
[2019-02-05 20:24] LABS: Hematocrit (blood only) 27.8 % (42-52); Hemoglobin 7.9 g/dL (14.0-18.0)
[2019-02-05] MEDS: PANTOprazole 40 MG TAB PO SCH (20:52)
[2019-02-06 06:32] LABS: Hematocrit (blood only) 28.2 % (42-52); Mean Corpuscular Hemoglobin 17.6 pg (25-34); Mean Corpuscular Hgb Conc 28.4 g/dL (32-36); Mean Corpuscular Volume 62.1 fL (80-100); Platelet Count 251 K/uL (130-400); RDW Coefficient of Variation 20.1 % (11.5-14.5); RDW Standard Deviation 43.5 fL (36.4-46.3); Red Blood Count 4.54 M/uL (4.7-6.1); White Blood Count 7.48 K/uL (4.8-10.8)
[2019-02-06 06:59] LABS: BUN Creatinine Ratio 11.3 (10-20); Calcium 8.4 mg/dl (8.5-10.1); Creatinine Clr Calc Pharmacy 102.3 ml/min; Est GFR (African American) 105.2; Est GFR (Non-African American) 90.8; Potassium 3.9 mmol/L (3.5-5.1)
[2019-02-06] MEDS: ALBUT/IPRATROP 3MG/0.5MG NEB 3 ML VIAL NEB SCH ×3 (07:00→15:12)
[2019-02-06 07:09] LABS: Anisocytosis Present; Basophils # (auto) 0.04 K/uL (0-0.2); Basophils % (auto) 0.5 %; Eosinophils # (auto) 0.11 K/uL (0-0.5); Eosinophils % (auto) 1.5 %; Giant Platelets 1+; Hypochromasia Present; Immature Granulocytes # (auto) 0.01 K/uL (0.00-0.02); Immature Granulocytes % (auto) 0.1 %; Lymphocytes # (auto) 1.38 K/uL (1.2-3.4); Lymphocytes % (auto) 18.4 %; Microcytosis Present; Monocytes # (auto) 0.81 K/uL (0.11-0.59); Monocytes % (auto) 10.8 %; Neutrophils # (auto) 5.13 K/uL (1.4-6.5); Neutrophils % (auto) 68.7 %; Poikilocytosis Present
[2019-02-06] MEDS: PANTOprazole 40 MG TAB PO SCH (07:46)
[2019-02-06 07:50] LABS: Estimated Average Glucose 180 mg/dl; Hemoglobin A1C 7.9 % (4.5-5.6)
[2019-02-06] MEDS: INSULIN ASPART 100 UNITS/ML 3 ML PEN SC SCH ×2 (08:07→12:39)
[2019-02-06] MEDS ORDERED: IRBESARTAN 75 MG TAB PO SCH (09:00)
[2019-02-06] MEDS ORDERED: METOPROLOL SUCC 25MG EXT REL TAB PO SCH (09:00)
--- NOTE | 2019-02-06 12:05 | Gastroenterology Progress Note ---
Date of Service February 06, 2019 Assessment & Plan (1) GI bleed: Doing well at present H/H Stable Continue supportive care Followup with Surgery as scheduled for colostomy reversal. Subjective Patient feeling well today. Tolerating PO intake. Has not noted any blood in ostomy bag. Review of Systems Review of Systems: All systems reviewed & are unremarkable except as noted in HPI & below Physical Exam Constitutional: WD/WN, vitals as above Respiratory: normal respiratory effort, lungs clear to auscultation Cardiovascular: RRR, no murmur, no edema Gastrointestinal (Abdomen): Percussion/Palpation: abdomen nontender Stoma dark pink, No blood in ostomy bag, brown liquid stool Results & Data Vital Signs (Past 12 Hours) Vital Signs Temp Pulse Resp BP BP Pulse Ox 02/06/19 11:28 36.9 C 94 H 20 163/79 H 91 02/06/19 10:59 82 18 90 02/06/19 07:51 36.8 C 69 18 123/70 97 02/06/19 07:01 93 H 19 94 02/06/19 04:00 37 C 87 20 130/69 93 PG Care Time/CCT Total # of Minutes Spent Total Time Spent with Patient: Total time spent is greater than 50% in coordination of care (as documented) at patient's floor/unit and/or counseling patient: (1) GI bleed GI bleed type/associated pathology: unspecified gastrointestinal hemorrhage type Qualified Code(s): K92.2 - Gastrointestinal hemorrhage, unspecified
--- NOTE | 2019-02-06 13:23 | Hospitalist Progress Note ---
Date of Service February 06, 2019 Assessment & Plan (1) GI bleed: - Heme + in the ED with Hgb 7.0; no acute bleeding noted during this admission. - GI consulted, appreciate input. No surgical intervention indicated at this time, f/u with surgery to discuss reversal. - Started Protonix 40 mg PO BID. - No indication for further transfusion support; monitor CBC as outpatient on Friday. (2) Symptomatic anemia: - Hgb was 7.0 on admission, baseline ~8-10. - Received 1 unit pRBCs with improvement; will repeat H/H at 2 pm. (3) SOB (shortness of breath): - Related to GIB with anemia vs. COPD. - Qualified for O2 via NC at home -- continue 2L via NC at all times. - SOB is stable following transfusion support. (4) COPD (chronic obstructive pulmonary disease): - Recently converted from Breo-Ellipta to Anoro -- holding as med is non- formulary. - Duonebs QID scheduled with Albuterol prn. - No acute exacerbation noted; f/u with outpatient provider. (5) HLD (hyperlipidemia): - Holding statin as inpatient. (6) Paroxysmal A-fib: - Continue Metoprolol as prescribed. - Previously on Eliquis but converted to ASA due to stoma bleeding; holding ASA due to GI bleed -- will continue hold unless instructed otherwise by outpatient providers. (7) HTN (hypertension): - Continue home ARB and beta aleta as prescribed. (8) Diabetes: - Holding home Metformin & insulin. - A1C is 7.9. - SSI as inpatient. (9) DVT prophylaxis: - SCDs; holding pharmacologic ppx in setting of bleed. Dispo: Discharge possibly this afternoon pending repeat H/H. Subjective Pt. is doing well today -- has had normal ostomy output, no blood noted. Has more energy following blood transfusion. Denies chest pain, SOB - has been stable on 2L via NC, has oxygen at home. Discharge likely this afternoon if repeat H/H is stable. Review of Systems Review of Systems: All systems reviewed & are unremarkable except as noted in HPI & below Constitutional: no fever, no chills, no fatigue and no weakness Respiratory: no cough, no dyspnea, no dyspnea on exertion and no wheezing Cardiovascular: no chest pain, no palpitations and no edema Gastrointestinal: no abdominal pain, no nausea, no vomiting, no constipation, no diarrhea/loose stools, no blood in stools and no melena Genitourinary: no difficulty urinating Musculoskeletal: no back pain and no joint pain Integumentary: no non-healing lesions Physical Exam Physical Exam: General: Resting comfortably HEENT: NC/AT; PERRLA with EOMI; [place] conjunctiva, MMM. No erythema of posterior pharynx Neck: Supple and nontender Cardiac: RRR Lungs: CTA bilaterally Abdomen: Bowel normoactive X 4; Nontender to palpation; Ostomy with brown output, no gross blood noted. Extremities: Warm. No edema present Neuro: No focal weakness Skin: No rash Results & Data Vital Signs (Past 12 Hours) Vital Signs Temp Pulse Resp BP BP Pulse Ox 02/06/19 11:28 36.9 C 94 H 20 163/79 H 91 02/06/19 10:59 82 18 90 02/06/19 07:51 36.8 C 69 18 123/70 97 02/06/19 07:01 93 H 19 94 02/06/19 04:00 37 C 87 20 130/69 93 Laboratory Results 02/06/19 02/06/19 02/06/19 Range/Units 11:42 07:38 06:02 WBC (4.8-10.8) K/uL RBC (4.7-6.1) M/uL Hgb (14.0-18.0) g/dL Hct (42-52) % MCV (80-100) fL MCH (25-34) pg MCHC (32-36) g/dL RDW Std Deviation (36.4-46.3) fL RDW Coeff of Laurie (11.5-14.5) % Plt Count (130-400) K/uL Immature Gran % (Auto) % Neut % (Auto) % Lymph % (Auto) % [place] % (Auto) % Eos % (Auto) % Baso % (Auto) % Immature Gran # (Auto) (0.00-0.02) K/uL Neut # (Auto) (1.4-6.5) K/uL Lymph # (Auto) (1.2-3.4) K/uL [place] # (Auto) (0.11-0.59) K/uL Eos # (Auto) (0-0.5) K/uL Baso # (Auto) (0-0.2) K/uL Giant Platelets Hypochromasia Poikilocytosis Anisocytosis Microcytosis Sodium (136-145) mmol/L Potassium (3.5-5.1) mmol/L Chloride (98-107) mmol/L Carbon Dioxide (21-32) mmol/L Anion Gap (3-11) BUN (7-18) mg/dl Creatinine (0.6-1.4) mg/dl Est Cr Clr Drug Dosing ml/min Est GFR ( Amer) Est GFR (Non-Af Amer) BUN/Creatinine Ratio (10-20) Glucose (70-99) mg/dl POC Glucose 298 H 166 H (70-99) Estimat Average Glucose 180 mg/dl Hemoglobin A1c 7.9 H (4.5-5.6) % Calcium (8.5-10.1) mg/dl Urine Color Urine Appearance (Clear) Urine pH (4.5-7.5) Ur Specific Geraldine (1.000-1.030) Urine Protein (Negative) Urine Glucose (UA) (Negative) Urine Ketones (Negative) Urine Blood (Negative) Urine Nitrite (Negative) Urine Bilirubin (Negative) Urine Urobilinogen (Negative) Ur Leukocyte Esterase (Negative) Blood Type Antibody Screen Crossmatch 02/06/19 02/06/19 02/05/19 Range/Units 06:02 06:02 20:58 WBC 7.48 (4.8-10.8) K/uL RBC 4.54 L (4.7-6.1) M/uL Hgb 8.0 L (14.0-18.0) g/dL Hct 28.2 L (42-52) % MCV 62.1 L (80-100) fL MCH 17.6 L (25-34) pg MCHC 28.4 L (32-36) g/dL RDW Std Deviation 43.5 (36.4-46.3) fL RDW Coeff of Laurie 20.1 H (11.5-14.5) % Plt Count 251 (130-400) K/uL Immature Gran % (Auto) 0.1 % Neut % (Auto) 68.7 % Lymph % (Auto) 18.4 % [place] % (Auto) 10.8 % Eos % (Auto) 1.5 % Baso % (Auto) 0.5 % Immature Gran # (Auto) 0.01 (0.00-0.02) K/uL Neut # (Auto) 5.13 (1.4-6.5) K/uL Lymph # (Auto) 1.38 (1.2-3.4) K/uL [place] # (Auto) 0.81 H (0.11-0.59) K/uL Eos # (Auto) 0.11 (0-0.5) K/uL Baso # (Auto) 0.04 (0-0.2) K/uL Giant Platelets 1+ Hypochromasia Present Poikilocytosis Present Anisocytosis Present Microcytosis Present Sodium 139 (136-145) mmol/L Potassium 3.9 (3.5-5.1) mmol/L Chloride 103 (98-107) mmol/L Carbon Dioxide 29 (21-32) mmol/L Anion Gap 7.0 (3-11) BUN 10 D (7-18) mg/dl Creatinine 0.85 (0.6-1.4) mg/dl Est Cr Clr Drug Dosing 102.3 ml/min Est GFR ( Amer) 105.2 Est GFR (Non-Af Amer) 90.8 BUN/Creatinine Ratio 11.3 (10-20) Glucose 138 H (70-99) mg/dl POC Glucose 147 H (70-99) Estimat Average Glucose mg/dl Hemoglobin A1c (4.5-5.6) % Calcium 8.4 L (8.5-10.1) mg/dl Urine Color Urine Appearance (Clear) Urine pH (4.5-7.5) Ur Specific Geraldine (1.000-1.030) Urine Protein (Negative) Urine Glucose (UA) (Negative) Urine Ketones (Negative) Urine Blood (Negative) Urine Nitrite (Negative) Urine Bilirubin (Negative) Urine Urobilinogen (Negative) Ur Leukocyte Esterase (Negative) Blood Type Antibody Screen Crossmatch 02/05/19 02/05/19 02/05/19 Range/Units 20:00 16:42 15:57 WBC (4.8-10.8) K/uL RBC (4.7-6.1) M/uL Hgb 7.9 L (14.0-18.0) g/dL Hct 27.8 L (42-52) % MCV (80-100) fL MCH (25-34) pg MCHC (32-36) g/dL RDW Std Deviation (36.4-46.3) fL RDW Coeff of Laurie (11.5-14.5) % Plt Count (130-400) K/uL Immature Gran % (Auto) % Neut % (Auto) % Lymph % (Auto) % [place] % (Auto) % Eos % (Auto) % Baso % (Auto) % Immature Gran # (Auto) (0.00-0.02) K/uL Neut # (Auto) (1.4-6.5) K/uL Lymph # (Auto) (1.2-3.4) K/uL [place] # (Auto) (0.11-0.59) K/uL Eos # (Auto) (0-0.5) K/uL Baso # (Auto) (0-0.2) K/uL Giant Platelets Hypochromasia Poikilocytosis Anisocytosis Microcytosis Sodium (136-145) mmol/L Potassium (3.5-5.1) mmol/L Chloride (98-107) mmol/L Carbon Dioxide (21-32) mmol/L Anion Gap (3-11) BUN (7-18) mg/dl Creatinine (0.6-1.4) mg/dl Est Cr Clr Drug Dosing ml/min Est GFR ( Amer) Est GFR (Non-Af Amer) BUN/Creatinine Ratio (10-20) Glucose (70-99) mg/dl POC Glucose 133 H (70-99) Estimat Average Glucose mg/dl Hemoglobin A1c (4.5-5.6) % Calcium (8.5-10.1) mg/dl Urine Color Yellow Urine Appearance Clear (Clear) Urine pH 6.0 (4.5-7.5) Ur Specific Geraldine 1.010 (1.000-1.030) Urine Protein Negative (Negative) Urine Glucose (UA) Negative (Negative) Urine Ketones Negative (Negative) Urine Blood Negative (Negative) Urine Nitrite Negative (Negative) Urine Bilirubin Negative (Negative) Urine Urobilinogen Negative (Negative) Ur Leukocyte Esterase Negative (Negative) Blood Type Antibody Screen Crossmatch 02/05/19 Range/Units 13:25 WBC (4.8-10.8) K/uL RBC (4.7-6.1) M/uL Hgb (14.0-18.0) g/dL Hct (42-52) % MCV (80-100) fL MCH (25-34) pg MCHC (32-36) g/dL RDW Std Deviation (36.4-46.3) fL RDW Coeff of Laurie (11.5-14.5) % Plt Count (130-400) K/uL Immature Gran % (Auto) % Neut % (Auto) % Lymph % (Auto) % [place] % (Auto) % Eos % (Auto) % Baso % (Auto) % Immature Gran # (Auto) (0.00-0.02) K/uL Neut # (Auto) (1.4-6.5) K/uL Lymph # (Auto) (1.2-3.4) K/uL [place] # (Auto) (0.11-0.59) K/uL Eos # (Auto) (0-0.5) K/uL Baso # (Auto) (0-0.2) K/uL Giant Platelets Hypochromasia Poikilocytosis Anisocytosis Microcytosis Sodium (136-145) mmol/L Potassium (3.5-5.1) mmol/L Chloride (98-107) mmol/L Carbon Dioxide (21-32) mmol/L Anion Gap (3-11) BUN (7-18) mg/dl Creatinine (0.6-1.4) mg/dl Est Cr Clr Drug Dosing ml/min Est GFR ( Amer) Est GFR (Non-Af Amer) BUN/Creatinine Ratio (10-20) Glucose (70-99) mg/dl POC Glucose (70-99) Estimat Average Glucose mg/dl Hemoglobin A1c (4.5-5.6) % Calcium (8.5-10.1) mg/dl Urine Color Urine Appearance (Clear) Urine pH (4.5-7.5) Ur Specific Geraldine (1.000-1.030) Urine Protein (Negative) Urine Glucose (UA) (Negative) Urine Ketones (Negative) Urine Blood (Negative) Urine Nitrite (Negative) Urine Bilirubin (Negative) Urine Urobilinogen (Negative) Ur Leukocyte Esterase (Negative) Blood Type O Negative Antibody Screen NEGATIVE Crossmatch See Detail PG Care Time/CCT Total # of Minutes Spent Total Time Spent with Patient: Total time spent is greater than 50% in coordination of care (as documented) at patient's floor/unit and/or counseling patient: (1) GI bleed GI bleed type/associated pathology: unspecified gastrointestinal hemorrhage type Qualified Code(s): K92.2 - Gastrointestinal hemorrhage, unspecified
[2019-02-06 14:29] LABS: Hematocrit (blood only) 29.6 % (42-52); Hemoglobin 8.2 g/dL (14.0-18.0); Mean Corpuscular Hemoglobin 17.3 pg (25-34); Mean Corpuscular Hgb Conc 27.7 g/dL (32-36); Mean Corpuscular Volume 62.4 fL (80-100); Platelet Count 264 K/uL (130-400); RDW Coefficient of Variation 20.2 % (11.5-14.5); RDW Standard Deviation 43.7 fL (36.4-46.3); Red Blood Count 4.74 M/uL (4.7-6.1); White Blood Count 7.97 K/uL (4.8-10.8)
--- NOTE | 2019-02-06 15:36 | Discharge Summary ---
Date of Service February 06, 2019 Admission HPI Per Admitting Provider 68 y/o M c/o SOB. Pt states he has been having worsening SOB for the last several weeks. It was thought this was related to COPD and he was changed from Breo to Anoro. This did help somewhat, but he continued to have worsening SOB. He was seen by pulm on 01/20 and started on home O2. He states he is using it HS and when watching television, but not during the day. He thinks he is probably supposed to be using it 18/11, but he is not. He does not think it is helping with his SOB with exertion. 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 His SOB is now with any exertion or even prolonged talking. Pt denies fever, SOB, chest pain, abd pain, n/v/c/d, LE pain or swelling. 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 This was done at [facility] with plans for reversal in March. He states that he has seen blood around his stoma occasionally, but no shawna bleeding or black stools. Pt taking aspirin 325mg for anticoagulation for afib. States he was on eliquis for his afib prior, but this was changed to aspirin due to bleeding with his stoma. Admission Exam Per Admitting Provider Constitutional: WD/WN, vitals as above Eyes: normal visual meneses by confrontation and + anicteric sclerae Neck: normal visual inspection and trachea midline Respiratory: normal respiratory effort; no respiratory distress Auscultation: + wheezes (scant, expiratory) Cardiovascular: Rate/Rhythm: regular rate and regular rhythm Gastrointestinal (Abdomen): Inspection/Auscultation: abdomen not distended Percussion/Palpation: abdomen soft; abdomen nontender Musculoskeletal: Head/Neck/Chest: normocephalic and head atraumatic negative for edema, peripheral pulses intact Skin: + pallor warm and dry Neurologic: awake; not confused Speech / Cognition: normal speech Psychiatric: A+Ox3, euthymic affect Principal Diagnosis GI bleed, Anemia Discharge Exam General: Resting comfortably HEENT: NC/AT; PERRLA with EOMI; [place] conjunctiva, MMM. No erythema of posterior pharynx Neck: Supple and nontender Cardiac: RRR Lungs: CTA bilaterally Abdomen: Bowel normoactive X 4; Nontender to palpation; Ostomy with brown output, no gross blood noted. Extremities: Warm. No edema present Neuro: No focal weakness Skin: No rash Discharge Data Allergies Allergy/AdvReac Type Severity Reaction Status Date / Time No Known Allergies Allergy Verified 02/10/19 16:00 Consultations 02/05/19 12:52 ED Decision to Admit Stat 02/05/19 14:30 Consult Case Management - Discharge Planning Routine Consult Gastroenterology Routine Hospital Course (1) GI bleed: Heme + in the ED with Hgb 7.0; no acute bleeding noted during this admission. GI consulted, appreciate input. No surgical intervention indicated at this time, f/u with surgery to discuss reversal. Protonix 40 mg PO BID. No indication for further transfusion support; monitor CBC as outpatient on Friday. (2) Symptomatic anemia: Hgb was 7.0 on admission, baseline ~8-10. Received 1 unit pRBCs with improvement; repeat H/H improved to 8.2. (3) SOB (shortness of breath): Related to GIB with anemia vs. COPD. Qualified for O2 via NC at home -- continue 2L via NC at all times. SOB is stable following transfusion support. (4) COPD (chronic obstructive pulmonary disease): Recently converted from Breo-Ellipta to Anoro -- holding as med is non- formulary, can resume at discharge. Duonebs QID scheduled with Albuterol prn. No acute exacerbation noted; f/u with outpatient provider. (5) HLD (hyperlipidemia): Held statin as inpatient, resume at discharge. (6) Paroxysmal A-fib: Continued Metoprolol as prescribed. Previously on Eliquis but converted to ASA due to stoma bleeding; holding ASA due to GI bleed -- will continue hold unless instructed otherwise by outpatient providers. (7) HTN (hypertension): Continued home ARB and beta aleta as prescribed. (8) Diabetes: Held home Metformin & insulin. A1C is 7.9. SSI as inpatient. (9) DVT prophylaxis: SCDs; held pharmacologic ppx in setting of bleed. Discharged to home on 02/06/19. Total Time Total Time Spent Total Time Spent (In Minutes): >30 minutes Total Time Includes: Examination of the Patient, Discharge Planning, Medication Reconciliation, Communication With Other Providers and Other Discharge Plan Discharge Items Patient Disposition: Home - Self-Care Reason For Visit: FLUID ON LUNGS, SOB Discharge Diagnosis: GI bleed, Anemia Activity: As commented below Exercise/Sports: Gradually increase as tolerated Non-emergency contact: Primary Care Provider and Principal Cyber Engineer Call non-emergency contact if: you have any medication questions, your symptoms worsen, you have a fever, your wound has increased redness, your wound has increased drainage and your wound pain has increased Follow-up/Referrals: Kenia Cesar MD [Primary Care Provider] - Diet: Carb Consistent or DM2 Addtl Attending Provider Instructions: 1. Blood in stoma * A script was provided for outpatient labs -- please have CBC collected on Friday02/08/19. * Please take Protonix 40 mg twice daily at home. * Hold home aspirin in setting of acute bleed unless instructed otherwise by your outpatient providers. * Follow up with the wound clinic as scheduled every Friday. * Please follow up with GI & surgery as an outpatient for evaluation as scheduled. 2. COPD/Hypoxia * Please continue to wear oxygen at all times. * Continue home inhalers as prescribed. * Follow up with PCP to discuss COPD management. Pending Studies at Discharge: No Stand-Alone Forms: My [facility] Medications and DC Order Prescriptions: New pantoprazole 40 mg Tablet,Delayed Release (Dr/Ec) 40 mg PO BID 30 Days Qty: 60 RF: 2 Continued metoprolol succinate 25 mg tablet extended release 24 hr 25 mg PO DAILY Qty: 30 RF: 0 albuterol sulfate [Ventolin HFA] 90 mcg/actuation HFA aerosol inhaler 2 puff INHALATION QID PRN (Reason: SHORT OF BREATH) Qty: 18 RF: 0 metformin 1,000 mg tablet 1,000 mg PO BID Qty: 60 RF: 0 Anoro Ellipta 62.5-25 mcg/actuation blister with device 1 inh inhalation DAILY RF: 0 atorvastatin [Lipitor] 80 mg tablet 80 mg PO HS RF: 0 irbesartan [Avapro] 75 mg tablet 75 mg PO DAILY RF: 0 Discontinued aspirin 325 mg tablet 325 mg PO QAM RF: 0 No Action pen needle, diabetic [Unifine Pentips] 31 gauge x 5/16" needle .ROUTE .MEDSUPPLY Qty: 700 RF: 3 ferrous sulfate [iron] 325 mg (65 mg iron) tablet 325 mg PO BID Qty: 60 RF: 0 Lantus Solostar U-100 Insulin 100 unit/mL (3 mL) insulin pen 38 units SQ QAM Qty: 15 RF: 11 OneTouch Ultra Blue Test Strip strip .ROUTE .MEDSUPPLY Qty: 100 RF: 0 lancets [OneTouch Delica Lancets] 33 gauge misc .ROUTE .MEDSUPPLY Qty: 100 RF: 0 Oxygen Home Liters Per Minute .ROUTE .MEDSUPPLY Qty: 1 RF: 0 Novolog Flexpen U-100 Insulin 100 unit/mL (3 mL) insulin pen See Patient Comments SQ .COMPLEX RF: 0 Discharge Orders: Discharge Order (Routine); Ordered 02/06/19 Ordered By: Huma Granado Admission Data Admit Date/Time: 02/05/19 13:20 Attending Provider: Lino Draper Admit Provider: Monae Salazar Primary Care Provider: Kenia Cesar Other Providers: Monae Salazar ; Albert Roblero Other Interventions: Discharge Summary Assessment (RN) Last Done: 02/06/19 15:48 DC Date/Time DO NOT enter until pt leaves facility: 02/06/19 16:15 Supervising Physician Co-Signing Physician Notes During my face to face encounter, I interviewed patient and performed a physical examination. I answered all of the patients questions and concerns. I discussed discharge plan with patient and APC. I reviewed above note and agree with it. Patient admitted for GI bleed. Patient no longer having signs of active GI bleed as hemoglobin appears stable, and patient not having large amounts of stool, melena, or hematoquezia. Will recheck hemoglobin on Friday.
== END 2019-02-06 16:15 | disposition home or self-care (01) | DRG 379 ==
LOC: ED 10:22 → 2N 13:20 → SUATTDRO 13:20 → 2N 13:47
DX: J44.9 Chronic obstructive pulmonary disease, unspecified; Z87.891 Personal history of nicotine dependence; Z79.82 Long term (current) use of aspirin; Z80.9 Family history of malignant neoplasm, unspecified; Z83.3 Family history of diabetes mellitus; K92.2 Gastrointestinal hemorrhage, unspecified; Z79.84 Long term (current) use of oral hypoglycemic drugs; E66.9 Obesity, unspecified; E78.5 Hyperlipidemia, unspecified; Z68.34 Body mass index [BMI] 34.0-34.9, adult; E11.9 Type 2 diabetes mellitus without complications; Z79.4 Long term (current) use of insulin; Z99.81 Dependence on supplemental oxygen; D64.9 Anemia, unspecified; Z82.49 Family history of ischemic heart disease and other diseases of the circulatory system; I10 Essential (primary) hypertension; I48.0 Paroxysmal atrial fibrillation; Z93.3 Colostomy status

== ENCOUNTER 2020-05-10 12:18 | Inpatient (IN) ==
[2020-05-10] MEDS ORDERED: guaiFENesin 600 MG TABCR PO STA (13:00)
[2020-05-10] MEDS ORDERED: DEXAMETHASONE SOD INJ 10 MG/ML VIAL IV ONE (13:00)
[2020-05-10] MEDS ORDERED: ALBUTEROL HFA 8 GM INHALER INH ONE (13:00)
[2020-05-10 13:08] LABS: Basophils # (auto) 0.02 K/uL (0-0.2); Basophils % (auto) 0.1 %; Eosinophils # (auto) 0.05 K/uL (0-0.5); Eosinophils % (auto) 0.3 %; Hematocrit (blood only) 48.4 % (42-52); Hemoglobin 15.1 g/dL (14.0-18.0); Immature Granulocytes # (auto) 0.29 K/uL (0.00-0.02); Immature Granulocytes % (auto) 1.9 %; Lymphocytes # (auto) 1.49 K/uL (1.2-3.4); Lymphocytes % (auto) 9.7 %; Mean Corpuscular Hemoglobin 25.9 pg (25-34); Mean Corpuscular Hgb Conc 31.2 g/dL (32-36); Mean Corpuscular Volume 83.2 fL (80-100); Mean Platelet Volume 10.1 fL (7.4-10.4); Monocytes % (auto) 1.3 %; Neutrophils # (auto) 13.28 K/uL (1.4-6.5); Neutrophils % (auto) 86.7 %; Platelet Count 379 K/uL (130-400); RDW Coefficient of Variation 15.1 % (11.5-14.5); RDW Standard Deviation 45.3 fL (36.4-46.3); Red Blood Count 5.82 M/uL (4.7-6.1); White Blood Count 15.33 K/uL (4.8-10.8)
[2020-05-10 13:16] LABS: Alanine Aminotransferase 185 U/L (12-78); Albumin Level 3.2 gm/dl (3.4-5.0); Aspartate Aminotransferase 32 U/L (15-37); Blood Urea Nitrogen 31 mg/dl (7-18); Calcium 9.4 mg/dl (8.5-10.1); Carbon Dioxide 34 mmol/L (21-32); Chloride 102 mmol/L (98-107); Creatinine Clr Calc Pharmacy 66.5 ml/min; Est GFR (African American) 62.5; Est GFR (Non-African American) 53.9; Glucose 188 mg/dl (70-99); Lipase 125 U/L (73-393); Magnesium 1.8 mg/dl (1.8-2.4); Potassium 5.2 mmol/L (3.5-5.1); Sodium 139 mmol/L (136-145)
[2020-05-10 13:19] LABS: INR 1.2 (0.9-1.1); Partial Thromboplastin Ratio 0.9; Partial Thromboplastin Time 23.9 Seconds (21.0-31.0); Prothrombin Time 12.3 Seconds (9.0-12.0)
[2020-05-10 13:21] LABS: Albumin Globulin Ratio 0.8 (0.9-2); Alkaline Phosphatase 164 U/L (45-117); Bilirubin,Total 0.4 mg/dl (0.2-1); Globulin 3.8 gm/dl (2.5-4.0); NT Pro B Type Natriuretic Pept 1556 pg/ml (0-900); Phosphorus 3.9 mg/dl (2.5-4.9); Troponin I < 0.015 ng/ml (0-0.045)
[2020-05-10 14:03] LABS: Influenza A virus by PCR Negative (Neg); Influenza B virus by PCR Negative (Neg); RSV by PCR Negative (Neg); SARS CoV2 RNA(COVID-19) InHosp NEGATIVE (Negative)
--- NOTE | 2020-05-10 14:25 | XRay Report ---
XR chest 1V portable CLINICAL HISTORY: Atypical chest pain COMPARISON STUDY: 06/11/2019 FINDINGS: The heart is enlarged. There is minimal progression in the mild interstitial thickening. Th ere is no lobar consolidation. A density at the level left cardiophrenic angle likely represents summ ation with fat pad and atelectatic change.[ IMPRESSION: Subtle interstitial thickening. No evidence of focal pulmonary consolidation mild left ba silar atelectasis ACT 112: Negative or not required by law. Electronically signed by: Praneeth Gillis M.D. 05/10/2020 2:23 PM
[2020-05-10] MEDS ORDERED: levoFLOXacin/D5W 750 MG/150 ML BAG IV SCH (15:30)
[2020-05-10] MEDS ORDERED: OPTIRAY 320 125ml IV ONE (15:40)
[2020-05-10] MEDS ORDERED: METOPROLOL TARTRATE 1 MG/ML VIAL IV STA ×2 (15:51→16:29)
--- NOTE | 2020-05-10 15:52 | CT Scan Report ---
CT ANGIOGRAM OF THE CHEST CLINICAL HISTORY: Shortness of breath. Possible pulmonary embolism. COMPARISON STUDY: Chest CT dated 06/30/2018, chest x-ray dated 05/10/2020 TECHNIQUE: Following the IV administration of 120 mL of Optiray-320, CT angiogram of the thorax was p erformed from the thoracic inlet to the lung bases utilizing the pulmonary embolus protocol. Images a re reviewed in the axial, sagittal, and coronal planes. IV contrast was administered without complica tion. MIP imaging was performed. A dose lowering technique was utilized adhering to the principles o f ALARA. 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 Coarse calcifications are present w ithin the large left lobe nodule. This remain similar to the prior study No pathologically enlarged axillary mediastinal or hilar lymph nodes were visualized. There was no evidence of thoracic aortic dilatation. There were no pulmonary artery filling defects to indicate acute pulmonary embolism. No pleural effusions are visualized. There is pulmonary emphysema. There is lower lobe bronchial wall thickening. There are dependent opac ities within the left lower lobe, likely atelectatic. There are scattered bilateral pulmonary microno dules. The largest a 3 mm right middle lobe pulmonary nodule remains unchanged. IMPRESSION: 1. Large thyroid goiter with substernal extension 2. No evidence of acute pulmonary embolism 3. Pulmonary emphysema and lower lobe bronchial wall thickening 4. Dependent lower lobe opacities, likely atelectatic ACT 112: Negative or not required by law. Electronically signed by: Praneeth Gillis M.D. 05/10/2020 3:50 PM
--- NOTE | 2020-05-10 15:57 | History & Physical Report ---
Date of Service May 10, 2020 Assessment & Plan (1) Acute respiratory failure with hypoxia: Presents with worsening SOB over the last 6-7 days, FOund to be hypoxic and with rapid atrial flutter, elevated proBNP, neg for COVID/Flu/RSV Chest CTA neg for PE but with atelectasis Likely acute diastolic CHF as below admit to med-tele diurese rate control of atrial flutter wean off supplemental O2 as able to although some of this may be due to h/o severe COPD-likely baseline POx not normal to begin with (2) Diastolic CHF: as above - Likely secondary to hx of such, in acute exacerbation with worsening with being on steriods, and being in rapid aflutter - Give lasix 40 mg IV x 1 now, monitor for diuresis with strict I/Os -start lasix 40mg IV qAM -increasing metoprolol for rate control consult Cardiology (3) Atrial flutter: -Appears to be new on admission, has a remote history of 1 episode of atrial fibrillation which was in 2018 while septic from a UTI, not on anticoagulation due to previous h/o rectal bleeding from a previous TV adenoma with high grade dysplasia which has since been removed -Dr. Sanchez discussed with patient and now agreeable to anticoagulation trial withheparin gtt in case of recurrent bleeding -Start heparin gtt but would transition to Eliquis upon discharge if no rectal bleeding -EKG reviewed -Give IV Lopressor 5 mg x 1 now in the ER - BP improved and rate improved -Switch metoprolol to tartrate 25 mg BID and give first dose now -Consult cardiology (4) CAP (community acquired pneumonia): - suspected on admission but ruled out--> PCT negative, lactate negative, afebrile, and leukocytosis from steroids; no PNA on imaging, no cough - duonebs QID prn - COVID-19 swab negative, influenza swab neg - BCx x 2, follow - Given 1 dose IV Levaquin in ER, hold on further abx, history of being on oral azithromycin x5 days, finished on 05/07 as outpatient. (5) Pulmonary emphysema: - Hx of such -Consulted pulmonology as an outpatient, continue Anoro inh -Continue duo nebs -no further steroids needed (6) COPD (chronic obstructive pulmonary disease): -As above (7) HTN (hypertension): - Continue metoprolol changed to tartrate as above -continue irbesartan 75 mg daily (8) HLD (hyperlipidemia): -lipid panel reviewed, appears triglycerides are elevated, 286 on last check in December 2000 -Encourage weight loss, diet -Cont atorvastatin 80 mg HS (9) Diabetes: -A1c 5.1 last checked in December, recheck with a.m. labs -Continue Levemir 55 units every morning, ISS with Accu-Cheks achs -Hold Metformin -Glycemic pharmacy consulted (10) Elevated LFTs: - ALT 185 and Alk phos 164 - Denies alcohol consumption, could be from haptic congestion from CHF - follow with a.m. 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 He was seen by his PCP and was screened for Covid early last week, which resulted on Friday as negative. Therefore, he was prescribed prednisone taper and azithromycin for suspected COPD exacerbation. He reports completing the [facility] on Friday this week, but never really felt like his SOB improved. Shortness of breath has progressed in the last 3 days, and upon seeing his PCP for follow-up, instructed him to come to the ER after being found to be hypoxic. Patient denies any other acute complaints other than a shortness of breath; no chest pain, chest tightness, runny nose, sore throat, headache, and denies known Covid contacts. He was rescreened for Covid today which was again negative in the ER. Pt was adamant that he did not even want to come to the hospital, but is agreeable to admission and staying 2 nights. He feels that his elevated heart rate is because he is annoyed, but does not feel palpitations. ER treated him for suspected diagnosis of pneumonia with IV antibiotics, but procalcitonin was negative, he has been afebrile, and is not coughing. Pro BNP elevated, CTA Chest neg for PE but shows multinodular goiter and dependent opacities,possibly atelectatic. Troponin negative and denied chest pain WBC count elevated but had been on prednisone at home. He had rapid atrial flutter in the ER which is new for him, rates in the 130s. 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 Lives at home. Allergies Allergy/AdvReac Type Severity Reaction Status Date / Time empagliflozin AdvReac Severe Penile Verified 05/10/20 10:55 [From Jardiance] edema Home Medications Medication Instructions Recorded Confirmed Type ferrous sulfate 325 mg (65 mg 325 mg PO BID #60 tab 02/08/19 05/10/20 Rx iron) tablet acetaminophen 325 mg tablet 650 mg PO Q4H PRN #30 tab 05/25/19 05/10/20 Rx multivitamin 1 tab PO DAILY #30 tab 05/25/19 05/10/20 Rx metformin 1,000 mg tablet 1,000 mg PO BID #60 tab 11/17/19 05/10/20 Rx sildenafil 25 mg tablet 25 mg PO DAILY PRN #20 tab 01/28/20 05/10/20 Rx tadalafil 20 mg tablet 20 mg PO DAILY PRN #30 tab 02/24/20 05/10/20 Rx metoprolol succinate 25 mg 12.5 mg PO DAILY tab 03/31/20 05/10/20 History tablet,extended release 24 hr lorazepam 0.5 mg tablet See Rx Instructions PO BID PRN #45 04/06/20 05/10/20 Rx tab atorvastatin 80 mg tablet 80 mg PO HS #90 tab 04/19/20 05/10/20 Rx albuterol sulfate 90 mcg/actuation 2 puff INHALATION QID PRN #18 gm 05/01/20 05/10/20 Rx aerosol inhaler irbesartan 75 mg tablet 75 mg PO DAILY #90 tab 05/01/20 05/10/20 Rx prednisone 20 mg tablet See Rx Instructions PO .COMPLEX 05/03/20 05/10/20 Rx #30 tab umeclidinium 62.5 mcg-vilanterol 1 inh INH Q24H #60 ea 05/09/20 05/10/20 Rx 25 mcg/actuation powdr for inhalation insulin aspart U-100 100 unit/mL 30 unit SQ .COMPLEX ml 05/10/20 05/10/20 History (3 mL) subcutaneous pen insulin glargine 100 unit/mL (3 55 unit SQ QAM ml 05/10/20 05/10/20 History mL) subcutaneous pen Past Med/Surg History Medical History ANGELA (acute kidney injury) Atrial fibrillation BPH with obstruction/lower urinary tract symptoms Chronic obstructive pulmonary disease Claudication Diabetes mellitus, type 2 Encounter for pre-operative examination Former tobacco use GI bleed Hyperlipidemia Hypertension Obesity PAD (peripheral artery disease) Preoperative cardiovascular examination Pulmonary emphysema Rectal mass Symptomatic anemia Ventral hernia Vitamin D deficiency Surgical History History of adenoidectomy History of colon surgery History of colonoscopy versed/propofol, no issues. completed 07/07/2018. History of creation of ostomy History of laparotomy History of low anterior resection of rectum History of tonsillectomy History of tooth extraction Family History Father Family history of diabetes mellitus Brother Family history of diabetes mellitus Cardiac disorder Unknown Diabetes Mother Cardiac disorder Cancer Denies family history of Ovarian cancer Prostate cancer Myocardial infarction Breast cancer Colorectal cancer Social History Smoking Status: Former smoker Number of Years Since Quit: 10; Second Hand Exposure: No; Hx Alcohol Use: Yes Alcohol type: hard liquor Hx Substance Use: No Preferred Language: Ukrainian Communication Ability: Effective Visual Impairment: No Limitations Slitter Helper Required: No Beliefs That Will Affect Care: None marital status: Single Current Living Situation: Alone current occupational status: employed Other Information That Helps Us Care for You: No Feels Safe at Home: Yes Safety Concerns: Feels Safe At This Time caffeine: Yes Dental Care, Regularly: No Physical Activity Frequency: Does not Exercise Seatbelt Use: always Sunscreen Use: No Assistive Devices: None Review of Systems Review of Systems: Constitutional: No fever, sweats or chills Eyes: No diplopia, no worsening or blurred vision ENT: normal hearing, no trouble swallowing Respiratory: As per HPI, +cough, previously no sputum production, has been given Mucinex in the ER now bringing up sputum, + dyspnea on exertion Cardiovascular: No chest pain, tightness or palpitations Abdomen: No pain, nausea, vomiting, diarrhea or constipation Musculoskeletal: No joint pain, calf pain, swelling Neurologic: No weakness, numbness/tingling, or balance problems Psychiatric: No anxiety or depression Skin: No rash or itch Physical Exam Physical Exam: General: awake, alert, no apparent distress, + obese with BMI of 35.4 Head: Normocephalic, atraumatic ENT: PERRL, EOMI, no pharyngeal exudate, mucous membranes moist Chest: On 4 L via NC, O2 sats 96%, diminished breath sounds at bases bilaterally, + rales, no wheeze or rhonchi Cardiac: Atrial flutter, HR in the 110s at bedside, with leaning forward and deep breaths jumps up to 150-160s, no murmur, no JVD, normal peripheral pulses, good capillary refill Abdominal: NABS x 4 quadrants, soft, nondistended, nontender to palpation, no rebound or guarding Extremities: Normal inspection, no peripheral edema or erythema, calfs nontender to palpation Psych: Normal mood and affect Neuro: AAO x 3, strength intact bilaterally and rated 5/5, no motor deficits, speech is clear, no peripheral sensory deficits Results & Data Results & Data ([facility]) Vital Signs (Past 12 Hours) Vital Signs Temp Pulse Pulse Resp BP BP Pulse Ox 05/10/20 15:01 92 H 22 172/100 H 96 05/10/20 15:00 97 H 24 95 05/10/20 14:31 92 H 22 99 05/10/20 14:30 90 20 146/71 H 99 05/10/20 14:01 89 22 96 05/10/20 14:00 91 H 22 192/103 H 96 05/10/20 13:31 95 H 22 97 05/10/20 13:30 103 H 22 180/111 H 97 05/10/20 13:18 89 20 170/102 H 96 05/10/20 13:17 88 22 191/138 H 96 05/10/20 13:16 101 H 24 96 05/10/20 13:00 103 H 24 170/102 H 94 05/10/20 12:37 36.9 C 122 H 24 125/98 87 L 05/10/20 12:35 122 H 24 125/98 87 L 05/10/20 12:31 100 H 22 95 05/10/20 12:30 107 H 24 168/118 H 93 05/10/20 12:27 102 H 24 125/98 92 Laboratory Results 05/10/20 05/10/20 05/10/20 Range/Units 19:05 19:03 13:12 WBC (4.8-10.8) K/uL RBC (4.7-6.1) M/uL Hgb (14.0-18.0) g/dL Hct (42-52) % MCV (80-100) fL MCH (25-34) pg MCHC (32-36) g/dL RDW Std Deviation (36.4-46.3) fL RDW Coeff of Laurie (11.5-14.5) % Plt Count (130-400) K/uL MPV (7.4-10.4) fL Immature Gran % (Auto) % Neut % (Auto) % Lymph % (Auto) % Finney % (Auto) % Eos % (Auto) % Baso % (Auto) % Neut # (Auto) (1.4-6.5) K/uL Lymph # (Auto) (1.2-3.4) K/uL Finney # (Auto) (0.11-0.59) K/uL Eos # (Auto) (0-0.5) K/uL Baso # (Auto) (0-0.2) K/uL Immature Gran # (Auto) (0.00-0.02) K/uL PT (9.0-12.0) Seconds INR (0.9-1.1) APTT (21.0-31.0) Seconds PTT Ratio Sodium (136-145) mmol/L Potassium (3.5-5.1) mmol/L Chloride (98-107) mmol/L Carbon Dioxide (21-32) mmol/L Anion Gap (3-11) BUN (7-18) mg/dl Creatinine (0.6-1.4) mg/dl Est Cr Clr Drug Dosing ml/min Est GFR ( Amer) Est GFR (Non-Af Amer) BUN/Creatinine Ratio (10-20) Glucose (70-99) mg/dl POC Glucose 308 H* 319 H* (70-99) mg/dl Lactate (0.4-2.0) mmol/L Calcium (8.5-10.1) mg/dl Phosphorus (2.5-4.9) mg/dl Magnesium (1.8-2.4) mg/dl Total Bilirubin (0.2-1) mg/dl AST (15-37) U/L ALT (12-78) U/L Alkaline Phosphatase (45-117) U/L Troponin I (0-0.045) ng/ml NT-Pro-B Natriuret Pep (0-900) pg/ml Total Protein (6.4-8.2) gm/dl Albumin (3.4-5.0) gm/dl Globulin (2.5-4.0) gm/dl Albumin/Globulin Ratio (0.9-2) Lipase (73-393) U/L Procalcitonin (0-0.5) ng/ml TSH COVID-19 Eval Order SARS-CoV-2 (PCR) NEGATIVE (Negative) Influenza Type A (PCR) Negative (Neg) Influenza Type B (PCR) Negative (Neg) RSV (RT-PCR) Negative (Neg) 05/10/20 05/10/20 05/10/20 Range/Units 13:12 13:12 12:30 WBC (4.8-10.8) K/uL RBC (4.7-6.1) M/uL Hgb (14.0-18.0) g/dL Hct (42-52) % MCV (80-100) fL MCH (25-34) pg MCHC (32-36) g/dL RDW Std Deviation (36.4-46.3) fL RDW Coeff of Laurie (11.5-14.5) % Plt Count (130-400) K/uL MPV (7.4-10.4) fL Immature Gran % (Auto) % Neut % (Auto) % Lymph % (Auto) % Finney % (Auto) % Eos % (Auto) % Baso % (Auto) % Neut # (Auto) (1.4-6.5) K/uL Lymph # (Auto) (1.2-3.4) K/uL Finney # (Auto) (0.11-0.59) K/uL Eos # (Auto) (0-0.5) K/uL Baso # (Auto) (0-0.2) K/uL Immature Gran # (Auto) (0.00-0.02) K/uL PT (9.0-12.0) Seconds INR (0.9-1.1) APTT (21.0-31.0) Seconds PTT Ratio Sodium (136-145) mmol/L Potassium (3.5-5.1) mmol/L Chloride (98-107) mmol/L Carbon Dioxide (21-32) mmol/L Anion Gap (3-11) BUN (7-18) mg/dl Creatinine (0.6-1.4) mg/dl Est Cr Clr Drug Dosing ml/min Est GFR ( Amer) Est GFR (Non-Af Amer) BUN/Creatinine Ratio (10-20) Glucose (70-99) mg/dl POC Glucose (70-99) mg/dl Lactate 1.5 (0.4-2.0) mmol/L Calcium (8.5-10.1) mg/dl Phosphorus (2.5-4.9) mg/dl Magnesium (1.8-2.4) mg/dl Total Bilirubin (0.2-1) mg/dl AST (15-37) U/L ALT (12-78) U/L Alkaline Phosphatase (45-117) U/L Troponin I (0-0.045) ng/ml NT-Pro-B Natriuret Pep (0-900) pg/ml Total Protein (6.4-8.2) gm/dl Albumin (3.4-5.0) gm/dl Globulin (2.5-4.0) gm/dl Albumin/Globulin Ratio (0.9-2) Lipase (73-393) U/L Procalcitonin (0-0.5) ng/ml TSH Pending COVID-19 Eval Order CovFluRsv at [facility] SARS-CoV-2 (PCR) (Negative) Influenza Type A (PCR) (Neg) Influenza Type B (PCR) (Neg) RSV (RT-PCR) (Neg) 05/10/20 05/10/20 05/10/20 Range/Units 12:30 12:30 12:30 WBC (4.8-10.8) K/uL RBC (4.7-6.1) M/uL Hgb (14.0-18.0) g/dL Hct (42-52) % MCV (80-100) fL MCH (25-34) pg MCHC (32-36) g/dL RDW Std Deviation (36.4-46.3) fL RDW Coeff of Laurie (11.5-14.5) % Plt Count (130-400) K/uL MPV (7.4-10.4) fL Immature Gran % (Auto) % Neut % (Auto) % Lymph % (Auto) % Finney % (Auto) % Eos % (Auto) % Baso % (Auto) % Neut # (Auto) (1.4-6.5) K/uL Lymph # (Auto) (1.2-3.4) K/uL Finney # (Auto) (0.11-0.59) K/uL Eos # (Auto) (0-0.5) K/uL Baso # (Auto) (0-0.2) K/uL Immature Gran # (Auto) (0.00-0.02) K/uL PT 12.3 H (9.0-12.0) Seconds INR 1.2 H (0.9-1.1) APTT 23.9 (21.0-31.0) Seconds PTT Ratio 0.9 Sodium 139 (136-145) mmol/L Potassium 5.2 H (3.5-5.1) mmol/L Chloride 102 (98-107) mmol/L Carbon Dioxide 34 H (21-32) mmol/L Anion Gap 4.0 (3-11) BUN 31 H (7-18) mg/dl Creatinine 1.35 (0.6-1.4) mg/dl Est Cr Clr Drug Dosing 66.5 ml/min Est GFR ( Amer) 62.5 Est GFR (Non-Af Amer) 53.9 BUN/Creatinine Ratio 23.0 H (10-20) Glucose 188 H (70-99) mg/dl POC Glucose (70-99) mg/dl Lactate (0.4-2.0) mmol/L Calcium 9.4 (8.5-10.1) mg/dl Phosphorus 3.9 (2.5-4.9) mg/dl Magnesium 1.8 (1.8-2.4) mg/dl Total Bilirubin 0.4 (0.2-1) mg/dl AST 32 (15-37) U/L ALT 185 H (12-78) U/L Alkaline Phosphatase 164 H (45-117) U/L Troponin I < 0.015 (0-0.045) ng/ml NT-Pro-B Natriuret Pep 1556 H (0-900) pg/ml Total Protein 7.0 (6.4-8.2) gm/dl Albumin 3.2 L (3.4-5.0) gm/dl Globulin 3.8 (2.5-4.0) gm/dl Albumin/Globulin Ratio 0.8 L (0.9-2) Lipase 125 (73-393) U/L Procalcitonin < 0.05 (0-0.5) ng/ml TSH COVID-19 Eval Order SARS-CoV-2 (PCR) (Negative) Influenza Type A (PCR) (Neg) Influenza Type B (PCR) (Neg) RSV (RT-PCR) (Neg) 05/10/20 Range/Units 12:30 WBC 15.33 H (4.8-10.8) K/uL RBC 5.82 (4.7-6.1) M/uL Hgb 15.1 (14.0-18.0) g/dL Hct 48.4 (42-52) % MCV 83.2 (80-100) fL MCH 25.9 (25-34) pg MCHC 31.2 L (32-36) g/dL RDW Std Deviation 45.3 (36.4-46.3) fL RDW Coeff of Laurie 15.1 H (11.5-14.5) % Plt Count 379 (130-400) K/uL MPV 10.1 (7.4-10.4) fL Immature Gran % (Auto) 1.9 % Neut % (Auto) 86.7 % Lymph % (Auto) 9.7 % Finney % (Auto) 1.3 % Eos % (Auto) 0.3 % Baso % (Auto) 0.1 % Neut # (Auto) 13.28 H (1.4-6.5) K/uL Lymph # (Auto) 1.49 (1.2-3.4) K/uL Finney # (Auto) 0.20 (0.11-0.59) K/uL Eos # (Auto) 0.05 (0-0.5) K/uL Baso # (Auto) 0.02 (0-0.2) K/uL Immature Gran # (Auto) 0.29 H (0.00-0.02) K/uL PT (9.0-12.0) Seconds INR (0.9-1.1) APTT (21.0-31.0) Seconds PTT Ratio Sodium (136-145) mmol/L Potassium (3.5-5.1) mmol/L Chloride (98-107) mmol/L Carbon Dioxide (21-32) mmol/L Anion Gap (3-11) BUN (7-18) mg/dl Creatinine (0.6-1.4) mg/dl Est Cr Clr Drug Dosing ml/min Est GFR ( Amer) Est GFR (Non-Af Amer) BUN/Creatinine Ratio (10-20) Glucose (70-99) mg/dl POC Glucose (70-99) mg/dl Lactate (0.4-2.0) mmol/L Calcium (8.5-10.1) mg/dl Phosphorus (2.5-4.9) mg/dl Magnesium (1.8-2.4) mg/dl Total Bilirubin (0.2-1) mg/dl AST (15-37) U/L ALT (12-78) U/L Alkaline Phosphatase (45-117) U/L Troponin I (0-0.045) ng/ml NT-Pro-B Natriuret Pep (0-900) pg/ml Total Protein (6.4-8.2) gm/dl Albumin (3.4-5.0) gm/dl Globulin (2.5-4.0) gm/dl Albumin/Globulin Ratio (0.9-2) Lipase (73-393) U/L Procalcitonin (0-0.5) ng/ml TSH COVID-19 Eval Order SARS-CoV-2 (PCR) (Negative) Influenza Type A (PCR) (Neg) Influenza Type B (PCR) (Neg) RSV (RT-PCR) (Neg) Diagnostic Findings XR chest 1V portable CLINICAL HISTORY: Atypical chest pain COMPARISON STUDY: 06/11/2019 FINDINGS: The heart is enlarged. There is minimal progression in the mild interstitial thickening. There is no lobar consolidation. A density at the level left cardiophrenic angle likely represents summation with fat pad and atelectatic change.[ IMPRESSION: Subtle interstitial thickening. No evidence of focal pulmonary consolidation mild left basilar atelectasis CT ANGIOGRAM OF THE CHEST CLINICAL HISTORY: Shortness of breath. Possible pulmonary embolism. COMPARISON STUDY: Chest CT dated 06/30/2018, chest x-ray dated 05/10/2020 TECHNIQUE: Following the IV administration of 120 mL of Optiray-320, CT angiogram of the thorax was performed from the thoracic inlet to the lung bases utilizing the pulmonary embolus protocol. Images are reviewed in the axial, sagittal, and coronal planes. IV contrast was administered without complication. MIP imaging was performed. A dose lowering technique was utilized adhering to the principles of ALARA. 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 Coarse calcifications are present within the large left lobe nodule. This remain similar to the prior study No pathologically enlarged axillary mediastinal or hilar lymph nodes were vis ualized. There was no evidence of thoracic aortic dilatation. There were no pulmonary artery filling defects to indicate acute pulmonary embolism. No pleural effusions are visualized. There is pulmonary emphysema. There is lower lobe bronchial wall thickening. There are dependent opacities within the left lower lobe, likely atelectatic. There are scattered bilateral pulmonary micronodules. The largest a 3 mm right middle lobe pulmonary nodule remains unchanged. IMPRESSION: 1. Large thyroid goiter with substernal extension 2. No evidence of acute pulmonary embolism 3. Pulmonary emphysema and lower lobe bronchial wall thickening 4. Dependent lower lobe opacities, likely atelectatic ECG Additional Comments: 10-MAY-2020 12:34:09 [facility]-EDSTAT ROUTINE RETRIEVAL Atrial flutter with variable A-V block Nonspecific ST abnormality Abnormal ECG When compared with ECG of 05-FEB-2019 11:44, Atrial flutter has replaced Sinus rhythm Nonspecific T wave abnormality now evident in Anterior leads 25mm/s 10mm/mV 150Hz 9.0.9 12SL 241 HD ABDOUL: 12 Referred by: REFERRED SELF Unconfirmed Vent. rate 88 BPM ID interval * ms QRS duration 88 ms QT/QTc 364/440 ms Code Status & VTE Plan Code Status Full code-discussed with patient at bedside Supervising Physician Co-Signing Physician Notes PA Supervision Note: I personally saw and examined the patient. I verified all best points and agree with MESSI Hill with the following exceptions and/or additions: Pt is a 69 yo male wth history as noted above, ehre with progressively worsening SOB, rapid atrial flutter, hypoxia and suspected acute diastolic CHF History and ROS reviewed as above No rectal bleeding in years, no bleeding from anywhere, no chest pains. Vitals reviewed NAD, AAOx3 irreg irreg tachycardic, no mgr +bibasilar crackles, no wheezes, otherwise clear, no resp distress, NC in place ABd +BS spft, large ventral hernia LLQ, multiple incisional scars Ext-no edema SKin no rashes Labs and Rads reviewed, ECG reviewed 69 yo male here with hypoxia, secondary to acute discatolic CHF from rapid atrial flutter ruled out PNA, ruled out COVID/Flu Changes made to PA note as above -diurese-add on IV lasix daily in AM after tonight's dose -make nebs prn, no need for steroids -rate control with beta aleta Plan to start Elqiuis if no bleeding with heparin gtt No cardioversion unless has LINDEN as has likely been going on for 6-7 days PG Care Time/CCT Total # of Minutes Spent Total Time Spent with Patient: Total time spent is greater than 50% in coordination of care (as documented) at patient's floor/unit and/or counseling patient: Coding Level of Care Code 30101 Initial Inpt Care Lvl 3 Diagnoses Acute respiratory failure with hypoxia J96.01 Diastolic CHF I50.30 Atrial flutter I48.92 CAP (community acquired pneumonia) J18.9 Pulmonary emphysema J43.9 COPD (chronic obstructive pulmonary disease) J44.9 HTN (hypertension) I10 HLD (hyperlipidemia) E78.5 Diabetes E11.9 Elevated LFTs R94.5 BPH with obstruction/lower urinary tract symptoms N40.1; N13.8 DVT prophylaxis Z29.9
[2020-05-10] MEDS ORDERED: FUROSEMIDE 40 MG/4 ML VIAL IV STA (17:29)
[2020-05-10] MEDS ORDERED: METOPROLOL TARTRATE 25 MG TAB PO STA (17:41)
[2020-05-10] MEDS ORDERED: Heparin IV Standard *NO* Bolus IV SCH (17:45)
[2020-05-10] MEDS ORDERED: LORazepam 0.5 MG TAB PO PRN (19:09)
[2020-05-10] MEDS ORDERED: ALBUT/IPRATROP 3MG/0.5MG NEB 3 ML VIAL NEB SCH (19:09)
[2020-05-10] MEDS ORDERED: DEXTROSE 50% 50 ML SYRINGE IV PRN (19:09)
[2020-05-10] MEDS ORDERED: GLUCOSE 40% GEL 15 GM TUBE PO PRN (19:09)
[2020-05-10] MEDS ORDERED: ACETAMINOPHEN 325 MG TAB PO PRN (19:09)
[2020-05-10] MEDS ORDERED: CARBOHYDRATES FOR HYPOGLYCEMIA PO PRN (19:09)
[2020-05-10] MEDS ORDERED: ONDANSETRON INJ 2 MG/ML 2 ML VIAL IV PRN (19:09)
[2020-05-10] MEDS ORDERED: INSULIN ASPART 100 UNITS/ML 3 ML PEN SQ SCH (19:09)
[2020-05-10] MEDS ORDERED: GLUCOSE 10 TABS/TUBE PO PRN (19:09)
[2020-05-10] MEDS ORDERED: GLUCAGON FOR INJ 1 MG VIAL SQ PRN (19:09)
[2020-05-10] MEDS ORDERED: PHARMACY GLYCEMIC MGMT CONSULT PRN (19:19)
[2020-05-10] MEDS: METOPROLOL TARTRATE 25 MG TAB PO SCH ×2 (20:10→20:57)
[2020-05-10] MEDS: HEPARIN SODIUM/DEXTROSE 25,000 UNITS/500 ML BAG IV SCH (20:19)
[2020-05-10] MEDS ORDERED: ALBUT/IPRATROP 3MG/0.5MG NEB 3 ML VIAL NEB PRN (20:28)
[2020-05-10 20:43] LABS: Thyroid Stimulating Hormone 0.292 uIu/ml (0.300-4.500)
[2020-05-10 20:55] LABS: T4 Free Thyroxine 1.11 ng/dl (0.8-1.6)
[2020-05-10] MEDS: INSULIN ASPART 100 UNITS/ML 3 ML PEN SC SCH (20:55)
[2020-05-10] MEDS: FERROUS SULFATE 325 MG TAB PO SCH (20:57)
[2020-05-10] MEDS: guaiFENesin 600 MG TABCR PO SCH (20:58)
[2020-05-10] MEDS: ATORVASTATIN 40 MG TAB PO SCH (20:58)
[2020-05-10] MEDS ORDERED: BENZONATATE 100 MG CAPSULE PO SCH (21:00)
--- NOTE | 2020-05-10 22:00 | Emergency Department Note ---
Impression & Plan CAP (community acquired pneumonia), COPD (chronic obstructive pulmonary disease), Atrial flutter, Hypoxia ED Provider Note NAME: SARAH HENNING AGE: 69 SEX: M ARRIVES VIA: Ambulance INFORMANT: Patient, ED PROVIDER(S): Yogi Prescott MD CHIEF COMPLAINT: Shortness of breath PLAN: Disposition: Admit MEDICAL DECISION MAKING: The patient is a pleasant 69 y/o gentleman with a pmhx of COPD/emphysema not on home O2, Type 2 Diabetes Mellitus, Dyslipidemia, Hypertension, Obesity, PAD with RLE Claudication, and Paroxysmal Atrial Fibrillation (1 documented episode 11/25/2017 in the setting of UTI) who presents to the emergency department from pcp office for worsening sob and hypoxia to mid 80s on RA in the setting of having cold symptoms starting approximately 2 weeks ago with negative Covid19 test last week. He reports completing a Zpack and steroid taper. He reports feeling weak and lightheaded at times. The patient denies any known Covid19 exposures. He denies CP, n/v/d, or urinary symptoms. He reports he is not on anticoagulation as his single episode of afib in the past resolved. On arrival the patient is mild dyspneic/fatigued but in NAD, AF, HR 90-100s in atrial flutter and otherwise VSS. On exam the patient has scant wheezes and rhonchi. He appears euvolemic to clinically dry. Abdomen is benign. EKG is aflutter, 80s, no evidence of acute ischemia. CXR with nonspecific interstitial thickening and left basilar atelectasis. WBC 15K but in the setting of being on steroids. H/H and platelets wnl. BUN 31 with BUN/cr >20 suggestive of component of dehydration. ALT 185, nonspecific. Otherwise LFT and electrolytes without significant abnormalities. Troponin negative/undetectable. BNP 1500, nonspecific, which could be relate to patient's Aflutter. Procalcitonin undetectable. TSH 0.29 but with Free t4 wnl. Covid19, flu, and RSV PCR negative. Patient ordered for Levaquin for suspected CAP/bronchitis. CTA ordered and negative for PE but with emphysema and lower lobe bronchial wall thickening with dependent basilar opacities. Note is made of large goiter. Patient is agreeable with plan for admission. updated via phone. Case was discussed with Dr. Sanchez, [facility] hospitalist, who will evaluate the patient for admission. Triage Nursing notes reviewed and agree them. Additional history obtained from . Prior medical records reviewed Vital Signs: reviewed and remarkable for hypoxia. Differential diagnosis: Reactive airway disease, pneumonia, pneumothorax, COPD, CHF, infections, cardiac ischemia, pulmonary embolism, musculoskeletal, gastrointestinal, as well as other pathologies. ER treatment provided: See below. Diagnostics interpreted by me: ECG: Atrial flutter, 88 bpm, no ectopy, variable AV block, no specific ST abnormality, no overt ST elevation or depression. Cardiac Monitoring: An order for continuous cardiac monitoring was placed and demonstrated Atrial flutter, 88 bpm, no ectopy, variable AV block. Laboratory studies: See below Imaging studies: XR chest 1V portable CLINICAL HISTORY: Atypical chest pain COMPARISON STUDY: 06/11/2019 FINDINGS: The heart is enlarged. There is minimal progression in the mild interstitial thickening. There is no lobar consolidation. A density at the level left cardiophrenic angle likely represents summation with fat pad and atelectatic change.[ IMPRESSION: Subtle interstitial thickening. No evidence of focal pulmonary consolidation mild left basilar atelectasis ACT 112: Negative or not required by law. - CT ANGIOGRAM OF THE CHEST CLINICAL HISTORY: Shortness of breath. Possible pulmonary embolism. COMPARISON STUDY: Chest CT dated 06/30/2018, chest x-ray dated 05/10/2020 TECHNIQUE: Following the IV administration of 120 mL of Optiray-320, CT angiogram of the thorax was performed from the thoracic inlet to the lung bases utilizing the pulmonary embolus protocol. Images are reviewed in the axial, s agittal, and coronal planes. IV contrast was administered without complication. MIP imaging was performed. A dose lowering technique was utilized adhering to the principles of ALARA. 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 Coarse calcifi cations are present within the large left lobe nodule. This remain similar to the prior study No pathologically enlarged axillary mediastinal or hilar lymph nodes were visualized. There was no evidence of thoracic aortic dilatation. There were no pulmonary artery filling defects to indicate acute pulmonary embolism. No pleural effusions are visualized. There is pulmonary emphysema. There is lower lobe bronchial wall thickening. There are dependent opacities within the left lower lobe, likely atelectatic. There are scattered bilateral pulmonary micronodules. The largest a 3 mm right middle lobe pulmonary nodule remains unchanged. IMPRESSION: 1. Large thyroid goiter with substernal extension 2. No evidence of acute pulmonary embolism 3. Pulmonary emphysema and lower lobe bronchial wall thickening 4. Dependent lower lobe opacities, likely atelectatic ACT 112: Negative or not required by law. Consultation(s): Case was discussed with Dr. Sanchez, [facility] hospitalist, who will evaluate the patient for admission. 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 He reports completing a Zpack and steroid taper. He reports feeling weak and lightheaded at times. The patient denies any known Covid19 exposures. He denies CP, n/v/d, or urinary symptoms. He reports he is not on anticoagulation as his single episode of afib in the past resolved. ROS: See above HPI for pertinent positives & negatives. A total of 10 systems reviewed and were otherwise negative. PAST MEDICAL HISTORY:See Below PAST SURGICAL HISTORY:See Below FAMILY HISTORY:See Below SOCIAL HISTORY:See Below HOME MEDICATIONS:See Below ALLERGIES:See Below VITALS:See Below PHYSICAL EXAMINATION: GENERAL: Awake, alert, fatigued-appearing, in no distress HENT: Normocephalic, atraumatic. Oropharynx with dry mucous membranes and otherwise unremarkable. EYES: Normal conjunctiva. Sclera non-icteric. NECK: Supple. No nuchal rigidity. FROM. No JVD. RESPIRATORY: Scattered wheezes and rhonchi. Mildly dyspneic without increased WOB. CARDIAC: Regular rate, irregular rhythm. Extremities warm and well perfused. Pulses equal. ABDOMEN: Soft, non-distended. No tenderness to palpation. No rebound or guarding. No masses. RECTAL: Deferred. MUSCULOSKELETAL: Chest examination reveals no tenderness. The back is symmetrical on inspection without obvious abnormality. There is no CVA tenderness to palpation. No joint edema. LOWER EXTREMITIES: Calves are equal size bilaterally and non-tender. No edema. No discoloration. NEURO: Normal sensorium. No sensory or motor deficits noted. SKIN: No rash or jaundice noted. Yogi Prescott MD Past Med/Surg History Medical History ANGELA (acute kidney injury) Atrial fibrillation BPH with obstruction/lower urinary tract symptoms Chronic obstructive pulmonary disease Claudication Diabetes mellitus, type 2 Encounter for pre-operative examination Former tobacco use GI bleed Hyperlipidemia Hypertension Obesity PAD (peripheral artery disease) Preoperative cardiovascular examination Pulmonary emphysema Rectal mass Symptomatic anemia Ventral hernia Vitamin D deficiency Surgical History History of adenoidectomy History of colon surgery History of colonoscopy versed/propofol, no issues. completed 07/07/2018. History of creation of ostomy History of laparotomy History of low anterior resection of rectum History of tonsillectomy History of tooth extraction Family History Father Family history of diabetes mellitus Brother Family history of diabetes mellitus Cardiac disorder Unknown Diabetes Mother Cardiac disorder Cancer Denies family history of Ovarian cancer Prostate cancer Myocardial infarction Breast cancer Colorectal cancer Social History Smoking Status: Former smoker Number of Years Since Quit: 10; Second Hand Exposure: No; Hx Alcohol Use: Yes Alcohol type: hard liquor Hx Substance Use: No Preferred Language: Albanian Communication Ability: Effective Visual Impairment: No Limitations Water Quality Technician Required: No Beliefs That Will Affect Care: None marital status: Single Current Living Situation: Alone current occupational status: employed Other Information That Helps Us Care for You: No Feels Safe at Home: Yes Safety Concerns: Feels Safe At This Time caffeine: Yes Dental Care, Regularly: No Physical Activity Frequency: Does not Exercise Seatbelt Use: always Sunscreen Use: No Assistive Devices: Oxygen - Continuous Allergies Allergies Allergy/AdvReac Type Severity Reaction Status Date / Time empagliflozin AdvReac Severe Penile Verified 05/10/20 10:55 [From Gabby] edema Home Meds Home Medications Medication Instructions Recorded Confirmed metoprolol succinate 25 mg 12.5 mg PO DAILY tab 03/31/20 05/10/20 tablet,extended release 24 hr insulin aspart U-100 100 unit/mL 30 unit SQ .COMPLEX ml 05/10/20 05/10/20 (3 mL) subcutaneous pen insulin glargine 100 unit/mL (3 55 unit SQ QAM ml 05/10/20 05/10/20 mL) subcutaneous pen Previous Rx's Medication Instructions Recorded ferrous sulfate 325 mg (65 mg 325 mg PO BID #60 tab 02/08/19 iron) tablet acetaminophen 325 mg tablet 650 mg PO Q4H PRN #30 tab 05/25/19 multivitamin 1 tab PO DAILY #30 tab 05/25/19 metformin 1,000 mg tablet 1,000 mg PO BID #60 tab 11/17/19 sildenafil 25 mg tablet 25 mg PO DAILY PRN #20 tab 01/28/20 tadalafil 20 mg tablet 20 mg PO DAILY PRN #30 tab 02/24/20 lorazepam 0.5 mg tablet See Rx Instructions PO BID PRN #45 04/06/20 tab atorvastatin 80 mg tablet 80 mg PO HS #90 tab 04/19/20 albuterol sulfate 90 mcg/actuation 2 puff INHALATION QID PRN #18 gm 05/01/20 aerosol inhaler irbesartan 75 mg tablet 75 mg PO DAILY #90 tab 05/01/20 prednisone 20 mg tablet See Rx Instructions PO .COMPLEX 05/03/20 #30 tab umeclidinium 62.5 mcg-vilanterol 1 inh INH Q24H #60 ea 05/09/20 25 mcg/actuation powdr for inhalation Results & Data (ED) Vital Signs Vital Signs - 24 hr 05/10/20 15:48 05/10/20 15:55 05/10/20 16:00 Pulse Rate 162 H 125 H Pulse Rate [Apical] 117 H Pulse Rate from SpO2 Sensor 161 H Pulse Rhythm [Apical] Irregular Pulse Strength [Apical] Normal Respiratory Rate 13 20 20 Respiratory Effort / Characteristics Non-Labored Spontaneous Respiratory Depth Normal Respiratory Pattern Regular Blood Pressure Blood Pressure [Left Arm] 127/78 Blood Pressure Mean Blood Pressure Mean [Left Arm] 94 Blood Pressure Position [Left Arm] Sitting Pulse Oximetry 92 97 Oxygen Delivery Method Nasal Cannula Oxygen Flow Rate 3 05/10/20 16:01 05/10/20 16:30 05/10/20 16:31 Pulse Rate 118 H 109 H 109 H Pulse Rate [Apical] Pulse Rate from SpO2 Sensor Pulse Rhythm [Apical] Pulse Strength [Apical] Respiratory Rate 28 H 22 22 Respiratory Effort / Characteristics Respiratory Depth Respiratory Pattern Blood Pressure 189/88 H 184/119 H Blood Pressure [Left Arm] Blood Pressure Mean 96 127 Blood Pressure Mean [Left Arm] Blood Pressure Position [Left Arm] Pulse Oximetry Oxygen Delivery Method Oxygen Flow Rate 05/10/20 16:42 05/10/20 17:00 05/10/20 17:01 Pulse Rate 109 H 89 88 Pulse Rate [Apical] Pulse Rate from SpO2 Sensor Pulse Rhythm [Apical] Pulse Strength [Apical] Respiratory Rate 24 22 Respiratory Effort / Characteristics Respiratory Depth Respiratory Pattern Blood Pressure 194/119 H 139/78 Blood Pressure [Left Arm] Blood Pressure Mean 101 Blood Pressure Mean [Left Arm] Blood Pressure Position [Left Arm] Pulse Oximetry 98 Oxygen Delivery Method Nasal Cannula Oxygen Flow Rate 2 Laboratory Data Attestation: I reviewed the patient's lab results. Result diagrams: 05/11/20 02:23 05/11/20 02:23 Lab Results 05/10/20 05/10/20 05/10/20 Range/Units 12:30 12:30 12:30 WBC 15.33 H (4.8-10.8) K/uL RBC 5.82 (4.7-6.1) M/uL Hgb 15.1 (14.0-18.0) g/dL Hct 48.4 (42-52) % MCV 83.2 (80-100) fL MCH 25.9 (25-34) pg MCHC 31.2 L (32-36) g/dL RDW Std Deviation 45.3 (36.4-46.3) fL RDW Coeff of Laurie 15.1 H (11.5-14.5) % Plt Count 379 (130-400) K/uL MPV 10.1 (7.4-10.4) fL Immature Gran % (Auto) 1.9 % Neut % (Auto) 86.7 % Lymph % (Auto) 9.7 % [place] % (Auto) 1.3 % Eos % (Auto) 0.3 % Baso % (Auto) 0.1 % Neut # (Auto) 13.28 H (1.4-6.5) K/uL Lymph # (Auto) 1.49 (1.2-3.4) K/uL [place] # (Auto) 0.20 (0.11-0.59) K/uL Eos # (Auto) 0.05 (0-0.5) K/uL Baso # (Auto) 0.02 (0-0.2) K/uL Immature Gran # (Auto) 0.29 H (0.00-0.02) K/uL PT 12.3 H (9.0-12.0) Seconds INR 1.2 H (0.9-1.1) APTT 23.9 (21.0-31.0) Seconds PTT Ratio 0.9 Sodium 139 (136-145) mmol/L Potassium 5.2 H (3.5-5.1) mmol/L Chloride 102 (98-107) mmol/L Carbon Dioxide 34 H (21-32) mmol/L Anion Gap 4.0 (3-11) BUN 31 H (7-18) mg/dl Creatinine 1.35 (0.6-1.4) mg/dl Est Cr Clr Drug Dosing 66.5 ml/min Est GFR ( Amer) 62.5 Est GFR (Non-Af Amer) 53.9 BUN/Creatinine Ratio 23.0 H (10-20) Glucose 188 H (70-99) mg/dl Estimat Average Glucose mg/dl Hemoglobin A1c (4.5-5.6) % Lactate (0.4-2.0) mmol/L Calcium 9.4 (8.5-10.1) mg/dl Phosphorus 3.9 (2.5-4.9) mg/dl Magnesium 1.8 (1.8-2.4) mg/dl Total Bilirubin 0.4 (0.2-1) mg/dl AST 32 (15-37) U/L ALT 185 H (12-78) U/L Alkaline Phosphatase 164 H (45-117) U/L Troponin I < 0.015 (0-0.045) ng/ml NT-Pro-B Natriuret Pep 1556 H (0-900) pg/ml Total Protein 7.0 (6.4-8.2) gm/dl Albumin 3.2 L (3.4-5.0) gm/dl Globulin 3.8 (2.5-4.0) gm/dl Albumin/Globulin Ratio 0.8 L (0.9-2) Lipase 125 (73-393) U/L Procalcitonin (0-0.5) ng/ml TSH (0.300-4.500) uIu/ml Free T4 (0.8-1.6) ng/dl COVID-19 Eval Order SARS-CoV-2 (PCR) (Negative) Influenza Type A (PCR) (Neg) Influenza Type B (PCR) (Neg) RSV (RT-PCR) (Neg) 05/10/20 05/10/20 05/10/20 Range/Units 12:30 12:30 12:30 WBC (4.8-10.8) K/uL RBC (4.7-6.1) M/uL Hgb (14.0-18.0) g/dL Hct (42-52) % MCV (80-100) fL MCH (25-34) pg MCHC (32-36) g/dL RDW Std Deviation (36.4-46.3) fL RDW Coeff of Laurie (11.5-14.5) % Plt Count (130-400) K/uL MPV (7.4-10.4) fL Immature Gran % (Auto) % Neut % (Auto) % Lymph % (Auto) % [place] % (Auto) % Eos % (Auto) % Baso % (Auto) % Neut # (Auto) (1.4-6.5) K/uL Lymph # (Auto) (1.2-3.4) K/uL [place] # (Auto) (0.11-0.59) K/uL Eos # (Auto) (0-0.5) K/uL Baso # (Auto) (0-0.2) K/uL Immature Gran # (Auto) (0.00-0.02) K/uL PT (9.0-12.0) Seconds INR (0.9-1.1) APTT (21.0-31.0) Seconds PTT Ratio Sodium (136-145) mmol/L Potassium (3.5-5.1) mmol/L Chloride (98-107) mmol/L Carbon Dioxide (21-32) mmol/L Anion Gap (3-11) BUN (7-18) mg/dl Creatinine (0.6-1.4) mg/dl Est Cr Clr Drug Dosing ml/min Est GFR ( Amer) Est GFR (Non-Af Amer) BUN/Creatinine Ratio (10-20) Glucose (70-99) mg/dl Estimat Average Glucose 200 mg/dl Hemoglobin A1c 8.6 H (4.5-5.6) % Lactate (0.4-2.0) mmol/L Calcium (8.5-10.1) mg/dl Phosphorus (2.5-4.9) mg/dl Magnesium (1.8-2.4) mg/dl Total Bilirubin (0.2-1) mg/dl AST (15-37) U/L ALT (12-78) U/L Alkaline Phosphatase (45-117) U/L Troponin I (0-0.045) ng/ml NT-Pro-B Natriuret Pep (0-900) pg/ml Total Protein (6.4-8.2) gm/dl Albumin (3.4-5.0) gm/dl Globulin (2.5-4.0) gm/dl Albumin/Globulin Ratio (0.9-2) Lipase (73-393) U/L Procalcitonin < 0.05 (0-0.5) ng/ml TSH 0.292 L (0.300-4.500) uIu/ml Free T4 1.11 (0.8-1.6) ng/dl COVID-19 Eval Order SARS-CoV-2 (PCR) (Negative) Influenza Type A (PCR) (Neg) Influenza Type B (PCR) (Neg) RSV (RT-PCR) (Neg) 05/10/20 05/10/20 05/10/20 Range/Units 13:12 13:12 13:12 WBC (4.8-10.8) K/uL RBC (4.7-6.1) M/uL Hgb (14.0-18.0) g/dL Hct (42-52) % MCV (80-100) fL MCH (25-34) pg MCHC (32-36) g/dL RDW Std Deviation (36.4-46.3) fL RDW Coeff of Laurie (11.5-14.5) % Plt Count (130-400) K/uL MPV (7.4-10.4) fL Immature Gran % (Auto) % Neut % (Auto) % Lymph % (Auto) % [place] % (Auto) % Eos % (Auto) % Baso % (Auto) % Neut # (Auto) (1.4-6.5) K/uL Lymph # (Auto) (1.2-3.4) K/uL [place] # (Auto) (0.11-0.59) K/uL Eos # (Auto) (0-0.5) K/uL Baso # (Auto) (0-0.2) K/uL Immature Gran # (Auto) (0.00-0.02) K/uL PT (9.0-12.0) Seconds INR (0.9-1.1) APTT (21.0-31.0) Seconds PTT Ratio Sodium (136-145) mmol/L Potassium (3.5-5.1) mmol/L Chloride (98-107) mmol/L Carbon Dioxide (21-32) mmol/L Anion Gap (3-11) BUN (7-18) mg/dl Creatinine (0.6-1.4) mg/dl Est Cr Clr Drug Dosing ml/min Est GFR ( Amer) Est GFR (Non-Af Amer) BUN/Creatinine Ratio (10-20) Glucose (70-99) mg/dl Estimat Average Glucose mg/dl Hemoglobin A1c (4.5-5.6) % Lactate 1.5 (0.4-2.0) mmol/L Calcium (8.5-10.1) mg/dl Phosphorus (2.5-4.9) mg/dl Magnesium (1.8-2.4) mg/dl Total Bilirubin (0.2-1) mg/dl AST (15-37) U/L ALT (12-78) U/L Alkaline Phosphatase (45-117) U/L Troponin I (0-0.045) ng/ml NT-Pro-B Natriuret Pep (0-900) pg/ml Total Protein (6.4-8.2) gm/dl Albumin (3.4-5.0) gm/dl Globulin (2.5-4.0) gm/dl Albumin/Globulin Ratio (0.9-2) Lipase (73-393) U/L Procalcitonin (0-0.5) ng/ml TSH (0.300-4.500) uIu/ml Free T4 (0.8-1.6) ng/dl COVID-19 Eval Order [facility]Rsv at [facility] SARS-CoV-2 (PCR) NEGATIVE (Negative) Influenza Type A (PCR) Negative (Neg) Influenza Type B (PCR) Negative (Neg) RSV (RT-PCR) Negative (Neg) Administered Medications Apixaban (Apixaban 5 Mg Tablet) 5 mg PO BID RYAN Stop: 06/10/20 11:59 Last Admin: 05/11/20 13:39 Dose: 5 mg Documented by: [id number] Atorvastatin Calcium (Atorvastatin 40 Mg Tab) 80 mg PO HS RYAN Stop: 06/09/20 20:59 Last Admin: 05/10/20 20:58 Dose: 80 mg Documented by: [id number] Ferrous Sulfate (Ferrous Sulfate 325 Mg Tab) 325 mg PO BID RYAN Stop: 06/09/20 20:59 Last Admin: 05/11/20 08:05 Dose: 325 mg Documented by: [id number] Admin: 05/10/20 20:57 Dose: 325 mg Documented by: [id number] Guaifenesin (Guaifenesin 600 Mg Tabcr) 1,200 mg PO Q12 RYAN Stop: 06/09/20 20:59 Last Admin: 05/11/20 08:05 Dose: 1,200 mg Documented by: [id number] Admin: 05/10/20 20:58 Dose: 1,200 mg Documented by: [id number] Furosemide 40 mg/ Syringe 4 mls @ 4 mls/min IV QAM RYAN Stop: 06/10/20 08:59 Last Admin: 05/11/20 08:58 Dose: 4 mls/min Documented by: [id number] Insulin Aspart (Insulin Aspart 100 Units/Ml 3 Ml Pen) 0 units SC ACHS [facility] Stop: 06/09/20 19:59 Last Admin: 05/11/20 12:14 Dose: 20 units Documented by: [id number] Cosigned by: [id number] Admin: 05/11/20 08:10 Dose: 10 units Documented by: [id number] Cosigned by: [id number] Admin: 05/10/20 20:55 Dose: 20 units Documented by: [id number] Cosigned by: [id number] Insulin Glargine (Insulin Glargine Solostar 100 Units/Ml 3 Ml Pen) 50 units SQ QAM RYAN Stop: 06/10/20 08:59 Last Admin: 05/11/20 08:11 Dose: 50 units Documented by: [id number] Cosigned by: [id number] Irbesartan (Irbesartan 75 Mg Tab) 75 mg PO DAILY RYAN Stop: 06/10/20 08:59 Last Admin: 05/11/20 08:05 Dose: 75 mg Documented by: [id number] Multivitamins (Multivitamin Tab) 1 tab PO DAILY RYAN Stop: 06/10/20 08:59 Last Admin: 05/11/20 08:06 Dose: 1 tab Documented by: [id number] Umeclidinium/Vilanterol (Umeclidinium/Vilanterol 62.5/25mcg 7 Puffs/Inhaler) 1 puffs INH QAM RYAN Stop: 06/10/20 08:59 Last Admin: 05/11/20 08:05 Dose: 1 puffs Documented by: [id number] Discontinued Medications Albuterol (Albuterol Hfa 8 Gm Inhaler) 2 puffs INH NOW ONE Stop: 05/10/20 13:01 Last Admin: 05/10/20 13:18 Dose: 2 puffs Documented by: [id number] Albuterol (Albut/Ipratrop 3mg/0.5mg Neb 3 Ml Vial) 3 ml NEB Q4R RYAN Stop: 06/09/20 19:08 Last Admin: 05/10/20 20:09 Dose: 3 ml Documented by: [id number] Benzonatate (Benzonatate 100 Mg Capsule) 100 mg PO TID RYAN Stop: 06/09/20 20:59 Last Admin: 05/10/20 20:59 Dose: Not Given Documented by: [id number] Dexamethasone (Dexamethasone Sod Inj 10 Mg/Ml Vial) 6 mg IV NOW ONE Stop: 05/10/20 13:01 Last Admin: 05/10/20 13:18 Dose: 6 mg Documented by: [id number] Furosemide (Furosemide 40 Mg/4 Ml Vial) 40 mg IV NOW STA Stop: 05/10/20 17:30 Last Admin: 05/10/20 18:18 Dose: 40 mg Documented by: [id number] Guaifenesin (Guaifenesin 600 Mg Tabcr) 600 mg PO NOW STA Stop: 05/10/20 13:01 Last Admin: 05/10/20 13:18 Dose: 600 mg Documented by: [id number] Levofloxacin/Dextrose (Levaquin/D5w) 750 mg in 150 mls @ 100 mls/hr IV Q24H RYAN Stop: 05/17/20 15:29 Last Infusion: 05/10/20 18:17 Dose: 0 mls/hr Documented by: [id number] Admin: 05/10/20 15:51 Dose: 100 mls/hr Documented by: [id number] Heparin Sodium/Dextrose (Heparin Sodium/Dextrose) 25,000 units in 500 mls @ 32 mls/hr IV .[id number] [facility]; Protocol Stop: 06/09/20 17:44 Last Titration: 05/11/20 13:43 Dose: 0 units/hr, 0 mls/hr Documented by: [id number] Cosigned by: [id number] Admin: 05/11/20 11:49 Dose: 1,600 units/hr, 32 mls/hr Documented by: [id number] Cosigned by: [id number] Titration: 05/11/20 11:49 Dose: 1,600 units/hr, 32 mls/hr Documented by: [id number] Cosigned by: [id number] Titration: 05/11/20 10:26 Dose: 1,600 units/hr, 32 mls/hr Documented by: [id number] Cosigned by: [id number] Titration: 05/11/20 07:02 Dose: 1,600 units/hr, 32 mls/hr Documented by: [id number] Cosigned by: [id number] Titration: 05/11/20 03:13 Dose: 1,600 units/hr, 32 mls/hr Documented by: [id number] Cosigned by: [id number] Titration: 05/10/20 22:51 Dose: 1,600 units/hr, 32 mls/hr Documented by: [id number] Cosigned by: [id number] Admin: 05/10/20 20:19 Dose: 1,600 units/hr, 32 mls/hr Documented by: [id number] Cosigned by: [id number] Furosemide 20 mg/ Syringe 2 mls @ 4 mls/min IV NOW ONE Stop: 05/11/20 12:01 Last Admin: 05/11/20 13:40 Dose: 4 mls/min Documented by: [id number] Insulin Aspart (Insulin Aspart 100 Units/Ml 3 Ml Pen) 0 units SC 0000,0400 [facility] Stop: 05/11/20 04:01 Last Admin: 05/11/20 04:44 Dose: Not Given Documented by: [id number] Admin: 05/11/20 00:38 Dose: 13 units Documented by: [id number] Cosigned by: [id number] Ioversol (Optiray 320 125ml) 120 ml IV ONCE ONE Stop: 05/10/20 15:41 Last Admin: 05/10/20 15:40 Dose: 120 ml Documented by: [id number] Metoprolol Tartrate (Metoprolol Tartrate 1 Mg/Ml Vial) 5 mg IV NOW STA Stop: 05/10/20 15:52 Last Admin: 05/10/20 16:08 Dose: Not Given Documented by: [id number] Metoprolol Tartrate (Metoprolol Tartrate 1 Mg/Ml Vial) 5 mg IV NOW STA Stop: 05/10/20 16:30 Last Admin: 05/10/20 16:42 Dose: 5 mg Documented by: [id number] Metoprolol Tartrate (Metoprolol Tartrate 25 Mg Tab) 25 mg PO BID RYAN Stop: 06/09/20 17:59 Last Admin: 05/11/20 08:05 Dose: 25 mg Documented by: [id number] Admin: 05/10/20 20:57 Dose: 25 mg Documented by: [id number] Admin: 05/10/20 20:10 Dose: Not Given Documented by: [id number] Metoprolol Tartrate (Metoprolol Tartrate 25 Mg Tab) 25 mg PO NOW STA Stop: 05/10/20 17:42 Last Admin: 05/10/20 18:18 Dose: 25 mg Documented by: [id number] Metoprolol Tartrate (Metoprolol Tartrate 25 Mg Tab) 25 mg PO ONE ONE Stop: 05/11/20 10:31 Last Admin: 05/11/20 11:48 Dose: 25 mg Documented by: [id number] Miscellaneous (Heparin Infusion~Stop Order) 1 ea N/A TODAY@1200 ONE Stop: 05/11/20 12:01 Last Admin: 05/11/20 13:40 Dose: 1 ea Documented by: [id number] Perflutren Lipid Microsphere (Perflutren Lipid Microsphere (Definity)) 2 ml IV ONCE ONE Stop: 05/11/20 14:58 Last Admin: 05/11/20 14:57 Dose: 2 ml Documented by: [id number] Discharge Plan Visit Data Chief Complaint: Shortness of Breath/Dyspnea Stated Complaint: SOB ED Provider: Yogi Prescott Discharge Problem: CAP (community acquired pneumonia), COPD (chronic obstructive pulmonary disease), Atrial flutter, Hypoxia Patient Disposition: Admitted As Inpatient Discharge Instructions Interventions: ED Discharge Assessment Last Done: 05/10/20 17:52 Discharge Problem: CAP (community acquired pneumonia) Qualifiers: Laterality: unspecified laterality Qualified Code(s): J18.9 - Pneumonia, unspecified organism COPD (chronic obstructive pulmonary disease) Qualifiers: COPD type: unspecified COPD Qualified Code(s): J44.9 - Chronic obstructive pulmonary disease, unspecified Atrial flutter Qualifiers: Atrial flutter type: unspecified Qualified Code(s): I48.92 - Unspecified atrial flutter
[2020-05-11] MEDS: INSULIN ASPART 100 UNITS/ML 3 ML PEN SC SCH ×6 (00:38→20:39)
[2020-05-11 02:51] LABS: Hematocrit (blood only) 48.1 % (42-52); Hemoglobin 15.2 g/dL (14.0-18.0); Mean Corpuscular Hemoglobin 25.9 pg (25-34); Mean Corpuscular Hgb Conc 31.6 g/dL (32-36); Mean Corpuscular Volume 82.1 fL (80-100); Mean Platelet Volume 10.3 fL (7.4-10.4); Platelet Count 391 K/uL (130-400); RDW Coefficient of Variation 15.3 % (11.5-14.5); RDW Standard Deviation 45.1 fL (36.4-46.3); Red Blood Count 5.86 M/uL (4.7-6.1); White Blood Count 18.08 K/uL (4.8-10.8)
[2020-05-11 03:06] LABS: Partial Thromboplastin Ratio 1.7
[2020-05-11 03:09] LABS: Partial Thromboplastin Time 47.2 Seconds (21.0-31.0)
[2020-05-11 03:11] LABS: Albumin Globulin Ratio 0.9 (0.9-2); Albumin Level 3.2 gm/dl (3.4-5.0); BUN Creatinine Ratio 23.3 (10-20); Bilirubin Direct 0.1 mg/dl (0-0.2); Bilirubin,Total 0.6 mg/dl (0.2-1); Calcium 8.6 mg/dl (8.5-10.1); Creatinine Clr Calc Pharmacy 66.8 ml/min; Est GFR (African American) 63.7; Est GFR (Non-African American) 54.9; Globulin 3.6 gm/dl (2.5-4.0); Potassium 4.3 mmol/L (3.5-5.1); Total Protein 6.8 gm/dl (6.4-8.2)
[2020-05-11 06:47] LABS: Estimated Average Glucose 200 mg/dl; Hemoglobin A1C 8.6 % (4.5-5.6)
[2020-05-11] MEDS: METOPROLOL TARTRATE 25 MG TAB PO SCH (08:05)
[2020-05-11] MEDS: guaiFENesin 600 MG TABCR PO SCH ×2 (08:05→20:42)
[2020-05-11] MEDS: FERROUS SULFATE 325 MG TAB PO SCH ×2 (08:05→20:42)
[2020-05-11] MEDS: IRBESARTAN 75 MG TAB PO SCH (08:05)
[2020-05-11] MEDS: UMECLIDINIUM/VILANTEROL 62.5/25MCG 7 PUFFS/INHALER INH SCH (08:05)
[2020-05-11] MEDS: MULTIVITAMIN TAB PO SCH (08:06)
[2020-05-11] MEDS: INSULIN GLARGINE SOLOSTAR 100 UNITS/ML 3 ML PEN SQ SCH (08:11)
--- NOTE | 2020-05-11 08:24 | History & Physical Bridge Note ---
Date of Service May 11, 2020 History & Physical Bridge Note I have examined the patient, reviewed the History & Physical and in the interval since the performance of the History & Physical I have noted the following changes of clinical significance: no changes noted. I reviewed the indications, procedure, risks and alternatives with the patient, answered all questions. Consent obtained. Patient understands and agrees to the procedure. I also reviewed the risks and use of sedation, patient understands and consent obtained.
[2020-05-11] MEDS: FUROSEMIDE 40 MG in SYRINGE 0 ML IV SCH (08:58)
[2020-05-11] MEDS ORDERED: METOPROLOL SUCC 25MG EXT REL TAB PO SCH (09:00)
[2020-05-11] MEDS ORDERED: ENOXAPARIN INJ 40 MG/0.4 ML SYR SQ SCH (09:00)
[2020-05-11] MEDS ORDERED: predniSONE 20 MG TAB PO SCH (09:00)
--- NOTE | 2020-05-11 09:50 | Cardiology Consultation ---
Date of Consultation May 11, 2020 Assessment & Plan (1) Atrial fibrillation with rapid ventricular response: His rate has improved, but he remains mildly tachycardic. Will therefore increase PO metoprolol tartrate to 50 mg twice daily for better rate control. Would not recommend cardioversion at this time as he appears to have been in the arrhythmia for several days now and has not been anticoagulated. There is also no urgent indication for LINDEN guided cardioversion. He should remain on anticoagulation therapy, including upon discharge. He had been resistant to anticoagulation in the past but hopefully will be agreeable now. Would recommend a novel anticoagulant such as Eliquis 5 mg twice daily. Echo is pending. (2) SOB (shortness of breath): He appears to have had an element of congestive heart failure causing his progressive shortness of breath. His breathing has greatly improved with diuresis and also with rate control of his arrhythmia. He does not appear hypervolemic on examination this morning. His rate remains mildly elevated and metoprolol will therefore be titrated, as noted above. He has been ordered an echocardiogram, and the official report is pending. (3) HTN (hypertension): BP appears adequately controlled. Will increase metoprolol for rate control. Otherwise, no changes recommended. (4) HLD (hyperlipidemia): Continue statin therapy. Patient discussed with Dr. Moe who will also be in to see the patient today. Supervising Physician Co-Signing Physician Notes The patient was seen and examined, I discussed his symptoms and our plans with him. I agree with Dilcia's assessment above. We do not know the duration of his arrhythmia and I do not know whether it is related to his current presentation or a cause of it. In any case I would continue with rate control (his heart rate is still a little bit elevated), my recommendation would be to use metoprolol tartrate 50 mg this morning and 25 mg this evening and see if that controls his rate throughout today and tonight, if it does we can switch him to metoprolol succinate tomorrow morning. If his heart rate is still elevated we can go up to 100 mg of metoprolol succinate tomorrow morning. I would prefer to send him home on succinate not tartrate. I would also add Eliquis to his regimen and I discussed this with him and he is agreeable. We will watch for rectal bleeding. His dose would be 5 mg twice daily. He also needs ongoing diuresis, although he is feeling much better in that regard. I would anticipate sending him home in the next day or 2 and we will see him in the office in about 3 weeks. If he remains in atrial fibrillation/flutter we can arrange cardioversion. He may convert on his own in the interim. History of Present Illness Reason for Consultation: Atrial fibrillation Requesting Physician: Hollie Hill PA-C History of Present Illness Mr. Smith is a 68-year-old male with a past medical history significant for type 2 diabetes, dyslipidemia, hypertension, COPD, obesity, tubulovillous adenoma s/p surgical resection, colon polyps, peripheral arterial disease, and paroxysmal atrial fibrillation (1 documented episode on 11/07/17 when acutely ill with UTI) who was admitted yesterday with atrial fibrillation with RVR. The patient states that about a week ago, he became ill with body aches and congestion. He then began to note progressive shortness of breath a couple days later. He contacted his PCP who arranged for a Covid test. The test was negative, and he was subsequently prescribed prednisone and a Z jadon. His congestion and body aches improved with this, but his shortness of breath continued. He was short of breath with doing his normal daily activities, in cluding showering and shaving. He also noted dyspnea when lying down to sleep. His breathing then progressed to where he was short of breath even sitting upright. His oxygen saturation was low in the 80s. He also noted that his heart rate was elevated on his pulse ox device up to 150s. He did not note palpitations, chest pain, lightheadedness, or near syncope. He saw his PCP yesterday for his symptoms and was found to be in atrial fibrillation with RVR at 134 bpm. He was subsequently referred to the ER. He remained in atrial fibrillation on arrival to the ER. His NT-Pro-BNP was elevated at 1556. CXR showed interstitial thickening and mild left basilar atelectasis. CTA showed a thyroid goiter but was negative for PE. He was started on a heparin drip and given IV metoprolol. PO metoprolol has been increased to 25 mg BID. He was also given IV Lasix for diuresis. He reports today that he has been feeling much better. His breathing has greatly improved, and he was actually able to lie down to sleep last night. He has not been up walking the halls, but he has been ambulating to the restroom without difficulty. He denies abnormal bleeding such as melena, hematochezia, or hematuria. He denies cerebrovascular symptoms. Family history: Mother had a "weak heart." Brother has CAD with stent placement in his 40s or 50s. Social history: He is not . No children. 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 He quit smoking 12 years ago. No alcohol use. Allergies Allergy/AdvReac Type Severity Reaction Status Date / Time empagliflozin AdvReac Severe Penile Verified 05/10/20 10:55 [From [employer] [employer]] edema Home Medications Medication Instructions Recorded Confirmed Type ferrous sulfate 325 mg (65 mg 325 mg PO BID #60 tab 02/08/19 05/10/20 Rx iron) tablet acetaminophen 325 mg tablet 650 mg PO Q4H PRN #30 tab 05/25/19 05/10/20 Rx multivitamin 1 tab PO DAILY #30 tab 05/25/19 05/10/20 Rx metformin 1,000 mg tablet 1,000 mg PO BID #60 tab 11/17/19 05/10/20 Rx sildenafil 25 mg tablet 25 mg PO DAILY PRN #20 tab 01/28/20 05/10/20 Rx tadalafil 20 mg tablet 20 mg PO DAILY PRN #30 tab 02/24/20 05/10/20 Rx metoprolol succinate 25 mg 12.5 mg PO DAILY tab 03/31/20 05/10/20 History tablet,extended release 24 hr lorazepam 0.5 mg tablet See Rx Instructions PO BID PRN #45 04/06/20 05/10/20 Rx tab atorvastatin 80 mg tablet 80 mg PO HS #90 tab 04/19/20 05/10/20 Rx albuterol sulfate 90 mcg/actuation 2 puff INHALATION QID PRN #18 gm 05/01/20 05/10/20 Rx aerosol inhaler irbesartan 75 mg tablet 75 mg PO DAILY #90 tab 05/01/20 05/10/20 Rx prednisone 20 mg tablet See Rx Instructions PO .COMPLEX 05/03/20 05/10/20 Rx #30 tab umeclidinium 62.5 mcg-vilanterol 1 inh INH Q24H #60 ea 05/09/20 05/10/20 Rx 25 mcg/actuation powdr for inhalation insulin aspart U-100 100 unit/mL 30 unit SQ .COMPLEX ml 05/10/20 05/10/20 History (3 mL) subcutaneous pen insulin glargine 100 unit/mL (3 55 unit SQ QAM ml 05/10/20 05/10/20 History mL) subcutaneous pen Patient History Medical History ANGELA (acute kidney injury) Atrial fibrillation BPH with obstruction/lower urinary tract symptoms Chronic obstructive pulmonary disease Claudication Diabetes mellitus, type 2 Encounter for pre-operative examination Former tobacco use GI bleed Hyperlipidemia Hypertension Obesity PAD (peripheral artery disease) Preoperative cardiovascular examination Pulmonary emphysema Rectal mass Symptomatic anemia Ventral hernia Vitamin D deficiency Surgical History History of adenoidectomy History of colon surgery History of colonoscopy versed/propofol, no issues. completed 07/07/2018. History of creation of ostomy History of laparotomy History of low anterior resection of rectum History of tonsillectomy History of tooth extraction Family History Father Family history of diabetes mellitus Brother Family history of diabetes mellitus Cardiac disorder Unknown Diabetes Mother Cardiac disorder Cancer Denies family history of Ovarian cancer Prostate cancer Myocardial infarction Breast cancer Colorectal cancer Social History Smoking Status: Former smoker Number of Years Since Quit: 10; Second Hand Exposure: No; Hx Alcohol Use: Yes Alcohol type: hard liquor Hx Substance Use: No Preferred Language: Romansh Communication Ability: Effective Visual Impairment: No Limitations Frame Assembler Required: No Beliefs That Will Affect Care: None marital status: Single Current Living Situation: Alone current occupational status: employed Other Information That Helps Us Care for You: No Feels Safe at Home: Yes Safety Concerns: Feels Safe At This Time caffeine: Yes Dental Care, Regularly: No Physical Activity Frequency: Does not Exercise Seatbelt Use: always Sunscreen Use: No Assistive Devices: Oxygen - Continuous Physical Exam Physical Exam: Constitutional: Alert, oriented, in no acute distress HEENT: Head is atraumatic and normocephalic. EOMs intact. Sclera non-icteric. Face is symmetric. No perioral cyanosis. Mucous membranes moist Neck: Supple, no JVD Pulmonary: Normal respiratory effort, faint crackles in left lower lung field, otherwise clear to auscultation throughout Cardiac: Irregular, tachycardic, normal S1 and S2, no gallops, no rubs, no murmurs Extremities: No edema. No clubbing or cyanosis. Pulses intact Abdomen: Normal bowel sounds, soft, non-tender, no abdominal masses palpated Skin: Normal skin color, turgor, and pigmentation. No rash or skin lesions Neurological: Oriented to person, place, and time Results & Data ([facility]) Vital Signs (Past 12 Hours) Vital Signs Temp Pulse Pulse Resp BP Pulse Ox 05/11/20 08:29 98.6 F 90 18 129/86 93 05/11/20 07:19 84 05/11/20 03:26 97.7 F 84 18 138/81 92 05/10/20 23:36 97.7 F 62 19 127/81 93 Laboratory Results Laboratory Results WBC 18.08 K/uL (4.8-10.8) H 05/11/20 02:23 RBC 5.86 M/uL (4.7-6.1) 05/11/20 02:23 Hgb 15.2 g/dL (14.0-18.0) 05/11/20 02:23 Hct 48.1 % (42-52) 05/11/20 02:23 MCV 82.1 fL (80-100) 05/11/20 02:23 MCH 25.9 pg (25-34) 05/11/20 02:23 MCHC 31.6 g/dL (32-36) L 05/11/20 02:23 RDW Std Deviation 45.1 fL (36.4-46.3) 05/11/20 02:23 RDW Coeff of Laurie 15.3 % (11.5-14.5) H 05/11/20 02:23 Plt Count 391 K/uL (130-400) 05/11/20 02:23 MPV 10.3 fL (7.4-10.4) 05/11/20 02:23 Immature Gran % (Auto) 1.9 % 05/10/20 12:30 Neut % (Auto) 86.7 % 05/10/20 12:30 Lymph % (Auto) 9.7 % 05/10/20 12:30 Rabun % (Auto) 1.3 % 05/10/20 12:30 Eos % (Auto) 0.3 % 05/10/20 12:30 Baso % (Auto) 0.1 % 05/10/20 12:30 Neut # (Auto) 13.28 K/uL (1.4-6.5) H 05/10/20 12:30 Lymph # (Auto) 1.49 K/uL (1.2-3.4) 05/10/20 12:30 Rabun # (Auto) 0.20 K/uL (0.11-0.59) 05/10/20 12:30 Eos # (Auto) 0.05 K/uL (0-0.5) 05/10/20 12:30 Baso # (Auto) 0.02 K/uL (0-0.2) 05/10/20 12:30 Immature Gran # (Auto) 0.29 K/uL (0.00-0.02) H 05/10/20 12:30 PT 12.3 Seconds (9.0-12.0) H 05/10/20 12:30 INR 1.2 (0.9-1.1) H 05/10/20 12:30 APTT 47.2 Seconds (21.0-31.0) H* 05/11/20 02:23 PTT Ratio 1.7 05/11/20 02:23 Sodium 135 mmol/L (136-145) L 05/11/20 02:23 Potassium 4.3 mmol/L (3.5-5.1) D 05/11/20 02:23 Chloride 99 mmol/L (98-107) 05/11/20 02:23 Carbon Dioxide 34 mmol/L (21-32) H 05/11/20 02:23 Anion Gap 2.0 (3-11) L 05/11/20 02:23 BUN 31 mg/dl (7-18) H 05/11/20 02:23 Creatinine 1.33 mg/dl (0.6-1.4) 05/11/20 02:23 Est Cr Clr Drug Dosing 66.8 ml/min 05/11/20 02:23 Est GFR ( Amer) 63.7 05/11/20 02:23 Est GFR (Non-Af Amer) 54.9 05/11/20 02:23 BUN/Creatinine Ratio 23.3 (10-20) H 05/11/20 02:23 Glucose 205 mg/dl (70-99) H 05/11/20 02:23 POC Glucose 143 mg/dl (70-99) H 05/11/20 08:02 Estimat Average Glucose 200 mg/dl 05/10/20 12:30 Hemoglobin A1c 8.6 % (4.5-5.6) H 05/10/20 12:30 Lactate 1.5 mmol/L (0.4-2.0) 05/10/20 13:12 Calcium 8.6 mg/dl (8.5-10.1) 05/11/20 02:23 Phosphorus 3.9 mg/dl (2.5-4.9) 05/10/20 12:30 Magnesium 1.8 mg/dl (1.8-2.4) 05/10/20 12:30 Total Bilirubin 0.6 mg/dl (0.2-1) 05/11/20 02:23 Direct Bilirubin 0.1 mg/dl (0-0.2) 05/11/20 02:23 AST 21 U/L (15-37) 05/11/20 02:23 ALT 163 U/L (12-78) H 05/11/20 02:23 Alkaline Phosphatase 153 U/L (45-117) H 05/11/20 02:23 Troponin I < 0.015 ng/ml (0-0.045) 05/10/20 12:30 NT-Pro-B Natriuret Pep 1556 pg/ml (0-900) H 05/10/20 12:30 Total Protein 6.8 gm/dl (6.4-8.2) 05/11/20 02:23 Albumin 3.2 gm/dl (3.4-5.0) L 05/11/20 02:23 Globulin 3.6 gm/dl (2.5-4.0) 05/11/20 02:23 Albumin/Globulin Ratio 0.9 (0.9-2) 05/11/20 02:23 Lipase 125 U/L (73-393) 05/10/20 12:30 Procalcitonin < 0.05 ng/ml (0-0.5) 05/10/20 12:30 TSH 0.292 uIu/ml (0.300-4.500) L 05/10/20 12:30 Free T4 1.11 ng/dl (0.8-1.6) 05/10/20 12:30 COVID-19 Eval Order CovFluRsv at [facility] 05/10/20 13:12 SARS-CoV-2 (PCR) NEGATIVE (Negative) 05/10/20 13:12 Influenza Type A (PCR) Negative (Neg) 05/10/20 13:12 Influenza Type B (PCR) Negative (Neg) 05/10/20 13:12 RSV (RT-PCR) Negative (Neg) 05/10/20 13:12 Diagnostic Findings Telemetry: Atrial fibrillation/flutter in the 80s-100s ECG 05/10/20 @ 12:34: Atrial fibrillation at [address]-T wave abnormality. ECG 05/10/20 @ 15:56: Atrial fibrillation at [address]-T wave abnormality. PG Care Time/CCT Total # of Minutes Spent Total Time Spent with Patient: Total time spent is greater than 50% in coord ination of care (as documented) at patient's floor/unit and/or counseling patient: Coding Level of Care Code 38427 Initial Inpt Care Lvl 3 Diagnoses Atrial fibrillation with rapid ventricular response I48.91 SOB (shortness of breath) R06.02 HTN (hypertension) I10 HLD (hyperlipidemia) E78.5
[2020-05-11 10:22] LABS: Partial Thromboplastin Ratio 2.3
[2020-05-11 10:25] LABS: Partial Thromboplastin Time 65.1 Seconds (21.0-31.0)
[2020-05-11] MEDS ORDERED: METOPROLOL TARTRATE 25 MG TAB PO ONE (10:30)
--- NOTE | 2020-05-11 11:35 | Pharmacy Report ---
Glycemic Control Consultation - Date of Service May 11, 2020 - Scope Scope: Glycemic Pharmacist consulted for glycemic control and to write orders per [facility] inpatient glycemic control protocol. - Objective Weight: 109.6 kg Accuchecks BSG (last 24hrs): 05/10/20 05/10/20 05/10/20 12:30 19:03 19:05 Glucose 188 H POC Glucose 319 H* 308 H* 05/11/20 05/11/20 05/11/20 00:36 02:23 04:41 Glucose 205 H POC Glucose 323 H* 111 H 05/11/20 08:02 Glucose POC Glucose 143 H Laboratory Data (last 24hrs): 05/10/20 05/11/20 12:30 02:23 Potassium 5.2 H 4.3 D Carbon Dioxide 34 H 34 H Anion Gap 4.0 2.0 L Creatinine 1.35 1.33 Est Cr Clr Drug Dosing 66.5 66.8 HbA1c: Hemoglobin A1c 8.6 % (4.5-5.6) H 05/10/20 12:30 - Recent Pertinent Medications Outpatient Anti-diabetic Regimen: * Lantus 55 units qAM * Novolog breakfast: 7 units, lunch and dinner: 8-10 units + Correction Factor: 35 mg/dl/unit up to 30 units/day * Metformin oral * A1c = 8.6% on 05/10/20 The patient was receiving: * Correctional Insulin: Novolog Correction per scale ACHS Goal Range: Low 110 mg/dL - High 140 mg/dL Correction Factor: 15 mg/dL/unit * Prandial insulin: Per carb ratio of 1 unit per 5 grams CHO consumed * Oral Agents: on Hold Risk Factors for Insulin Resistance: * Steroids: DXM 6 mg IV x 1 dose yesterday. * Infection: none * IVF: on Heparin drip * Diet: T2DM - Assessment & Plan Assessment & Plan: ASSESSMENT: * 69 y/o M admitted for CAP. Patient with history of Type 2 diabetes managed at home on Lantus, Novolog insulins and oral Metformin. * Patient received a dose of Dexamethasone IV yesterday which caused his BSGs to rise above 300 mg/dl. * Novolog ACJS was started. BSGs look much better this AM. Fasting BSG = 143 today. * Will continue with basal Lantus (dose reduced slightly from home dose) QAM and Novolog ACHS. * Oral Metformin placed on hold. PLAN FOR INPATIENT GLYCEMIC CONTROL: * Holding outpatient oral diabetes medications * Basal insulin * Lantus 50 units SQ QAM * Bolus insulin: continued * NovoLog per scale ACHS or Q6hrs while NPO * Goal Range: Low 110 mg/dL - High 140 mg/dL * Correction Factor: 15 mg/dL/unit * Nutritional / Prandial insulin per carb ratio of 1 unit per 5 grams CHO consumed * Please note that the plan above was derived based on current level of insulin resistance and hospital stress. These recommendations are appropriate for inpatient admission only. Plan of care upon discharge will need to be reassessed to avoid potential outpatient hypo/hyperglycemia. Thank you.
[2020-05-11] MEDS: HEPARIN SODIUM/DEXTROSE 25,000 UNITS/500 ML BAG IV SCH (11:49)
[2020-05-11] MEDS ORDERED: FUROSEMIDE 20 MG in SYRINGE 0 ML IV ONE (12:00)
[2020-05-11] MEDS: APIXABAN 5 MG TABLET PO SCH ×2 (13:39→20:43)
--- NOTE | 2020-05-11 14:01 | Hospitalist Progress Note ---
Date of Service May 11, 2020 Assessment & Plan (1) Acute respiratory failure with hypoxia: 69 yo M with PMHx of Atrial flutter, with hx of remote isolated event of atrial fibrillation, HLD, pulmonary emphysema, COPD, hx of tobacco abuse, PAD, DM II, and BPH with LUTS, who presents with worsening shortness of breath. Respiratory failure with hypoxia: -Presents with worsening SOB over the last 6-7 days, Found to be hypoxic and with rapid atrial flutter, elevated proBNP, neg for COVID/Flu/RSV -Chest CTA neg for PE but with atelectasis -Likely acute diastolic CHF and A flutter as below -admit to med-tele -wean off supplemental O2 as able to although some of this may be due to h/o severe COPD-likely baseline POx not normal to begin with. Currently on 2 L nasal cannula. Patient normally uses O2 as needed at nighttime Diastolic CHF: Echo from November 2017 reviewed. EF 50-55%. Diastolic dysfunction grade 2. -as above - Likely secondary to hx of such, in acute exacerbation with worsening with being on steroids, and being in rapid aflutter -Spot diuresis, monitor for diuresis with strict I/Os -IV lasix 40mg qAM. 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 Eliquis 5 mg twice daily -IV Lopressor 5 mg x 1 now in the ER on admission- BP improved and rate improved -Switch home metoprolol succinate 12.5 mg to metoprolol tartrate 50 mg this morning and 25 mg this evening If patient is rate controlled then can switch him to metoprolol succinate tomorrow morning. If still elevated, can go up to 100 mg metoprolol succinate in the morning. In any case we will be discharged on succinate not tartrate Consideration for cardioversion down the line if he remains in A. fib/flutter. Hopefully he will convert on his own TSH 0.292 on admission -Appreciate cardiology consult CAP (community acquired pneumonia): - suspected on admission but ruled out--> PCT negative, lactate negative, afebrile, and leukocytosis from steroids; no PNA on imaging, no cough - duonebs QID prn - COVID-19 swab negative, influenza swab neg - BCx x 2, follow - Given 1 dose IV Levaquin in ER, hold on further abx, history of being on oral azithromycin x5 days, finished on 05/07 as outpatient. Pulmonary emphysema: - Hx of such -Consulted pulmonology as an outpatient, continue Anoro inh -Continue duo nebs -no further steroids needed COPD (chronic obstructive pulmonary disease): -As above HTN (hypertension): - Continue metoprolol changed to tartrate as above -continue irbesartan 75 mg daily HLD (hyperlipidemia): -lipid panel reviewed, appears triglycerides are elevated, 286 on last check in December 2000 -Encourage weight loss, diet -Cont atorvastatin 80 mg HS Diabetes: -A1c 7.1 last checked in December, 8.6 this admission -Continue Levemir 55 units every morning, ISS with Accu-Cheks achs -Hold Metformin -Glycemic pharmacy consulted Elevated LFTs: - ALT 185 and Alk phos 164 on admission. 163/153 today - Denies alcohol consumption, could be from haptic congestion from CHF -Continue to trend with a.m. labs No abd pain BPH with obstruction/lower urinary tract symptoms: - Hx of such, stable, denies urinary complaints DVT prophylaxis: Eliquis CODE: FULL Dispo: From home, likely to remain in the hospital x 1-2 days Admission and Anticipated Discharge Date Admission Date: May 10, 2020 Supervising Physician Co-Signing Physician Notes I also saw the patient with Dr. Kumar and confirmed best portions of the history and exam. I also discussed the case with the outside sales consultant. I agree with the impression in plan in the resident documentation. Upon our exam this morning, he is feeling less dyspnea, although he has not been ambulatory. His rates have varied between 80 and low 100s. 1) Continue Lasix. Suspect a degree of rate-related failture. 2) Add additional dose of metoprolol tartrate this morning (50 mg in AM total, and 25 mg as planned this evening). 3) If rate controlled, Toprol 75 mg XL would be appropriate as outpatient. 4) Start Eliquis 5 mg BID and discontinue heparin gtt. He had been on Eliquis previously but he had either rectal bleeding or hematuria - he understands need for anticoagulation and will monitor for bleeding. Subjective 69-year-old male found in bed this a.m. in no acute distress. No acute overnight events. Patient notes that he feels like his breathing is doing much better today. He was able to sleep without issue. Still notes that he feels a little winded with ambulation, however this is improved. Patient with no other acute concerns or complaints. Review of Systems Review of Systems: All systems reviewed & are unremarkable except as noted in HPI & below Physical Exam Constitutional: + obese Eyes: PERRL, conjunctivae normal, anicteric sclerae ENMT: external ear and nose normal, oropharynx normal Respiratory: normal respiratory effort; no respiratory distress and no labored breathing Auscultation: + diminished lung sounds (Bilaterally) and + crackles (Base) Cardiovascular: RRR, no murmur, no edema Gastrointestinal (Abdomen): normal bowel sounds, soft, nontender, no hepatosplenomegaly Skin: no rashes, warm and dry Psychiatric: A+Ox3, euthymic affect Results & Data Results & Data ([facility]) Vital Signs (Past 12 Hours) Vital Signs Temp Pulse Pulse Resp BP Pulse Ox 05/11/20 12:00 37.3 C 82 16 126/79 92 05/11/20 08:29 37.0 C 90 18 129/86 93 05/11/20 07:19 84 05/11/20 03:26 36.5 C 84 18 138/81 92 Laboratory Results Laboratory Results - last 24 hr 05/10/20 05/10/20 05/10/20 12:30 12:30 12:30 WBC RBC Hgb Hct MCV MCH MCHC RDW Std Deviation RDW Coeff of Laurie Plt Count MPV APTT PTT Ratio Sodium Potassium Chloride Carbon Dioxide Anion Gap BUN Creatinine Est Cr Clr Drug Dosing Est GFR ( Amer) Est GFR (Non-Af Amer) BUN/Creatinine Ratio Glucose POC Glucose Estimat Average Glucose 200 Hemoglobin A1c 8.6 H Lactate Calcium Total Bilirubin Direct Bilirubin AST ALT Alkaline Phosphatase Total Protein Albumin Globulin Albumin/Globulin Ratio Procalcitonin < 0.05 TSH 0.292 L Free T4 1.11 SARS-CoV-2 (PCR) Influenza Type A (PCR) Influenza Type B (PCR) RSV (RT-PCR) 05/10/20 05/10/20 05/10/20 13:12 13:12 19:03 WBC RBC Hgb Hct MCV MCH MCHC RDW Std Deviation RDW Coeff of Laurie Plt Count MPV APTT PTT Ratio Sodium Potassium Chloride Carbon Dioxide Anion Gap BUN Creatinine Est Cr Clr Drug Dosing Est GFR ( Amer) Est GFR (Non-Af Amer) BUN/Creatinine Ratio Glucose POC Glucose 319 H* Estimat Average Glucose Hemoglobin A1c Lactate 1.5 Calcium Total Bilirubin Direct Bilirubin AST ALT Alkaline Phosphatase Total Protein Albumin Globulin Albumin/Globulin Ratio Procalcitonin TSH Free T4 SARS-CoV-2 (PCR) NEGATIVE Influenza Type A (PCR) Negative Influenza Type B (PCR) Negative RSV (RT-PCR) Negative 05/10/20 05/11/20 05/11/20 19:05 00:36 02:23 WBC 18.08 H RBC 5.86 Hgb 15.2 Hct 48.1 MCV 82.1 MCH 25.9 MCHC 31.6 L RDW Std Deviation 45.1 RDW Coeff of Laurie 15.3 H Plt Count 391 MPV 10.3 APTT PTT Ratio Sodium Potassium Chloride Carbon Dioxide Anion Gap BUN Creatinine Est Cr Clr Drug Dosing Est GFR ( Amer) Est GFR (Non-Af Amer) BUN/Creatinine Ratio Glucose POC Glucose 308 H* 323 H* Estimat Average Glucose Hemoglobin A1c Lactate Calcium Total Bilirubin Direct Bilirubin AST ALT Alkaline Phosphatase Total Protein Albumin Globulin Albumin/Globulin Ratio Procalcitonin TSH Free T4 SARS-CoV-2 (PCR) Influenza Type A (PCR) Influenza Type B (PCR) RSV (RT-PCR) 05/11/20 05/11/20 05/11/20 02:23 02:23 04:41 WBC RBC Hgb Hct MCV MCH MCHC RDW Std Deviation RDW Coeff of Laurie Plt Count MPV APTT 47.2 H* PTT Ratio 1.7 Sodium 135 L Potassium 4.3 D Chloride 99 Carbon Dioxide 34 H Anion Gap 2.0 L BUN 31 H Creatinine 1.33 Est Cr Clr Drug Dosing 66.8 Est GFR ( Amer) 63.7 Est GFR (Non-Af Amer) 54.9 BUN/Creatinine Ratio 23.3 H Glucose 205 H POC Glucose 111 H Estimat Average Glucose Hemoglobin A1c Lactate Calcium 8.6 Total Bilirubin 0.6 Direct Bilirubin 0.1 AST 21 ALT 163 H Alkaline Phosphatase 153 H Total Protein 6.8 Albumin 3.2 L Globulin 3.6 Albumin/Globulin Ratio 0.9 Procalcitonin TSH Free T4 SARS-CoV-2 (PCR) Influenza Type A (PCR) Influenza Type B (PCR) RSV (RT-PCR) 05/11/20 05/11/20 05/11/20 08:02 09:21 11:42 WBC RBC Hgb Hct MCV MCH MCHC RDW Std Deviation RDW Coeff of Laurie Plt Count MPV APTT 65.1 H* PTT Ratio 2.3 Sodium Potassium Chloride Carbon Dioxide Anion Gap BUN Creatinine Est Cr Clr Drug Dosing Est GFR ( Amer) Est GFR (Non-Af Amer) BUN/Creatinine Ratio Glucose POC Glucose 143 H 219 H Estimat Average Glucose Hemoglobin A1c Lactate Calcium Total Bilirubin Direct Bilirubin AST ALT Alkaline Phosphatase Total Protein Albumin Globulin Albumin/Globulin Ratio Procalcitonin TSH Free T4 SARS-CoV-2 (PCR) Influenza Type A (PCR) Influenza Type B (PCR) RSV (RT-PCR) Medications Administered Current Inpatient Medications Acetaminophen (Acetaminophen 325 Mg Tab) 650 mg PO Q4H PRN PRN Reason: pain Stop: 06/09/20 19:08 Albuterol (Albut/Ipratrop 3mg/0.5mg Neb 3 Ml Vial) 3 ml NEB Q4R PRN PRN Reason: shortness of breath Stop: 06/09/20 19:08 Apixaban (Apixaban 5 Mg Tablet) 5 mg PO BID RYAN Stop: 06/10/20 11:59 Atorvastatin Calcium (Atorvastatin 40 Mg Tab) 80 mg PO HS RYAN Stop: 06/09/20 20:59 Last Admin: 05/10/20 20:58 Dose: 80 mg Documented by: Dextrose (Dextrose 50% 50 Ml Syringe) 25 - 50 ml IV UD PRN; Protocol PRN Reason: Hypoglycemia Protocol Stop: 06/09/20 19:08 Ferrous Sulfate (Ferrous Sulfate 325 Mg Tab) 325 mg PO BID RYAN Stop: 06/09/20 20:59 Last Admin: 05/11/20 08:05 Dose: 325 mg Documented by: Glucagon (Glucagon For Inj 1 Mg Vial) 1 mg SQ UD PRN; Protocol PRN Reason: Hypoglycemia Protocol Stop: 06/09/20 19:08 Glucose (Glucose 10 Tabs/Tube) 4 - 8 tabs PO UD PRN; Protocol PRN Reason: Hypoglycemia Protocol Stop: 06/09/20 19:08 Glucose (Glucose 40% Gel 15 Gm Tube) 15 - 30 gm PO UD PRN; Protocol PRN Reason: Hypoglycemia Protocol Stop: 06/09/20 19:08 Guaifenesin (Guaifenesin 600 Mg Tabcr) 1,200 mg PO Q12 RYAN Stop: 06/09/20 20:59 Last Admin: 05/11/20 08:05 Dose: 1,200 mg Documented by: Furosemide 40 mg/ Syringe 4 mls @ 4 mls/min IV QAM RYAN Stop: 06/10/20 08:59 Last Admin: 05/11/20 08:58 Dose: 4 mls/min Documented by: Insulin Aspart (Insulin Aspart 100 Units/Ml 3 Ml Pen) 0 units SC ACHS RYAN Stop: 06/09/20 19:59 Last Admin: 05/11/20 12:14 Dose: 20 units Documented by: Insulin Glargine (Insulin Glargine Solostar 100 Units/Ml 3 Ml Pen) 50 units SQ QAM RYAN Stop: 06/10/20 08:59 Last Admin: 05/11/20 08:11 Dose: 50 units Documented by: Irbesartan (Irbesartan 75 Mg Tab) 75 mg PO DAILY RYAN Stop: 06/10/20 08:59 Last Admin: 05/11/20 08:05 Dose: 75 mg Documented by: Lorazepam (Lorazepam 0.5 Mg Tab) 0.5 - 1 mg PO BID PRN PRN Reason: anxiety Stop: 06/09/20 19:08 Metoprolol Tartrate (Metoprolol Tartrate 50 Mg Tab) 50 mg PO BID [facility] Stop: 06/10/20 20:59 Miscellaneous (Carbohydrates For Hypoglycemia ) 15 - 30 gm PO UD PRN PRN Reason: Hypoglycemia Protocol Stop: 06/09/20 19:08 Miscellaneous Information (Pharmacy Glycemic Mgmt Consult) 1 ea N/A UD PRN; Protocol PRN Reason: Consult Stop: 06/09/20 19:18 Multivitamins (Multivitamin Tab) 1 tab PO DAILY RYAN Stop: 06/10/20 08:59 Last Admin: 05/11/20 08:06 Dose: 1 tab Documented by: Ondansetron HCl (Ondansetron Inj 2 Mg/Ml 2 Ml Vial) 4 mg IV Q4H PRN PRN Reason: Nausea And Vomiting Stop: 06/09/20 19:08 Umeclidinium/Vilanterol (Umeclidinium/Vilanterol 62.5/25mcg 7 Puffs/Inhaler) 1 puffs INH QAM [facility] Stop: 06/10/20 08:59 Last Admin: 05/11/20 08:05 Dose: 1 puffs Documented by: Resident Activity Tracking Resident Involvement: Resident Care Provided Care Provided: Adult Hospital Medicine
[2020-05-11] MEDS ORDERED: PERFLUTREN LIPID MICROSPHERE (DEFINITY) IV ONE (14:57)
[2020-05-11] MEDS ORDERED: METOPROLOL TARTRATE 1 MG/ML VIAL IV ONE (16:38)
--- NOTE | 2020-05-11 17:16 | XCELERA ---
[id number]
[2020-05-11] MEDS: METOPROLOL TARTRATE 50 MG TAB PO SCH (20:42)
[2020-05-11] MEDS: ATORVASTATIN 40 MG TAB PO SCH (20:43)
[2020-05-12 07:05] LABS: Basophils # (auto) 0.02 K/uL (0-0.2); Basophils % (auto) 0.1 %; Eosinophils # (auto) 0.28 K/uL (0-0.5); Eosinophils % (auto) 1.7 %; Hemoglobin 16.3 g/dL (14.0-18.0); Immature Granulocytes # (auto) 0.13 K/uL (0.00-0.02); Immature Granulocytes % (auto) 0.8 %; Lymphocytes # (auto) 4.63 K/uL (1.2-3.4); Lymphocytes % (auto) 28.2 %; Mean Corpuscular Hemoglobin 25.9 pg (25-34); Mean Corpuscular Hgb Conc 31.3 g/dL (32-36); Mean Corpuscular Volume 82.5 fL (80-100); Mean Platelet Volume 10.6 fL (7.4-10.4); Monocytes # (auto) 1.05 K/uL (0.11-0.59); Monocytes % (auto) 6.4 %; Neutrophils # (auto) 10.31 K/uL (1.4-6.5); Neutrophils % (auto) 62.8 %; Platelet Count 384 K/uL (130-400); RDW Coefficient of Variation 15.3 % (11.5-14.5); RDW Standard Deviation 45.7 fL (36.4-46.3); White Blood Count 16.42 K/uL (4.8-10.8)
[2020-05-12 07:51] LABS: Albumin Level 3.4 gm/dl (3.4-5.0); BUN Creatinine Ratio 23.5 (10-20); Calcium 9.3 mg/dl (8.5-10.1); Est GFR (African American) 52.5; Est GFR (Non-African American) 45.3; Potassium 4.2 mmol/L (3.5-5.1)
[2020-05-12 07:54] LABS: Albumin Globulin Ratio 0.9 (0.9-2); Bilirubin,Total 0.6 mg/dl (0.2-1); Globulin 3.7 gm/dl (2.5-4.0); Total Protein 7.1 gm/dl (6.4-8.2)
[2020-05-12] MEDS: guaiFENesin 600 MG TABCR PO SCH (08:09)
[2020-05-12] MEDS: FERROUS SULFATE 325 MG TAB PO SCH (08:10)
[2020-05-12] MEDS: FUROSEMIDE 40 MG in SYRINGE 0 ML IV SCH (08:10)
[2020-05-12] MEDS: IRBESARTAN 75 MG TAB PO SCH (08:10)
[2020-05-12] MEDS: APIXABAN 5 MG TABLET PO SCH (08:10)
[2020-05-12] MEDS: MULTIVITAMIN TAB PO SCH (08:10)
[2020-05-12] MEDS: UMECLIDINIUM/VILANTEROL 62.5/25MCG 7 PUFFS/INHALER INH SCH (08:11)
[2020-05-12] MEDS: METOPROLOL TARTRATE 50 MG TAB PO SCH (08:11)
[2020-05-12] MEDS: INSULIN ASPART 100 UNITS/ML 3 ML PEN SC SCH ×2 (08:15→12:25)
[2020-05-12] MEDS: INSULIN GLARGINE SOLOSTAR 100 UNITS/ML 3 ML PEN SQ SCH (08:17)
--- NOTE | 2020-05-12 10:46 | Cardiology Progress Note ---
Date of Service May 12, 2020 Assessment & Plan (1) Atrial fibrillation with rapid ventricular response: His rate has improved, but is still higher than it should be. He recently received his morning metoprolol slowed like to wait until around midday to see the effect, if his heart rate remains elevated I will increase his dose. Would not recommend cardioversion at this time as he appears to have been in the arrhythmia for several days now and has not been anticoagulated. There is also no urgent indication for LINDEN guided cardioversion. He should remain on anticoagulation therapy, including upon discharge. He had been resistant to anticoagulation in the past but is agreeable now. He is doing well on Eliquis with no evidence of bleeding and no side effects. (2) SOB (shortness of breath): He appears to have had an element of congestive heart failure causing his progressive shortness of breath. His breathing has greatly improved with diuresis and also with some degree of rate control of his arrhythmia. He does not appear hypervolemic on examination this morning. His rate remains elevated and metoprolol will therefore be titrated, as noted above. (3) HTN (hypertension): BP appears adequately controlled. Will increase metoprolol as needed for rate control. Otherwise, no changes recommended. (4) HLD (hyperlipidemia): Continue statin therapy. Admission and Anticipated Discharge Date Admission Date: May 10, 2020 Subjective He is feeling well today, he is unaware of his cardiac rhythm having no palpitations. His shortness of breath has resolved. Physical Exam 2 Physical Exam: Constitutional: Alert, cooperative and in no distress. HEENT: Unremarkable Neck: No jugular venous distention, carotid pulses are irregular but otherwise normal and equal bilaterally without bruits. Pulmonary: Clear to auscultation bilaterally. Cardiac: Irregular rhythm with no murmur, gallop or rub. Abdomen: Soft, nontender with normal bowel sounds. Extremities: No edema. Distal pulses intact. Neurologic: No focal findings. Gait is steady. Skin: No rash, ecchymoses or petechiae. Results & Data ([facility]) Vital Signs (Past 12 Hours) Vital Signs Temp Pulse Pulse Resp BP Pulse Ox 05/12/20 07:44 36.6 C 73 20 119/78 96 05/12/20 07:00 126 H 05/12/20 04:37 36.7 C 85 19 129/79 94 05/12/20 00:53 84 05/12/20 00:26 36.6 C 116 H 24 178/78 H 90 Laboratory Results Cardiac Enzymes 05/12/20 Range/Units 06:24 AST 25 (15-37) U/L CBC 05/12/20 Range/Units 06:24 WBC 16.42 H (4.8-10.8) K/uL RBC 6.30 H (4.7-6.1) M/uL Hgb 16.3 (14.0-18.0) g/dL Hct 52.0 (42-52) % Plt Count 384 (130-400) K/uL Neut # (Auto) 10.31 H (1.4-6.5) K/uL Lymph # (Auto) 4.63 H (1.2-3.4) K/uL [place] # (Auto) 1.05 H (0.11-0.59) K/uL Eos # (Auto) 0.28 (0-0.5) K/uL Baso # (Auto) 0.02 (0-0.2) K/uL Comprehensive Metabolic Panel 05/12/20 Range/Units 06:24 Sodium 136 (136-145) mmol/L Potassium 4.2 (3.5-5.1) mmol/L Chloride 97 L (98-107) mmol/L Carbon Dioxide 34 H (21-32) mmol/L BUN 37 H (7-18) mg/dl Creatinine 1.56 H (0.6-1.4) mg/dl Glucose 156 H (70-99) mg/dl Calcium 9.3 (8.5-10.1) mg/dl AST 25 (15-37) U/L ALT 141 H (12-78) U/L Alkaline Phosphatase 146 H (45-117) U/L Total Protein 7.1 (6.4-8.2) gm/dl Albumin 3.4 (3.4-5.0) gm/dl Intake and Output 05/11/20 05/12/20 05/12/20 22:59 06:59 14:59 Intake Total 240 / 1536.000 300 / 1536.000 Balance 240 / 1536.000 300 / 1536.000 Intake: Oral 240 / 1200 300 / 1200 Other: # Unmeasured Voids 1 Weight 109.7 kg Weight Measurement Method Built in Bedscale Diagnostic Findings An echocardiogram done May 11, 2020 shows normal left ventricular function with mild left ventricular hypertrophy and mild left atrial dilatation. Telemetry: Atrial flutter/fibrillation with a heart rate averaging 100 bpm but quite variable. No significant bradycardia. PG Care Time/CCT Total # of Minutes Spent Total Time Spent with Patient: Total time spent is greater than 50% in coordination of care (as documented) at patient's floor/unit and/or counseling patient: Coding Level of Care Code 06260 Subseq Hosp Care Lvl 3 Diagnoses Atrial fibrillation with rapid ventricular response I48.91 SOB (shortness of breath) R06.02 HTN (hypertension) I10 HLD (hyperlipidemia) E78.5
[2020-05-12] MEDS ORDERED: METOPROLOL TARTRATE 25 MG TAB PO ONE (12:45)
--- NOTE | 2020-05-12 13:33 | Electrocardiogram Report ---
Test Reason : Blood Pressure : / mmHG Vent. Rate : 088 BPM Atrial Rate : 344 BPM P-R Int : 000 ms QRS Dur : 088 ms QT Int : 364 ms P-R-T Axes : 000 048 040 degrees QTc Int : 440 ms Atrial flutter with variable A-V block vs course atrial fibrillation Abnormal ECG When compared with ECG of 05-FEB-2019 11:44, Atrial flutter has replaced Sinus rhythm Confirmed by Jarrod Moe ([id number]) on 05/12/2020 1:33:00 PM Referred By: REFERRED SELF Confirmed By:Jarrod Moe
--- NOTE | 2020-05-12 13:54 | Pharmacy Report ---
Pharmacy Glycemic Short Note 2 - Date of Service May 12, 2020 - Glycemic Short BSG Results (Last 24 hours): 05/11/20 05/11/20 05/12/20 17:06 20:17 06:24 Glucose 156 H POC Glucose 85 142 H 05/12/20 05/12/20 05/12/20 08:12 11:46 11:53 Glucose POC Glucose 220 H 340 H* 325 H* 05/12/20 11:54 Glucose POC Glucose 355 H* OUTPATIENT ANTIDIABETIC REGIMEN: * Lantus 55 units qAM * Novolog breakfast: 7 units, lunch and dinner: 8-10 units + Correction Factor: 35 mg/dl/unit up to 30 units/day * Metformin oral ASSESSMENT: * Patient received total of 94 units of insulin yesterday: 50 units basal + 44 units bolus. * Fasting BSG was 156 mg/dl. Lantus dose continued. * Pre-lunch BSG was elevated yesterday and today above 300. Yesterday, after a pre-lunch BSG of 219, patient's BSG came down to 85 at dinner time. * Expect BSG to be significantly improved by dinner. Therefore, did not change Novolog parameters. PLAN FOR INPATIENT GLYCEMIC CONTROL: * Hold outpatient oral diabetes medications * Basal insulin: continued * Lantus 50 units SQ qAM * Bolus insulin: continued * NovoLog per scale ACHS or Q6hrs while NPO * Goal Range: Low 110 mg/dL - High 140 mg/dL * Correction Factor: 20 mg/dL/unit * Nutritional / Prandial insulin per carb ratio of 1 unit per 5 grams CHO consumed PLAN FOR DISCHARGE: * A1c = 8.6% on 05/10/20
--- NOTE | 2020-05-12 14:44 | Electrocardiogram Report ---
Test Reason : Blood Pressure : / mmHG Vent. Rate : 111 BPM Atrial Rate : 333 BPM P-R Int : 000 ms QRS Dur : 086 ms QT Int : 318 ms P-R-T Axes : 000 032 -33 degrees QTc Int : 432 ms Poor data quality, interpretation may be adversely affected Atrial flutter with variable A-V block Nonspecific ST and T wave abnormality Abnormal ECG When compared with ECG of 10-MAY-2020 12:34, (unconfirmed) No significant change Confirmed by Jarrod Moe ([id number]) on 05/12/2020 2:43:59 PM Referred By: REFERRED SELF Confirmed By:Jarrod Moe
[2020-05-12] MEDS ORDERED: METOPROLOL TARTRATE 25 MG TAB PO STA (14:53)
--- NOTE | 2020-05-12 15:08 | Discharge Summary ---
Date of Service May 12, 2020 Admission HPI Per Admitting Provider This is a 69 yo M with PMHx of Atrial flutter, with hx of remote isolated event of atrial fibrillation, HLD, pulmonary emphysema, COPD, hx of tobacco abuse, PAD, DM II, and BPH with LUTS, who presents with worsening shortness of breath x 10 days. He was seen by his PCP and was screened for Covid early last week, which resulted on Friday as negative. Therefore, he was prescribed prednisone taper and azithromycin for suspected COPD exacerbation. He reports completing the [facility] on Friday this week, but never really felt like his SOB improved. Shortness of breath has progressed in the last 3 days, and upon seeing his PCP for follow-up, instructed him to come to the ER after being found to be hypoxic. Patient denies any other acute complaints other than a shortness of breath; no chest pain, chest tightness, runny nose, sore throat, headache, and denies known Covid contacts. He was rescreened for Covid today which was again negative in the ER. Pt was adamant that he did not even want to come to the hospital, but is agreeable to admission and staying 2 nights. He feels that his elevated heart rate is because he is annoyed, but does not feel palpitations. ER treated him for suspected diagnosis of pneumonia with IV antibiotics, but procalcitonin was negative, he has been afebrile, and is not coughing. Pro BNP elevated, CTA Chest neg for PE but shows multinodular goiter and dependent opacities,possibly atelectatic. Troponin negative and denied chest pain WBC count elevated but had been on prednisone at home. He had rapid atrial flutter in the ER which is new for him, rates in the 130s. 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 Lives at home. Principal Diagnosis aflutter Discharge Exam Constitutional + obese Eyes PERRL, conjunctivae normal, anicteric sclerae ENMT external ear and nose normal, oropharynx normal Respiratory normal respiratory effort; no respiratory distress and no labored breathing Auscultation: + diminished lung sounds (Bilaterally) and + crackles (Base, faint) Cardiovascular Rate/Rhythm: regular rhythm and + tachycardic Gastrointestinal (Abdomen) normal bowel sounds, soft, nontender, no hepatosplenomegaly Skin no rashes, warm and dry Psychiatric A+Ox3, euthymic affect Discharge Data Allergies Allergy/AdvReac Type Severity Reaction Status Date / Time empagliflozin AdvReac Severe Penile Verified 05/10/20 10:55 [From Jardiance] edema Consultations 05/10/20 15:26 ED Decision to Admit Stat 05/10/20 17:31 Consult Cardiology Routine 05/10/20 19:09 Consult Case Management - Discharge Planning Routine Ordered Studies 05/10/20 15:15 CT angio chest PE protocol Stat Hospital Course (1) Acute respiratory failure with hypoxia: 69 yo M with PMHx of Atrial flutter, with hx of remote isolated event of atrial fibrillation, HLD, pulmonary emphysema, COPD, hx of tobacco abuse, PAD, DM II, and BPH with LUTS, who presents with worsening shortness of breath. The following was the medical management during stay here: Respiratory failure with hypoxia: -Presents with worsening SOB over the last 6-7 days, Found to be hypoxic and with rapid atrial flutter, elevated proBNP, neg for COVID/Flu/RSV -Chest CTA neg for PE but with atelectasis -Likely acute diastolic CHF and A flutter as below -admit to med-tele -We weaned off supplemental O2 as able to although some of this may be due to h/o severe COPD-likely baseline POx not normal to begin with. Pt was up to 2 L nasal cannula. Patient normally uses O2 as needed at nighttime. At time of d/c, pt was not requiring any O2 needs, satting well on RA. Diastolic CHF: Echo from November 2017 reviewed. EF 50-55%. Diastolic dysfunction grade 2. -as above - Likely secondary to hx of such, in acute exacerbation with worsening with being on steroids, and being in rapid aflutter -Spot diuresis was done here with IV Lasix 40mg , monitored for diuresis with strict I/Os -increasing metoprolol for rate control as well as below Atrial flutter: -Admission EKG reviewed Patient remains in high 90s low 100s heart rate at time of discharge -Appears to be new on admission, has a remote history of 1 episode of atrial fibrillation which was in 2018 while septic from a UTI, not on anticoagulation due to previous h/o ?rectal bleeding/blood in stool from a previous adenoma with high grade dysplasia which has since been removed -Discontinued heparin gtt and transitioned to p.o. Eliquis 5 mg twice daily -Switch home metoprolol succinate 12.5 mg to metoprolol tartrate 50 mg in morning and 50 mg in evening. Additional 25 mg tartrate was given throughout admission to help with rate control On discharge, pt will continue with metoprolol succinate 150 mg daily -pt will have f/u with cardiology Dr. Moe next week, they will reach out about appt time and date Consideration for cardioversion down the line if he remains in A. fib/flutter. Hopefully he will convert on his own TSH 0.292 on admission ANGELA on CKD stage 3 -Cr 1.56 on day of discharge. Baseline Cr. ~1.2 -in setting of increased IV diuretic use CAP (community acquired pneumonia): - suspected on admission but ruled out--> PCT negative, lactate negative, afebrile, and leukocytosis from steroids; no PNA on imaging, no cough - duonebs QID prn - COVID-19 swab negative, influenza swab neg - BCx x 2-- NGTD - Given 1 dose IV Levaquin in ER, hold on further abx, history of being on oral azithromycin x5 days, finished on 05/07 as outpatient. Pulmonary emphysema: - Hx of such -Consulted pulmonology as an outpatient, continue Anoro inh -Continue duo nebs -no further steroids needed COPD (chronic obstructive pulmonary disease): -As above HTN (hypertension): - Continue metoprolol changed to tartrate as above -continue irbesartan 75 mg daily HLD (hyperlipidemia): -lipid panel reviewed, appears triglycerides are elevated, 286 on last check in December 2000 -Encourage weight loss, diet -Cont atorvastatin 80 mg HS Diabetes: -A1c 7.1 last checked in December, 8.6 this admission -Continue Levemir 55 units every morning, ISS with Accu-Cheks achs -Hold Metformin -Glycemic pharmacy consulted Elevated LFTs: - ALT 185 and Alk phos 164 on admission. 141/146 on day of discharge - Denies alcohol consumption, could be from hepatic congestion from CHF No abd pain -May f/u with CMP in one weeks time as outpt BPH with obstruction/lower urinary tract symptoms: - Hx of such, stable, denies urinary complaints DVT prophylaxis: Eliquis. At time of discharge pt with no other acute concerns or complaints Total Time Total Time Spent Total Time Spent (In Minutes): 30 Discharge Plan Discharge Items Patient Disposition: Home - Self-Care Reason For Visit: COMMUNITY ACQUIRED PNA Discharge Diagnosis: Atrial flutter Activity: Per Instructions section Non-emergency contact: Primary Care Provider Call non-emergency contact if: you have any medication questions and your symptoms worsen Follow-up/Referrals: Kenia Cesar MD [Primary Care Provider] - 05/16/20 2:30 pm (If you need to change this appointment, please call [phone].) Diet: Regular Addtl Attending Provider Instructions: () Addtl [employer] Provider Instructions: You were admitted with concerns of worsening shortness of breath. This was thought to be due to a couple of factors including your congestive heart failure (which was seen on echocardiogram from November 2017) and your abnormal heart rhythm called atrial flutter. Please follow the below instructions on discharge: You will be starting a heart controlled medication called metoprolol succinate 150 mg to be taken daily you will be started on a new medication that is a blood thinner called Eliquis 5 mg twice daily -These medications have been sent to [facility] You will follow up with your rehab rn Dr. Moe next week. They will reach out to you about specific appointment date and time Please follow-up with your PCP/family doctor within 1 week of discharge for normal hospital follow-up Pending Studies at Discharge: No Stand-Alone Forms: My [employer], Smoking Cessation Medications and DC Order Prescriptions: New Eliquis 5 mg tablet 5 mg PO BID Qty: 60 RF: 0 metoprolol succinate 100 mg tablet extended release 24 hr 150 mg PO DAILY Qty: 30 RF: 0 Continued ferrous sulfate [iron] 325 mg (65 mg iron) tablet 325 mg PO BID Qty: 60 RF: 0 multivitamin Tablet 1 tab PO DAILY Qty: 30 RF: 0 acetaminophen [Tylenol] 325 mg tablet 650 mg PO Q4H PRN (Reason: pain) Qty: 30 RF: 0 metformin 1,000 mg tablet 1,000 mg PO BID Qty: 60 RF: 5 sildenafil 25 mg tablet 25 mg PO DAILY PRN (Reason: sexual activity) Qty: 20 RF: 1 tadalafil 20 mg tablet 20 mg PO DAILY PRN (Reason: sexual activity) Qty: 30 RF: 0 atorvastatin [Lipitor] 80 mg tablet 80 mg PO HS Qty: 90 RF: 3 irbesartan 75 mg tablet 75 mg PO DAILY Qty: 90 RF: 3 albuterol sulfate [Ventolin HFA] 90 mcg/actuation HFA aerosol inhaler 2 puff INHALATION QID PRN (Reason: SHORT OF BREATH) Qty: 18 RF: 0 Anoro Ellipta 62.5-25 mcg/actuation blister with device 1 inh INH Q24H Qty: 60 RF: 5 Novolog Flexpen U-100 Insulin 100 unit/mL (3 mL) insulin pen 30 unit SQ .COMPLEX RF: 0 lorazepam 0.5 mg tablet See Rx Instructions PO BID PRN (Reason: anxiety) Qty: 45 RF: 3 Lantus Solostar U-100 Insulin 100 unit/mL (3 mL) insulin pen 55 unit SQ QAM RF: 0 Discontinued prednisone 20 mg tablet See Rx Instructions PO .COMPLEX Qty: 30 RF: 0 metoprolol succinate 25 mg tablet extended release 24 hr 12.5 mg PO DAILY RF: 0 Discharge Orders: Discharge Order (Routine); Ordered 05/12/20 Ordered By: Mikie Menjivar/Other Patient Handouts: Managing Type 2 Diabetes Admission Data Admit Date/Time: 05/10/20 17:19 Attending Provider: Tequila Prince Admit Provider: Hollie Hill Primary Care Provider: Kenia Cesar Other Providers: Letha Sanchez ; Jarrod Moe Other Interventions: Discharge Summary Assessment (RN) Last Done: 05/12/20 15:06 Supervising Physician Co-Signing Physician Notes Patient seen and examined with PGY-3 Dr. Kumar. Agree with history, exam findings, assessment and plan of care as outlined. In brief, Mr. Smith is a 69 year old male with history of HFpEF, COPD, HTN, CKD Stage 3 admitted with respiratory failure with hypoxia secondary to fluid overload from new atrial flutter. He was diuresed with Lasix with resolution and no supplemental O2 requirement. His metoprolol dose was titrated with improvement of rate controlled a-flutter. He will be discharged on 150mg metoprolol succinate daily. Anticoagulation with Eliquis 5mg BID. Does have history of prior lower GI bleed, but risk for stroke is elevated. Renal function did bump with diuresis, but anticipate that this will improve after discharge. Was not discharged on a daily diuretic as the likely culprit of the pulmonary congestion was rapid a flutter which is not rate controlled. Noted to have elevated LFTs that downtrended with diuresis. This is likely due to hepatic congestions. Recommend repeat LFTs at PCP follow to ensure resolution. Other chronic issues were stable, home meds continued. He will follow up with his PCP within 1 week. I personally spent 35 minutes discharge planning for this patietn. Resident Activity Tracking Resident Involvement: Resident Care Provided Care Provided: Adult Hospital Medicine
--- NOTE | 2020-05-12 16:22 | Electrocardiogram Report ---
Test Reason : Blood Pressure : / mmHG Vent. Rate : 137 BPM Atrial Rate : 374 BPM P-R Int : 000 ms QRS Dur : 090 ms QT Int : 318 ms P-R-T Axes : 000 075 -80 degrees QTc Int : 480 ms Atrial flutter with variable A-V block Abnormal ECG When compared with ECG of 10-MAY-2020 15:56, (unconfirmed) ST no longer depressed in Inferior leads Confirmed by Jarrod Moe ([id number]) on 05/12/2020 4:22:52 PM Referred By: REFERRED SELF Confirmed By:Jarrod Moe
--- NOTE | 2020-05-12 16:23 | Electrocardiogram Report ---
Test Reason : Blood Pressure : / mmHG Vent. Rate : 134 BPM Atrial Rate : 359 BPM P-R Int : 000 ms QRS Dur : 086 ms QT Int : 320 ms P-R-T Axes : 000 078 -58 degrees QTc Int : 477 ms Atrial flutter with variable A-V block Nonspecific ST and T wave abnormality Abnormal ECG When compared with ECG of 11-MAY-2020 16:41, (unconfirmed) No significant change was found Confirmed by Jarrod Moe ([id number]) on 05/12/2020 4:23:14 PM Referred By: REFERRED SELF Confirmed By:Jarrod Moe
== END 2020-05-12 16:25 | disposition home or self-care (01) | DRG 308 ==
LOC: ED 12:18 → 2N 17:19 → SUATTDRO 17:19 → 2N 17:52

== ENCOUNTER 2024-12-15 10:00 | Inpatient (IN) ==
--- NOTE | 2024-12-15 10:42 | Emergency Department Note ---
Impression & Plan Acute CHF, Acute hypoxemic respiratory failure, Hypomagnesemia, Elevated brain natriuretic peptide (BNP) level, Pleural effusion ED Provider Note CHIEF COMPLAINT: Exertional shortness of breath HISTORY OF PRESENTING ILLNESS: Patient is a 73-year-old male presents to the emergency department today with complaints of exertional shortness of breath. Onset of 1 week ago. Patient had a chest x-ray on 12/10/2024 that did show mild CHF. He was told by his primary care doctor that if it got worse he should present to the emergency department. Over the past 2 days it has gotten exceptionally worse. He does have a history of atrial fibrillation, atrial flutter, type 2 diabetes, ED, thyroid nodule, diastolic CHF, BPH, A-fib RVR, hypertension, hyperlipidemia, COPD, iron deficiency anemia. The patient does currently take Cardizem 360 mg once daily to control his A-fib. He was to be taking Eliquis 5 mg twice a day but stopped 2 weeks ago to have a colonoscopy and never restarted as he states "I never really like taking it anyway". He has been unable to ambulate for long distances without needing to sit down. It is difficult to sleep at night. Patient denies any fevers or chills, chest pain bleeding in stool or urine, falls, trauma, head injury, headache, nausea, blurred vision, any visual changes, numbness or tingling, abdominal pain. REVIEW OF SYSTEMS: See HPI for pertinent positives and pertinent negatives. ALLERGIES: See below MEDICATIONS: See below PAST MEDICAL HISTORY: See below PHYSICAL EXAM: General: Awake, alert and oriented. Very mild respiratory distress, SPO2 80% on room air. Patient placed on 2 L with improvement to 94%. Well developed, hydrated and nourished. Appears stated age. Skin: Patient does have a monet ashy color presentation. Skin in warm, dry and intact without rashes or lesions. Appropriate color for ethnicity. Nailbeds pink with no cyanosis or clubbing. Head: The head is normocephalic and atraumatic without tenderness, visible or palpable masses, depressions, or scarring. Hair is of normal texture and evenly distributed. Eyes: Conjunctivae are clear without exudates or hemorrhage. Sclera is non- icteric. EOM are intact, PERRLA. Throat: Oral mucosa is pink and moist with good dentition. Tongue normal in appearance without lesions and with good symmetrical movement. No buccal nodules or lesions are noted. The pharynx is normal in appearance without tonsillar swelling or exudates. Neck: The neck is supple without adenopathy. Trachea is midline. Thyroid gland is normal without masses. Carotid pulse 2+ bilaterally without bruit. No JVD. Cardiac: The external chest is normal in appearance without lifts, heaves, or thrills. Heart rate is normal and regular. No murmurs, gallops, or rubs are auscultated. S1 and S2 are heard and are of normal intensity. Respiratory: The chest wall is symmetric and without deformity. No signs of trauma. Chest wall is non-tender. Bilateral lung sounds with mild wheezing in the lower bases. Abdominal: Abdomen is soft, symmetric, and non-tender with distention present that the patient reports as normal for him. There are multiple surgical scars present. Bowel sounds are present and normoactive in all four quadrants. Extremities: Bilateral lower extremity edema +2 pitting. Upper and lower extremities are atraumatic in appearance without tenderness or deformity. Full range of motion is noted to all joints. Muscle strength is 5/5 bilaterally. Tendon function is normal. Capillary refill is less than 3 seconds in all extremities. Pulses palpable. Steady gait noted. Neurological: The patient is awake, alert and oriented to person, place, and time with normal speech. Motor function is normal with muscle strength 5/5 bilaterally to upper and lower extremities. Sensation is intact bilaterally. Psychiatric: Appropriate mood and affect. Good judgement and insight. No visual or auditory hallucinations. No suicidal or homicidal ideation. DIFFERENTIAL DIAGNOSIS: Differential diagnosis includes acute coronary syndrome, pulmonary embolism, pneumothorax, pericarditis, myocarditis, endocarditis, anxiety, musculoskeletal pain, GERD, costochondritis, pneumonia, among others. ED COURSE AND MEDICAL DECISION MAKING: HISTORY FROM INDEPENDENT HISTORIAN: History was provided by the patient. MONITOR: Continuous monitoring manager: Order was placed for continuous monitoring manager. Patient was placed on the monitoring manager and continuous pulse ox. Patient was noted to be in normal sinus rhythm at an initial rate of 115 bpm per my interpretation. EKG: EKG was interpreted by myself as atrial flutter with variable AV block, ST and T wave abnormality rate of 115 bpm. INTERPRETATION OF LABS: I interpreted the labs with full lab results as below in the lab section of this note. Laboratory results pertinent to the emergent complaint are discussed in the MDM section below. The patient was advised to follow up with their PCP and/or specialist(s) for further outpatient monitoring and management of any abnormal results. INTERPRETATION OF IMAGING: Imaging studies were interpreted by myself and read by radiology as per the imaging section of this note. The patient was advised to follow up with their PCP and/or specialist(s) for further outpatient management of any non-emergent abnormal findings. CHRONIC MEDICAL/SOCIAL CONDITIONS AFFECTING CARE: No social concerns were identified as barriers to patients care. EXTERNAL RECORDS REVIEWED: I reviewed the patient's oncology records from 11/30/2024 related to iron infusion for iron deficiency anemia. I also reviewed his last primary care visit from 08/18/2024 related to a cough and routine health maintenance to obtain an accurate history and medication list. ESCALATION OF CARE CONSIDERED: I considered admission on this patient for CHF exacerbation and hypoxia on arrival. CONSULTATIONS: I had a meaningful discussion about this patient with Dr. Tanner who agrees with my assessment and the treatment plan. SUMMARY: I examined the patient for complaints of exertional shortness of breath. A physical exam and history were performed. Nursing notes, EMR, and medication list were personally reviewed. Patient noted to be hypoxic on arrival to the ED room. He was satting 80% on room air. He was placed on 3 L of oxygen by nasal cannula with improvement to 94%. He was also noted to be tachycardic on arrival but that did improve once he settled into the bed and with oxygen use. CBC showed no leukocytosis. Hemoglobin is 9.3 which is not necessarily abnormal for the patient as he does have an iron deficiency anemia that he gets iron infusions for. No thrombocytopenia. PT is 13.2, INR is 1.2, APTT is normal. CMP shows no emergent findings. Magnesium was 1.4. Troponin was 16, BNP was 352. Chest x-ray shows congestive heart failure. CTA of the chest shows no pulmonary embolism. CHF with small right pleural effusion. Emphysema. Patient was given 1 g of mag replacement. He was also given Lasix 40 mg IV. Evaluation of the last documented cardiology visit from 11/03/2024 it does appear that the patient has a diastolic CHF. The patient did denies a history of CHF. with the patient's current condition I am recommending admission to the hospital. I did speak with Dr. Kumar who accepts the patient for hospital admission. DIAGNOSIS: Congestive heart failure Exacerbation, atrial flutter, atrial fibrillation, TREATMENT PLAN/DISCHARGE INSTRUCTIONS: admit to hospitalist services Past Med/Surg History Problem List (Updated 12/15/24 @ 13:00 by LUCAS Jean-Baptiste) Pleural effusion (Acute) Elevated brain natriuretic peptide (BNP) level (Acute) Hypomagnesemia (Acute) Acute hypoxemic respiratory failure (Acute) Acute CHF (Acute) Atrial flutter, chronic Paroxysmal atrial flutter Controlled type 2 diabetes mellitus, with long-term current use of insulin History of incisional hernia repair via RRHR with partial TAR (transversus abdominus release) GMC. ED (erectile dysfunction) Thyroid nodule Diastolic CHF Hilar lymphadenopathy Mediastinal lymphadenopathy Congestion of nasal sinus Cough Diarrhea Depression due to physical illness Blood in stool Anticoagulant long-term use Dyspnea Thrush Gross hematuria Urethral stricture BPH (benign prostatic hyperplasia) Obesity hypoventilation syndrome Uncontrolled type 2 diabetes mellitus, with long-term current use of insulin Atrial fibrillation with rapid ventricular response HTN (hypertension) (Chronic) Diabetes (Chronic) Positive colorectal cancer screening using Cologuard test Paroxysmal A-fib (Chronic) HLD (hyperlipidemia) (Chronic) COPD (chronic obstructive pulmonary disease) Elevated LFTs Anemia (Chronic) Dehiscence of fascia (Acute) Lung infiltrate Routine health maintenance (Chronic) Cough (Chronic) Claudication (Chronic) SOB (shortness of breath) (Chronic) Symptomatic anemia (Acute) Umbilical hernia (Acute) Male erectile disorder of organic origin (Acute) Former tobacco use Anxiety (Acute) Obesity Dyspnea on exertion Obesity (BMI 30-39.9) Atrial flutter COPD (chronic obstructive pulmonary disease) (Acute) Atrial flutter (Acute) Atrial fibrillation and flutter Ventral hernia (Acute) PAD (peripheral artery disease) (Acute) Pulmonary emphysema (Acute) Vitamin D deficiency (Acute) Medical History Hypoxia Acute respiratory failure with hypoxia CAP (community acquired pneumonia) ANGELA (acute kidney injury) Postnasal drip Sleep disturbances Snoring Rectal mass BENIGN Diabetes mellitus, type 2 Atrial fibrillation FOLLOWS WITH DR. RAMIREZ Hypertension Hyperlipidemia Chronic obstructive pulmonary disease Surgical History History of anesthesia reaction COLON SURGERY AT [place] History of colonoscopy History of reversal of ileostomy History of tonsillectomy and adenoidectomy History of low anterior resection of rectum History of laparotomy History of colon surgery History of creation of ostomy AND REVERSAL History of tooth extraction Family History Father Family history of diabetes mellitus Brother Family history of diabetes mellitus Cardiac disorder Unknown Diabetes Mother Cardiac disorder Cancer Other BPH with obstruction/lower urinary tract symptoms Denies family history of Ovarian cancer Prostate cancer Myocardial infarction Breast cancer Colorectal cancer Social History Smoking Status: Former smoker Tobacco Type: Cigarettes Age Started Using Tobacco: 18; Age Quit Using Tobacco: 57; packs per day: 1; Second Hand Exposure: No; Do You Dip or Chew Tobacco: No; Hx Alcohol Use: No Hx Substance Use: No Preferred Language: Danish Communication Ability: Effective Visual Impairment: Limited Hearing Ability: Normal 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: No Beliefs That Will Affect Care: None marital status: Single Current Living Situation: Alone current occupational status: retired How many Children do You have: 0 Feels Safe at Home: Yes Childhood Exposure to Second-Hand Smoke: Yes Diet: regular caffeine: Yes during the past year weight has: remained stable Dental Care, Regularly: No Physical Activity Frequency: Does not Exercise Seatbelt Use: sometimes Sunscreen Use: No Do you think of yourself as: straight/heterosexual Sexual Activity: has been sexually active within the last 12 months Gender Identity: Male Assistive Devices: BiPap, Contacts, Denture - Upper, Denture - Lower, Glasses and Oxygen - Continuous Allergies Allergies Allergy/AdvReac Type Severity Reaction Status Date / Time empagliflozin Allergy Severe Penile Verified 11/03/24 11:34 [From Jardiance] edema Home Meds Home Medications Medication Instructions Recorded Confirmed wieefgdggsg-asghxqlak-bvoeqwbi 1 inh inhalation DAILY 09/27/21 11/03/24 [Trelegy Ellipta] acetaminophen 325 mg tablet 975 mg PO Q6H PRN Pain 07/24/22 11/03/24 mecobalamin (vitamin B12) 500 mcg mcg PO DAILY 02/17/23 11/03/24 chewable tablet Previous Rx's Medication Instructions Recorded multivitamin 1 tab PO DAILY #30 tabs 05/25/19 blood-glucose meter (OneTouch #1 ea 08/03/22 Verio Flex Meter) lancets 30 gauge #300 ea 03/13/23 apixaban 5 mg tablet (Eliquis) 5 mg PO BID #180 tabs 05/12/23 pen needle, diabetic 31 gauge x #200 ea 10/21/2309/10" (Unifine Pentips Plus) tadalafil 5 mg tablet 5 mg PO DAILY #90 tabs 04/19/24 OneTouch Verio test strips (blood #300 ea 04/22/24 sugar diagnostic) diltiazem HCl 360 mg 360 mg PO DAILY #90 caps 07/28/24 capsule,extended release 24 hr escitalopram oxalate 20 mg tablet 20 mg PO DAILY #30 tabs 08/27/24 OneTouch Delica Plus Lancing #1 ea 09/15/24 Device kit (lancing device with lancets) sildenafil 100 mg tablet (Viagra) 100 mg PO DAILY PRN sexual 09/22/24 activity #20 tabs semaglutide 2 mg/dose (8 mg/3 mL) See Rx Instructions .Route 10/05/24 subcutaneous pen injector (Ozempic) .COMPLEX #3 mL irbesartan 75 mg tablet See Rx Instructions .Route 10/20/24 .COMPLEX #30 tabs atorvastatin 80 mg tablet 80 mg PO DAILY #90 tabs 10/28/24 metformin 500 mg tablet,extended 1,000 mg (2 x 500 mg) PO DAILY #60 11/01/24 release 24 hr tabs insulin glargine 100 unit/mL (3 30 unit (0.3 mL) subcut QAM #45 mL 11/11/24 mL) subcutaneous pen (Lantus Solostar U-100 Insulin) lorazepam 0.5 mg tablet See Rx Instructions PO BID PRN 11/16/24 anxiety #45 tabs Results & Data (ED) Vital Signs Vital Signs - 24 hr 12/15/24 10:06 12/15/24 10:45 12/15/24 10:47 Temperature 36.4 C L Temperature Source Oral Pulse Rate 95 H 142 H Pulse Rate [Apical] Respiratory Rate 22 Respiratory Effort / Characteristics Non-Labored Respiratory Depth Normal Respiratory Pattern Regular Blood Pressure 141/68 H Blood Pressure [Right Arm] Blood Pressure Mean 92 Blood Pressure Mean [Right Arm] Blood Pressure Position [Right Arm] Pulse Oximetry 95 90 Oxygen Delivery Method Room Air Room Air Oxygen Flow Rate Sepsis Recent Fever Within 48 Hours No Sepsis New/Unexplained Change in Mental Status N/A Sepsis Action Taken by Nursing No Action Required Oxygen Flow Rate - Titration 2 12/15/24 10:47 12/15/24 11:18 12/15/24 12:00 Temperature Temperature Source Pulse Rate Pulse Rate [Apical] 95 H Respiratory Rate 28 H Respiratory Effort / Characteristics Non-Labored Spontaneous Respiratory Depth Normal Respiratory Pattern Blood Pressure Blood Pressure [Right Arm] 173/95 H Blood Pressure Mean Blood Pressure Mean [Right Arm] 121 Blood Pressure Position [Right Arm] Semi-fowlers Pulse Oximetry 93 96 98 Oxygen Delivery Method Nasal Cannula Nasal Cannula Nasal Cannula Oxygen Flow Rate 2 2 3 Sepsis Recent Fever Within 48 Hours Sepsis New/Unexplained Change in Mental Status Sepsis Action Taken by Nursing Oxygen Flow Rate - Titration Laboratory Data 12/15/24 10:35 12/15/24 10:35 Lab Results 12/15/24 Range/Units 10:35 WBC 6.82 (4.8-10.8) K/ul RBC 4.62 L (4.70-6.10) M/uL Hgb 9.3 L (14.0-18.0) g/dl Hct 34.7 L (42.0-52.0) % MCV 75.1 L (80.0-100.0) fL MCH 20.1 L (25.0-34.0) pg MCHC 26.8 L (32.0-36.0) g/dL RDW Std Deviation 55.8 H (36.4-46.3) fL RDW Coeff of Laurie 22.0 H (11.5-14.5) % Plt Count 290 (130-400) K/uL MPV 10.3 (9.4-12.4) fL Immature Gran % (Auto) 0.4 % Neut % (Auto) 82.8 % Lymph % (Auto) 8.5 % [place] % (Auto) 7.5 % Eos % (Auto) 0.1 % Baso % (Auto) 0.7 % Neut # (Auto) 5.64 (1.40-6.50) K/uL Lymph # (Auto) 0.58 L (1.20-3.40) K/uL [place] # (Auto) 0.51 (0.11-0.59) K/uL Eos # (Auto) 0.01 (0.00-0.50) K/uL Baso # (Auto) 0.05 (0.00-0.20) K/uL Immature Gran # (Auto) 0.03 (0.01-0.20) K/uL Absolute Nucleated RBC 0.04 (0.00-0.12) K/uL Nucleated RBC % (auto) 0.6 % Polychromasia 2+ Hypochromasia Present Anisocytosis Present Microcytosis Present Tear Drop Cells 1+ Ovalocytes 1+ PT 13.2 H (9.0-12.0) Seconds INR 1.2 H (0.9-1.1) APTT 26 (21-31) Seconds PTT Ratio 1.0 Sodium 140 (136-145) mmol/L Potassium 4.4 (3.5-5.1) mmol/L Chloride 102 (98-107) mmol/L Carbon Dioxide 30 (21-32) mmol/L Anion Gap 8 (3-11) BUN 26 H (6-23) mg/dl Creatinine 1.31 (0.6-1.4) mg/dl Est Cr Clr Drug Dosing Not Reportable eGFR 58.19 BUN/Creatinine Ratio 19.8 (10-20) Glucose 159 H (70-99(Fasting)) mg/dl Calcium 9.1 (8.6-10.3) mg/dl Magnesium 1.4 L (1.7-2.4) mg/dl Total Bilirubin 0.7 (0.2-1.0) mg/dl AST 22 (13-39) U/L ALT 29 (7-52) U/L Alkaline Phosphatase 74 (34-104) U/L Troponin I High Sens 16.0 (0-20) pg/ml B-Natriuretic Peptide 352 H (0-100) pg/ml Total Protein 7.1 (6.0-8.3) gm/dl Albumin 3.9 (3.4-5.0) gm/dl Globulin 3.2 (2.5-4.0) gm/dl Albumin/Globulin Ratio 1.2 (0.9-2) Administered Medications Discontinued Medications Magnesium Sulfate/Dextrose (Magnesium Sulfate / D5w) 1 gm in 100 mls @ 100 mls/hr IV NOW STA Stop: 12/15/24 12:31 Last Infusion: 12/15/24 13:07 Dose: Infused Documented By: Admin: 12/15/24 12:02 Dose: 100 mls/hr Documented By: YOLIE Ioversol (Optiray 320 125ml) 112 ml IV ONCE ONE Stop: 12/15/24 11:44 Last Admin: 12/15/24 11:43 Dose: 112 ml Documented By: SEJ Imaging Data Radiologist's Impression: Chest CTA 12/15/24 10:34 CT angio chest PE protocol CT DOSE: 936.79 mGy.cm HISTORY: Dyspnea. TECHNIQUE: Multiple CTA images of the chest were obtained after the intravenous administration of 112 ml Optiray. Coronal and sagittal MIPS were obtained from the axial data set and were submitted for review. All measurements were obtained according to NASCET criteria. A dose lowering technique was utilized adhering to the principles of ALARA. COMPARISON STUDY: 06/12/2021 FINDINGS: There are mild airway secretions. There is mild cardiomegaly with pulmonary vascular congestion consistent with CHF. There is a small right pleural effusion which layers dependently. There is mild adjacent compressive atelectasis. Mild atelectasis at the left lung base. Trace left pleural effusion. Moderate emphysema. No pneumothorax. Stable multinodular goiter on the left. Stable mild mediastinal and hilar lymphadenopathy. No pericardial effusion. There are diffuse coronary artery calcifications. No pulmonary embolism. No thoracic aortic dissection or aneurysm. There are mild thoracic spine degenerative changes. IMPRESSION: 1. No pulmonary embolism seen. 2. CHF with small right pleural effusion. Emphysema. 3. Otherwise as described. ACT 112: Negative or not required by law. The above report was generated using voice recognition software. It may contain grammatical, syntax or spelling errors. Electronically signed by: John Cooper M.D. 12/15/2024 12:20 PM Chest X-Ray 12/15/24 10:39 XR chest 1V portable CLINICAL HISTORY: SOB COMPARISON STUDY: 12/10/2024 FINDINGS: Stable mild cardiomegaly with mild pulmonary vascular congestion. No consolidation or pleural effusion. No pneumothorax. IMPRESSION: CHF. ACT 112: Negative or not required by law. Electronically signed by: John Cooper M.D. 12/15/2024 10:58 AM Discharge Plan Visit Data Chief Complaint: Shortness of Breath/Dyspnea Stated Complaint: SOB, CONGESTIVE HEART FAILURE PER PCP ED Provider: Marlena Tanner ED Midlevel Provider: Yancy Cobb Discharge Problem: Acute CHF, Acute hypoxemic respiratory failure, Hypomagnesemia, Elevated brain natriuretic peptide (BNP) level, Pleural effusion Patient Disposition: Admitted As Inpatient Condition: Good Forms Stand Alone Forms: My [facility] Prescriptions Prescriptions: No Action multivitamin Tablet 1 tab PO DAILY Qty: 30 0RF (DME) blood-glucose meter [OneTouch Verio Flex meter] Misc See Rx Instructions .Route Qty: 1 0RF Rx Instructions: As directed (DME) lancets 30 gauge misc See Rx Instructions .Route Qty: 300 3RF Rx Instructions: Test blood sugars three times a day - OneTouch Delica Eliquis 5 mg tablet 5 mg PO BID Qty: 180 3RF (DME) pen needle, diabetic [Unifine Pentips Plus] 31 gauge x 5/16" needle See Rx Instructions .Route Qty: 200 3RF Rx Instructions: Use two per day with insulin injections tadalafil 5 mg tablet 5 mg PO DAILY Qty: 90 3RF (DME) OneTouch Verio test strips Strip See Rx Instructions .ROUTE .MEDSUPPLY Qty: 300 3RF Rx Instructions: Test blood sugars three times a day diltiazem HCl 360 mg capsule,extended release 24hr 360 mg PO DAILY Qty: 90 3RF escitalopram oxalate 20 mg tablet 20 mg PO DAILY Qty: 30 5RF (DME) lancing device with lancets [OneTouch Delica Plus Lanc Dev] Kit See Rx Instructions .Route Qty: 1 0RF Rx Instructions: use to test 1 time daily sildenafil [Viagra] 100 mg tablet 100 mg PO DAILY PRN (Reason: sexual activity) Qty: 20 5RF Rx Instructions: administer 1 hour before activity. Ozempic 2 mg/dose (8 mg/3 mL) pen injector See Rx Instructions .ROUTE .COMPLEX Qty: 3 5RF Dose Instruction: INJECT 2MG ONCE PER WEEK. Rx Instructions: INJECT 2MG ONCE PER WEEK. irbesartan 75 mg tablet See Rx Instructions .ROUTE .COMPLEX Qty: 30 5RF Dose Instruction: TAKE ONE TABLET BY MOUTH EVERY DAY Rx Instructions: TAKE ONE TABLET BY MOUTH EVERY DAY metformin 500 mg tablet extended release 24 hr 1,000 mg PO DAILY Qty: 60 7RF insulin glargine [Lantus Solostar U-100 Insulin] 100 unit/mL (3 mL) insulin pen 30 unit SQ QAM Qty: 45 3RF lorazepam 0.5 mg tablet See Rx Instructions PO BID PRN (Reason: anxiety) Qty: 45 3RF Rx Instructions: take as needed for anxiety acetaminophen 325 mg tablet 975 mg PO Q6H PRN (Reason: Pain) mihtoshqinp-fqmiyozky-uelsyplq [Trelegy Ellipta] 1 inh inhalation DAILY mecobalamin (vitamin B12) 500 mcg tablet,chewable PO DAILY atorvastatin 80 mg tablet 80 mg PO DAILY Qty: 90 3RF Referrals Referrals: Kenia Cesar MD [Primary Care Provider] - Discharge Problem: Acute CHF Qualifiers: Heart failure type: diastolic Qualified Code(s): I50.31 - Acute diastolic (congestive) heart failure
[2024-12-15 10:57] LABS: Hematocrit (blood only) 34.7 % (42.0-52.0); Hemoglobin 9.3 g/dl (14.0-18.0); Immature Granulocytes # (auto) 0.03 K/uL (0.01-0.20); Immature Granulocytes % (auto) 0.4 %; Mean Corpuscular Hemoglobin 20.1 pg (25.0-34.0); Mean Corpuscular Volume 75.1 fL (80.0-100.0); Platelet Count 290 K/uL (130-400); RDW Standard Deviation 55.8 fL (36.4-46.3); Red Blood Count 4.62 M/uL (4.70-6.10); White Blood Count 6.82 K/ul (4.8-10.8)
--- NOTE | 2024-12-15 11:00 | XRay Report ---
XR chest 1V portable CLINICAL HISTORY: SOB COMPARISON STUDY: 12/10/2024 FINDINGS: Stable mild cardiomegaly with mild pulmonary vascular congestion. No consolidation or pleur al effusion. No pneumothorax. IMPRESSION: CHF. ACT 112: Negative or not required by law. Electronically signed by: John Cooper M.D. 12/15/2024 10:58 AM
[2024-12-15 11:17] LABS: Alanine Aminotransferase 29 U/L (7-52); Albumin Globulin Ratio 1.2 (0.9-2); Alkaline Phosphatase 74 U/L (34-104); Anion Gap 8 (3-11); Bilirubin,Total 0.7 mg/dl (0.2-1.0); Blood Urea Nitrogen 26 mg/dl (6-23); Calcium 9.1 mg/dl (8.6-10.3); Carbon Dioxide 30 mmol/L (21-32); Chloride 102 mmol/L (98-107); Globulin 3.2 gm/dl (2.5-4.0); Glucose 159 mg/dl (70-99(Fasting)); Magnesium 1.4 mg/dl (1.7-2.4); Potassium 4.4 mmol/L (3.5-5.1); Sodium 140 mmol/L (136-145); Total Protein 7.1 gm/dl (6.0-8.3)
[2024-12-15 11:27] LABS: Anisocytosis Present; Hypochromasia Present; Microcytosis Present; Ovalocytes 1+; Polychromasia 2+; Tear Drop Cells 1+
[2024-12-15 11:34] LABS: INR 1.2 (0.9-1.1); Partial Thromboplastin Time 26 Seconds (21-31); Prothrombin Time 13.2 Seconds (9.0-12.0)
[2024-12-15] MEDS: OPTIRAY 320 125ml IV ONE (11:43)
[2024-12-15] MEDS: MAGNESIUM SULFATE / D5W 1 GM/100 ML BAG IV STA (12:02)
--- NOTE | 2024-12-15 12:23 | CT Scan Report ---
CT angio chest PE protocol CT DOSE: 936.79 mGy.cm HISTORY: Dyspnea. TECHNIQUE: Multiple CTA images of the chest were obtained after the intravenous administration of 112 ml Optiray. Coronal and sagittal MIPS were obtained from the axial data set and were submitted for review. All measurements were obtained according to NASCET criteria. A dose lowering technique was u tilized adhering to the principles of ALARA. COMPARISON STUDY: 06/12/2021 FINDINGS: There are mild airway secretions. There is mild cardiomegaly with pulmonary vascular conges tion consistent with CHF. There is a small right pleural effusion which layers dependently. There is mild adjacent compressive atelectasis. Mild atelectasis at the left lung base. Trace left pleural eff usion. Moderate emphysema. No pneumothorax. Stable multinodular goiter on the left. Stable mild media stinal and hilar lymphadenopathy. No pericardial effusion. There are diffuse coronary artery calcific ations. No pulmonary embolism. No thoracic aortic dissection or aneurysm. There are mild thoracic spi ne degenerative changes. IMPRESSION: 1. No pulmonary embolism seen. 2. CHF with small right pleural effusion. Emphysema. 3. Otherwise as described. ACT 112: Negative or not required by law. The above report was generated using voice recognition software. It may contain grammatical, syntax o r spelling errors. Electronically signed by: John Cooper M.D. 12/15/2024 12:20 PM
[2024-12-15] MEDS ORDERED: FUROSEMIDE 40 MG/4 ML VIAL IV ONE (12:32)
--- NOTE | 2024-12-15 12:34 | Emergency Department Note ---
ED Visit Note I was consulted by the Advanced Practice Provider, LUCAS Nuñez. I performed a substantive portion of the visit. This includes aspects of: History: Patient is a 73-year-old male presenting with shortness of breath. Shortness of breath worse with exertion. He had a chest x-ray 5 days ago that showed mild CHF and he was instructed that if he has worsening symptoms he should present to the emergency department. Reports progressively worsening of symptoms over the last few days. Denies any chest pain. MDM: - Vital signs initially showed hypoxia on arrival to the emergency department. Patient placed on 3 L supplemental nasal cannula with improvement in his saturations. - Laboratory workup interpreted by myself showed normal WBC; anemia (Hgb 9.3); elevated INR; stable electrolytes other than hypomagnesemia (Mg 1.4); normal troponin; elevated BNP (352) - CXR image reviewed by myself shows pulmonary vascular congestion, per my interpretation. Radiology notes CHF. - CT PE obtained and patient's hypoxia had an oxygen requirement in the setting of shortness of breath. CT PE negative for PE, but noted to have CHF with small right pleural effusion. - Patient given 1g IV magnesium in ER. - Given patient's acute hypoxia in the setting of new CHF, will admit to hospitalist service. 40 mg IV lasix ordered. .
[2024-12-15] MEDS ORDERED: PHARMACY GLYCEMIC MGMT CONSULT PRN (13:59)
--- NOTE | 2024-12-15 13:59 | History & Physical Report ---
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 Reportedly he had a chest x-ray done on 12/10 that demonstrated mild heart failure and per report by ED provider was not placed on diuretics or any other medications at that time. Worked up in ED here with impression of CHF exacerbation and was given Lasix 40 IV x 1 and a gram of magnesium. Acute CHF exacerbation CHF protocol orders IV Lasix 40 twice daily TTE TFTs GDMT per cardiology Acute on chronic hypoxic respiratory failure Wean O2 sat goal 88-94 History A-fib Jesica control. Eliquis. Diabetes type 2 Hold oral hypoglycemics Short and long-acting insulin WILLEM Hb goal greater than 8 Continue iron therapy. 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 Reportedly he had a chest x-ray done on 12/10 that demonstrated mild heart failure and per report by ED provider was not placed on diuretics or any other medications at that time. Worked up in ED here with impression of CHF exacerbation and was given Lasix 40 IV x 1 and a gram of magnesium. He denies any other symptoms. No chest pain orthopnea fevers chills cough nausea lightheadedness diaphoresis or any other symptoms. Discussed with ED Provider Awaiting completion of home med rec Allergies Allergy/AdvReac Type Severity Reaction Status Date / Time empagliflozin Allergy Severe Penile Verified 11/03/24 11:34 [From Jardiance] edema Home Medications Medication Instructions Recorded Confirmed Type multivitamin 1 tab PO DAILY #30 tabs 05/25/19 11/03/24 Rx kiyriqdwlvh-zgzeqqsvr-jpnutpsg 1 inh inhalation DAILY 09/27/21 11/03/24 History [Trelegy Ellipta] acetaminophen 325 mg tablet 975 mg PO Q6H PRN Pain 07/24/22 11/03/24 History blood-glucose meter (OneTouch #1 ea 08/03/22 11/03/24 Rx Verio Flex Meter) mecobalamin (vitamin B12) 500 mcg mcg PO DAILY 02/17/23 11/03/24 History chewable tablet lancets 30 gauge #300 ea 03/13/23 11/03/24 Rx apixaban 5 mg tablet (Eliquis) 5 mg PO BID #180 tabs 05/12/23 11/03/24 Rx pen needle, diabetic 31 gauge x #200 ea 10/21/23 11/03/24 Rx 5/16" (Unifine Pentips Plus) tadalafil 5 mg tablet 5 mg PO DAILY #90 tabs 04/19/24 11/03/24 Rx OneTouch Verio test strips (blood #300 ea 04/22/24 11/03/24 Rx sugar diagnostic) diltiazem HCl 360 mg 360 mg PO DAILY #90 caps 07/28/24 11/03/24 Rx capsule,extended release 24 hr escitalopram oxalate 20 mg tablet 20 mg PO DAILY #30 tabs 08/27/24 11/03/24 Rx OneTouch Delica Plus Lancing #1 ea 09/15/24 11/03/24 Rx Device kit (lancing device with lancets) sildenafil 100 mg tablet (Viagra) 100 mg PO DAILY PRN sexual 09/22/24 11/03/24 Rx activity #20 tabs semaglutide 2 mg/dose (8 mg/3 mL) See Rx Instructions .Route 10/05/24 11/03/24 Rx subcutaneous pen injector (Ozempic) .COMPLEX #3 mL irbesartan 75 mg tablet See Rx Instructions .Route 10/20/24 11/03/24 Rx .COMPLEX #30 tabs atorvastatin 80 mg tablet 80 mg PO DAILY #90 tabs 10/28/24 11/03/24 Rx metformin 500 mg tablet,extended 1,000 mg (2 x 500 mg) PO DAILY #60 11/01/24 11/03/24 Rx release 24 hr tabs insulin glargine 100 unit/mL (3 30 unit (0.3 mL) subcut QAM #45 mL 11/11/24 Rx mL) subcutaneous pen (Lantus Solostar U-100 Insulin) lorazepam 0.5 mg tablet See Rx Instructions PO BID PRN 11/16/24 Rx anxiety #45 tabs Past Med/Surg History Problem List (Updated 12/15/24 @ 13:00 by LUCAS Jean-Baptiste) Pleural effusion (Acute) Elevated brain natriuretic peptide (BNP) level (Acute) Hypomagnesemia (Acute) Acute hypoxemic respiratory failure (Acute) Acute CHF (Acute) Atrial flutter, chronic Paroxysmal atrial flutter Controlled type 2 diabetes mellitus, with long-term current use of insulin History of incisional hernia repair via RRHR with partial TAR (transversus abdominus release) GMC. ED (erectile dysfunction) Thyroid nodule Diastolic CHF Hilar lymphadenopathy Mediastinal lymphadenopathy Congestion of nasal sinus Cough Diarrhea Depression due to physical illness Blood in stool Anticoagulant long-term use Dyspnea Thrush Gross hematuria Urethral stricture BPH (benign prostatic hyperplasia) Obesity hypoventilation syndrome Uncontrolled type 2 diabetes mellitus, with long-term current use of insulin Atrial fibrillation with rapid ventricular response HTN (hypertension) (Chronic) Diabetes (Chronic) Positive colorectal cancer screening using Cologuard test Paroxysmal A-fib (Chronic) HLD (hyperlipidemia) (Chronic) COPD (chronic obstructive pulmonary disease) Elevated LFTs Anemia (Chronic) Dehiscence of fascia (Acute) Lung infiltrate Routine health maintenance (Chronic) Cough (Chronic) Claudication (Chronic) SOB (shortness of breath) (Chronic) Symptomatic anemia (Acute) Umbilical hernia (Acute) Male erectile disorder of organic origin (Acute) Former tobacco use Anxiety (Acute) Obesity Dyspnea on exertion Obesity (BMI 30-39.9) Atrial flutter COPD (chronic obstructive pulmonary disease) (Acute) Atrial flutter (Acute) Atrial fibrillation and flutter Ventral hernia (Acute) PAD (peripheral artery disease) (Acute) Pulmonary emphysema (Acute) Vitamin D deficiency (Acute) Medical History Hypoxia Acute respiratory failure with hypoxia CAP (community acquired pneumonia) ANGELA (acute kidney injury) Postnasal drip Sleep disturbances Snoring Rectal mass BENIGN Diabetes mellitus, type 2 Atrial fibrillation FOLLOWS WITH DR. RAMIREZ Hypertension Hyperlipidemia Chronic obstructive pulmonary disease Surgical History History of anesthesia reaction COLON SURGERY AT [facility], [facility] PARANOID DREAMS History of colonoscopy History of reversal of ileostomy History of tonsillectomy and adenoidectomy History of low anterior resection of rectum History of laparotomy History of colon surgery History of creation of ostomy AND REVERSAL History of tooth extraction Family History Father Family history of diabetes mellitus Brother Family history of diabetes mellitus Cardiac disorder Unknown Diabetes Mother Cardiac disorder Cancer Other BPH with obstruction/lower urinary tract symptoms Denies family history of Ovarian cancer Prostate cancer Myocardial infarction Breast cancer Colorectal cancer Social History Smoking Status: Former smoker Tobacco Type: Cigarettes Age Started Using Tobacco: 18; Age Quit Using Tobacco: 57; packs per day: 1; Second Hand Exposure: No; Do You Dip or Chew Tobacco: No; Hx Alcohol Use: No Hx Substance Use: No Preferred Language: Kittitian Communication Ability: Effective Visual Impairment: Limited Hearing Ability: Normal Radiographic Technologist Required: No Beliefs That Will Affect Care: None marital status: Single Current Living Situation: Alone current occupational status: retired How many Children do You have: 0 Feels Safe at Home: Yes Childhood Exposure to Second-Hand Smoke: Yes Diet: regular caffeine: Yes during the past year weight has: remained stable Dental Care, Regularly: No Physical Activity Frequency: Does not Exercise Seatbelt Use: sometimes Sunscreen Use: No Do you think of yourself as: straight/heterosexual Sexual Activity: has been sexually active within the last 12 months Gender Identity: Male Assistive Devices: BiPap, Contacts, Denture - Upper, Denture - Lower, Glasses and Oxygen - Continuous Review of Systems Review of Systems: All systems reviewed & are unremarkable except as noted in HPI & below Physical Exam Physical Exam: General: Patient in no acute distress. HEENT: Head is atraumatic, normocephalic. EOM's intact. Sclerae anicteric. Facies symmetric. No perioral cyanosis. Neck: No JVD. JVP is not elevated. Carotid upstrokes +2 bilaterally. No bruits. Chest and Lungs: Air entry bilaterally CVS: S1 and S2 Positive Extremities: Palpable pulses. Positive edema Neurologic Exam: Patient is awake, alert, and oriented. Pleasant and cooperative. Answers questions appropriately. Speech is clear. Results & Data Results & Data Vital Signs (Past 12 Hours) Vital Signs Temp Pulse Pulse Resp BP BP Pulse Ox 12/15/24 12:00 95 H 28 H 173/95 H 98 12/15/24 11:18 96 12/15/24 10:47 93 12/15/24 10:47 90 12/15/24 10:45 142 H 12/15/24 10:06 36.4 C L 95 H 22 141/68 H 95 O2 Del Method O2 Flow Rate 12/15/24 12:00 Nasal Cannula 3 12/15/24 11:18 Nasal Cannula 2 12/15/24 10:47 Nasal Cannula 2 12/15/24 10:47 Room Air 12/15/24 10:45 12/15/24 10:06 Room Air Laboratory Results Abnormal Labs 12/15/24 10:35 RBC 4.62 L Hgb 9.3 L Hct 34.7 L MCV 75.1 L MCH 20.1 L MCHC 26.8 L RDW Std Deviation 55.8 H RDW Coeff of Laurie 22.0 H Lymph # (Auto) 0.58 L PT 13.2 H INR 1.2 H BUN 26 H Glucose 159 H Magnesium 1.4 L B-Natriuretic Peptide 352 H Diagnostic Findings Chest CTA 12/15/24 10:34 CT angio chest PE protocol CT DOSE: 936.79 mGy.cm HISTORY: Dyspnea. TECHNIQUE: Multiple CTA images of the chest were obtained after the intravenous administration of 112 ml Optiray. Coronal and sagittal MIPS were obtained from the axial data set and were submitted for review. All measurements were obtained according to NASCET criteria. A dose lowering technique was utilized adhering to the principles of ALARA. COMPARISON STUDY: 06/12/2021 FINDINGS: There are mild airway secretions. There is mild cardiomegaly with pulmonary vascular congestion consistent with CHF. There is a small right ple ural effusion which layers dependently. There is mild adjacent compressive atelectasis. Mild atelectasis at the left lung base. Trace left pleural effusion. Moderate emphysema. No pneumothorax. Stable multinodular goiter on the left. Stable mild mediastinal and hilar lymphadenopathy. No pericardial effusion. There are diffuse coronary artery calcifications. No pulmonary embolism. No thoracic aortic dissection or aneurysm. There are mild thoracic spine degenerative changes. IMPRESSION: 1. No pulmonary embolism seen. 2. CHF with small right pleural effusion. Emphysema. 3. Otherwise as described. ACT 112: Negative or not required by law. The above report was generated using voice recognition software. It may contain grammatical, syntax or spelling errors. Electronically signed by: John Cooper M.D. 12/15/2024 12:20 PM Chest X-Ray 12/15/24 10:39 XR chest 1V portable CLINICAL HISTORY: SOB COMPARISON STUDY: 12/10/2024 FINDINGS: Stable mild cardiomegaly with mild pulmonary vascular congestion. No consolidation or pleural effusion. No pneumothorax. IMPRESSION: CHF. ACT 112: Negative or not required by law. Electronically signed by: John Cooper M.D. 12/15/2024 10:58 AM PG Care Time/CCT Total # of Minutes Spent Total Time Spent with Patient: Total time spent is greater than 50% in coordination of care (as documented) at patient's floor/unit and/or counseling patient: Coding Level of Care Code 05076 INT INP/OBS CARE 255MIN Diagnoses Chronic obstructive pulmonary disease J44.9 Hyperlipidemia E78.5 Hypertension I10 Hypertension type: unspecified Pleural effusion J90 Acute CHF I50.31 Heart failure type: diastolic Acute hypoxemic respiratory failure J96.01 Hypomagnesemia E83.42 (3) Hypertension Hypertension type: unspecified Qualified Code(s): I10 - Essential (primary) hypertension (5) Acute CHF Heart failure type: diastolic Qualified Code(s): I50.31 - Acute diastolic (congestive) heart failure
[2024-12-15] MEDS ORDERED: ONDANSETRON INJ 2 MG/ML 2 ML VIAL IV PRN (14:11)
[2024-12-15] MEDS ORDERED: POLYETHYLENE (MIRALAX) 17 GM PACK PO PRN (14:11)
[2024-12-15] MEDS ORDERED: ACETAMINOPHEN 325 MG TAB PO PRN ×2 (14:11→18:32)
[2024-12-15 14:58] LABS: Thyroid Stimulating Hormone 0.421 uIu/ml (0.300-4.500)
[2024-12-15] MEDS ORDERED: CARBOHYDRATES FOR HYPOGLYCEMIA PO PRN (15:30)
[2024-12-15] MEDS ORDERED: GLUCAGON FOR INJ 1 MG VIAL SQ PRN (15:30)
[2024-12-15] MEDS ORDERED: GLUCOSE 10 TAB/TUBE PO PRN (15:30)
[2024-12-15] MEDS ORDERED: GLUCOSE 40% GEL 15 GM TUBE PO PRN (15:30)
[2024-12-15] MEDS ORDERED: DEXTROSE 50% 50 ML SYRINGE IV PRN (15:30)
[2024-12-15] MEDS: FUROSEMIDE 40 MG/4 ML VIAL IV ONE (15:44)
[2024-12-15] MEDS ORDERED: Nursing to Pharmacy Communication SCH (15:45)
[2024-12-15] MEDS: INSULIN ASPART PER UNIT CHARGE SC SCH (17:19)
[2024-12-15] MEDS ORDERED: LORazepam 0.5 MG TAB PO PRN (18:32)
[2024-12-15 18:42] LABS: Appearance Urine Clear (Clear); Bacteria Urine Automated None Seen (None Seen); Cast Urine Automated 0-2 /lpf (0-2); Epithelial Cell Urine Auto 0-2 /hpf (0-2); Glucose Urine UA Negative (Negative); WBC Urine Automated 0-5 /hpf (0-5)
[2024-12-15] MEDS ORDERED: NON-FORMULARY MEDICATION (Fluticasone-Umeclidin-Vilanter [Trelegy Ellipta] 200-62.5-25 mcg INH SCH (18:45)
[2024-12-15] MEDS: APIXABAN 5 MG TABLET PO SCH (20:09)
[2024-12-15] MEDS: ATORVASTATIN 40 MG TAB PO SCH (20:10)
[2024-12-15] MEDS: LOSARTAN POTASSIUM 25 MG TAB PO SCH (20:12)
[2024-12-15] MEDS ORDERED: APIXABAN 5 MG TABLET PO SCH (21:00)
[2024-12-16 07:42] LABS: Hemoglobin A1C 5.8 % (4.5-5.6)
[2024-12-16 08:05] LABS: Hematocrit (blood only) 32.1 % (42.0-52.0); Hemoglobin 9.0 g/dl (14.0-18.0); Mean Corpuscular Hemoglobin 20.5 pg (25.0-34.0); Mean Corpuscular Volume 73.3 fL (80.0-100.0); Platelet Count 266 K/uL (130-400); RDW Standard Deviation 53.5 fL (36.4-46.3); Red Blood Count 4.38 M/uL (4.70-6.10); White Blood Count 7.65 K/ul (4.8-10.8)
[2024-12-16 08:22] LABS: Alanine Aminotransferase 24.0 U/L (7-52); Albumin Globulin Ratio 1.5 (0.9-2); Alkaline Phosphatase 63.0 U/L (34-104); Anion Gap 4.0 (3-11); Bilirubin,Total 0.7 mg/dl (0.2-1.0); Blood Urea Nitrogen 16.0 mg/dl (6-23); Calcium 8.7 mg/dl (8.6-10.3); Carbon Dioxide 35.0 mmol/L (21-32); Chloride 100.0 mmol/L (98-107); Creatinine Clr Calc Pharmacy 67.3 ml/min; Globulin 2.5 gm/dl (2.5-4.0); Glucose 83.0 mg/dl (70-99(Fasting)); Potassium 4.5 mmol/L (3.5-5.1); Sodium 139.0 mmol/L (136-145); Total Protein 6.2 gm/dl (6.0-8.3)
[2024-12-16] MEDS: MULTIVITAMIN TAB PO SCH (08:38)
[2024-12-16] MEDS: ESCITALOPRAM OXALATE 20 MG TAB PO SCH (08:38)
[2024-12-16] MEDS: LANTUS PER UNIT CHARGE SC SCH (08:38)
[2024-12-16] MEDS: FLUTICASONE FUROATE 200MCG 14 PUFFS/INHALER INH SCH (08:39)
[2024-12-16] MEDS: UMECLIDINIUM/VILANTEROL 62.5/25MCG 7 PUFFS/INHALER INH SCH (08:39)
[2024-12-16] MEDS: FUROSEMIDE 40 MG/4 ML VIAL IV SCH (08:39)
[2024-12-16] MEDS: CYANOCOBALAMIN (B-12) 500 MCG TABLET PO SCH (08:41)
[2024-12-16] MEDS ORDERED: LANTUS PER UNIT CHARGE SC SCH (09:00)
--- NOTE | 2024-12-16 10:30 | Hospitalist Progress Note ---
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 Reportedly he had a chest x-ray done on 12/10 that demonstrated mild heart failure and per report by ED provider was not placed on diuretics or any other medications at that time. Worked up in ED here with impression of CHF exacerbation and was given Lasix 40 IV x 1 and a gram of magnesium. Acute CHF exacerbation CHF protocol orders IV Lasix 40 twice daily TTE TFTs wnl GDMT per cardiology Acute on chronic hypoxic respiratory failure Wean O2 sat goal 88-94 History A-fib Jesica control. Eliquis. Diabetes type 2 Hold oral hypoglycemics Short and long-acting insulin WILLEM Hb goal greater than 8 Continue iron therapy. Due next for IV Venofer this Friday per patient Hypertension Home medications Hyperlipidemia Home statin Deconditioning PT OT DVT prophylaxis Full code Disposition Discharge home in 1 to 2 days Once cleared by cardiology Admission and Anticipated Discharge Date Admission Date: December 15, 2024 Subjective He is doing well tells me his breathing is improved. No chest pain nausea lightheadedness diaphoresis or any other symptoms. He tells me he has urinated a lot after receiving Lasix Review of Systems Review of Systems: All systems reviewed & are unremarkable except as noted in HPI & below Physical Exam Physical Exam: General: Patient in no acute distress. HEENT: Head is atraumatic, normocephalic. EOM's intact. Sclerae anicteric. Facies symmetric. No perioral cyanosis. Neck: No JVD. JVP is not elevated. Carotid upstrokes +2 bilaterally. No bruits. Chest and Lungs: Air entry bilaterally CVS: S1 and S2 Positive Extremities: Palpable pulses. Positive edema Neurologic Exam: Patient is awake, alert, and oriented. Pleasant and cooperative. Answers questions appropriately. Speech is clear. Results & Data Results & Data Vital Signs (Past 12 Hours) Vital Signs Temp Pulse Resp BP BP Pulse Ox O2 Del Method 12/16/24 07:29 36.8 C 95 H 16 146/81 H 93 Nasal Cannula 12/16/24 03:21 36.6 C 96 H 20 107/62 91 Nasal Cannula 12/15/24 22:59 37.0 C 96 H 20 108/62 90 Nasal Cannula O2 Flow Rate 12/16/24 07:29 3 12/16/24 03:21 3.5 12/15/24 22:59 3.5 Laboratory Results Abnormal Labs 12/15/24 12/15/24 12/15/24 10:35 18:00 19:43 RBC 4.62 L Hgb 9.3 L Hct 34.7 L MCV 75.1 L MCH 20.1 L MCHC 26.8 L RDW Std Deviation 55.8 H RDW Coeff of Laurie 22.0 H Lymph # (Auto) 0.58 L PT 13.2 H INR 1.2 H Carbon Dioxide BUN 26 H Glucose 159 H POC Glucose 116 H Hemoglobin A1c Magnesium 1.4 L Troponin I High Sens B-Natriuretic Peptide 352 H Urine Blood Trace H Urine RBC (Auto) 6-10 H 12/15/24 12/16/24 12/16/24 22:30 04:43 07:50 RBC 4.38 L Hgb 9.0 L Hct 32.1 L MCV 73.3 L MCH 20.5 L MCHC 28.0 L RDW Std Deviation 53.5 H RDW Coeff of Laurie 21.7 H Lymph # (Auto) PT INR Carbon Dioxide 35 H BUN Glucose POC Glucose Hemoglobin A1c 5.8 H Magnesium Troponin I High Sens 21.0 H 20.2 H B-Natriuretic Peptide Urine Blood Urine RBC (Auto) PG Care Time/CCT Total # of Minutes Spent Total Time Spent with Patient: Total time spent is greater than 50% in coordination of care (as documented) at patient's floor/unit and/or counseling patient: Coding Level of Care Code 48308 SUB INP/OBS CARE 2/35MIN Diagnoses Chronic obstructive pulmonary disease J44.9 Hyperlipidemia E78.5 Hypertension I10 Hypertension type: unspecified Pleural effusion J90 Acute CHF I50.31 Heart failure type: diastolic Acute hypoxemic respiratory failure J96.01 Hypomagnesemia E83.42 (3) Hypertension Hypertension type: unspecified Qualified Code(s): I10 - Essential (primary) hypertension (5) Acute CHF Heart failure type: diastolic Qualified Code(s): I50.31 - Acute diastolic (congestive) heart failure
--- NOTE | 2024-12-16 11:05 | Pharmacy Report ---
Pharmacy Glycemic Short Note 2 - Date of Service December 16, 2024 - Glycemic Short BSG Results (Last 24 hours): 12/15/24 12/15/24 12/16/24 10:35 19:43 07:27 Glucose 159 H POC Glucose 116 H 89 12/16/24 07:50 Glucose 83 POC Glucose OUTPATIENT ANTIDIABETIC REGIMEN: * Lantus 30 units SC qAM * Metformin * Ozempic A1c = 5.8% ASSESSMENT: * John is a 73 yo M T2DM who presents with worsening dyspnea, suspected CHF exacerbation. * Patient is maintained on basal insulin + metformin + GLP1 as outpatient with excellent glycemic control as evidenced by A1c of 5.8%. 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 Fasting BSG of 89 mg/dL today. Dose will be reduced by ~33% until additional BSG data is available. * Novolog parameters based on anticipated need of ~50-60 units of insulin per day. PLAN FOR INPATIENT GLYCEMIC CONTROL: * Hold outpatient oral diabetes medications * Basal insulin * Lantus 20 units SQ daily * Bolus insulin * NovoLog per scale ACHS or Q6hrs while NPO * Goal Range: Low 110 mg/dL - High 140 mg/dL * Correction Factor: 30 mg/dL/unit * Nutritional / Prandial insulin per carb ratio of 1 unit per 10 grams CHO consumed
--- NOTE | 2024-12-16 12:05 | Pharmacy Report ---
Pharmacy Glycemic Short Note 2 - Date of Service December 16, 2024 - Glycemic Short BSG Results (Last 24 hours): 12/15/24 12/16/24 12/16/24 19:43 07:27 07:50 Glucose 83 POC Glucose 116 H 89 12/16/24 11:23 Glucose POC Glucose 107 H OUTPATIENT ANTIDIABETIC REGIMEN: * Lantus 30 units SC qAM * Metformin * Ozempic A1c = 5.8% ASSESSMENT: * John is a 73 yo M T2DM who presents with worsening dyspnea, suspected CHF exacerbation. * Patient is maintained on basal insulin + metformin + GLP1 as outpatient with excellent glycemic control as evidenced by A1c of 5.8%. * Patient took home dose of Lantus 30 units BLOCK INSPECTOR on 8 AM. Fasting BSG of 89 mg/dL today. Dose will be reduced by ~33% until additional BSG data is available. * Novolog parameters based on anticipated need of ~50-60 units of insulin per day. Lunch BSG of 107 mg/dL. Will loosen carb ratio. PLAN FOR INPATIENT GLYCEMIC CONTROL: * Hold outpatient oral diabetes medications * Basal insulin * Lantus 20 units SQ this AM * Lantus 15-20 units SQ qAM starting tomorrow - 15 units for BSG < 140 mg/dL * Bolus insulin * NovoLog per scale ACHS or Q6hrs while NPO * Goal Range: Low 110 mg/dL - High 140 mg/dL * Correction Factor: 30 mg/dL/unit * Nutritional / Prandial insulin per carb ratio of 1 unit per 15 grams CHO consumed
--- NOTE | 2024-12-16 18:09 | XCELERA ---
[id number]
[2024-12-17 06:32] LABS: Hematocrit (blood only) 36.5 % (42.0-52.0); Hemoglobin 10.3 g/dl (14.0-18.0); Mean Corpuscular Hemoglobin 20.9 pg (25.0-34.0); Mean Corpuscular Volume 74.0 fL (80.0-100.0); Platelet Count 335 K/uL (130-400); RDW Standard Deviation 55.6 fL (36.4-46.3); Red Blood Count 4.93 M/uL (4.70-6.10); White Blood Count 9.13 K/ul (4.8-10.8)
[2024-12-17 07:06] LABS: Alanine Aminotransferase 25.0 U/L (7-52); Albumin Globulin Ratio 1.4 (0.9-2); Alkaline Phosphatase 66.0 U/L (34-104); Anion Gap 6.0 (3-11); Bilirubin,Total 0.9 mg/dl (0.2-1.0); Blood Urea Nitrogen 16.0 mg/dl (6-23); Calcium 8.8 mg/dl (8.6-10.3); Carbon Dioxide 39.0 mmol/L (21-32); Chloride 94.0 mmol/L (98-107); Creatinine Clr Calc Pharmacy 58.3 ml/min; Globulin 3.0 gm/dl (2.5-4.0); Glucose 97.0 mg/dl (70-99(Fasting)); Potassium 4.1 mmol/L (3.5-5.1); Sodium 139.0 mmol/L (136-145); Total Protein 7.1 gm/dl (6.0-8.3)
[2024-12-17] MEDS: LANTUS PER UNIT CHARGE SC SCH (08:47)
[2024-12-17] MEDS: acetaZOLAMIDE 250 MG in SYRINGE 0 ML IV STA (08:51)
--- NOTE | 2024-12-17 10:31 | Pharmacy Report ---
Pharmacy Glycemic Short Note 2 - Date of Service December 17, 2024 - Glycemic Short BSG Results (Last 24 hours): 12/16/24 12/16/24 12/16/24 11:23 16:22 20:10 Glucose POC Glucose 107 H 157 H 116 H 12/17/24 12/17/24 05:48 07:33 Glucose 97 POC Glucose 110 H OUTPATIENT ANTIDIABETIC REGIMEN: * Lantus 30 units SC qAM * Metformin * Ozempic A1c = 5.8% ASSESSMENT: 12/17 * Patient received total of 27 units of insulin yesterday, of which 20 units were basal insulin * Fasting BSG 97 mg/dL - despite reduction in basal, fasting BSG this AM remains unchanged. Reasonable to continue with basal scale for this AM * No change to CF/CR 12/16 * John is a 73 yo M T2DM who presents with worsening dyspnea, suspected CHF exacerbation. * Patient is maintained on basal insulin + metformin + GLP1 as outpatient with excellent glycemic control as evidenced by A1c of 5.8%. 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 Fasting BSG of 89 mg/dL today. Dose will be reduced by ~33% until additional BSG data is available. * Novolog parameters based on anticipated need of ~50-60 units of insulin per day. Lunch BSG of 107 mg/dL. Will loosen carb ratio. PLAN FOR INPATIENT GLYCEMIC CONTROL: * Hold outpatient oral diabetes medications * Basal insulin * Lantus 15-20 units SQ qAM * Bolus insulin * NovoLog per scale ACHS or Q6hrs while NPO * Goal Range: Low 110 mg/dL - High 140 mg/dL * Correction Factor: 30 mg/dL/unit * Nutritional / Prandial insulin per carb ratio of 1 unit per 15 grams CHO consumed
--- NOTE | 2024-12-17 11:32 | Hospitalist Progress Note ---
Date of Service December 17, 2024 Assessment & Plan (1) Chronic obstructive pulmonary disease: (2) Hyperlipidemia: (3) Hypertension: (4) Pleural effusion: (5) Acute CHF: (6) Acute hypoxemic respiratory failure: (7) Hypomagnesemia: Plan 73 male Diastolic CHF, COPD on 2 L at bedtime and as needed when ambulating, hypertension, hyperlipidemia,PAD, Diabetes type 2, A-fib on Eliquis (stopped taking Eliquis approximately 2 weeks [employer] for colonoscopy and for unclear reason has not resumed since), BPH, WILLEM Anxiety depression as well as extensive history listed below who presents with worsening dyspnea on exertion and now at rest over the past few days. Reportedly he had a chest x-ray done on 12/10 that demonstrated mild heart failure and per report by ED provider was not placed on diuretics or any other medications at that time. Worked up in ED here with impression of CHF exacerbation and was given Lasix 40 IV x 1 and a gram of magnesium. Acute CHF exacerbation CHF protocol orders IV Lasix 40 twice daily TTE Decreased RV and LV function and reduced EF, moderate TR, questionable aortic stenosis? TFTs wnl GDMT per cardiology Awaiting cardiology consultation Acute on chronic hypoxic respiratory failure Wean O2 sat goal 88-94 History A-fib Jesica control. Eliquis. Diabetes type 2 Hold oral hypoglycemics Short and long-acting insulin WILLEM Hb goal greater than 8 Continue iron therapy. Due next for IV Venofer this Friday per patient Hypertension Home medications Hyperlipidemia Home statin Deconditioning PT OT DVT prophylaxis Full code Disposition Discharge home in 1 to 2 days Once cleared by cardiology Admission and Anticipated Discharge Date Admission Date: December 15, 2024 Subjective Continues to improve breathing improving really wants to go home. He tells me he may leave AMA we discussed extensively risks associated with doing so. We discussed echo findings and need for cardiology evaluation. Remains net negative fluid balance and weight nicely coming down RN at bedside. She tells me she reached out to cardiology this morning Review of Systems Review of Systems: Negative except as in HPI Physical Exam Physical Exam: General: Patient in no acute distress. HEENT: Head is atraumatic, normocephalic. EOM's intact. Sclerae anicteric. Facies symmetric. No perioral cyanosis. Neck: No JVD. JVP is not elevated. Carotid upstrokes +2 bilaterally. No bruits. Chest and Lungs: Air entry bilaterally CVS: S1 and S2 Positive Extremities: Palpable pulses. Positive edema Neurologic Exam: Patient is awake, alert, and oriented. Pleasant and cooperative. Answers questions appropriately. Speech is clear. Results & Data Results & Data Vital Signs (Past 12 Hours) Vital Signs Temp Pulse Resp BP Pulse Ox O2 Del Method O2 Flow Rate 12/17/24 10:51 36.7 C 95 H 18 123/73 96 Nasal Cannula 3 12/17/24 08:05 36.8 C 95 H 18 135/78 94 Room Air 12/17/24 08:00 Nasal Cannula 3 12/17/24 02:40 36.6 C 87 18 132/75 91 Nasal Cannula 3 Laboratory Results Abnormal Labs 12/15/24 12/15/24 12/15/24 10:35 18:00 19:43 RBC 4.62 L Hgb 9.3 L Hct 34.7 L MCV 75.1 L MCH 20.1 L MCHC 26.8 L RDW Std Deviation 55.8 H RDW Coeff of Laurie 22.0 H Lymph # (Auto) 0.58 L PT 13.2 H INR 1.2 H Chloride Carbon Dioxide BUN 26 H Glucose 159 H POC Glucose 116 H Hemoglobin A1c Magnesium 1.4 L Troponin I High Sens B-Natriuretic Peptide 352 H Urine Blood Trace H Urine RBC (Auto) 6-10 H 12/15/24 12/16/24 12/16/24 22:30 04:43 07:50 RBC 4.38 L Hgb 9.0 L Hct 32.1 L MCV 73.3 L MCH 20.5 L MCHC 28.0 L RDW Std Deviation 53.5 H RDW Coeff of Laurie 21.7 H Lymph # (Auto) PT INR Chloride Carbon Dioxide 35 H BUN Glucose POC Glucose Hemoglobin A1c 5.8 H Magnesium Troponin I High Sens 21.0 H 20.2 H B-Natriuretic Peptide Urine Blood Urine RBC (Auto) 12/16/24 12/16/24 12/16/24 11:23 16:22 20:10 RBC Hgb Hct MCV MCH MCHC RDW Std Deviation RDW Coeff of Laurie Lymph # (Auto) PT INR Chloride Carbon Dioxide BUN Glucose POC Glucose 107 H 157 H 116 H Hemoglobin A1c Magnesium Troponin I High Sens B-Natriuretic Peptide Urine Blood Urine RBC (Auto) 12/17/24 12/17/24 12/17/24 05:48 07:33 11:10 RBC Hgb 10.3 L Hct 36.5 L MCV 74.0 L MCH 20.9 L MCHC 28.2 L RDW Std Deviation 55.6 H RDW Coeff of Laurie 22.5 H Lymph # (Auto) PT INR Chloride 94 L Carbon Dioxide 39 H BUN Glucose POC Glucose 110 H 126 H Hemoglobin A1c Magnesium Troponin I High Sens B-Natriuretic Peptide Urine Blood Urine RBC (Auto) PG Care Time/CCT Total # of Minutes Spent Total Time Spent with Patient: Total time spent is greater than 50% in coordination of care (as documented) at patient's floor/unit and/or counseling patient: Coding Level of Care Code 78565 SUB INP/OBS CARE 2MIN Diagnoses Chronic obstructive pulmonary disease J44.9 Hyperlipidemia E78.5 Hypertension I10 Hypertension type: unspecified Pleural effusion J90 Acute CHF I50.31 Heart failure type: diastolic Acute hypoxemic respiratory failure J96.01 Hypomagnesemia E83.42 (3) Hypertension Hypertension type: unspecified Qualified Code(s): I10 - Essential (primary) hypertension (5) Acute CHF Heart failure type: diastolic Qualified Code(s): I50.31 - Acute diastolic (congestive) heart failure
--- NOTE | 2024-12-17 11:48 | Cardiology Consultation ---
Date of Consultation December 17, 2024 Assessment & Plan (1) Acute on chronic diastolic (congestive) heart failure: -EF is now 30 to 35% which is reduced from previously. He has responded appropriately to IV Lasix; continue for now this with recording I/O and daily weights. - Initial chest imaging + for pulm congestion and effusion. Repeat CXR - GDMT; continue irbesartan; given he is on this an MRA is not appropriate. He has had reactions to SGLT2 in the past. Will start on Coreg 6.25mg BID. Place on 20mg Lasix every other day for one week at [place]. - Repeat CXR - Follow up with me next week. - He is ordered his first dose of Coreg now. As long as his heart rate remains appropriate he is okay from a cardiology stand point for [place] later today. (2) Atrial flutter, chronic: - his rate is relatively controlled at this point. He should remain on Eliquis and diltiazem at this time. Supervising Physician Co-Signing Physician Notes History and plan reviewed in detail with Carolynn Thakur. He appears to have a recent reduction in his left ventricular function, the reason is not clear. I agree with altering his heart failure regimen, he is hypotensive so we cannot rapidly titrate his medications. Start carvedilol now and titrate with close outpatient follow-up, we can schedule this for next week. History of Present Illness Attending Physician: Jaycee Kumar MD History of Present Illness John is a 73-year-old male with a history of Persistent Atrial Flutter, Type 2 Diabetes Mellitus w/ insulin dependence, Dyslipidemia, Hypertension, COPD / Emphysema with o2 dependence (though he does not wear it in public), Obesity, Tubulovillous Adenoma s/p Surgical Intervention, Colonic Polyps, PAD with RLE Claudication, and Paroxysmal Atrial Fibrillation (1 documented episode 11/25/2017 when he was acutely ill with a UTI) who presented to the ER with significant valentine rtness of breath. Patient has told me that he has had this ongoing issue with shortness of breath for over a year though it had gotten much worse over the last two weeks. John tells me that he has not been able to lay flat and walking short distances ( 20 ft) would cause him to be SOB enough to take 5 minute breaks before proceeding. Most recently, he became SOB while shaving. He has not experienced any chest discomfort or dizziness. He denies any swelling to his lower extemities. His echocardiogram reveals a reduced EF of 30 to 35%, mild LVH and moderate global hypokinesis of the LV. He has a moderate to severely dilated right atrium with mild pulmonary mitral regurgitation and moderate tricuspid regurgitation. His troponin on admission was negative. Admitting EKG revealed his known aflutter with a variable AV block. His initial troponin was 21 followed by 17.5. John was placed on IV lasix and has responded nicely; admitting weight 95.9kg with today's as 91.6. He states that he feels the best he has felt in a long while. ROS negative. He has been ambulating the halls with out any SOB. He is currently on 2L which is what he wears at home. Allergies Allergy/AdvReac Type Severity Reaction Status Date / Time empagliflozin Allergy Severe Penile Verified 12/15/24 14:21 [From Jardiance] edema Home Medications Medication Instructions Recorded Confirmed Type acetaminophen 325 mg tablet 975 mg PO Q6H PRN Pain 07/24/22 12/15/24 History blood-glucose meter (OneTouch #1 ea 08/03/22 11/03/24 Rx Verio Flex Meter) mecobalamin (vitamin B12) 500 mcg 500 mcg PO QAM 02/17/23 12/15/24 History chewable tablet lancets 30 gauge #300 ea 03/13/23 11/03/24 Rx pen needle, diabetic 31 gauge x #200 ea 10/21/23 11/03/24 Rx 5/16" (Unifine Pentips Plus) OneTouch Verio test strips (blood #300 ea 04/22/24 11/03/24 Rx sugar diagnostic) OneTouch Delica Plus Lancing #1 ea 09/15/24 11/03/24 Rx Device kit (lancing device with lancets) sildenafil 100 mg tablet (Viagra) 100 mg PO DAILY PRN sexual 09/22/24 12/15/24 Rx activity #20 tabs insulin glargine 100 unit/mL (3 30 unit (0.3 mL) subcut QAM #45 mL 11/11/24 12/15/24 Rx mL) subcutaneous pen (Lantus Solostar U-100 Insulin) apixaban 5 mg tablet (Eliquis) 0 mg PO BID 12/15/24 12/15/24 History atorvastatin 80 mg tablet 80 mg PO QPM 12/15/24 12/15/24 History cholecalciferol (vitamin D3) 1,250 50,000 unit PO WK 12/15/24 12/15/24 History mcg (50,000 unit) capsule diltiazem HCl 360 mg 360 mg PO QPM 12/15/24 12/15/24 History capsule,extended release 24 hr escitalopram oxalate 20 mg tablet 20 mg PO QAM 12/15/24 12/15/24 History fluticasone fur. 200 mcg-umeclid 1 inh inhalation QAM 12/15/24 12/15/24 History 62.5 mcg-vilant 25 mcg inhalat.powder (Trelegy Ellipta) irbesartan 75 mg tablet 75 mg PO QPM 12/15/24 12/15/24 History lorazepam 0.5 mg tablet 0.5 - 1 mg PO BID PRN anxiety 12/15/24 12/15/24 History metformin 500 mg tablet,extended 1,000 mg PO BID 12/15/24 12/15/24 History release 24 hr multivitamin 1 tab PO QAM 12/15/24 12/15/24 History semaglutide 2 mg/dose (8 mg/3 mL) 2 mg subcut WK 12/15/24 12/15/24 History subcutaneous pen injector (Ozempic) tadalafil 5 mg tablet 5 mg PO QAM 12/15/24 12/15/24 History carvedilol 6.25 mg tablet 6.25 mg PO BIDM #60 tabs 12/17/24 Rx furosemide 20 mg tablet (Lasix) 20 mg PO Q OTHER DAY #30 tabs 12/17/24 Rx Patient History Medical History Hypoxia Acute respiratory failure with hypoxia CAP (community acquired pneumonia) ANGELA (acute kidney injury) Postnasal drip Sleep disturbances Snoring Rectal mass BENIGN Diabetes mellitus, type [address] fibrillation FOLLOWS WITH DR[address] RAMIREZ Hypertension Hyperlipidemia Chronic obstructive pulmonary disease Surgical History History of anesthesia reaction COLON SURGERY AT [facility], [facility] History of colonoscopy History of reversal of ileostomy History of tonsillectomy and adenoidectomy History of low anterior resection of rectum History of laparotomy History of colon surgery History of creation of ostomy AND REVERSAL History of tooth extraction Family History Father Family history of diabetes mellitus Brother Family history of diabetes mellitus Cardiac disorder Unknown Diabetes Mother Cardiac disorder Cancer Other BPH with obstruction/lower urinary tract symptoms Denies family history of Ovarian cancer Prostate cancer Myocardial infarction Breast cancer Colorectal cancer Social History Smoking Status: Former smoker Tobacco Type: Cigarettes Age Started Using Tobacco: 18; Age Quit Using Tobacco: 57; packs per day: 1; Smoking End Date: 18 years ago; Second Hand Exposure: No; Do You Dip or Chew Tobacco: No; Tobacco Cessation Education Requested by Patient: No Hx Alcohol Use: No Hx Substance Use: No Preferred Language: Bermudian Communication Ability: Effective Visual Impairment: Limited Hearing Ability: Normal Heel Scorer Required: No Beliefs That Will Affect Care: None marital status: Single Current Living Situation: Alone current occupational status: retired How many Children do You have: 0 Other Information That Helps Us Care for You: No Feels Safe at Home: Yes Safety Concerns: Feels Safe At This Time Childhood Exposure to Second-Hand Smoke: Yes Diet: regular caffeine: Yes during the past year weight has: remained stable Dental Care, Regularly: No Physical Activity Frequency: Does not Exercise Seatbelt Use: sometimes Sunscreen Use: No Do you think of yourself as: straight/heterosexual Sexual Activity: has been sexually active within the last 12 months Gender Identity: Male Assistive Devices: Oxygen - Continuous Assistive Devices Comment: Patient states he has his two contacts in that he sleeps in/wears monthly Review of Systems Review of Systems: as per hpi Physical Exam Physical Exam: Physical Exam: AOx3. Mood affect appear normal. All questions appropriately. HEENT: Sclerae are anicteric. Pupils are equal and reactive to light and accommodation. Extraocular movements were intact. Neuro: Cranial nerves intact Lungs: Mild expiratory wheezing is present to bilateral lung meneses. No accessory muscle use. Cardiac: Regularly irregular. There are no murmurs on examination. The PMI was not markedly displaced on palpation. Moderate JVD is present at a 45 degree angle. Extremities: Patient has bilateral radial pulses that are equal in intensity. There is no evidence cyanosis or clubbing. There was no evidence of significant peripheral edema bilaterally. Skin: There are no rashes noted on examination today. Results & Data Vital Signs (Past 12 Hours) Vital Signs Temp Pulse Resp BP Pulse Ox O2 Del Method O2 Flow Rate 12/17/24 10:51 36.7 C 95 H 18 123/73 96 Nasal Cannula 3 12/17/24 08:05 36.8 C 95 H 18 135/78 94 Room Air 12/17/24 08:00 Nasal Cannula 3 12/17/24 02:40 36.6 C 87 18 132/75 91 Nasal Cannula 3 PG Care Time/CCT Total # of Minutes Spent Total Time Spent with Patient: Total time spent is greater than 50% in coordination of care (as documented) at patient's floor/unit and/or counseling patient: [place] [address] IN/OBS CONSULT LVL 3,45M Patient Type New Diagnoses Acute on chronic diastolic (congestive) heart failure I50.33 Atrial flutter, chronic I48.92
--- NOTE | 2024-12-17 13:42 | XRay Report ---
XR chest 2V PA/lateral CLINICAL HISTORY: CHF COMPARISON STUDY: 12/15/2024 FINDINGS: There is stable mild cardiomegaly with mild pulmonary vascular congestion. There is mild bl unting of the posterior costophrenic sulcus on the lateral view consistent with trace pleural effusio ns. No consolidation or pleural effusion otherwise. No pneumothorax. IMPRESSION: Stable mild CHF. ACT 112: Negative or not required by law. Electronically signed by: John Cooper M.D. 12/17/2024 1:41 PM
--- NOTE | 2024-12-17 15:25 | Electrocardiogram Report ---
Test Reason : Blood Pressure : */* mmHG Vent. Rate : 95 BPM Atrial Rate : 285 BPM P-R Int : * ms QRS Dur : 90 ms QT Int : 364 ms P-R-T Axes : 266 59 264 degrees QTcB Int : 457 ms Atrial flutter with 3:1 A-V conduction Abnormal ECG When compared with ECG of 15-Dec-2024 10:31, (unconfirmed) QRS voltage has increased Confirmed by Jarrod Moe ([id number]) on 12/17/2024 3:25:16 PM Referred By: REFERRED SELF Confirmed By: Jarrod Moe
[2024-12-18 06:57] LABS: Hematocrit (blood only) 37.3 % (42.0-52.0); Hemoglobin 10.2 g/dl (14.0-18.0); Mean Corpuscular Hemoglobin 20.4 pg (25.0-34.0); Mean Corpuscular Volume 74.7 fL (80.0-100.0); Platelet Count 275 K/uL (130-400); RDW Standard Deviation 58.0 fL (36.4-46.3); Red Blood Count 4.99 M/uL (4.70-6.10); White Blood Count 7.28 K/ul (4.8-10.8)
[2024-12-18 07:34] LABS: Alanine Aminotransferase 24.0 U/L (7-52); Albumin Globulin Ratio 1.2 (0.9-2); Alkaline Phosphatase 66.0 U/L (34-104); Anion Gap 4.0 (3-11); Bilirubin,Total 0.6 mg/dl (0.2-1.0); Blood Urea Nitrogen 26.0 mg/dl (6-23); Calcium 8.8 mg/dl (8.6-10.3); Carbon Dioxide 36.0 mmol/L (21-32); Chloride 97.0 mmol/L (98-107); Creatinine Clr Calc Pharmacy 50.1 ml/min; Globulin 3.0 gm/dl (2.5-4.0); Glucose 122.0 mg/dl (70-99(Fasting)); Potassium 4.5 mmol/L (3.5-5.1); Sodium 137.0 mmol/L (136-145); Total Protein 6.7 gm/dl (6.0-8.3)
[2024-12-18] MEDS: CHOLECALCIFEROL 125 MCG (5,000 UNITS) TAB PO SCH (08:04)
[2024-12-18 08:57] VITALS: TEMP 97.9
--- NOTE | 2024-12-18 09:01 | Electrocardiogram Report ---
Test Reason : Blood Pressure : */* mmHG Vent. Rate : 115 BPM Atrial Rate : 286 BPM P-R Int : * ms QRS Dur : 90 ms QT Int : 380 ms P-R-T Axes : 193 90 227 degrees QTcB Int : 525 ms Atrial flutter with variable A-V block Indeterminate axis Cannot rule out Inferior infarct , age undetermined Abnormal ECG When compared with ECG of 19-Feb-2024 10:22, QRS voltage has decreased T wave inversion now evident in Anterolateral leads Confirmed by Jarrod Moe ([id number]) on 12/18/2024 9:01:01 AM Referred By: REFERRED SELF Confirmed By: Jarrod Moe
--- NOTE | 2024-12-18 10:32 | Discharge Summary ---
Discharge Summary Date of Service December 18, 2024 Principal Dx & Hospital Course #1 = Principal Diagnosis (1) Chronic obstructive pulmonary disease: (2) Hyperlipidemia: (3) Hypertension: (4) Pleural effusion: (5) Acute CHF: (6) Acute hypoxemic respiratory failure: (7) Hypomagnesemia: Plan Subjective Doing very well eating and ambulating. Remains at baseline O2. Cardiology cleared patient yesterday for discharge. Remains net negative and weights keep coming down. IV Lasix held this morning as creatinine bumped likely over diuresed. Discussed with patient importance of close follow-up and strict return precautions and to have his blood work rechecked in a few days to monitor his kidney function. A two-step test was done here for oxygen requirements for his 3L 02 at home Plan 73 male Diastolic CHF, COPD on 2 L at bedtime and as needed when ambulating, hypertension, hyperlipidemia,PAD, Diabetes type 2, A-fib on Eliquis (stopped taking Eliquis approximately 2 weeks [employer] for colonoscopy and for unclear reason has not resumed since), BPH, WILLEM Anxiety depression as well as extensive history listed below who presents with worsening dyspnea on exertion and now at rest over the past few days. Reportedly he had a chest x-ray done on 12/10 that demonstrated mild heart failure and per report by ED provider was not placed on diuretics or any other medications at that time. Worked up in ED here with impression of CHF exacerbation and was given Lasix 40 IV x 1 and a gram of magnesium. Acute CHF exacerbation CHF protocol orders IV Lasix 40 twice daily TTE Decreased RV and LV function and reduced EF, moderate TR, questionable aortic stenosis? TFTs wnl GDMT per cardiology Carvedilol added. Switch from IV Lasix to 20 q. other day per cardiology. They cleared for discharge outpatient follow-up Acute on chronic hypoxic respiratory failure resolved Wean O2 sat goal [id number] History A-fib Jesica control. Eliquis. Diabetes type 2 Hold oral hypoglycemics Short and long-acting insulin WILLEM Hb goal greater than 8 Continue iron therapy. Due next for IV Venofer this Friday per patient Hypertension Home medications Hyperlipidemia Home statin Deconditioning PT OT DVT prophylaxis Full code Disposition Discharge home Admission HPI Per Admitting Provider 73 male Diastolic CHF, COPD on 2 L at bedtime and as needed when ambulating, hypertension, hyperlipidemia,PAD, Diabetes type 2, A-fib on Eliquis (stopped taking Eliquis approximately 2 weeks [employer] for colonoscopy and for unclear reason has not resumed since), BPH, WILLEM Anxiety depression as well as extensive history listed below who presents with worsening dyspnea on exertion and now at rest over the past few days. Reportedly he had a chest x-ray done on 12/10 that demonstrated mild heart failure and per report by ED provider was not placed on diuretics or any other medications at that time. Worked up in ED here with impression of CHF exacerbation and was given Lasix 40 IV x 1 and a gram of magnesium. He denies any other symptoms. No chest pain orthopnea fevers chills cough nausea lightheadedness diaphoresis or any other symptoms. Discussed with ED Provider Awaiting completion of home med rec Discharge Exam General: Patient in no acute distress. HEENT: Head is atraumatic, normocephalic. EOM's intact. Sclerae anicteric. Facies symmetric. No perioral cyanosis. Neck: No JVD. JVP is not elevated. Carotid upstrokes +2 bilaterally. No bruits. Chest and Lungs: Air entry bilaterally CVS: S1 and S2 Positive Extremities: Palpable pulses. Positive edema Neurologic Exam: Patient is awake, alert, and oriented. Pleasant and cooperative. Answers questions appropriately. Speech is clear. Discharge Plan Discharge Items Patient Disposition: Home - Self-Care Reason For Visit: CHF Discharge Diagnosis: chf Condition on Discharge: Good Activity: Resume your previous activity Non-emergency contact: Primary Care Provider and Cane Furniture Maker Call non-emergency contact if: you have any medication questions and your symptoms worsen Follow-up/Referrals: Kenia Cesar MD [Primary Care Provider] - Diet: Heart Healthy, Low Fat and Low Sodium (2gm) Addtl Attending Provider Instructions: Follow-up with primary care doctor and defect repairer glassware within 1 week. Cardiology is considering a stress test as outpatient. need to Keep your oxygen on at all times especially while driving! Monitor your blood pressure closely at home. As we discussed monitor your daily weights and for swelling in your legs And if increases call your doctor right away to have your Lasix adjusted Recheck your blood work through primary doctor in a few days to monitor your kidney function and electrolytes Pending Studies at Discharge: No Stand-Alone Forms: My [facility] [place], Smoking Cessation Medications and DC Order Prescriptions: New carvedilol 6.25 mg Tablet 6.25 mg PO BIDM Qty: 60 0RF furosemide [Lasix] 20 mg tablet 20 mg PO Q OTHER DAY Qty: 30 0RF Continued (DME) blood-glucose meter [OneTouch Verio Flex meter] Misc See Rx Instructions .Route Qty: 1 0RF Rx Instructions: As directed (DME) lancets 30 gauge misc See Rx Instructions .Route Qty: 300 3RF Rx Instructions: Test blood sugars three times a day - OneTouch Delica (DME) pen needle, diabetic [Unifine Pentips Plus] 31 gauge x 5/16" needle See Rx Instructions .Route Qty: 200 3RF Rx Instructions: Use two per day with insulin injections (DME) OneTouch Verio test strips Strip See Rx Instructions .ROUTE .MEDSUPPLY Qty: 300 3RF Rx Instructions: Test blood sugars three times a day ([facility]) lancing device with lancets [OneTouch Delica Plus Lanc Dev] Kit See Rx Instructions .Route Qty: 1 0RF Rx Instructions: use to test 1 time daily sildenafil [Viagra] 100 mg tablet 100 mg PO DAILY PRN (Reason: sexual activity) Qty: 20 5RF Rx Instructions: administer 1 hour before activity. insulin glargine [Lantus Solostar U-100 Insulin] 100 unit/mL (3 mL) insulin pen 30 unit SQ QAM Qty: 45 3RF acetaminophen 325 mg tablet 975 mg PO Q6H PRN (Reason: Pain) mecobalamin (vitamin B12) 500 mcg tablet,chewable 500 mcg PO QAM cholecalciferol (vitamin D3) 1,250 mcg (50,000 unit) capsule 50,000 unit PO WK Rx Instructions: Friday Trelegy Ellipta 200-62.5-25 mcg blister with device 1 inh INHALATION QAM multivitamin Tablet 1 tab PO QAM atorvastatin 80 mg tablet 80 mg PO QPM diltiazem HCl 360 mg capsule,extended release 24hr 360 mg PO QPM lorazepam 0.5 mg tablet 0.5 - 1 mg PO BID PRN (Reason: anxiety) Rx Instructions: take as needed for anxiety irbesartan 75 mg tablet 75 mg PO QPM Rx Instructions: TAKE ONE TABLET BY MOUTH EVERY DAY metformin 500 mg tablet extended release 24 hr 1,000 mg PO BID escitalopram oxalate 20 mg tablet 20 mg PO QAM tadalafil 5 mg tablet 5 mg PO QAM Eliquis 5 mg tablet 0 mg PO BID Patient Comments: Per patient, this is currently on hold until next appointment. Original Directions: 5mg by mouth twice daily - 12/15/24 Ozempic 2 mg/dose (8 mg/3 mL) pen injector 2 mg subcut WK Rx Instructions: INJECT 2MG ONCE PER WEEK. - friday Discharge Orders: Discharge Order (Routine); Ordered 12/18/24 Ordered By: Jaycee Kumar Admission Data Admit Date/Time: 12/15/24 14:47 Attending Provider: Jaycee Kumar Admit Provider: Jaycee Kumar Primary Care Provider: Kenia Cesar Other Providers: Debbi Bailon; Asael Ugarte; Horacio Oliva; Matty Burns; Jarrod Moe; Jero Cedeno Jr; Anjel Palmer; Elidia Diaz; Dilcia Mo; Star Hogan; Star Jim; Tung Valencia; Karli Reich; Tung Luis; Jeison Benedict; Luis Zepeda; Prashant Allen; Colby Funes; Jace Sandy; Carolynn Thakur Hospital Stay Data Consultations 12/15/24 13:59 [facility] CHF Program Referral Routine 12/15/24 14:02 Consult Cardiology Routine Diagnostic Imagining Performed 12/15/24 10:34 CT angio chest PE protocol Stat Pending Results Patient Have Any Pending Studies at Discharge: No Discharge Instructions Given to Patient (Per Discharging Provider) Follow-up with primary care doctor and defect repairer glassware within 1 week. Cardiology is considering a stress test as outpatient. need to Keep your oxygen on at all times especially while driving! Monitor your blood pressure closely at home. As we discussed monitor your daily weights and for swelling in your legs And if increases call your doctor right away to have your Lasix adjusted Recheck your blood work through primary doctor in a few days to monitor your kidney function and electrolytes Total Time Total Time Spent Total Time Spent (In Minutes): 35 Coding Level of Care Code 21325 INP/OBS DISCH >30 MIN Diagnoses Chronic obstructive pulmonary disease J44.9 Hyperlipidemia E78.5 Hypertension I10 Hypertension type: unspecified Pleural effusion J90 Acute CHF I50.31 Heart failure type: diastolic Acute hypoxemic respiratory failure J96.01 Hypomagnesemia E83.42
[2024-12-18 11:16] VITALS: BP 95/60; PULSE 92; RESP 20; O2SAT 92
[2024-12-21] MEDS ORDERED: IRON SUCROSE 300 MG in SODIUM CHLORIDE 0.9% 250 ML IV ONE (09:00)
== END 2024-12-18 11:59 | disposition home health service (06) | DRG 291 ==
LOC: ED 10:00 → EDINP 14:12 → 2S 17:42